=== PATIENT | female | born 1945 | race Caucasian/White ===

== ENCOUNTER 2024-06-24 15:52 | Inpatient (IN) ==
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
--- NOTE | 2024-06-24 16:40 | CT Scan Report ---
CT OF THE HEAD WITHOUT CONTRAST CLINICAL HISTORY: Altered mental status. COMPARISON STUDY: No previous studies for comparison. CT DOSE: 547.75 mGy.cm TECHNIQUE: Helical axial images of the head were obtained without IV contrast. Automated exposure con trol was utilized for the study. A dose lowering technique was utilized adhering to the principles o f ALARA. FINDINGS: No acute intracranial hemorrhage, midline shift or mass effect is present. White matter hyp odensity suggests small vessel disease. The ventricular system is unremarkable. The basal cisterns ar e patent. No extra-axial collections are present. There are no findings to suggest acute dural sinus thrombosis or acute territorial infarct. No significant calvarial abnormalities are present. Visualiz ed portions of the sinuses and mastoid air cells are clear. IMPRESSION: No acute intracranial findings. ACT 112: Negative or not required by law. Electronically signed by: Sebastian Dolan M.D. 06/24/2024 4:39 PM
[2024-06-24 17:07] LABS: Alanine Aminotransferase 4 U/L (7-52); Albumin Globulin Ratio 1.3 (0.9-2); Albumin Level 3.5 gm/dl (3.4-5.0); Alkaline Phosphatase 56 U/L (34-104); Anion Gap 9 (3-11); BUN Creatinine Ratio 31.1 (10-20); Bilirubin,Total 0.3 mg/dl (0.2-1.0); Blood Urea Nitrogen 23 mg/dl (6-23); Calcium 8.9 mg/dl (8.6-10.3); Carbon Dioxide 24 mmol/L (21-32); Chloride 105 mmol/L (98-107); Creatinine Clr Calc Pharmacy 56.4 ml/min; Est GFR (African American) 89.9 ml/min; Est GFR (Non-African American) 77.6 ml/min; Globulin 2.7 gm/dl (2.5-4.0); Glucose 190 mg/dl (70-99(Fasting)); Magnesium 1.6 mg/dl (1.7-2.4); Sodium 138 mmol/L (136-145); Thyroid Stimulating Hormone 3.056 uIu/ml (0.300-4.500); Total Protein 6.2 gm/dl (6.0-8.3); Troponin I High Sensitivity 15.5 pg/ml (0-14)
[2024-06-24 17:08] LABS: Acetaminophen < 3 ug/ml (10-30); Salicylate < 3.0 mg/dl (3.0-30); Valproic Acid 12 mcg/ml (50-100)
--- NOTE | 2024-06-24 17:20 | XRay Report ---
SINGLE VIEW CHEST CLINICAL HISTORY: Change in mental status. FINDINGS: An AP, portable, semierect chest radiograph is obtained. No prior studies are available for comparison at the time of dictation. The examination is degraded by portable technique and apical lo rdotic positioning. The heart is enlarged noting atherosclerotic calcification of the thoracic aorta. The pulmonary vasculature is noncongested. Nonspecific interstitial thickening is likely chronic. Th ere is mild elevation of the right hemidiaphragm. Scarring/atelectasis is noted at the lung bases. No airspace consolidation or large pleural effusion is identified. No pneumothorax is seen. The skeleta l structures are osteopenic. The bony thorax is grossly intact. Arthritic change is seen in the shoul ders and spine. IMPRESSION: Cardiomegaly with no active disease in the chest. ACT 112: Negative or not required by law. Electronically signed by: Velasquez Reis M.D. 06/24/2024 5:17 PM
[2024-06-24 17:39] LABS: Basophils # (auto) 0.01 K/uL (0.00-0.20); Basophils % (auto) 0.2 %; Eosinophils # (auto) 0.04 K/uL (0.00-0.50); Hematocrit (blood only) 36.1 % (37.0-47.0); Hemoglobin 11.8 g/dl (12.0-16.0); Immature Granulocytes # (auto) 0.01 K/uL (0.01-0.20); Immature Granulocytes % (auto) 0.2 %; Lymphocytes # (auto) 1.34 K/uL (1.20-3.40); Lymphocytes % (auto) 31.9 %; Mean Corpuscular Hemoglobin 29.2 pg (25.0-34.0); Mean Corpuscular Hgb Conc 32.7 g/dL (32.0-36.0); Mean Corpuscular Volume 89.4 fL (80.0-100.0); Mean Platelet Volume 10.3 fL (9.4-12.4); Monocytes # (auto) 0.37 K/uL (0.11-0.59); Monocytes % (auto) 8.8 %; Neutrophils # (auto) 2.43 K/uL (1.40-6.50); Neutrophils % (auto) 57.9 %; Platelet Count 167 K/uL (130-400); RDW Coefficient of Variation 13.3 % (11.5-14.5); RDW Standard Deviation 43.5 fL (36.4-46.3); Red Blood Count 4.04 M/uL (4.20-5.40)
[2024-06-24 17:55] LABS: Potassium 3.9 mmol/L (3.5-5.1)
[2024-06-24 18:24] LABS: Appearance Urine Clear (Clear); Bacteria Urine Automated 2+ (None Seen); Bilirubin Urine Negative (Negative); Blood Urine Negative (Negative); Cast Urine Automated 0-2 /lpf (0-2); Color Urine Yellow; Glucose Urine UA Negative (Negative); Ketones Urine Negative (Negative); Leukocyte Esterase Urine 2+ (Negative); Nitrite Urine Negative (Negative); Protein Urine Negative (Negative); RBC Urine Automated 0-2 /hpf (0-2); Urobilinogen Urine Negative (Negative); WBC Urine Automated 21-50 /hpf (0-5); pH Urine 7.5 (4.5-7.5)
[2024-06-24 18:55] LABS: Amphetamines+Metham, Urine Neg (Neg); Barbiturates, Urine Neg (Neg); Benzodiazepine, Urine Neg (Neg); Cocaine, Urine Neg (Neg); Fentanyl, Urine Neg (Neg); MDMA (Ecstacy), Urine Neg (Neg); Marijuana, Urine Neg (Neg); Methadone, Urine Neg (Neg); Opiate, Urine Neg (Neg); Phencyclidine, Urine Neg (Neg)
[2024-06-24] MEDS: cefTRIAXone SODIUM 2,000 MG/50 ML BAG IV STA (19:12)
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
[2024-06-24] MEDS ORDERED: cefTRIAXone SODIUM 350 MG/ML IM IM ONE (19:20)
[2024-06-24] MEDS: CEFDINIR 300 MG CAP PO STA (20:22)
[2024-06-24] MEDS: MAGNESIUM SULFATE / D5W 1 GM/100 ML BAG IV SCH (20:25)
[2024-06-24] MEDS ORDERED: Patient's ALLERGY Info needs ENTERED SCH (20:30)
[2024-06-24] MEDS: LORazepam 2 MG/1 ML VIAL IM STA (20:44)
[2024-06-24] MEDS ORDERED: ONDANSETRON INJ 2 MG/ML 2 ML VIAL IV PRN (22:28)
[2024-06-24] MEDS ORDERED: MELATONIN 3 MG TAB PO PRN (22:28)
[2024-06-25] MEDS: LORazepam 2 MG/1 ML VIAL IM STA (00:52)
[2024-06-25] MEDS: VALPROATE SOD 125 MG in DEXTROSE 5% 50 ML IV SCH (01:06)
[2024-06-25] MEDS: ENOXAPARIN 80 MG/0.8 ML SYR SQ SCH (01:10)
[2024-06-25] MEDS: CHECK CLONIDINE PATCH PLACEMENT SCH (02:23)
--- NOTE | 2024-06-25 02:51 | Billing Data ---
Date of Service June 25, 2024 Coding Level of Care Code 06453 INT INP/OBS CARE
[2024-06-25] MEDS: cefTRIAXone SODIUM 2,000 MG/50 ML BAG IV SCH (08:52)
[2024-06-25 10:21] LABS: Hematocrit (blood only) 35.9 % (37.0-47.0); Hemoglobin 11.7 g/dl (12.0-16.0); Mean Corpuscular Hemoglobin 29.4 pg (25.0-34.0); Mean Corpuscular Hgb Conc 32.6 g/dL (32.0-36.0); Mean Corpuscular Volume 90.2 fL (80.0-100.0); Platelet Count 165 K/uL (130-400); RDW Coefficient of Variation 13.3 % (11.5-14.5); RDW Standard Deviation 44.1 fL (36.4-46.3); Red Blood Count 3.98 M/uL (4.20-5.40); White Blood Count 3.84 K/ul (4.8-10.8)
[2024-06-25 10:35] LABS: Calcium 8.4 mg/dl (8.6-10.3); Creatinine Clr Calc Pharmacy 44.9 ml/min; Est GFR (African American) 68.2 ml/min; Est GFR (Non-African American) 58.9 ml/min; Potassium 4.3 mmol/L (3.5-5.1)
[2024-06-25 10:44] LABS: Partial Thromboplastin Ratio 0.9; Partial Thromboplastin Time 25 Seconds (21-31)
--- NOTE | 2024-06-25 12:08 | Hospitalist Progress Note ---
Date of Service June 25, 2024 Assessment & Plan (1) Acute UTI (urinary tract infection): Plan: Acutely infected appearing UA but does have epithelial cells noted - Urine culture ordered/pending - Started empirically on Ceftriaxone 2g IV daily - Will follow culture data and tailor accordingly (2) Delirium: Plan: Patient with history of schizophrenia and seizures. Depakote level low. Reportedly on aripiprazole IM unclear when last dose was. TSH normal. Ammonia pending. - 1:1 ordered, if needed mitts to avoid removal of medical devices could be ordered - Convert Depakote to IV due to refusal of medications, will change back to oral to start on 06/26 - Psych consulted. Appreciate assistance. - Given IM Ativan in ED to help facilitate appropriate care (3) Hypomagnesemia: Plan: Acute - Received 2g IV Mag sulfate to replace - Repeat level in AM (4) Schizophrenia: Plan: See above (5) COVID-19: Plan: Covid precautions. No respiratory symptoms. No indication for intervention at this time. (6) Elevated troponin: Plan: Elevated at 15.5 on admission. Repeat unchanged at 15.1. No CP. Will monitor on tele. - Suspect myocardial demand ischemia (7) Murmur: Plan: No prior workup available. - ECHO ordered. Can consider cardiology consult if indicated. (8) VTE (venous thromboembolism): Plan: Reportedly with VTE. LLE swollen and tender. On Eliquis outpatient. Refusing PO medications. Transitioned to SQ Lovenox for treatment of VTE. - Will transition back to Eliquis to start 06/25 PM dose and d/c Lovenox Plan Code status: full, did not discuss with surrogate and patient without capacity DVT ppx: Eliquis FENGI: regular, safe tray Dispo: tele unit BP accelerated, add Lisinopril 10mg daily. Follow renal function and BPs readings q shift. Check AM labs. Admission and Anticipated Discharge Date Admission Date: June 24, 2024 Supervising Physician Co-Signing Physician Notes Attending Attestation - Chart reviewed, care plan d/w CLARICE Hodges. I agree w/ the trevizo components of her documentation. Appreciate psych consultation. Treat UTI. COVID precautions. Agree with Rx of HTN. Consider MRI Brain if confusion, etc persists. Miquel Wilhelm MD Ho Souza is a 78 yo F who was admitted yesterday due to increased confusion/AMS with diagnosis of UTI + COVID (asymptomatic). She was originally refusing to take medications and was agitated, pulled out her IV. She has since calmed down and is more cooperative. She remains confused. She endorses some pain in her left leg. No chest pain or dyspnea. No cough. She is afebrile. She now has established IV access. Review of Systems 2 Review of Systems: All systems reviewed and are unremarkable except as noted in HPI and below. Denies fever, chills, fatigue, headache, nasal congestion, sore throat, cough, chest pain, shortness of breath, palpitations, orthopnea, PND, abdominal pain, n/v/d, constipation, dysuria, hematuria, frequency, back pain, joint pain or swelling, easy bruising or bleeding, skin lesions or rashes. Physical Exam 2 Physical Exam: GENERAL: 78 yo Well-developed, well-nourished F. Awake, alert but confused. NAD. LUNGS: Clear to auscultation bilaterally. No W/R/R. CARDIOVASCULAR: Regular rate and rhythm. +murmur ABDOMEN: Soft, non-tender and non-distended. BS normoactive x 4 quad. EXTREMITIES: No edema. +tenderness LLE. Peripheral pulses +2/4. SKIN: Warm, dry, intact. No rashes or lesions. Results & Data Results & Data Vital Signs (Past 12 Hours) Vital Signs Pulse Pulse Resp BP BP Pulse Ox O2 Del Method 06/25/24 08:53 61 18 165/73 H 95 Room Air 06/25/24 05:00 54 L 17 163/62 H 95 Room Air 06/25/24 04:00 54 L 20 130/62 95 Room Air 06/25/24 04:00 53 L 20 130/62 95 Room Air 06/25/24 03:00 54 L 20 143/57 H 94 Room Air 06/25/24 02:00 61 18 139/60 06/25/24 00:00 76 19 194/65 H Laboratory Results 06/25/24 09:57 06/25/24 09:57 PG Care Time/CCT Total # of Minutes Spent Total Time Spent with Patient: Total time spent is greater than 50% in coordination of care (as documented) at patient's floor/unit and/or counseling patient: 35 Coding Level of Care Code 96183 SUB INP/OBS CARE MIN Diagnoses Acute UTI (urinary tract infection) N39.0 Delirium R41.0 Hypomagnesemia E83.42 Schizophrenia F20.9 Schizophrenia type: unspecified COVID-19 U07.1 Elevated troponin R79.89 Murmur R01.1 VTE (venous thromboembolism) I82.90 (4) Schizophrenia Schizophrenia type: unspecified Qualified Code(s): F20.9 - Schizophrenia, unspecified
[2024-06-25] MEDS: lisinopril 10 MG TAB PO SCH (14:04)
[2024-06-25] MEDS: risperiDONE 1 MG TABLET PO SCH (14:37)
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
--- NOTE | 2024-06-25 16:47 | XCELERA ---
[id number]
[2024-06-25] MEDS: DIVALPROEX DELAY RELEASE 250 MG TABEC PO SCH (20:20)
[2024-06-25] MEDS: risperiDONE 2 MG TABLET PO SCH (20:20)
[2024-06-25] MEDS: APIXABAN 5 MG TABLET PO SCH (20:20)
[2024-06-25] MEDS ORDERED: cefTRIAXone SODIUM 2,000 MG/50 ML BAG IV SCH (20:30)
[2024-06-25] MEDS: ACETAMINOPHEN 325 MG TAB PO PRN (22:45)
--- NOTE | 2024-06-25 22:59 | Electrocardiogram Report ---
Test Reason : Blood Pressure : */* mmHG Vent. Rate : 66 BPM Atrial Rate : 66 BPM P-R Int : 194 ms QRS Dur : 144 ms QT Int : 460 ms P-R-T Axes : 60 -57 57 degrees QTcB Int : 482 ms Normal sinus rhythm Right bundle branch block Left anterior fascicular block Bifascicular block Minimal voltage criteria for LVH, may be normal variant ( R in aVL ) Septal infarct , age undetermined Abnormal ECG No previous ECGs available Confirmed by Magdaleno Ribeiro ([id number]) on 06/25/2024 10:59:24 PM Referred By: REFERRED SELF Confirmed By: Magdaleno Ribeiro
[2024-06-26] MEDS: LEVOTHYROXINE SODIUM 112 MCG TABLET PO SCH (08:29)
[2024-06-26] MEDS ORDERED: lisinopril 10 MG TAB PO SCH (09:00)
[2024-06-26] MEDS ORDERED: DIVALPROEX DELAY RELEASE 250 MG TABEC PO SCH (09:00)
[2024-06-26 10:24] LABS: BUN Creatinine Ratio 31.3 (10-20); Calcium 9.1 mg/dl (8.6-10.3); Creatinine Clr Calc Pharmacy 50.3 ml/min; Est GFR (African American) 78.3 ml/min; Est GFR (Non-African American) 67.5 ml/min; Magnesium 1.8 mg/dl (1.7-2.4); Potassium 4.2 mmol/L (3.5-5.1)
--- NOTE | 2024-06-26 11:46 | Hospitalist Progress Note ---
Date of Service June 26, 2024 Assessment & Plan (1) Acute UTI (urinary tract infection): Plan: Acutely infected appearing UA but does have epithelial cells noted - Urine culture with pansensitive E. coli - Started empirically on Ceftriaxone 2g IV daily, d/c as has lost IV access, transition to PO Cefdinir, complete 3 day course for uncomplicated (2) Delirium: Plan: Patient with history of schizophrenia and seizures. Depakote level low. Reportedly on aripiprazole IM unclear when last dose was. TSH normal. Ammonia pending. - 1:1 ordered but has since been discontinued due to remaining calm and cooperative - Converted Depakote to IV due to refusal of medications, but changed back to oral on 06/26 - Psych consulted. Appreciate assistance. - Recommended starting Risperdal 1mg in AM and 2mg qHS - IM Zyprexa 2.5mg BID prn agitation added - Will likely need inpatient geripsych once medical issues resolved (3) Hypomagnesemia: Plan: Acute - Received 2g IV Mag sulfate to replace - repeat level WNL at 1.8 this AM (4) Schizophrenia: Plan: See above (5) COVID-19: Plan: Covid precautions. No respiratory symptoms. No indication for intervention at this time. (6) Essential hypertension: Plan: Uncertain of history, but suspect this is a chronic issue - BP accelerated/uncontrolled - Started Lisinopril 10mg daily 06/25 and still uncontrolled today, increase to 20mg daily and follow Plan Other issues: Elevated troponin - Likely represents myocardial demand - Trended, 15.5 on admission and repeat 15.1 - No further trends needed, no WMA on echo Murmur - No prior workup available. - ECHO ordered and reviewed, preserved ef with moderate noted VTE - Continue Eliquis Code status: full, did not discuss with surrogate and patient without capacity DVT ppx: Heidy CASTELANI: regular, safe tray Dispo: tele unit Admission and Anticipated Discharge Date Admission Date: June 24, 2024 Supervising Physician Co-Signing Physician Notes Attending Attestation - Chart reviewed, care plan d/w CLARICE Hodges. I agree w/ the trevizo components of her documentation. Miquel Teague Libby was seen on daily rounds this morning. She was hospitalized with increased confusion/AMS with diagnosis of UTI + COVID (asymptomatic). She was seen by psych services yesterday and Risperdal was recommended given her longstanding history of schizophrenia and transfer to [facility] mental [facility] once acute medical issues have resolved. She was started on lisinopril yesterday due to uncontrolled HTN and this AM BP 204/64. Her only complaint on rounds was left knee pain. Denies chest pain or dyspnea. Review of Systems 2 Review of Systems: All systems reviewed and are unremarkable except as noted in HPI and below. Denies fever, chills, fatigue, headache, nasal congestion, sore throat, cough, chest pain, shortness of breath, palpitations, orthopnea, PND, abdominal pain, n/v/d, constipation, dysuria, hematuria, frequency, back pain, easy bruising or bleeding, skin lesions or rashes. Physical Exam 2 Physical Exam: GENERAL: 78 yo Well-developed, well-nourished F. Awake, alert but confused. NAD. LUNGS: Clear to auscultation bilaterally. No W/R/R. CARDIOVASCULAR: Regular rate and rhythm. +murmur ABDOMEN: Soft, non-tender and non-distended. BS normoactive x 4 quad. EXTREMITIES: LLE larger than RLE. +tenderness LLE. Peripheral pulses +2/4. SKIN: Warm, dry, intact. No rashes or lesions. Results & Data Results & Data Vital Signs (Past 12 Hours) Vital Signs Temp Pulse Pulse Resp BP Pulse Ox O2 Del Method 06/26/24 09:27 36.4 C L 52 L 18 204/64 H 91 Room Air 06/26/24 08:50 56 L 14 100 Room Air 06/26/24 08:06 42 L 20 153/64 H 98 Room Air 06/26/24 07:08 40 L 06/26/24 06:25 41 L 16 145/60 H 94 Room Air 06/26/24 05:06 48 L 18 138/67 95 Room Air 06/26/24 03:06 46 L 20 180/71 H 100 Room Air 06/26/24 00:15 50 L 19 173/98 H 99 Room Air Laboratory Results 06/25/24 09:57 06/26/24 09:48 PG Care Time/CCT Total # of Minutes Spent Total Time Spent with Patient: Total time spent is greater than 50% in coordination of care (as documented) at patient's floor/unit and/or counseling patient: 36 minutes Coding Level of Care Code 59605 SUB INP/OBS CARE 2/35MIN Diagnoses Acute UTI (urinary tract infection) N39.0 Delirium R41.0 Hypomagnesemia E83.42 Schizophrenia F20.9 Schizophrenia type: unspecified COVID-19 U07.1 Essential hypertension I10 (4) Schizophrenia Schizophrenia type: unspecified Qualified Code(s): F20.9 - Schizophrenia, unspecified
[2024-06-26] MEDS: lisinopril 10 MG TAB PO ONE (13:47)
[2024-06-26] MEDS: CEFDINIR 300 MG CAP PO SCH (13:47)
[2024-06-27] MEDS: hydrALAZINE HCL 20 MG/ML VIAL IV ONE
[2024-06-27 06:51] LABS: Hematocrit (blood only) 37.7 % (37.0-47.0); Hemoglobin 12.9 g/dl (12.0-16.0); Mean Corpuscular Hemoglobin 29.5 pg (25.0-34.0); Mean Corpuscular Hgb Conc 34.2 g/dL (32.0-36.0); Mean Corpuscular Volume 86.1 fL (80.0-100.0); Mean Platelet Volume 10.3 fL (9.4-12.4); Platelet Count 177 K/uL (130-400); RDW Coefficient of Variation 13.3 % (11.5-14.5); RDW Standard Deviation 41.5 fL (36.4-46.3); Red Blood Count 4.38 M/uL (4.20-5.40); White Blood Count 5.42 K/ul (4.8-10.8)
[2024-06-27 07:13] LABS: Creatinine Clr Calc Pharmacy 64.3 ml/min; Est GFR (African American) 89.9 ml/min; Est GFR (Non-African American) 77.6 ml/min
--- NOTE | 2024-06-27 10:31 | Hospitalist Progress Note ---
Date of Service June 27, 2024 Assessment & Plan (1) Acute UTI (urinary tract infection): Plan: Acutely infected appearing UA but does have epithelial cells noted - Urine culture with pansensitive E. coli - Started empirically on Ceftriaxone 2g IV daily, d/c as has lost IV access, transition to PO Cefdinir, complete 5 day course for uncomplicated UTI (2) Delirium: Plan: Patient with history of schizophrenia and seizures. Depakote level low. Reportedly on aripiprazole IM unclear when last dose was. TSH normal. Ammonia pending. - 1:1 ordered but has since been discontinued due to remaining calm and cooperative - Converted Depakote to IV due to refusal of medications, but changed back to oral on 06/26 - Psych consulted. Appreciate assistance. - Recommended starting Risperdal 1mg in AM and 2mg qHS - IM Zyprexa 2.5mg BID prn agitation added - check Depakote level after 4-5 days of PO dosing (ordered for AM 10) - Will likely need inpatient geripsych once medical issues resolved (3) Hypomagnesemia: Plan: Acute - Received 2g IV Mag sulfate to replace - repeat level WNL at 1.8 this AM (4) Schizophrenia: Plan: See above (5) COVID-19: Plan: Covid precautions. No respiratory symptoms. No indication for intervention at this time. (6) Essential hypertension: Plan: Uncertain of history, but suspect this is a chronic issue - BP accelerated/uncontrolled - Started Lisinopril 10mg daily 06/25 and still uncontrolled 06/26, increase to 20mg daily and follow BPs improving but still elevated, defer further titration today Of note, pt does have clonidine patch listed on med list, unclear if she has been using this. No patch found on patient per nursing. However, no other signs of clonidine withdrawal at this time. Will attempt to control BP with other agents Plan Other issues: Elevated troponin - Likely represents myocardial demand - Trended, 15.5 on admission and repeat 15.1 - No further trends needed, no WMA on echo Murmur - No prior workup available. - ECHO:, preserved ef with moderate noted VTE - Continue Eliquis Code status: full, did not discuss with surrogate and patient without capacity DVT ppx: Heidy PARKER: regular, safe tray Dispo: continued inpatient stay, downgrade to medical Admission and Anticipated Discharge Date Admission Date: June 24, 2024 Supervising Physician Co-Signing Physician Notes Attending Attestation - Chart reviewed, care plan d/w CLARICE Warner. I agree w/ the trevizo components of her documentation. Miquel Wilhelm MD Subjective Libby seen sitting up in bed, about to eat breakfast. No family present at bedside. States that she will eat breakfast after she feeds her baby no breahting issues Tele - SR 70-80s Review of Systems Review of Systems: All systems reviewed & are unremarkable except as noted in Subjective Physical Exam Physical Exam: General: NAD, VS as above Resp: normal respiratory effort, lungs clear to auscultation CV: RRR, + murmur, Abd: soft, non tender, no hepatosplenomegaly Extremities: Moves all extremities, no edema Neuro: A&O x1, Results & Data Results & Data Vital Signs (Past 12 Hours) Vital Signs Temp Pulse Pulse Pulse Resp BP Pulse Ox 06/27/24 07:36 64 06/27/24 07:33 97.0 F L 66 16 183/71 H 91 06/27/24 00:42 95 H 144/66 H 06/26/24 23:15 97.3 F L 69 16 191/91 H 95 O2 Del Method 06/27/24 07:36 06/27/24 07:33 Room Air 06/27/24 00:42 06/26/24 23:15 Room Air Laboratory Results CBC and chemistry reviewed PG Care Time/CCT Total # of Minutes Spent Total Time Spent with Patient: Total time spent is greater than 50% in coordination of care (as documented) at patient's floor/unit and/or counseling patient: Coding Level of Care Code 65604 SUB INP/OBS CARE 3/50MIN Diagnoses Acute UTI (urinary tract infection) N39.0 Delirium R41.0 Hypomagnesemia E83.42 Schizophrenia F20.9 Schizophrenia type: unspecified COVID-19 U07.1 Essential hypertension I10 (4) Schizophrenia Schizophrenia type: unspecified Qualified Code(s): F20.9 - Schizophrenia, unspecified
[2024-06-27] MEDS: lisinopril 20 MG TAB PO SCH (11:23)
--- NOTE | 2024-06-28 13:24 | Hospitalist Progress Note ---
Date of Service June 28, 2024 Assessment & Plan (1) Acute UTI (urinary tract infection): Plan: Metabolic encephalopathy in setting of acute UTI - Urine culture with pansensitive E. coli - Continue PO Cefdinir, complete 5 day course for uncomplicated UTI -- last dose 07/01/24 (2) Delirium: Plan: Patient with history of schizophrenia and seizures. Depakote level low. Re portedly on aripiprazole IM unclear when last dose was. TSH normal. Ammonia low at 10.0 - Remaining calm and cooperative so 1:1 observation was discontinued - Continue Depakote - Psych consulted. Appreciate assistance. - Continue Risperdal 1mg in AM and 2mg qHS - IM Zyprexa 2.5mg BID prn agitation added - check Depakote level after 4-5 days of PO dosing (ordered for AM 06/30) - Will likely need inpatient geripsych once medical issues resolved (3) Hypomagnesemia: Plan: Acute - Received 2g IV Mag sulfate to replace, augmented appropriately (4) Schizophrenia: Plan: See above (5) COVID-19: Plan: Covid precautions. No respiratory symptoms. No indication for intervention at this time. (6) Essential hypertension: Plan: Uncertain of history, but suspect this is a chronic issue - BP accelerated/uncontrolled - Started Lisinopril 10mg daily 06/25 and still uncontrolled 06/26, increase to 20mg daily and follow BPs improving, defer further titration and will continue to monitor Of note, pt does have clonidine patch listed on med list, unclear if she has been using this. No patch found on patient per nursing. However, no other signs of clonidine withdrawal at this time. Will attempt to control BP with other agents Plan Other issues: Elevated troponin - Likely represents myocardial demand - Trended, 15.5 on admission and repeat 15.1 - No further trends needed, no WMA on echo Murmur - No prior workup available. - ECHO:, preserved ef with moderate noted VTE - Continue Eliquis Code status: full, did not discuss with surrogate and patient without capacity DVT ppx: Heidy PARKER: regular, safe tray Dispo: continued inpatient stay, downgrade to medical Admission and Anticipated Discharge Date Admission Date: June 24, 2024 Supervising Physician Co-Signing Physician Notes Attending Attestation - Chart reviewed, care plan d/w CLARICE Carpio. I agree w/ the trevizo components of her documentation. Miquel Wilhelm MD Subjective Patient seen and evaluated at bedside while eating lunch. She was her food on her tray and stated that "this food is from a baby." She denies any acute complaints at this time, specifically denying shortness of breath/difficulty breathing or urinary symptoms. She is continuously asking for her baby. Blood pressures have been better controlled today. Physical Exam Physical Exam: General: No acute distress, nondiaphoretic, well-developed, well-nourished. Skin: The skin was without rashes, erythema, edema, or bruising. Cardiac: Regular rate and rhythm. Systolic murmur noted. Pulm: Clear to auscultation bilaterally without wheezes, rales or rhonchi. No respiratory distress. 95% on room air. Abdominal: Soft, nontender, nondistended. Bowel sounds present. Neuro: A&O x1. No focal neurological deficits. Psych: Delusions present (continues to ask for her baby which she believes she just delivered prior to admission), restless, easily distracted, impaired judgment. Wearing 5 patches on left wrist. Results & Data Results & Data Vital Signs (Past 12 Hours) Vital Signs Temp Pulse Pulse Resp BP Pulse Ox O2 Del Method 06/28/24 11:00 Room Air 06/28/24 08:51 98.1 F 76 18 148/54 H 95 Room Air 06/28/24 08:25 97.5 F L 77 18 170/78 H 97 Room Air Laboratory Results Reviewed I's and O's PG Care Time/CCT Total # of Minutes Spent Total Time Spent with Patient: Total time spent is greater than 50% in coordination of care (as documented) at patient's floor/unit and/or counseling patient: Coding Level of Care Code 16435 SUB INP/OBS CARE 2/35MIN Diagnoses Acute UTI (urinary tract infection) N39.0 Delirium R41.0 Hypomagnesemia E83.42 Schizophrenia F20.9 Schizophrenia type: unspecified COVID-19 U07.1 Essential hypertension I10 (4) Schizophrenia Schizophrenia type: unspecified Qualified Code(s): F20.9 - Schizophrenia, unspecified
[2024-06-29 08:37] LABS: BUN Creatinine Ratio 32.2 (10-20); Calcium 9.2 mg/dl (8.6-10.3); Creatinine Clr Calc Pharmacy 53.6 ml/min; Est GFR (Non-African American) 63.8 ml/min; Magnesium 1.8 mg/dl (1.7-2.4); Potassium 4.4 mmol/L (3.5-5.1)
[2024-06-29 08:55] LABS: T4 Free Thyroxine 1.31 ng/dl (0.61-1.60)
--- NOTE | 2024-06-29 08:58 | Hospitalist Progress Note ---
Date of Service June 29, 2024 Assessment & Plan (1) Acute UTI (urinary tract infection): Plan: Metabolic encephalopathy in setting of acute UTI, COVID-19 infection. Depakote level also noted to be low/resumed and repeat level for tomorrow morning 06/[address] UA + on admission with 2+ leuk esterase, 21-50 WBC, 2+ bacteria. Urine cx w/ Ecoli, pansensitive Continue Cefdinir PO - 5 day course planned, EOT 07/01 Depakote level checked and LOW @ 12. 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 Appears was on abilify in the past/monthly injections but difficulty getting psych in the area since the move --> continues on Depakote BID, risperdal 1mg QAM, 2mg HS. -->Zyprexa IM available as needed (HAS NOT NEEDED) IMPROVING -ALERT/ORIENTED to person/place/year, not month. Intermittent delusions w/ baby being delivered. --> did have oldest son in December this year from drugs and ?related. ?depression leading to decreased PO intake and subsequent UTI. Per Baron, has had issues with UTIs int he past but good fluid intake until the past couple of months likely contributing to UTI Also noted to be on Eliquis. Swelling to her LLE suspected DVT but per discussion is NOT ACUTE TREATMENT Was given Lovenox SQ on admission given not taking PO and resumed eliquis as below WILL CHECK VENOUS DOPPLER, if positive will need increased eliquis dosing 10mg BID then decrease back as reporting Libby to be on LIFELONG eliquis per prior provider. ?if developed given not taking her medications at home Also has aortic stenosis, ECHO reporting mild-moderate but decent murmur on exam. Was started on lisinopril for BP control but will check BNP in AM and may be better served with low dose lasix. Will place consults for PT/OT, noting patient w/ bilateral OA of knees at baseline to ensure no needs/additioanl support prior to dc. Psych to follow up eval as becoming clearer from UTI/COVID perspective -- will alert of findings w/ son passing/baby and suspected depression contributing to current picture. Appreciate assistance. ?inpatient geripsych. CM notified to get working on new PCP in the area as well as look into services given poor support at home. Baron reports only knowing number for son/daughter and hospital but granddaughter does work here in the kitchen (2) Delirium: Plan: Patient with history of schizophrenia and seizures. Admitted with recently moving from [place] to [place] for help from family after son passing away earlier this year Suspect combination of NOT TAKING MEDICATIONS in patient w/ schizophrenia and seizures with low depakote level and now with +COVID and UTI Depakote PO BID continued, level LOW and repeat level for AM 10. No evidence for seizure on exam TSH wnl Ammonia NOT elevated Appears on Abilify in the past but difficult getting new provider in the area. Will see if able to assist with such Psych consulted - to see in f/u as above For now, remains on Risperdal 1mg QAM, 2mg HS. IM zyprexa available if needed (has not needed) 1:1 discontinued, remains calm/cooperative Tx UTI as outlined above with Cefdinir Tx COVID supportive care. Is on ROOM AIR, CXR negative for pneumonia (notes cardiomegaly) Incentive spirometry ordered, to be encouraged ?inpatient psych once medical issues resolved vs home w/ support vs SNF/rehab. PT/OT consults placed (3) Hypomagnesemia: Plan: Low at 1.6 on admission, 2gm IV ordered and repeat remaining stable. Monitor (4) Schizophrenia: Plan: See above, mood appears improved/stable (5) COVID-19: Plan: Covid precautions. Denies SOB, on room air No indication for intervention at this time Added incentive spirometry Monitor (6) Essential hypertension: Plan: Chronic BP elevated, ?related to not having her home medications Clonidine patch on med list but not on her, likely out of meds for some time and will avoid resuming (for now) Lisinopril 10mg started 06/25, increased to 20mg and improvement. BP 151/72 and will monitor ?low dose lasix for aortic stenosis but cautious if not having good PO intake (7) VTE (venous thromboembolism): Plan: Reportedly with VTE. LLE swollen and tender. On Eliquis outpatient and was refusing PO medications on admission and placed on Lovenox SQ during that time Eliquis resumed 9/27 PM Venous doppler for LLE ordered to ensure not acute DVT. ?recurred once skipped her Eliquis had not been taking her medications --> If positive given life long blood thinner to be on per , may need to increase to 10mg BID for short term then back to 5mg BID (8) Aortic stenosis: Plan: systolic murmur on exam, no echo in system but per known aortic stenosis in the past ECHO w/ mild- moderate aortic stenosis, EF preserved Trace -1+ LE edema Monitor volume status, will check BNP w/ AM labs (none prior for comparison) Plan Other issues: Elevated troponin suspected 2nd to myocardial demand ischemia from infection. Peaked at 15.1. No CP reported. ECHO without wma noted Code status: full code DVT proph: Eliquis continued 5mg BID (unless doppler positive) Admission and Anticipated Discharge Date Admission Date: June 24, 2024 Supervising Physician Co-Signing Physician Notes The patient was not seen by me. The chart was reviewed. Case discussed with CLARICE Mcmahon. Agree with assessment and plan Subjective Evaluated this afternoon, sitting up in bed finishing her lunch. Denies pain, reports feeling better than yesterday. Reports year 2023, knows in hospital, initially thought the month was May but reassured her just getting into June. Believes she was on a shot once am on the in the office. Also discussed swelling in her legs, on Eliquis for DVT but also possible takes water pills. Psych to follow up eval as becoming clearer from UTI/COVID perspective. Denies SOB/no cough, 97% on RA. Does appear with significant murmur on exam. Call to Baron for update/discussion. He reports patient has been on blood thinners for long time and told she would "be on them the rest of her life". Known tight murmur. Reports she has baseline bone on bone arthritis of her knees. He reports they have/had three children --Pedro, Kassy and Phillip. However, their oldest son earlier this year in December at age 56 from drug problem and he helped when he could but that Baron/Libby moved to [place] for additional help from family and hasn't felt like much support.Reports he is at home and only knows son and daughter number and nothing else. He does report she gets frequent UTIs despite drinking 5-6 glasses of water a day but recently she has had decreased fluid intake. Discussed suspect depression could have/be contributing to decline. Will see what services CM able to offer/assist with and that Psych to eval once clearer. Physical Exam 2 Physical Exam: General: 78 yo female sitting up in bed, just finished lunch, NAD, reporting feeling better than yesterday Psych: alert to person/place, knows in hospital, year 2023. month initially reported as May HEENT: head atraumatic, normocephalic, mm moist/slightly dry, trachea midline Resp: even/unlabored, slightly diminished in the bases w associated crackles but no wheezing, on room air 97% CV: RRR, HARSH systolic murmur best appreciated RUSB, b/l LE edema, 1+ pitting (LLE>RLE edema) GI: +BS, soft, slight distension but nontender : no temple MSK/Neuro: no slurred speech/facial droop, answering questions appropriately, intermitted delusions about baby being delivered for nursing (not reported to myself), anxious at times Results & Data Results & Data Vital Signs (Past 12 Hours) Vital Signs Temp Pulse Resp BP BP Pulse Ox O2 Del Method 06/29/24 07:19 36.2 C L 61 16 182/80 H 97 Room Air 06/28/24 22:23 36.6 C 66 18 179/73 H 94 Room Air Laboratory Results 06/27/24 05:59 06/29/24 08:00 Mag 1.8 B12 663 Free T4 1.31 B1 pending PG Care Time/CCT Total # of Minutes Spent Total Time Spent with Patient: Total time spent is greater than 50% in coordination of care (as documented) at patient's floor/unit and/or counseling patient: Coding Level of Care Code 28087 SUB INP/OBS CARE 3/50MIN Diagnoses Acute UTI (urinary tract infection) N39.0 Delirium R41.0 Hypomagnesemia E83.42 Schizophrenia F20.9 Schizophrenia type: unspecified COVID-19 U07.1 Essential hypertension I10 VTE (venous thromboembolism) I82.90 Aortic stenosis I35.0 (4) Schizophrenia Schizophrenia type: unspecified Qualified Code(s): F20.9 - Schizophrenia, unspecified
[2024-06-29] MEDS: FAMOTIDINE 20MG IV PUSH 20 MG/5 ML SYR IV ONE (17:08)
[2024-06-29] MEDS: OLANZapine 10 MG/2.1 ML SDV IM PRN (17:55)
[2024-06-29] MEDS: THIAMINE HCL 100 MG TAB PO SCH (22:19)
--- NOTE | 2024-06-30 01:37 | Ultrasound Report ---
Exam(s): US VENOUS LEFT LOWER EXTREMITY EXAM: US Duplex Left Lower Extremity Veins CLINICAL HISTORY: Reason for exam: r/o dvt. TECHNIQUE: Real-time duplex ultrasound scan of the left lower extremity veins integrating B-mode two-dimensional vascular structure, Doppler spectral analysis, color flow Doppler imaging and compression. COMPARISON: None. FINDINGS: Reportedly exam is limited due to patient's inability to tolerate required compression behind the knee. Deep veins: Unremarkable. No DVT in the visualized common femoral, femoral, proximal deep femoral or popliteal veins. The veins demonstrate normal color flow, are normally compressible, with normal phasic flow and/or augmentation response. Superficial veins: Unremarkable. No thrombus in the visualized great saphenous vein. Soft tissues: No acute findings. No popliteal cyst. . IMPRESSION: Limited exam. No conclusive evidence of DVT demonstrated in the left lower extremity . Electronically signed by: Angelique Cross MD, COOKIE 06/30/24 01:36 AM
[2024-06-30 07:12] LABS: Albumin Globulin Ratio 1.3 (0.9-2); Albumin Level 3.4 gm/dl (3.4-5.0); BUN Creatinine Ratio 39.6 (10-20); Bilirubin,Total 0.4 mg/dl (0.2-1.0); Calcium 9.1 mg/dl (8.6-10.3); Creatinine Clr Calc Pharmacy 48.6 ml/min; Est GFR (African American) 65.7 ml/min; Est GFR (Non-African American) 56.6 ml/min; Globulin 2.7 gm/dl (2.5-4.0); Magnesium 1.8 mg/dl (1.7-2.4); Potassium 4.5 mmol/L (3.5-5.1); Total Protein 6.1 gm/dl (6.0-8.3)
[2024-06-30 07:19] LABS: Hematocrit (blood only) 37.7 % (37.0-47.0); Hemoglobin 12.8 g/dl (12.0-16.0); Mean Corpuscular Hemoglobin 30.2 pg (25.0-34.0); Mean Corpuscular Volume 88.9 fL (80.0-100.0); Mean Platelet Volume 10.2 fL (9.4-12.4); Platelet Count 166 K/uL (130-400); RDW Coefficient of Variation 13.3 % (11.5-14.5); RDW Standard Deviation 43.6 fL (36.4-46.3); Red Blood Count 4.24 M/uL (4.20-5.40); White Blood Count 4.54 K/ul (4.8-10.8)
[2024-06-30] MEDS: FAMOTIDINE 20 MG TAB PO SCH (07:51)
--- NOTE | 2024-06-30 08:09 | Hospitalist Progress Note ---
Date of Service June 30, 2024 Assessment & Plan (1) Metabolic encephalopathy: Plan: Metabolic encephalopathy in setting of acute UTI, COVID-19 infection, medication noncompliance (depakote level low on admission at 12) UTI UA positive, Urine cx w/ pansensitive ecoli --> Cefdinir PO, EOT 07/01 for 5 day course COVID-19 + testing, isolation precautions maintained. CXR negative on admission and remains on room air 97% without SOB/hypoxia OR COUGH. NO fevers. Asymptomatic from such at this time, supportive care Schizophrenia/Paranoia/Delirium Combination not taking medications compound by no local psych care given recent move and suspect worsened with son passing away earlier this year/worsening depression ( in December this year from drugs/reason for move but haven't gotten a lot of support per Baron) Psych meds * Depakote continued 250mg PO BID - repeat depakote level today NORMAL at 50. 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 No evidence for seizure on exam but not excluded * Risperdal 1mg QAM, 2mg HS with Zyprexa 2.5mg BID prn WAS GIVEN ZYPREXA 2.5mg IM LAST EVENING 06/29 FOR AGITATION/yelling at roommate to shut up/hitting at staff and presently is alert/oriented to person/place/year, not month at times and ongoing delusions about having baby/delivery/ running around on her --> discussed with psychiatry given ongoing paranoia and will DISCONTINUE RISPERIDOL AND WILL PLAN ABILIFY 10mg QAM with 5mg prn agitation/psychosis given prior on Abilify monthly injections Psych to eval/recs appreciated, ?inpatient geripsych [facility] vs rehab vs home with outpatient services if able to arrange/not meeting criteria for inpatient HTN/Aortic stenosis/Hx DVT Uncontrolled BP on admission, suspect from not taking medications. Appears was on clonidine in the patch but no patch in place and did not resume but could consider if needed Was started on lisinopril 10mg, increased to 20mg but given elevated BUN/Cr and dehydration STOPPED FURTHER. IVF ordered for today 500cc NSS given BNP checked w/ her Aortic stenosis and LE edema but was NOT elevated at 27 and did appear dehydrated on exam Amlodipine 5mg started but cautious w/ swelling to legs and may need to consider resumption of clonidine as previously taking Monitor Venous doppler obtained last evening for LLE, NEGATIVE for DVT and can continue current dose amlodipine. Suspect LLE w/ sight from prior DVT. CK NOT elevated PT/OT consulted -- notable, patient w/ b/l OA of knees at baseline and may benefit at least from rehab (if not [facility]). Will check Lyme for completeness (2) Acute UTI (urinary tract infection): Plan: As above, completing course PO abx 07/01 (3) Delirium: Plan: Hx schizophrenia and seizures, worse w/ COVID/UTI as above and recently moved to unfamiliar environment with severe anxiety/paranoia at baseline and not taking medications recently with move/paranoias Depakote level checked, LOW and meds continued prior dosing and repeat level normal and will continue. No reported evidence for seizure prior to admission TSH wnl, ammonia NOT elevated. B12 not deficient ?prior abilify use possible and attempting to arrange outpt w/ [facility] for ongoing injections if not going inpatient at [facility] Risperidal as above, psych consult and olanzapine as needed for agitation with further recs once eval completed Not requiring 1:1 at this time but did get olanzapine overnight. Appears mood stable. did report was on seroquel in the past and could consider for owning but defer to psych given already known psych hx/meds as outlined Supportive care for COVID as above, completing abx for UTI 07/01 (4) Hypomagnesemia: Plan: Low at 1.6 on admission, 2gm IV ordered and repeat remaining stable (5) Schizophrenia: Plan: See above, mood appears improved/stable but did need meds evening 06/29. Psych to eval as above (6) COVID-19: Plan: Covid precautions. Denies SOB, on room air No indication for intervention at this time Added incentive spirometry, pepcid for GI proph w/ improvement in PO intake reported Monitor (7) Essential hypertension: Plan: Chronic -BP elevated, ?related to not having her home medications Clonidine patch on med list but not on her, likely out of meds for some time and will avoid resuming (for now) as above and CT LISINOPRIL given poor PO intake at baseline and risk for HEATHER w/ already presenting w/ UTI Could consider low dose lasix but as above BNP despite on ECHO LOW at 27 and suspect edema dependent and Venous Doppler NEGATIVE but if needing once improvement further in PO could consider low dose lasix but starting amlodipine as above and may be able to consider combination pill Monitor w/ IVF/hydration, further adjustments as needed pending repeat measurements (8) VTE (venous thromboembolism): Plan: Reportedly with VTE. LLE swollen and tender. On Eliquis outpatient and was refusing PO medications on admission and placed on Lovenox SQ during that time Eliquis resumed 06/25 PM Venous doppler for LLE ordered to ensure not acute DVT --> NEGATIVE. ?swollen from prior DVT/venous insufficiency. Remains on eliquis 5mg BID. CK wnl Does have OA both knees, will check Lyme for completeness, however reports her knees feel better today. Will monitor (9) Aortic stenosis: Plan: systolic murmur on exam, no echo in system but per known murmur in the past ECHO w/ mild- moderate aortic stenosis, EF preserved (sounds worse than that on exam). Does have some LE edema as above, venous doppler neg for acute DVT and checked BNP to eval given no prior for comparison and despite having aortic stenosis is NOT elevated at 27 and did order 500cc NSS for hydration and dc lisinopril as above Weight in system last checked yesterday at 73.7kg but was bedscale and day prior at 77kg and was also bedscale and admission weight 68kg and doubt any accurate. Preference for standing scale weight as able to obtain Added I&Os/monitor volume status Plan Other issues: Elevated troponin suspected 2nd to myocardial demand ischemia from infection. Peaked at 15.1. No CP reported. ECHO without wma noted Code status: full code DVT proph: Eliquis continued 5mg BID PT/OT consulted, CM to follow Updated Baron via phone 06/29 and will attempt to update daily as able Psych to eval today vs tomorrow hopefully. ?inpatient psych vs outpatient pending social situation/if agreeable to rehab/placement if not meeting criteria for inpatient Admission and Anticipated Discharge Date Admission Date: June 24, 2024 Supervising Physician Co-Signing Physician Notes The patient was not seen by me. The chart was reviewed. Case discussed with CLARICE Mcmahon. Agree with assessment and plan Subjective Evaluated this morning, sitting up in the chair. Did get zyprexa overnight for agitation/telling room mate to shut up from coughing/reported hit attempts at nursing. Remaining calm this morning. Denies issues with breathing/cough/shortness of breath. Discussed antibiotics for urine to be done tomorrow and will see about discharge plans. Discussed spoke with Baron and he is missing her and hoping she is doing well - she reports she "is done with him" and that he ran around on him with daughter? prior did report patient thinks hurting her with her leg/knee arthritis. Inquired if legs hurting her today and she reports they feel much better. Does have trace-1+ bilateral edema (slightly worse on the left than the right). Venous doppler negative yesterday, remains on eliquis. 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 No pleuritic pain, 97% on RA. Discussed will see about psych eval for assistance and arranging outpatient treatment for ongoing injections as prior getting. Questions/concerns addressed at this time. Physical Exam 2 Physical Exam: General: 78 yo female sitting up in bed, just finished lunch, NAD, rubbing lotion on her hands HEENT: head atraumatic, normocephalic, mm moist/slightly dry, trachea midline Resp: even/unlabored, slightly diminished in the bases w associated crackles but no wheezing, on room air 97% CV: RRR, HARSH systolic murmur best appreciated RUSB, b/l LE edema, 1+ pitting (LLE>RLE edema) GI: +BS, soft, slight distension but nontender : no temple MSK/Neuro: no slurred speech/facial droop, answering questions appropriately, intermitted delusions about having a baby/ running around on her Psych: alert to person/place, knows in hospital, year 2023. month initially reported as May but does have ongoing delusions/paranoia about family/things happening at times Results & Data Results & Data Vital Signs (Past 12 Hours) Vital Signs Temp Pulse Resp BP BP Pulse Ox O2 Del Method 06/30/24 07:28 36.7 C 77 16 172/80 H 97 Room Air 06/29/24 23:56 36.4 C L 69 18 156/76 H 96 Room Air Laboratory Results 06/30/24 06:23 06/30/24 06:23 Mag 1.8 BNP 27 Diagnostic Findings Venous Doppler Study 06/29/24 15:29 Exam(s): US VENOUS LEFT LOWER EXTREMITY EXAM: US Duplex Left Lower Extremity Veins CLINICAL HISTORY: Reason for exam: r/o dvt. TECHNIQUE: Real-time duplex ultrasound scan of the left lower extremity veins integrating B-mode two-dimensional vascular structure, Doppler spectral analysis, color flow Doppler imaging and compression. COMPARISON: None. FINDINGS: Reportedly exam is limited due to patient's inability to tolerate required compression behind the knee. Deep veins: Unremarkable. No DVT in the visualized common femoral, femoral, proximal deep femoral or popliteal veins. The veins demonstrate normal color flow, are normally compressible, with normal phasic flow and/or augmentation response. Superficial veins: Unremarkable. No thrombus in the visualized great saphenous vein. Soft tissues: No acute findings. No popliteal cyst. . IMPRESSION: Limited exam. No conclusive evidence of DVT demonstrated in the left lower extremity . Electronically signed by: Angelique Cross MD, COOKIE 06/30/24 01:36 AM PG Care Time/CCT Total # of Minutes Spent Total Time Spent with Patient: Total time spent is greater than 50% in coordination of care (as documented) at patient's floor/unit and/or counseling patient: Coding Level of Care Code 73163 SUB INP/OBS CARE 3/50MIN Diagnoses Metabolic encephalopathy G93.41 Acute UTI (urinary tract infection) N39.0 Delirium R41.0 Hypomagnesemia E83.42 Schizophrenia F20.9 Schizophrenia type: unspecified COVID-19 U07.1 Essential hypertension I10 VTE (venous thromboembolism) I82.90 Aortic stenosis I35.0 (5) Schizophrenia Schizophrenia type: unspecified Qualified Code(s): F20.9 - Schizophrenia, unspecified
[2024-06-30] MEDS ORDERED: INFLUENZA VACC TS2024-25(65y+)/PF (IIV3) 0.5mL Syr IM ONE (09:52)
[2024-06-30] MEDS: amLODIPine BESYLATE 5 MG TAB PO SCH (09:55)
[2024-06-30] MEDS: MAGNESIUM SULFATE / D5W 1 GM/100 ML BAG IV ONE (09:55)
[2024-06-30] MEDS: SODIUM CHLORIDE 0.9% 500 ML IV SCH (09:55)
[2024-06-30 16:32] LABS: Lyme Screen Rflx Confirmation Positive (Negative)
[2024-06-30 17:06] LABS: Lyme Ab IgG 2nd Tier Confirm Positive (Negative); Lyme Ab IgM 2nd Tier Confirm Positive (Negative)
[2024-06-30] MEDS: cefTRIAXone SODIUM 2,000 MG/50 ML BAG IV SCH (17:23)
[2024-07-01 06:10] LABS: Basophils # (auto) 0.02 K/uL (0.00-0.20); Basophils % (auto) 0.4 %; Eosinophils # (auto) 0.11 K/uL (0.00-0.50); Eosinophils % (auto) 2.2 %; Hematocrit (blood only) 36.5 % (37.0-47.0); Hemoglobin 12.1 g/dl (12.0-16.0); Immature Granulocytes # (auto) 0.01 K/uL (0.01-0.20); Immature Granulocytes % (auto) 0.2 %; Lymphocytes # (auto) 1.82 K/uL (1.20-3.40); Lymphocytes % (auto) 36.3 %; Mean Corpuscular Hemoglobin 29.4 pg (25.0-34.0); Mean Corpuscular Hgb Conc 33.2 g/dL (32.0-36.0); Mean Corpuscular Volume 88.6 fL (80.0-100.0); Mean Platelet Volume 10.5 fL (9.4-12.4); Monocytes # (auto) 0.48 K/uL (0.11-0.59); Monocytes % (auto) 9.6 %; Neutrophils # (auto) 2.58 K/uL (1.40-6.50); Neutrophils % (auto) 51.3 %; Platelet Count 163 K/uL (130-400); RDW Coefficient of Variation 13.2 % (11.5-14.5); RDW Standard Deviation 43.3 fL (36.4-46.3); Red Blood Count 4.12 M/uL (4.20-5.40); White Blood Count 5.02 K/ul (4.8-10.8)
[2024-07-01 06:26] LABS: BUN Creatinine Ratio 36.6 (10-20); Creatinine Clr Calc Pharmacy 46.1 ml/min; Magnesium 1.9 mg/dl (1.7-2.4); Potassium 4.4 mmol/L (3.5-5.1)
--- NOTE | 2024-07-01 07:50 | Hospitalist Progress Note ---
Date of Service July 01, 2024 Assessment & Plan (1) Metabolic encephalopathy: Plan: Metabolic encephalopathy in setting of acute UTI, COVID-19 infection, medication noncompliance (depakote level low on admission at 12) UTI UA positive, Urine cx w/ pansensitive ecoli --> Cefdinir PO, EOT 07/01 for 5 day course COVID-19 + testing, isolation precautions maintained. CXR negative on admission and remains on room air 97% without SOB/hypoxia OR COUGH. NO fevers. Asymptomatic from such at this time, supportive care ?Lyme Disease - obtained with knee pain, slight rash (no bullseye), was on CTX on admission/cefdnir for UTI and was found outside [facility] [place] from move and checked LYME testing - LYME screen POSITIVE, both IgG and IgM positive - Switched back Cefdinir to Ceftriaxone and will continue for now but plan for extended course Doxy at discharge given not appeared treated in the past. Should be covered for UTI after today's dose - Xray LEFT knee obtained given swelling/possible effusion, EFFUSION noted but no fracture. Will consult orthopedics to see about aspiration/sending for analysis? Schizophrenia/Paranoia/Delirium Combination not taking medications compound by no local psych care given recent move and suspect worsened with son passing away earlier this year/worsening depression ( in December this year from drugs/reason for move but haven't gotten a lot of support per Baron) Depakote continued 250mg PO BID - repeat depakote NORMAL at 50. WAS GIVEN ZYPREXA 2.5mg IM EVENING 10 FOR AGITATION/yelling at roommate to shut up/hitting at staff and presently is alert/oriented to person/place/year, not month at times and ongoing delusions about having baby/delivery/ running around on her --> discussed with psychiatry given ongoing paranoia and will DISCONTINUE RISPERDAL (was getting 1mg QAM, 2mg HS) AND WILL PLAN ABILIFY 10mg QAM with 5mg prn agitation/psychosis Psych consulted, contacting outpatient prior provider for more info from # from Continue Abilify 10mg QAM, did NOT need any prn overnight HTN/Aortic stenosis/Hx DVT Uncontrolled BP on admission, suspect from not taking medications. Appears was on clonidine in the patch but no patch in place and did not resume but could consider if needed Was started on lisinopril 10mg, increased to 20mg but given elevated BUN/Cr and dehydration STOPPED FURTHER and given 500cc NSS for dehydration. BNP NOT elevated at 27 with her aortic stenosis Amlodipine started, swelling not significantly worse but BP stable 156/73 and will monitor Venous doppler obtained last evening for LLE, NEGATIVE for DVT and can continue current dose amlodipine. Suspect LLE w/ sight from prior DVT?, ?related to knee arthritis CK NOT elevated. Going to check Lyme given chronic knee pain/joint discomfort -- POSITIVE as above and tx as outlined and consult for orthopedics PT/OT consults placed and recs for rehab (2) Acute UTI (urinary tract infection): Plan: As above, completing course PO abx 07/01 but continues on CTX given + lyme testing as above (3) Delirium: Plan: Hx schizophrenia and seizures, worse w/ COVID/UTI as above and recently moved to unfamiliar environment with severe anxiety/paranoia at baseline and not taking medications recently with move/paranoias Depakote level checked, LOW and meds continued prior dosing and repeat level normal and will continue. No reported evidence for seizure prior to admission TSH wnl Ammonia NOT elevated B12 not deficient Risperidol discontinued as above and switched to Abilify. Ongoing paranoia/delusions about stealing her babies but not needing any further prn dosing Not requiring 1:1 at this time Frequent orientation, maintain sleep/wake schedules Appreciate psych assistance (4) Hypomagnesemia: Plan: Low at 1.6 on admission, 2gm IV ordered and repeat remaining stable 1.9 (5) Schizophrenia: Plan: See above, mood appears improved/stable but did need meds evening 06/29 and switched back to abilify PO as above and psych consulted (6) COVID-19: Plan: Covid precautions. Denies SOB/CP Remains on room air Continue GI proph, incentive spirometry, supportive care 97% on RA (7) Essential hypertension: Plan: As above, STOPPED lisinopril as added and started amlodipine with improvement in BP and renal function and will continue Prior use clonidine could be considered if needed if having significant edema from amlodipine (8) VTE (venous thromboembolism): Plan: Reportedly with VTE. LLE swollen and tender. On Eliquis outpatient and was refusing PO medications on admission and placed on Lovenox SQ during that time and eliquis resumed 06/25 PM and continues on such Doppler obtained, NEGATIVE as above. ?swollen from prior DVT site/venous insufficiency?. CK wnl LYME positive as above, ortho consulted. Continue CTX IV and planning for Doxy at dc (9) Aortic stenosis: Plan: systolic murmur on exam, no echo in system but per known murmur in the past ECHO w/ mild- moderate aortic stenosis, EF preserved (sounds worse than that on exam). Does have some LE edema as above, venous doppler neg for acute DVT. Weight 77--> 73.6kg in system, monitor weights/output and volume status but did NOT appear volume overloaded and BNP only 27 with mild-mod and given 500cc NSS for dehydration prior (10) Lyme disease: Plan: + testing, obtained given knee pain/swelling/confusion and move to [place] with worsening mental status Tx as outlined above Plan Other issues: Elevated troponin suspected 2nd to myocardial demand ischemia from infection. Peaked at 15.1. No CP reported. ECHO without wma noted Code status: full code DVT proph: Eliquis continued 5mg BID PT/OT consulted and recommendations for REHAB. CM to follow as prior conversation with wanting to bring home but not having enough support and will required ongoing conversations given Libby did not want to see him today/yesterday and may not be reasonable at this time and may require placement/ongoing rehab prior to returning home Baron updated 06/29, will attempt to call this afternoon Admission and Anticipated Discharge Date Admission Date: June 24, 2024 Supervising Physician Co-Signing Physician Notes The patient was not seen by me. The chart was reviewed. Case discussed with CLARICE Mcmahon. Agree with assessment and plan Subjective Evaluated this morning, nursing got up out of bed, max assist x 2. Patient does report feeling weak and wanting to get stronger. Reports females in room earlier telling her she doesn't have children and trying to steal her children. Discussed resuming abilify in oral as prior injection and working on getting outpatient follow up. Legs crampy/sore, also has some wrist discomfort. Will check xray of left knee, but does have little bit of residual rash to leg and discussed any ?tick bites recently. She denies tick bites but reports "snake bite". Discussed continuing IV Ceftriaxone for now as doesn't appear ever treated for this. Good appetite reported, would like some lasagna or bananas. Frequently reminiscent of her time in [place] and wanting to go back/beautiful country. PT/OT saw yesterday, recs for acute rehab. Will need to call with update later this afternoon. Physical Exam 2 Physical Exam: General: 78 yo female sitting up in bed, tired and reports got up with female nursing trying to steal her babies this morning HEENT: head atraumatic, normocephalic, mm moist/slightly dry, trachea midline Resp: even/unlabored, slightly diminished in the bases w associated crackles but no wheezing, on room air 97% CV: RRR, HARSH systolic murmur best appreciated RUSB, b/l LE edema, 1+ pitting (LLE>RLE edema), faint exanthem/rash (not itchy) to left leg GI: +BS, soft, nontender : no temple MSK/Neuro: no slurred speech/facial droop, answering questions appropriately, intermitted delusions about having a baby/ running around on her, nursing stealing babies this morning b/l knee OA, slight effusion on the left Psych: alert to person/place, knows in hospital, year 2023. month initially reported as , fatigued but calm/cooperative Results & Data Results & Data Vital Signs (Past 12 Hours) Vital Signs Temp Pulse Resp BP BP Pulse Ox O2 Del Method 07/01/24 07:16 36.5 C 69 16 156/73 H 97 Room Air 06/30/24 23:28 Room Air 06/30/24 20:34 36.8 C 68 18 152/73 H 96 Room Air 06/30/24 19:56 36.2 C L 77 17 132/64 97 Room Air Laboratory Results 07/01/24 05:20 07/01/24 05:20 Lyme disease screen POSITIVE IgG POSITIVE IgM POSITIVE Mag 1.9 Diagnostic Findings Knee X-Ray 07/01/24 10:39 XR knee LT 3V HISTORY: 78 years-old Female left knee pain/swelling, eval effusion acute left knee pain COMPARISON: None TECHNIQUE: 3 views of the left knee FINDINGS: Arterial calcifications. 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 No acute fracture, dislocation or osseous erosion. Small to moderate joint effusion with circumferential soft tissue swelling. IMPRESSION: Joint effusion without acute osseous abnormality. ACT 112: Negative or not required by law. The above report was generated using voice recognition software. It may contain grammatical, syntax or spelling errors. Electronically signed by: Leon Coates M.D. 07/01/2024 11:34 AM PG Care Time/CCT Total # of Minutes Spent Total Time Spent with Patient: Total time spent is greater than 50% in coordination of care (as documented) at patient's floor/unit and/or counseling patient: Coding Level of Care Code 92071 SUB INP/OBS CARE 3/50MIN Diagnoses Metabolic encephalopathy G93.41 Acute UTI (urinary tract infection) N39.0 Delirium R41.0 Hypomagnesemia E83.42 Schizophrenia F20.9 Schizophrenia type: unspecified COVID-19 U07.1 Essential hypertension I10 VTE (venous thromboembolism) I82.90 Aortic stenosis I35.0 Lyme disease A69.20 (5) Schizophrenia Schizophrenia type: unspecified Qualified Code(s): F20.9 - Schizophrenia, unspecified
[2024-07-01] MEDS: ARIPiprazole 10 MG TAB PO SCH (07:58)
[2024-07-01] MEDS: ADVANCED PROBIOTIC 625 MG CAPSULE PO SCH (07:58)
--- NOTE | 2024-07-01 11:35 | XRay Report ---
XR knee LT 3V HISTORY: 78 years-old Female left knee pain/swelling, eval effusion acute left knee pain COMPARISON: None TECHNIQUE: 3 views of the left knee FINDINGS: Arterial calcifications. Severe medial with moderate lateral and patellofemoral compartment osteoarth ritis. No acute fracture, dislocation or osseous erosion. Small to moderate joint effusion with circu mferential soft tissue swelling. IMPRESSION: Joint effusion without acute osseous abnormality. ACT 112: Negative or not required by law. The above report was generated using voice recognition software. It may contain grammatical, syntax o r spelling errors. Electronically signed by: Leon Coates M.D. 07/01/2024 11:34 AM
--- NOTE | 2024-07-01 14:04 | Orthopedic Consultation ---
Date of Service July 01, 2024 Assessment & Plan (1) Polyarthralgia: Patient complaining of multiple joint pain including lumbar spine, left hip, and left knee. Joint pain most likely sequelae from lymes and covid. Do not recommend aspiration of the left knee due to minimal effusion. Recommend ice and NSAIDS for pain control. Continue treatment for lymes on inpatient and outpatient setting. Dr. Stack took hx and exam of patient at bedside. Plan was discussed with the patient. History of Present Illness Reason for Consultation: . Requesting Physician: . Attending Physician: Mulugeta Rowe MD Patient is a 78 y/o female placed inpatient at [facility] for multiple medical problems. Orthopedics was consulted for left knee pain and swelling. Patient is positive to covid and lymes dz. She is currently on antibiotics for UTI. Patient is complaining of left knee pain. Also pain in her left hip and low back. Patient is not a good historian. Allergies Allergy/AdvReac Type Severity Reaction Status Date / Time No Known Allergies Allergy Verified 06/24/24 23:29 Home Medications Medication Instructions Recorded Confirmed Type apixaban 5 mg tablet (Eliquis) 5 mg PO BID 06/24/24 06/24/24 History aripiprazole lauroxil 662 mg/2.4 mg IM DIRECTED 06/24/24 History mL suspension, ext.rel. IM syringe ([place]) clonidine 0.1 mg/24 hr weekly transdermal CQWK 06/24/24 History transdermal patch divalproex 250 mg tablet,delayed 250 mg PO BID 06/24/24 06/24/24 History release (Depakote) ferrous sulfate 325 mg (65 mg 325 mg PO DAILY 06/24/24 06/24/24 History iron) tablet (Iron (ferrous sulfate)) levothyroxine 112 mcg tablet 112 mcg PO DAILY 06/24/24 06/24/24 History Past Med/Surg History Problem List (Updated 07/01/24 @ 14:02 by Carlos Mederos PA-C) Polyarthralgia Lyme disease Metabolic encephalopathy Aortic stenosis Essential hypertension Hypomagnesemia VTE (venous thromboembolism) Murmur Elevated troponin COVID-19 (Acute) Acute UTI (urinary tract infection) (Acute) Delirium (Acute) Schizophrenia (Acute) Social History Smoking Status: Unknown if ever smoked Hx Alcohol Use: No Hx Substance Use: No Preferred Language: Maori Communication Ability: Effective Current Living Situation: Spouse and Family Feels Safe at Home: No Assistive Devices: Cane, Walker and Wheelchair Review of Systems All systems reviewed & are unremarkable except as noted in HPI & below. Physical Exam Patient is resting comfortably in bed. Medial and lateral joint lines of left knee tender to palpation. Minimal effusion to the knee. No erythema of joint. Minimal pain with flex/ex. Ligaments stable and intact. Results & Data Results & Data Laboratory Results . Diagnostic Findings . PG Care Time/CCT Total # of Minutes Spent Total Time Spent with Patient: Total time spent is greater than 50% in coordination of care (as documented) at patient's floor/unit and/or counseling patient: Coding Level of Care Code 75980 IN/OBS CONSULT LVL 3,45M Diagnoses Polyarthralgia M25.50
[2024-07-02 06:29] LABS: Hematocrit (blood only) 39.2 % (37.0-47.0); Hemoglobin 12.9 g/dl (12.0-16.0); Mean Corpuscular Hemoglobin 29.6 pg (25.0-34.0); Mean Corpuscular Hgb Conc 32.9 g/dL (32.0-36.0); Mean Corpuscular Volume 89.9 fL (80.0-100.0); Mean Platelet Volume 10.2 fL (9.4-12.4); Platelet Count 151 K/uL (130-400); RDW Coefficient of Variation 13.2 % (11.5-14.5); RDW Standard Deviation 43.8 fL (36.4-46.3); Red Blood Count 4.36 M/uL (4.20-5.40)
[2024-07-02 06:48] LABS: BUN Creatinine Ratio 38.5 (10-20); Creatinine Clr Calc Pharmacy 48.5 ml/min; Potassium 4.5 mmol/L (3.5-5.1)
--- NOTE | 2024-07-02 08:05 | Hospitalist Progress Note ---
Date of Service July 02, 2024 Assessment & Plan (1) Metabolic encephalopathy: Plan: Metabolic encephalopathy in setting of acute UTI, COVID-19 infection, medication noncompliance (depakote level low on admission at 12), AND POSSIBLE LYME UTI UA positive, Urine cx w/ pansensitive ecoli. Completed course with Ceftriaxone/Cefdnir 07/01 but continues on Ceftriaxone for +Lyme as below COVID-19 + testing, isolation precautions maintained. CXR negative on admission and remains on room air 97% without SOB/hypoxia OR COUGH. NO fevers. Asymptomatic from such at this time, supportive care Lyme Disease Testing obtained with knee pain, slight rash (no bullseye) and move from [place]/wandering outside. Also w/ leukopenia on labs and was on CTX on admission but switched to cefdnir for UTI Lyme POSITIVE IgM AND IgG, never tx for in the past Switched BACK to CEFTRIAXONE IV (day 6 of antibiotics but day 2 of restart Ceftriaxone) and will plan for extended course ?if needing to continue IV as no focal deficits but unclear how long going on for with multiple joint complaints and will continue CTX for now but will plan for extended course 28 days total minus IV w/ Doxy BID given improvement on exam today Xray with effusion, orthopedics consulted and recs against aspiration and continue tx for Lyme/ice/elevation Schizophrenia/Paranoia/Delirium Combination not taking medications compound by no local psych care given recent move and suspect worsened with son passing away earlier this year/worsening depression ( in December this year from drugs/reason for move but haven't gotten a lot of support per Baron) Depakote continued 250mg PO BID - repeat depakote NORMAL at 50 and continue BID s/p Zyprexa 2.5mg IM 06/29 Switched risperdal to ABILIFY 10mg QAM, 5mg prn agitation/psychosis per discussion w/ psych given ongoing delusions and prior use. NO PRN dosing required and remaining calm/cooperative, ongoing delusions at times about baby Working on getting outpt f/u , [facility] darshan speaking with outpt provider she had in [place] HTN/Aortic stenosis Uncontrolled BP on admission, suspect from not taking medications. Clonidine outpt, not resumed given concerns for rebound/reflex and initially placed on lisinopril but given significant aortic stenosis and normal EF 55-60% and worsening renal function with UTI STOPPED lisinopril Started amlodipine 5mg daily and appears BP MUCH improved 147/81 and edema NOT worse since abx w/ CTX and will continue Hx DVT Venous doppler obtained for LLE, NEGATIVE for DVT and can continue current dose ELIQUIS ?if swelling from prior site of DVT or if swelling from the knee/leg more from +Lyme as above. CK checked and NOT elevated and continues on eliquis BID PT/OT consults placed and recs for rehab and patient agreeable and CM working on referrals. (2) Acute UTI (urinary tract infection): Plan: Completed course abx as above (3) Delirium: Plan: Hx schizophrenia and seizures worse w/ COVID/UTI as above and recently moved to unfamiliar environment with severe anxiety/paranoia at baseline and not taking medications recently with move/paranoias Depakote level checked, LOW and meds continued prior dosing and repeat level normal and will continue. No reported evidence for seizure prior to admission TSH, Ammonia, B12 acceptable Risperdal--> Abilify as above per psych Frequent orientation, remains AOX3, delusions as above and appreciate psych assistance. Suspect will take bit for full effect of Abilify to work. BHU continues to follow (4) Hypomagnesemia: Plan: Replacement ordered and remaining stable on repeat testing (5) Schizophrenia: Plan: See above, mood appears improved/stable but did need IM Zyprexa PM 06/29 SWITCHED Risperdal-->Abilify as above. Psych working on helping arrange local outpatient follow up. ?[place] (6) COVID-19: Plan: Covid precautions. Asymptomatic from such and continue supportive care, GI proph, incentive spirometry. Remains on RA 98% (7) Essential hypertension: Plan: STOPPED lisinopril (new med) as above. Prior was on clonidine Started amlodipine with good results and will continue (8) VTE (venous thromboembolism): Plan: Reportedly with VTE. LLE swollen and tender. On Eliquis outpatient and was refusing PO medications on admission and placed on Lovenox SQ during that time and eliquis resumed 06/25 PM and continues on such Doppler obtained, NEGATIVE as above. ?swollen from prior DVT site/venous insufficiency?. CK wnl LYME positive as above, ortho consulted. Continue CTX IV and planning for Doxy at dc extended course given never tx in the past (9) Aortic stenosis: Plan: systolic murmur on exam, no echo in system but per known murmur in the past ECHO w/ mild- moderate aortic stenosis, EF preserved (sounds worse than that on exam). Does have some LE edema as above, venous doppler neg for acute DVT. Weight 77--> 73.6kg in system, monitor weights/output and volume status but did NOT appear volume overloaded and BNP only 27 with mild-mod and given 500cc NSS for dehydration prior (10) Lyme disease: Plan: + testing, obtained given knee pain/swelling/confusion and move to [place] with worsening mental status Tx as outlined above Plan Other issues: Elevated troponin suspected 2nd to myocardial demand ischemia from infection. Peaked at 15.1. No CP reported. ECHO without wma noted Code status: full code DVT proph: Eliquis continued 5mg BID PT/OT consulted and recommendations for REHAB. Patient agreeable Baron updated 06/29, Libby does not want me to call him today Admission and Anticipated Discharge Date Admission Date: June 24, 2024 Supervising Physician Co-Signing Physician Notes the patient was not seen by me. Chart reviewed. Case discussed with CLARICE Mcmahon. Agree with assessment and plan. Subjective Evaluated after lunch, sitting up in bed. Appears to be doing well, got washed up today. Reports improvement in joint pain. Knows in hospital, year 2023, month June, some delusions with nursing for baby but no reports for me during encounter. Discussed update for , she would not like me to call, discussed will hold off per her wishes for today. Discussed rehab per therapy recommendations to help get her stronger and asked if she would be willing to go to inpatient rehab for at least short term to get stronger and she is agreeable at ths time. Continues on abilify and working to get outpatient follow up locally. No CP/SOB reported, good appetite. Questions/concerns addressed at this time. Physical Exam 2 Physical Exam: General: 78 yo female sitting up in bed, looks better today, washed up/NAD, reports good appetite, Alert, oriented to person/place/year/month, cooperative with exam still some hallucinations/delusions with baby in room for nursing HEENT: head atraumatic, normocephalic, mm slightly dry but improved, trachea midline Resp: even/unlabored, slightly diminished in the base, no wheezing/tachypnea or cough, on room air CV: RRR, LOUD systolic murmur best appreciated RUSB, b/l LE edema IMPROVED (LLE>RLE edema baseline), faint exanthem/rash (not itchy) improved to left leg GI: +BS, soft, nontender : no temple MSK/Neuro: no slurred speech/facial droop, answering questions appropriately, intermitted delusions about having a baby/ running around on her, nursing stealing babies this morning b/l knee OA, slight effusion on the left -- imporved discomfort Psych: alert to person/place, knows in hospital, year 2023. Results & Data Results & Data Vital Signs (Past 12 Hours) Vital Signs Temp Pulse Resp BP Pulse Ox O2 Del Method 07/02/24 07:12 36.6 C 78 16 158/76 H 95 Room Air 07/01/24 21:30 Room Air 07/01/24 21:29 36.7 C 81 18 146/75 H 95 Room Air Laboratory Results 07/02/24 06:12 07/02/24 06:12 Lyme IgM, IgG POSITIVE PG Care Time/CCT Total # of Minutes Spent Total Time Spent with Patient: Total time spent is greater than 50% in coordination of care (as documented) at patient's floor/unit and/or counseling patient: Coding Level of Care Code 42433 SUB INP/OBS CARE 3/50MIN Diagnoses Metabolic encephalopathy G93.41 Acute UTI (urinary tract infection) N39.0 Delirium R41.0 Hypomagnesemia E83.42 Schizophrenia F20.9 Schizophrenia type: unspecified COVID-19 U07.1 Essential hypertension I10 VTE (venous thromboembolism) I82.90 Aortic stenosis I35.0 Lyme disease A69.20 (5) Schizophrenia Schizophrenia type: unspecified Qualified Code(s): F20.9 - Schizophrenia, unspecified
[2024-07-02] MEDS: POLYETHYLENE (MIRALAX) 17 GM PACK PO PRN (16:22)
[2024-07-03 06:25] LABS: Hematocrit (blood only) 40.5 % (37.0-47.0); Hemoglobin 13.3 g/dl (12.0-16.0); Mean Corpuscular Hemoglobin 29.6 pg (25.0-34.0); Mean Corpuscular Hgb Conc 32.8 g/dL (32.0-36.0); Mean Platelet Volume 10.5 fL (9.4-12.4); Platelet Count 154 K/uL (130-400); RDW Coefficient of Variation 13.1 % (11.5-14.5); RDW Standard Deviation 43.5 fL (36.4-46.3); White Blood Count 4.99 K/ul (4.8-10.8)
[2024-07-03 06:39] LABS: Creatinine Clr Calc Pharmacy 50.6 ml/min
--- NOTE | 2024-07-03 07:56 | Hospitalist Progress Note ---
Date of Service July 03, 2024 Assessment & Plan (1) Metabolic encephalopathy: Plan: Metabolic encephalopathy in setting of acute UTI, COVID-19 infection, medication noncompliance (depakote level low on admission at 12), AND POSSIBLE LYME UTI -Urine cx w/ pansensitive ecoli, completed course with Ceftriaxone/Cefdnir 07/01. COVID-19 - + testing, isolation precautions maintained. CXR negative on admission and remains on room air 96% without SOB/hypoxia OR COUGH. NO fevers. Asymptomatic from such at this time, supportive care CAN DC ISOLATION PRECAUTIONS 07/04 per infection control Lyme Disease Testing obtained with knee pain, slight rash to left leg (no bullseye) and move from [place]/wandering outside with AMS and leukopenia on labs Lyme IgM and IgG positive, denies prior tx for such. Was given Ceftriaxone initially on admission but de-escalated to cefdinir for UTI above however given such placed back on Ceftriaxone IV and will continue daily. ?if long standing needing IV CTX course vs could just switch to Doxy PO BID for total 28 days minus IV (is on day 4 of Ceftriaxone) Did get xray LEFT knee, report w/ effusion. Ortho consulted for ?aspiration and recs against such/tx of lyme and continue pain control/ice/elevation Schizophrenia/Paranoia/Delirium Combination not taking medications compound by no local psych care given recent move and suspect worsened with son passing away earlier this year/worsening depression ( in December this year from drugs/reason for move but haven't gotten a lot of support per Baron). Suspect some delusions from Libby with regards to baby related to her son passing away earlier this year/worsening depression since that time as son was the primary one to help them and lack of support since passing. Depakote level LOW but hadn't been taking. Continued 250mg PO BID and repeat Depakote level now NORMAL at 50 and continues on present dose PRN Zyprexa 2.5mg IM on 06/29, switched from Risperdal to ABILIFY 10mg QAM 07/01 as getting once monthly injections in [place] with stable sx reported previously Continues Abilify 10mg daily, 5mg prn for agitation/psychosis and HAS NOT NEEDED ANY PRN. Has delusions but no more agitation/aggressiveness with staff and continues to monitor. Psych on consult/BHU liaison following while inpatient. Hopefully formal eval now that able to dc isolation precautions in AM HTN/Aortic stenosis Uncontrolled BP on admission, suspect from not taking medications. Clonidine outpt, not resumed given concerns for rebound/reflex and initially placed on lisinopril but given significant aortic stenosis and normal EF 55-60% and worsening renal function with UTI STOPPED lisinopril Started amlodipine 5mg daily and appears BP MUCH improved however does have some increased leg edema today and will need to monitor/possible adjustment Hx DVT Venous doppler obtained for LLE --> NEGATIVE for DVT ?related to +lyme testing, Ceftriaxone as above. CK not elevated Remains on eliquis 5mg BID PT/OT consults placed and recs for rehab and patient agreeable and CM working on referrals. (2) Acute UTI (urinary tract infection): Plan: Completed course abx as above but continues CTX for Lyme testing (3) Delirium: Plan: As above, Appears STABLE with alert/oriented to person/place/time but ongoing delusions and Abilify started 07/01 Depakote level now wnl. TSH wnl. Ammonia NOT elevated. B12 not deficient Frequent orientation, remains AOX3, delusions as above and appreciate psych assistance. Suspect will take bit for full effect of Abilify to work. BHU following (4) Hypomagnesemia: Plan: Replacement ordered and remaining stable on repeat testing (5) Schizophrenia: Plan: See above, mood appears improved/stable but did need IM Zyprexa PM 06/29 SWITCHED Risperdal-->Abilify as above. Psych working on helping arrange local outpatient follow up ?[place] ?if able to formal eval tomorrow vs Friday as able to dc isolation precautions (6) COVID-19: Plan: Covid precautions for now, able to dc / per infection control given asymptomatic from such/no hypoxia/cough/sputum production and remaining on room air (7) Essential hypertension: Plan: STOPPED lisinopril (new med) as above and review was on clonidine prior but started low dose amlodipine and will monitor (8) VTE (venous thromboembolism): Plan: Reportedly with VTE. LLE swollen and tender. On Eliquis outpatient and was refusing PO medications on admission and placed on Lovenox SQ during that time and eliquis resumed 06/25 PM and continues on such Doppler obtained, NEGATIVE as above. ?swollen from prior DVT site/venous insufficiency?. CK wnl LYME positive as above, ortho consulted. Continue CTX IV and planning for Doxy at dc extended course given never tx in the past (9) Aortic stenosis: Plan: sysolic murmur on exam, no echo in system but per known murmur in the past ECHO w/ mild- moderate aortic stenosis, EF preserved (sounds worse than that on exam). Does have some LE edema as above, venous doppler neg for acute DVT. Weight 77--> 73.6kg in system, monitor weights/output and volume status but did NOT appear volume overloaded and BNP only 27 with mild-mod and given 500cc NSS for dehydration prior but does have some increased edema today 07/03 but could be from start of amlodipine for bP control and will need to monitor (10) Lyme disease: Plan: + testing, obtained given knee pain/swelling/confusion and move to [place] with worsening mental status Tx as outlined above but can check treponemal reflex w/ am labs to ensure not having false positive given echo w/ aortic insufficiency for completeness (?reports "ran around on her" but ?accurate) Will continue Ceftriaxone IV for now, consider continued course w/ such vs switching to Doxy and plan to complete total 28day course Plan Other issues: Elevated troponin suspected 2nd to myocardial demand ischemia from infection. Peaked at 15.1. No CP reported. ECHO without wma noted Code status: full code DVT proph: Eliquis continued 5mg BID PT/OT consulted and recommendations for REHAB. Patient agreeable Baron updated 06/29, Libby does not want me to call him 07/02-07/03 and is paranoid about him/running around on her. Admission and Anticipated Discharge Date Admission Date: June 24, 2024 Supervising Physician Co-Signing Physician Notes The patient was not seen by me. The chart was reviewed. Case discussed with CLARICE Mcmahon. Agree with assessment and plan Subjective Patient evaluated this morning, cooperative for nursing and took pills without issues. Reports knee pain improving, will continue current abx. Moving bowels, no abdominal pain. Reports no shortness of breath/cough/sputum production or chest pain. Does have some LE edema but appears stable, on amlodipine and will need to monitor given BP improved. She does have some hallucinations about child at times and moving her furniture out of her house as she goes to rehab. Discussed CM to be around but placement not until Friday at the earliest if bed available. Will see about discontinuing airborne precautions given no fever/need for tylenol or symptoms from her COVID infection at this time. Questions/concerns addressed. Physical Exam 2 Physical Exam: General: 78 yo female sitting up in bed, looks better today, washed up/NAD, reports good appetite, wanting to ensure able to pack her things at home when discharged Alert, oriented to person/place/year/month, cooperative with exam still some hallucinations/delusions with baby in room for nursing but not mentioned to me (however talking about belonging at home/people stealing things) HEENT: head atraumatic, normocephalic, mm improved, trachea midine Resp: even/unlabored, slightly diminished in the base, no wheezing/tachypnea or cough, on room air 96% CV: RRR, LOUD systolic murmur best appreciated RUSB, 1+ bl edema, LLE>RLE, slight effusion on the left stable. decreased discomfort on exam, ROM intake. faint rash improving to L leg GI: +BS, soft, nontender : no temple MSK/Neuro: no slurred speech/facial droop, answering questions appropriately, intermitted delusions about having a baby/ running around on her, nursing stealing babies this morning b/l knee OA, slight effusion on the left -- improved discomfort Psych: alert to person/place, knows in hospital, year 2023, delusions at time but cooperative/pleasant during encounter Results & Data Results & Data Vital Signs (Past 12 Hours) Vital Signs Temp Pulse Resp BP Pulse Ox O2 Del Method 07/03/24 07:03 36.4 C L 58 L 16 176/72 H 96 Room Air 07/02/24 20:17 36.7 C 77 16 139/70 98 Room Air Laboratory Results 07/03/24 06:07 07/03/24 06:07 PG Care Time/CCT Total # of Minutes Spent Total Time Spent with Patient: Total time spent is greater than 50% in coordination of care (as documented) at patient's floor/unit and/or counseling patient: Coding Level of Care Code 47712 SUB INP/OBS CARE 3/50MIN Diagnoses Metabolic encephalopathy G93.41 Acute UTI (urinary tract infection) N39.0 Delirium R41.0 Hypomagnesemia E83.42 Schizophrenia F20.9 Schizophrenia type: unspecified COVID-19 U07.1 Essential hypertension I10 VTE (venous thromboembolism) I82.90 Aortic stenosis I35.0 Lyme disease A69.20 (5) Schizophrenia Schizophrenia type: unspecified Qualified Code(s): F20.9 - Schizophrenia, unspecified
[2024-07-04 06:34] LABS: BUN Creatinine Ratio 44.8 (10-20); Calcium 8.9 mg/dl (8.6-10.3); Creatinine Clr Calc Pharmacy 54.1 ml/min; Potassium 4.3 mmol/L (3.5-5.1)
--- NOTE | 2024-07-04 08:05 | Hospitalist Progress Note ---
Date of Service July 04, 2024 Assessment & Plan (1) Metabolic encephalopathy: Plan: Metabolic encephalopathy in setting of acute UTI, COVID-19 infection, medication noncompliance (depakote level low on admission at 12), AND POSSIBLE LYME UTI -Urine cx w/ pansensitive ecoli, completed course with Ceftriaxone/Cefdnir 07/01. COVID-19 + testing, isolation precautions maintained. CXR negative on admission and remains on room air 96% without SOB/hypoxia OR COUGH. NO fevers. Asymptomatic from such at this time, supportive care. Isolation precautions DISCONTINUED 07/04 per discussion with infection control. Moving room for better view/window Lyme Disease Testing obtained with knee pain, slight rash to left leg (no bullseye) and move from [place]/wandering outside with AMS and leukopenia on labs Did get xray LEFT knee, report w/ effusion. Ortho consulted for ?aspiration and recs against such/tx of lyme and continue pain control/ice/elevation Lyme IgM and IgG positive, denies prior tx for such and does report being bite by something Ceftriaxone resumed 2gm IV daily (day 5 of treatment) and resolution in rash/WBC normalized and consider completing course w/ IV therapy vs extended course Doxy PO x 28 days Schizophrenia/Paranoia/Delirium Combination not taking medications compound by no local psych care given recent move and suspect worsened with son passing away earlier this year/worsening depression ( in December this year from drugs/reason for move but haven't gotten a lot of support per Baron). Suspect some delusions from Libby with regards to baby related to her son passing away earlier this year/worsening depression since that time as son was the primary one to help them and lack of support since passing. Depakote level LOW but hadn't been taking. Continued 250mg PO BID and repeat Depakote level now NORMAL at 50 and continues on present dose PRN Zyprexa 2.5mg IM on 06/29, switched from Risperdal to ABILIFY 10mg QAM 07/01 as getting once monthly injections in OR with stable sx reported previously Continues Abilify 10mg daily, 5mg prn for agitation/psychosis and HAS NOT NEEDED ANY PRN. Has delusions but no more agitation/aggressiveness with staff and appearing improved daily. Psych on consult/notified of dc precautions and can re-eval to see if any changes but otherwise will continue 10mg PO Abilify daily and arrange for outpatient follow up at discharge, ?[place] HTN/Aortic stenosis Uncontrolled BP on admission, suspect from not taking medications. Clonidine outpt, not resumed given concerns for rebound/reflex and initially placed on lisinopril but given significant aortic stenosis and normal EF 55-60% and worsening renal function with UTI STOPPED lisinopril Started amlodipine 5mg daily and appears BP MUCH improved however does have some increased leg edema and decreased to 2.5mg daily. BP 150/75 and will monitor for prn lasix if needed but remains 97% on RA Hx DVT Venous doppler obtained for LLE --> NEGATIVE for DVT. CK not elevated ?related to +lyme testing, Ceftriaxone as above and improvement in pain and continued as above. Remains on Eliquis BID and per to be on lifelong PT/OT consults placed and recs for rehab and patient agreeable and CM working on referrals, hopefully improvement in ability for placement now off isolation precautions --> moving to room 320 for better window. Mood appears stable. Alert/oriented to person/knows in hospital, month June. Initially got year wrong but when asked 2023 reporting that's what she meant. Suspect some delirium in hospital but remains doing quite well and hopefully with discontinue isolation precautions/new room will have continued improvement. Psych notified for eval now off precautions given switch to Abilify and appreciate recs/assistance but otherwise will continue 10mg daily and arranging outpatient f/u psychiatry for injections hopefully as was getting in OR (2) Acute UTI (urinary tract infection): Plan: Completed course abx as above but continues CTX for Lyme testing as above (3) Delirium: Plan: As above, appears STABLE with alert/oriented to person/place/time but ongoing delusions and Abilify started 07/01 Depakote level now wnl. TSH wnl. Ammonia NOT elevated. B12 not deficient Suspect will take bit for full effect of Abilify to work but does appear improving .[facility] following/notified Frequent orientation, remains AOX3, delusions as above and appreciate psych assistance. (4) Hypomagnesemia: Plan: Replacement ordered and remaining stable on repeat testing (5) Schizophrenia: Plan: See above, mood appears improved/stable but did need IM Zyprexa PM 06/29 . Risperdal-->Abilify as above and continuing 10mg PO daily. Additional 5mg prn available, but NOT NEEDING AT ALL AND REMAINING CALM/COOPERATIVE. Ongoing delusions at time but may take some time. Further adj outpatient or by psych during eval as notified of dc isolation precautions. Psych to work on arranging/finalizing outpt f/u at discharge, ?through [place] (6) COVID-19: Plan: Covid precautions for now, able to dc 07/04 per infection control given asymptomatic from such/no hypoxia/cough/sputum production and remaining on room air 97% (7) Essential hypertension: Plan: STOPPED lisinopril (new med) as above and review was on clonidine prior but started low dose amlodipine 5mg daily but decreased to 2.5mg daily and BP 150/75 and will monitor Consider clonidine vs low dose lasix if needed for volume management but does not appear volume overloaded at present time (8) VTE (venous thromboembolism): Plan: Reportedly with VTE. LLE swollen and tender. On Eliquis outpatient and was refusing PO medications on admission and placed on Lovenox SQ during that time and eliquis resumed 06/25 PM and continues on such Doppler obtained, NEGATIVE as above. ?swollen from prior DVT site/venous insufficiency?. CK wnl LYME positive as above, ortho consulted. Continue CTX IV and planning to continue such vs convert to extended course Doxy x 28 days total (9) Aortic stenosis: Plan: systolic murmur on exam, no echo in system [employer] ECHO obtained --> mild- moderate aortic stenosis, EF preserved (sounded worse than that on exam last week). Does have some LE edema as above, venous doppler neg for acute DVT., recent start for amlodipine could be contributing and was decreased as above however BNP NOT elevated following NSS 500cc at 27 and do not suspect overloaded at this time/weights down in system to 73.6kg from 77kg prior and will monitor volume status prn lasix if needed (10) Lyme disease: Plan: + testing, obtained given knee pain/swelling/confusion and move to [place] with worsening mental status Tx as outlined above but can check treponemal reflex w/ am labs (pending) to ensure not having false positive given echo w/ aortic insufficiency for completeness (?reports "ran around on her" but ?accurate) Continues Ceftriaxone IV, complete with such vs Doxy PO as outlined x 28d Plan Other issues: Elevated troponin suspected 2nd to myocardial demand ischemia from infection. Peaked at 15.1. No CP reported. ECHO without wma noted. Code status: full code DVT proph: Eliquis continued 5mg BID Dispo: continued inpatient stay, continues CTX IV, isolation precautions discontinued and PT/OT recommend REHAB. Patient agreeable and that was plan however per CM note appears [facility] not able to take as unable to get auth [place] and likely not able to admit to SNF either for this reason and hopeful she could return home. I did speak with Baron on 06/29 however Libby asked not to call him/paranoid about him running around on her and did ask Psych for re-eval to see if any meet for inpatient stay vs will need to touch base with CM again on Friday for dispo planning if Libby remaining paranoid about may not be best to return home at this time however again difficulty with [facility] insurance at this time til the end of the month. Admission and Anticipated Discharge Date Admission Date: June 24, 2024 Supervising Physician Co-Signing Physician Notes The patient was not seen by me. The chart was reviewed. Case discussed with CLARICE Mcmahon. Agree with assessment and plan Subjective Evaluated this afternoon, got washed up with nursing officer this morning. Cooperative and pleasant at this time/no agitation/aggressiveness. Remains on Abilify. 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 Will continue IV Ceftriaxone for now. DC'ing isolation precautions today, moving to new room with a view to work on day/night schedule. When asked where she is, she knows in facility but not sure the name (not from around here), but turned around her drink cup and pointed to the [facility] logo. She reported year as 2003 but when asked 2023 she reports "that's what I meant". Does report month as June. Continues to be agreeable to rehab, doesn't want call to as "can't go home with him right now" and when asked due to strength she reports liking "the other gentleman. Questions/concerns addressed at this time. 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 GI:+BS, soft/NT ; no temple, purewick canister on wall emptied by nursing with yellow urine MSK/Neuro: no slurred speech/facial droop, answering questions appropriately, intermitted delusions about having a baby at times for staff but remains cooperative/no agitation, smiling today Results & Data Results & Data Vital Signs (Past 12 Hours) Vital Signs Temp Pulse Resp BP Pulse Ox O2 Del Method 07/04/24 07:54 36.4 C L 70 18 150/75 H 97 Room Air 07/03/24 20:30 Room Air Laboratory Results 07/03/24 06:07 07/04/24 05:49 Treponema pallidum Ab pending PG Care Time/CCT Total # of Minutes Spent Total Time Spent with Patient: Total time spent is greater than 50% in coordination of care (as documented) at patient's floor/unit and/or counseling patient: Coding Level of Care Code 72997 SUB INP/OBS CARE 3/50MIN Diagnoses Metabolic encephalopathy G93.41 Acute UTI (urinary tract infection) N39.0 Delirium R41.0 Hypomagnesemia E83.42 Schizophrenia F20.9 Schizophrenia type: unspecified COVID-19 U07.1 Essential hypertension I10 VTE (venous thromboembolism) I82.90 Aortic stenosis I35.0 Lyme disease A69.20 (5) Schizophrenia Schizophrenia type: unspecified Qualified Code(s): F20.9 - Schizophrenia, unspecified
[2024-07-04] MEDS: amLODIPine BESYLATE 5 MG TAB PO SCH (08:16)
--- NOTE | 2024-07-05 08:21 | Hospitalist Progress Note ---
Date of Service July 05, 2024 Assessment & Plan (1) Metabolic encephalopathy: (2) Acute UTI (urinary tract infection): (3) Delirium: (4) Hypomagnesemia: (5) Schizophrenia: (6) COVID-19: (7) Essential hypertension: (8) VTE (venous thromboembolism): (9) Aortic stenosis: (10) Lyme disease: Plan Metabolic encephalopathy in setting of acute UTI, COVID-19 infection, medication noncompliance (Depakote level low on admission at 12), AND POSSIBLE/SUSPECTED LYME disease UTI -Urine cx w/ pansensitive ecoli, completed course with Ceftriaxone/Cefdnir 07/01. COVID-19 + testing, isolation precautions maintained. CXR negative on admission and remains on room air 100% without SOB/hypoxia OR COUGH. NO fevers. Asymptomatic from such at this time, supportive care. Isolation precautions DISCONTINUED 07/04 per discussion with infection control. Moved to room 322 w/ window and MUCH improved mood since/remaining stable Lyme Disease Obtained due to report of knee pain, AMS, Leukopenia on labs and moved from [place] to [place] and found wandering outside for possible contributing factor Lyme IgM and IgG positive Ceftriaxone 2gm IV daily (day 7) and can convert to Doxy in AM, would plan to complete 28 day course. Alternatively could consider extended course of IV therapy but no signs meningitis at present time but has had multiple joint complaints including back discomfort which have been improving Ortho prior consulted given xray w/ effusion for ?aspiration but recs for continue tx lyme/pain control/ice/elevation Schizophrenia/Paranoia/Delirium Combination not taking medications compound by no local psych care given recent move and suspect worsened with son passing away earlier this year/worsening depression ( in December this year from drugs/reason for move but haven't gotten a lot of support per Baron). Suspect some delusions from Libby with regards to baby related to her son passing away earlier this year/worsening depression since that time as son was the primary one to help them and lack of support since passing. B12/TSH/ammonia without significant abn. Tx UTI above Depakote LOW, continued 250 PO BID and repeat level NORMAL, likely from not taking. No evidence for seizure Risperdal--> Abilify 10mg daily, additional prn available but HAS NOT NEEDED. Some delusions related to child suspected from son passing , but also is suspicious for her Baron/running around on him and not sure if able to dc to home with additional support at this time to prevent issues as she did NOT want me to call him and remains AOx3 Notified psych isolation precautions discontinued for repeat eval if any need for inpatient treatment vs arrange outpt f/u [facility] at dc? HTN/Aortic stenosis Uncontrolled BP on admission, lack of meds w/ move to [place]. Clonidine patch in the past. ECHO w/ mild-moderate but normal EF 55-60% Prior lisinopril started/increased but worsening renal function/UTI and was stopped and started amlodipine 5mg daily but some LE edema and decreased to 2.5mg daily with BP 168/73 Small dose lasix 20mg PO x 1 to help with swelling given good PO intake/does NOT appear dehydrated and will monitor Hx DVT Venous doppler obtained for LLE --> NEGATIVE for DVT. CK not elevated ?swelling/pain related to +lyme testing, Ceftriaxone as above and improvement in pain and continued as above. Lasix 20mg PO x 1 for swelling and can dc amlodipine if ongoing issues with such Remains on Eliquis BID and per to be on lifelong Other issues: Elevated troponin suspected 2nd to myocardial demand ischemia from infection. Peaked at 15.1. No CP reported. ECHO without wma noted. Hypomagnesemia: resolved, stable on repeat Code status: full code DVT proph: Eliquis continued 5mg BID Dispo: PT/OT rec for rehab, patient agreeable and was planning such however review CM notes w/ issues with insurance and did message to see if rehab is an option given Libby's reported issues with if not agreeable to dc home with outpatient psych arrangements in place. Do suspect benefit from rehab for strength/conditioning from COVID/UTI/Lyme disease on admission but may have issues as not able to obtain insurance auth with insurance from another state and CM to look into this/reach back out with additional information as able. Libby did NOT want me to call today and given remains alert/oriented albiet with some delusions will respect wishes at this time. Psych notified and hopefully able to re-eval, ?inpatient if needed given concerns vs outpat f/u w/ somewhere like [facility] Admission and Anticipated Discharge Date Admission Date: June 24, 2024 Subjective Eval this afternoon, following lunch. Looks well, good appetite. 100% on RA, no CP/SOB, does have some leg cramping/swelling, going to attempt small dose of lasix to see if helps. Remains alert/oriented, 2023, june, in hospital (points to cup for name) and thankful for room change/windows. Reports good sleep. Intermittent hallucinations/delusions with child out the window reported, suspect related to son. Psych notified isolation precatuions discontinued for eval. Libby again endorses not wanting me to call as doesn't think he can take care of her presently and wanting rehab at this time, also concerns for him "running around on her". Remains calm/cooperative. Questions/concerns addressed at this time. CM notified of concerns for placement with her insurance to see if any alternative options as suspect issues for Libby if attempt to dc w/ Baron at this time given her paranoia regarding him. 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 , ?slightly worse edema today GI:+BS, soft/NT ; no temple, purewick canister on wall emptied by nursing with yellow urine MSK/Neuro: no slurred speech/facial droop, answering questions appropriately, intermitted delusions about having a baby at times for staff but remains cooperative/no agitation, smiling today Results & Data Results & Data Vital Signs (Past 12 Hours) Vital Signs Temp Pulse Resp BP Pulse Ox O2 Del Method 07/05/24 07:41 Room Air 07/05/24 07:40 36.3 C L 63 18 168/73 H 100 Room Air Laboratory Results 07/03/24 06:07 07/04/24 05:49 PG Care Time/CCT Total # of Minutes Spent Total Time Spent with Patient: Total time spent is greater than 50% in coordination of care (as documented) at patient's floor/unit and/or counseling patient: Coding Level of Care Code 72556 SUB INP/OBS CARE 3/50MIN Diagnoses Metabolic encephalopathy G93.41 Acute UTI (urinary tract infection) N39.0 Delirium R41.0 Hypomagnesemia E83.42 Schizophrenia F20.9 Schizophrenia type: unspecified COVID-19 U07.1 Essential hypertension I10 VTE (venous thromboembolism) I82.90 Aortic stenosis I35.0 Lyme disease A69.20 (5) Schizophrenia Schizophrenia type: unspecified Qualified Code(s): F20.9 - Schizophrenia, unspecified
[2024-07-05] MEDS: FUROSEMIDE 20 MG TAB PO ONE (13:50)
--- NOTE | 2024-07-05 21:45 | Psychiatric Progress Note ---
Date of Service July 05, 2024 Impression / Recommendations Impression 78 y/o female h/o schizophrenia presents with AMS and acute psychosis in the context of UTI, VTE, covid+, and medication non-adherence. Psychiatry consulted for evaluation and recommendations. H/o schizophrenia from teens. Recently moved and has been month+ since she got her monthly long acting antipsychotic Invega sustenna. Was previously delirious and also in active psychotic episode with persecutory delusions, possible AVH, however delirium has improved and psychosis seems more stable to some degree. Has history of mood episodes requiring Depakote, which has since been resumed and titrated to a therapeutic level. 06/30/24 Depakote level 50 06/24/24 QTc 481 (1) Schizophrenia: (2) Delirium: (3) Acute UTI (urinary tract infection): (4) VTE (venous thromboembolism): (5) COVID-19: Plan Continue medication: Risperidone 1mg PO QAM (can give now) with Olanzapine 5mg IM backup Risperidone 2mg PO QHS with Olanzapine 10mg IM backup Olanzapine 2.5mg BID PRN PO/IM for agitation Continue Depakote (therapeutic trough level between 50-100 for mood disorder, steady state after 4-5 days of oral dosing) Avoid IM benzodiazepine with IM olanzapine. Would repeat EKG tomorrow as last EKG 06/24 with slight QTc prolongation. Patient cooperative, but remains paranoid about her primary supports - can likely transfer to [facility] when medically cleared & cleared by PT to self ambulate. If requires SNF/regular PT/etc would not be accepted at [facility] however as poses a safety risk then. Overall, I spent a total of 25 minutes with this case, including review of chart, direct evaluation of the patient, ordering medication, coordination with psychiatric liaison, risk assessment, and documentation. Inventory Assets Strengths: Has family supports Needs: Supports for managing insurance transfer to [place], likely would benefit from CM supports Risk Factors Assessment FH of suicide unknown Male: No : Yes Do You Have Access To A Gun?: No Health Problems: Yes Mental Health Diagnoses: Yes Substance Use Disorders: No Previous Attempt: No Previous Psychiatric Hospitalization: Yes Hopelessness: No Protective Factors Assessment : Yes Responsible for Young Children: No Employed: No Stable Relationships: Yes Supportive Family: Yes Good Rapport with Provider: No Absence of Any Risk Factors Above: No Interval History Identifying Information 78 y/o female h/o schizophrenia who initially presented with AMS and acute psychosis in the context of UTI, VTE, covid+, and medication non-adherence. Psychiatry consulted for evaluation and recommendations. Chief Complaint "I'm doing good". Subjective Subjective Patient was seen & assessed and interval progress reviewed with psychiatric liaison and notes were reviewed. Patient is laying comfortable in bed - calm and cooperative throughout interview. Is grossly oriented to time and person, oriented to state but has difficulty with city/building names. Denies overt AVH, not observed to be internally preoccupied or responding to internal stimuli. Is notably paranoid however - will not allow staff to talk to because "he broke my legs! he did this to me, he's a bastard!". Later says that all of her kids "beat the sh*t [id number] me all the time, they're all bastards!". Also says she is leaving here and going back to [facility] to live with her mom - so although oriented to year, it does appear that her concept of time is disjointed. During interview the patient received a call on her room phone - the other person could be heard apologizing and saying they dialed the wrong number, however the patient said that it was "the enemy" calling. Despite paranoia however she has been cooperative with staff for the most part and when son has visited she has been observed to have positive interactions with him. Has not been acutely agitated, is awaiting placement which is currently delayed due to insurance issues as patient now lives in [place] but Medicare is from [place]. Physical Exam Mental Examination Appearance: Disheveled Eye Contact: Maintains Eye Contact Motor Behavior: Unremarkable Speech: Slurred Mood: Calm and Happy Affect: Congruent Thought Process: Disorganized Thought Content: Tangential (persecutory delusions) Hallucinations: Visual Insight: Poor Judgement: Poor Psychiatric Orientation: alert, oriented to person (not oriented to time though knows year, only oriented to state), cooperative and + guarded Apperance: + disheveled and appeared stated age Eye Contact: + fair eye contact Motor Behavior: no abnormal motor movements (though exam limited as pt laying in bed) Speech: normal rate/rhythm/volume of speech (dysarthric) Affect: + blunted affect (suspicious) Mood: + dysphoric mood Thought Process: + looseness of associations and + concrete thought process Thought Content: + paranoid Suicidal Thoughts: denies suicidal thoughts, denies suicidal plan and denies suicidal intent Homicidal Thoughts: denies homicidal thoughts, denies homicidal plan and denies homicidal intent Hallucinations: no auditory hallucinations and no visual hallucinations Cognition: recent memory grossly intact; + remote memory not intact Estimated Intelligence: average estimated intelligence Insight: + poor insight Judgment: + poor judgement Vital Signs (Past 24 Hours) Last Vital Signs Temp 36.7 C 07/05/24 20:00 Pulse 63 07/05/24 20:00 Resp 16 07/05/24 20:00 BP 133/69 07/05/24 20:00 Pulse Ox 97 07/05/24 20:00 O2 Del Method Room Air 07/05/24 20:00 A physical exam was performed/reviewed on the floors by Dr. Romero for the purposes of medical clearance. I accept that physical as correct and adequate for the purposes of the inpatient physical exam. Results & Data ([facility]) Laboratory Results Laboratory Results - last 24 hr 07/04/24 05:49 Treponema pallidum Ab Negative Current Inpatient Medications Current Inpatient Medications: Current Inpatient Medications Acetaminophen (Acetaminophen 325 Mg Tab) 650 mg PO Q4H PRN PRN Reason: pain/fever Stop: 07/24/24 22:27 Last Admin: 07/01/24 10:55 Dose: 650 mg Amlodipine Besylate (Amlodipine Besylate 5 Mg Tab) 2.5 mg PO QAM [facility] Stop: 08/03/24 08:59 Last Admin: 07/05/24 08:55 Dose: 2.5 mg Apixaban (Apixaban 5 Mg Tablet) 5 mg PO BID [facility] Stop: 07/25/24 20:59 Last Admin: 07/05/24 08:55 Dose: 5 mg Aripiprazole (Aripiprazole 10 Mg Tab) 10 mg PO QAM [facility] Stop: 07/31/24 08:59 Last Admin: 07/05/24 08:56 Dose: 10 mg Aripiprazole (Aripiprazole 5 Mg Tab) 5 mg PO DAILY PRN PRN Reason: agitation/psychosis Stop: 07/30/24 13:43 Divalproex Sodium (Divalproex Delay Release 250 Mg Tabec) 250 mg PO BID [facility] Stop: 07/25/24 20:59 Last Admin: 07/05/24 08:57 Dose: 250 mg Famotidine (Famotidine 20 Mg Tab) 20 mg PO QAM [facility] Stop: 07/30/24 08:59 Last Admin: 07/05/24 08:55 Dose: 20 mg Ceftriaxone Sodium (Rocephin) 2,000 mg in 50 mls @ 100 mls/hr IV Q24H JULIANE Stop: 07/10/24 16:59 Last Infusion: 07/05/24 17:14 Dose: Infused Lactobacillus Acidophilus (Advanced Probiotic 625 Mg Capsule) 1,250 mg PO DAILY JULIANE Stop: 07/31/24 08:59 Last Admin: 07/05/24 08:57 Dose: 1,250 mg Levothyroxine Sodium (Levothyroxine Sodium 112 Mcg Tablet) 112 mcg PO DAILYBB [facility] Stop: 07/26/24 06:29 Last Admin: 07/05/24 05:28 Dose: 112 mcg Melatonin (Melatonin 3 Mg Tab) 3 mg PO HS PRN PRN Reason: Insomnia Stop: 07/24/24 22:27 Ondansetron HCl (Ondansetron Inj 2 Mg/Ml 2 Ml Vial) 4 mg IV Q6H PRN PRN Reason: Nausea Stop: 07/24/24 22:27 Polyethylene Glycol (Polyethylene (Miralax) 17 Gm Pack) 17 gm PO DAILY PRN PRN Reason: Constipation Stop: 07/24/24 22:27 Last Admin: 07/02/24 16:22 Dose: 17 gm Thiamine HCl (Thiamine Hcl 100 Mg Tab) 200 mg PO BID [facility] Stop: 07/29/24 20:59 Last Admin: 07/05/24 08:56 Dose: 200 mg (1) Schizophrenia Schizophrenia type: unspecified Qualified Code(s): F20.9 - Schizophrenia, unspecified
[2024-07-06] MEDS: ARIPiprazole 5 MG TAB PO PRN (02:22)
[2024-07-06 06:25] LABS: Hematocrit (blood only) 34.6 % (37.0-47.0); Hemoglobin 11.8 g/dl (12.0-16.0); Mean Corpuscular Hemoglobin 29.6 pg (25.0-34.0); Mean Corpuscular Hgb Conc 34.1 g/dL (32.0-36.0); Mean Corpuscular Volume 86.9 fL (80.0-100.0); Mean Platelet Volume 10.8 fL (9.4-12.4); Platelet Count 165 K/uL (130-400); RDW Coefficient of Variation 12.9 % (11.5-14.5); RDW Standard Deviation 41.2 fL (36.4-46.3); Red Blood Count 3.98 M/uL (4.20-5.40); White Blood Count 5.24 K/ul (4.8-10.8)
[2024-07-06 06:38] LABS: BUN Creatinine Ratio 38.8 (10-20); Calcium 8.7 mg/dl (8.6-10.3); Creatinine Clr Calc Pharmacy 48.5 ml/min; Magnesium 1.7 mg/dl (1.7-2.4)
[2024-07-06] MEDS: DOXYCYCLINE HYCLATE 100 MG CAP PO SCH (09:46)
--- NOTE | 2024-07-06 17:37 | Hospitalist Progress Note ---
Date of Service July 06, 2024 Assessment & Plan (1) Metabolic encephalopathy: (2) Acute UTI (urinary tract infection): (3) Delirium: (4) Hypomagnesemia: (5) Schizophrenia: (6) COVID-19: (7) Essential hypertension: (8) VTE (venous thromboembolism): (9) Aortic stenosis: (10) Lyme disease: Plan Metabolic encephalopathy in setting of acute UTI, COVID-19 infection, medication noncompliance (Depakote level low on admission at 12), AND POSSIBLE/SUSPECTED LYME disease UTI -Urine cx w/ pansensitive ecoli, completed course with Ceftriaxone/Cefdnir 07/01. COVID-19 + testing, isolation precautions maintained. CXR negative on admission and remains on room air 100% without SOB/hypoxia OR COUGH. NO fevers. Asymptomatic from such at this time, supportive care. Isolation precautions DISCONTINUED 07/04 per discussion with infection control. Moved to room 322 w/ window and MUCH improved mood since/remaining stable Lyme Disease - Obtained due to report of knee pain, AMS, Leukopenia on labs and moved from [place] to [place] and found wandering outside for possible contributing factor - Lyme IgM and IgG positive - Was already treated with Ceftriaxone x 7 days, converted to doxycycline BID on 07/06 - complete total course of 28 days of antibiotics > no signs meningitis at present time but has had multiple joint complaints including back discomfort which have been improving - Ortho prior consulted given xray w/ effusion for ?aspiration but recs for continue tx lyme/pain control/ice/elevation Schizophrenia/Paranoia/Delirium - Combination not taking medications, compounded by no local psych care given recent move and suspect worsened with son passing away earlier this year/worsening depression ( in December this year from drugs/reason for move but haven't gotten a lot of support per Baron). Suspect some delusions from Libby with regards to baby related to her son passing away earlier this year/worsening depression since that time as son was the primary one to help them and lack of support since passing. - B12/TSH/ammonia without significant abn. Tx UTI above - Depakote LOW, continued 250 PO BID and repeat level NORMAL, likely from not taking. No evidence for seizure - Risperdal discontinued --> Started/continue Abilify 10mg daily, additional prn available but HAS NOT NEEDED. > Some delusions related to child suspected from son passing , but also is suspicious for her Baron "running around on her" and not sure if able to dc to home with additional support at this time to prevent issues as she did NOT want me to call him and remains AOx3 - Notified psych isolation precautions discontinued for repeat eval if any need for inpatient treatment vs arrange outpt f/u [facility] at dc? HTN/Aortic stenosis - Uncontrolled BP on admission, lack of meds w/ move to [place]. Clonidine patch in the past. ECHO w/ mild-moderate but normal EF 55-60% - Prior lisinopril started/increased but worsening renal function/UTI and was stopped - Started/continue amlodipine 2.5 mg daily > Did try 5 mg, but had to reduce given LE edema Hx DVT - Venous doppler obtained for LLE --> NEGATIVE for DVT. CK not elevated ?swelling/pain related to +lyme testing, Ceftriaxone as above and improvement in pain and continued as above. Lasix 20mg PO x 1 for swelling and can dc amlodipine if ongoing issues with such - Remains on Eliquis BID and per to be on lifelong Other issues: Elevated troponin suspected 2nd to myocardial demand ischemia from infection. Peaked at 15.1. No CP reported. ECHO without wma noted. Hypomagnesemia: resolved, stable on repeat Code status: full code DVT proph: Eliquis continued 5mg BID Dispo: PT/OT rec for rehab, patient agreeable and was planning such however review CM notes w/ issues with insurance and did message to see if rehab is an option given Libby's reported issues with if not agreeable to dc home with outpatient psych arrangements in place. Do suspect benefit from rehab for strength/conditioning from COVID/UTI/Lyme disease on admission but may have issues as not able to obtain insurance auth with insurance from another state and CM to look into this/reach back out with additional information as able. Libby did NOT want me to call today and given remains alert/oriented albiet with some delusions will respect wishes at this time. Psych notified and hopefully able to re-eval, ?inpatient if needed given concerns vs outpat f/u w/ somewhere like [facility] Admission and Anticipated Discharge Date Admission Date: June 24, 2024 Subjective Patient seen and evaluated at bedside. She reports that she slept well last night and has a good appetite today. She remains alert/oriented to person, year, and knew she was in the hospital but not the town. Per RN, she remains calm and cooperative with staff. Asked patient if she would like me to call her with daily update, to which she declined. No additional complaints or concerns at this time. Updated by RN in evening that patient consented to her being updated via phone call now. Called Baron, , this evening with daily update. Physical Exam Physical Exam: General: No acute distress, nondiaphoretic, well-developed, well-nourished. Skin: The skin was without rashes, erythema, edema, or bruising. Cardiac: Regular rate and rhythm. Systolic murmur noted. Pulm: Clear to auscultation bilaterally without wheezes, rales or rhonchi. No respiratory distress. 97% on room air. Abdominal: Soft, nontender, nondistended. Bowel sounds present. Neuro: A&O x3 (person, year, place - knew hospital, but not town; not event). No focal neurological deficits. Psych: Calm, flat affect. Wearing 3 watches on left wrist. Results & Data Results & Data Vital Signs (Past 12 Hours) Vital Signs Temp Pulse Resp BP BP Pulse Ox O2 Del Method 07/06/24 16:04 98.6 F 61 16 146/62 H 97 Room Air 07/06/24 08:06 97.9 F 70 16 152/70 H 97 Room Air Laboratory Results Reviewed CBC Reviewed BMP PG Care Time/CCT Total # of Minutes Spent Total Time Spent with Patient: Total time spent is greater than 50% in coordination of care (as documented) at patient's floor/unit and/or counseling patient: Coding Level of Care Code 64317 SUB INP/OBS CARE 2/35MIN Diagnoses Metabolic encephalopathy G93.41 Acute UTI (urinary tract infection) N39.0 Delirium R41.0 Hypomagnesemia E83.42 Schizophrenia F20.9 Schizophrenia type: unspecified COVID-19 U07.1 Essential hypertension I10 VTE (venous thromboembolism) I82.90 Aortic stenosis I35.0 Lyme disease A69.20 (5) Schizophrenia Schizophrenia type: unspecified Qualified Code(s): F20.9 - Schizophrenia, unspecified
--- NOTE | 2024-07-07 09:11 | Hospitalist Progress Note ---
Date of Service July 07, 2024 Assessment & Plan (1) Metabolic encephalopathy: Plan: Metabolic encephalopathy in setting of acute UTI, COVID-19 infection, medication noncompliance (Depakote level low on admission at 12), AND POSSIBLE/SUSPECTED LYME disease Schizophrenia/Paranoia/Delirium - Combination not taking medications, compounded by no local psych care given recent move and suspect worsened with son passing away earlier this year/worsening depression ( in December this year from drugs/reason for move but haven't gotten a lot of support per Baron). Suspect some delusions from Libby with regards to baby related to her son passing away earlier this year/worsening depression since that time as son was the primary one to help them and lack of support since passing. - B12/TSH/ammonia without significant abn. Tx UTI above - Depakote LOW, continued 250 PO BID and repeat level NORMAL, likely from not taking. No evidence for seizure - Risperdal discontinued --> Started/continue Abilify 10mg daily, additional prn available but HAS NOT NEEDED. > Some delusions related to child suspected from son passing, but also is suspicious for her Baron "running around on her" and not sure if able to dc to home with additional support at this time to prevent issues. (2) Essential hypertension: Plan: HTN/Aortic stenosis - Uncontrolled BP on admission, lack of meds w/ move to [place]. Clonidine patch in the past. ECHO w/ mild-moderate but normal EF 55-60% - Lisinopril was discontinued due to worsening renal function/UTI - Started/continue amlodipine 2.5 mg daily > Did try 5 mg, but had to reduce given LE edema - Echo revealed EF 55-60%, no regional wall abnormalities (3) Lyme disease: Plan: Lyme Disease - Obtained due to report of knee pain, AMS, Leukopenia on labs and moved from [place] to [place] and found wandering outside for possible contributing factor - Lyme IgM and IgG positive - Was already treated with Ceftriaxone x 7 days, converted to doxycycline BID on 07/06 - complete total course of 28 days of antibiotics > no signs meningitis at present time but has had multiple joint complaints including back discomfort which have been improving - Left knee x-ray revealed joint effusion - Ortho consulted for possible aspiration, but recommends continue treatment lyme/pain control/ice/elevation (4) COVID-19: Plan: COVID-19 - Positive Covid testing 06/24, CXR negative, afebrile, no hypoxia. Supportive care provided. - Isolation precautions DISCONTINUED 07/04 per discussion with infection control. Moved to room with large window and MUCH improved mood since/remaining stable (5) Acute UTI (urinary tract infection): Plan: UTI -Urine cx w/ pansensitive ecoli, completed course with Ceftriaxone/Cefdnir 07/01 (6) VTE (venous thromboembolism): Plan: Hx DVT - Venous doppler obtained for LLE --> NEGATIVE for DVT. CK not elevated > Possibly swelling/pain related to +lyme testing, treatment as above and improvement in pain > Lasix 20mg PO x 1 for swelling and can dc amlodipine if ongoing issues with such - Remains on Eliquis BID and per to be on lifelong Plan Patient did not allow me to call her 07/08 Updated via phone call 07/07 Other issues: Elevated troponin suspected 2nd to myocardial demand ischemia from infection. Peaked at 15.1. No CP reported. ECHO without wma noted. Hypomagnesemia: resolved, stable on repeat Code status: full code DVT proph: Eliquis continued 5mg BID Dispo: PT/OT rec for rehab, patient agreeable and was planning such however review CM notes w/ issues with insurance and did message to see if rehab is an option given Libby's reported issues with if not agreeable to dc home with outpatient psych arrangements in place. Do suspect benefit from rehab for strength/conditioning from COVID/UTI/Lyme disease on admission but may have issues as not able to obtain insurance auth with insurance from another state and CM to look into this/reach back out with additional information as able. Libby did NOT want me to call today and given remains alert/oriented albiet with some delusions will respect wishes at this time. Psych notified and hopefully able to re-eval, ?inpatient if needed given concerns vs outpat f/u w/ somewhere like [place] [facility] Admission and Anticipated Discharge Date Admission Date: June 24, 2024 Subjective Patient seen and evaluated in bedside chair shortly after finishing her lunch. She reports that she is feeling well, slept ok last night, is moving her bowels/urinating without issue, and has a good appetite. RN reports that she has been calm and cooperative today, and worked with therapy earlier this morning. Patient asked when she can be discharged, I did explain that we are still waiting on placement but there are some difficulties with her insurance. I asked patient if I could call her with daily update to which she responded "no he owes me money." No additional complaints or concerns at this time. Physical Exam Physical Exam: General: No acute distress, nondiaphoretic, well-developed, well-nourished. Skin: The skin was without rashes, erythema, edema, or bruising. Cardiac: Regular rate and rhythm. Systolic murmur noted. Pulm: Clear to auscultation bilaterally without wheezes, rales or rhonchi. No respiratory distress. 100% on room air. Abdominal: Soft, nontender, nondistended. Bowel sounds present. Neuro: A&O x3 (person, year, place - knew hospital, but not town; not event). No focal neurological deficits. Psych: Calm, flat affect. Wearing multiple watches on both wrists. Results & Data Results & Data Vital Signs (Past 12 Hours) Vital Signs Temp Pulse Resp BP BP Pulse Ox O2 Del Method 07/07/24 07:37 98.2 F 61 18 156/65 H 95 Room Air 07/06/24 22:20 99.1 F 71 14 132/67 95 Room Air 07/06/24 21:45 Room Air PG Care Time/CCT Total # of Minutes Spent Total Time Spent with Patient: Total time spent is greater than 50% in coordination of care (as documented) at patient's floor/unit and/or counseling patient: Coding Level of Care Code 50828 SUB INP/OBS CARE 2/35MIN Diagnoses Metabolic encephalopathy G93.41 Essential hypertension I10 Lyme disease A69.20 COVID-19 U07.1 Acute UTI (urinary tract infection) N39.0 VTE (venous thromboembolism) I82.90
--- NOTE | 2024-07-08 17:32 | Hospitalist Progress Note ---
Date of Service July 08, 2024 Assessment & Plan (1) Metabolic encephalopathy: Plan: Metabolic encephalopathy in setting of acute UTI, COVID-19 infection, medication noncompliance (Depakote level low on admission at 12), AND POSSIBLE/SUSPECTED LYME disease Schizophrenia/Paranoia/Delirium - Combination not taking medications, compounded by no local psych care given recent move and suspect worsened with son passing away earlier this year/worsening depression ( in December this year from drugs/reason for move but haven't gotten a lot of support per Baron). Suspect some delusions from Libby with regards to baby related to her son passing away earlier this year/worsening depression since that time as son was the primary one to help them and lack of support since passing. - B12/TSH/ammonia without significant abn. Tx UTI above - Depakote LOW, continued 250 PO BID and repeat level NORMAL, likely from not taking. No evidence for seizure - Risperdal discontinued --> Started/continue Abilify 10mg daily, additional prn available but HAS NOT NEEDED. > Some delusions related to child suspected from son passing, but also is suspicious for her Baron "running around on her" and not sure if able to dc to home with additional support at this time to prevent issues. (2) Essential hypertension: Plan: HTN/Aortic stenosis - Uncontrolled BP on admission, lack of meds w/ move to [place]. Clonidine patch in the past. ECHO w/ mild-moderate but normal EF 55-60% - Lisinopril was discontinued due to worsening renal function/UTI - Started/continue amlodipine 2.5 mg daily > Did try 5 mg, but had to reduce given LE edema - Echo revealed EF 55-60%, no regional wall abnormalities (3) Lyme disease: Plan: Lyme Disease - Obtained due to report of knee pain, AMS, Leukopenia on labs and moved from [place] to [place] and found wandering outside for possible contributing factor - Lyme IgM and IgG positive - Was already treated with Ceftriaxone x 7 days, converted to doxycycline BID on 07/06 - complete total course of 28 days of antibiotics > no signs meningitis at present time but has had multiple joint complaints including back discomfort which have been improving - Left knee x-ray revealed joint effusion - Ortho consulted for possible aspiration, but recommends continue treatment lyme/pain control/ice/elevation (4) COVID-19: Plan: COVID-19 - Positive Covid testing 06/24, CXR negative, afebrile, no hypoxia. Supportive care provided. - Isolation precautions DISCONTINUED 07/04 per discussion with infection control. Moved to room with large window and MUCH improved mood since/remaining stable (5) Acute UTI (urinary tract infection): Plan: UTI -Urine cx w/ pansensitive ecoli, completed course with Ceftriaxone/Cefdnir 07/01 (6) VTE (venous thromboembolism): Plan: Hx DVT - Venous doppler obtained for LLE --> NEGATIVE for DVT. CK not elevated > Possibly swelling/pain related to +lyme testing, treatment as above and improvement in pain > Lasix 20mg PO x 1 for swelling and can dc amlodipine if ongoing issues with such - Remains on Eliquis BID and per to be on lifelong Plan Patient did not allow me to call her 07/07, 07/08 Updated via phone call 07/06 Other issues: Elevated troponin suspected 2nd to myocardial demand ischemia from infection. Peaked at 15.1. No CP reported. ECHO without wma noted. Hypomagnesemia: resolved, stable on repeat Code status: full code DVT proph: Eliquis continued 5mg BID Dispo: PT/OT rec for rehab, patient agreeable and was planning such however review CM notes w/ issues with insurance and did message to see if rehab is an option given Libby's reported issues with if not agreeable to dc home with outpatient psych arrangements in place. Do suspect benefit from rehab for strength/conditioning from COVID/UTI/Lyme disease on admission but may have issues as not able to obtain insurance auth with insurance from another state and CM to look into this/reach back out with additional information as able. Libby did NOT want me to call today and given remains alert/oriented a lbiet with some delusions will respect wishes at this time. Psych notified and hopefully able to re-eval, ?inpatient if needed given concerns vs outpat f/u w/ somewhere like [place] Admission and Anticipated Discharge Date Admission Date: June 24, 2024 Subjective Patient seen and evaluated at bedside. She reports that she is "tired of being here" but otherwise offers no acute complaints. She reports a good appetite, slept well, and no difficulties with urination or bowel movements. She does continue to have hallucinations. She would not allow me to call her with daily update today. She is alert and oriented x 3, not to situation. No additional concerns at this time. Physical Exam Physical Exam: General: No acute distress, nondiaphoretic, well-developed, well-nourished. Skin: The skin was without rashes, erythema, edema, or bruising. Cardiac: Regular rate and rhythm. Systolic murmur noted. Pulm: Clear to auscultation bilaterally without wheezes, rales or rhonchi. No respiratory distress. 100% on room air. Abdominal: Soft, nontender, nondistended. Bowel sounds present. Neuro: A&O x3 (person, place, time; not situation). No focal neurological deficits. Psych: Calm, flat affect. Wearing multiple watches on both wrists. Results & Data Results & Data Vital Signs (Past 12 Hours) Vital Signs Temp Pulse Resp BP BP Pulse Ox O2 Del Method 07/08/24 14:00 97.7 F 63 18 148/75 H 96 Room Air 07/08/24 09:45 Room Air 07/08/24 07:30 97.9 F 63 18 155/55 H 100 Room Air PG Care Time/CCT Total # of Minutes Spent Total Time Spent with Patient: Total time spent is greater than 50% in coordination of care (as documented) at patient's floor/unit and/or counseling patient: Coding Level of Care Code 78703 SUB INP/OBS CARE 2/35MIN Diagnoses Metabolic encephalopathy G93.41 Essential hypertension I10 Lyme disease A69.20 COVID-19 U07.1 Acute UTI (urinary tract infection) N39.0 VTE (venous thromboembolism) I82.90
[2024-07-09 07:25] LABS: Hematocrit (blood only) 35.5 % (37.0-47.0); Hemoglobin 11.9 g/dl (12.0-16.0); Mean Corpuscular Hemoglobin 29.2 pg (25.0-34.0); Mean Corpuscular Hgb Conc 33.5 g/dL (32.0-36.0); Mean Platelet Volume 10.9 fL (9.4-12.4); Platelet Count 171 K/uL (130-400); RDW Coefficient of Variation 12.7 % (11.5-14.5); RDW Standard Deviation 40.7 fL (36.4-46.3); Red Blood Count 4.08 M/uL (4.20-5.40); White Blood Count 5.44 K/ul (4.8-10.8)
[2024-07-09 07:34] LABS: Creatinine Clr Calc Pharmacy 53.2 ml/min
[2024-07-09] MEDS: INFLUENZA VACC TS2024-25(65y+)/PF (IIV3) 0.5mL Syr IM ONE (13:14)
[2024-07-09] MEDS: PNEUMOCOCCAL VACCINE (PCV20) 20-VAL CONJ-DIP CRM/PF 0.5 ML SYR IM ONE (13:15)
--- NOTE | 2024-07-09 17:45 | Hospitalist Progress Note ---
Date of Service July 09, 2024 Assessment & Plan (1) Metabolic encephalopathy: Plan: Metabolic encephalopathy in setting of acute UTI, COVID-19 infection, medication noncompliance (Depakote level low on admission at 12), AND POSSIBLE/SUSPECTED LYME disease Schizophrenia/Paranoia/Delirium - Combination not taking medications, compounded by no local psych care given recent move and suspect worsened with son passing away earlier this year/worsening depression ( in December this year from drugs/reason for move but haven't gotten a lot of support per Baron). Suspect some delusions from Libby with regards to baby related to her son passing away earlier this year/worsening depression since that time as son was the primary one to help them and lack of support since passing. - B12/TSH/ammonia without significant abn. Tx UTI above - Depakote LOW, continued 250 PO BID and repeat level NORMAL, likely from not taking. No evidence for seizure - Risperdal discontinued --> Started/continue Abilify 10mg daily, additional prn available but HAS NOT NEEDED. > Some delusions related to child suspected from son passing, but also is suspicious for her Baron "running around on her" and not sure if able to dc to home with additional support at this time to prevent issues. (2) Essential hypertension: Plan: HTN/Aortic stenosis - Uncontrolled BP on admission, lack of meds w/ move to [place]. Clonidine patch in the past. ECHO w/ mild-moderate but normal EF 55-60% - Lisinopril was discontinued due to worsening renal function/UTI - Started/continue amlodipine 2.5 mg daily > Did try 5 mg, but had to reduce given LE edema - Echo revealed EF 55-60%, no regional wall abnormalities (3) Lyme disease: Plan: Lyme Disease - Obtained due to report of knee pain, AMS, Leukopenia on labs and moved from [place] to [place] and found wandering outside for possible contributing factor - Lyme IgM and IgG positive - Was already treated with Ceftriaxone x 7 days, converted to doxycycline BID on 07/06 - complete total course of 28 days of antibiotics > no signs meningitis at present time but has had multiple joint complaints including back discomfort which have been improving - Left knee x-ray revealed joint effusion - Ortho consulted for possible aspiration, but recommends continue treatment lyme/pain control/ice/elevation (4) COVID-19: Plan: COVID-19 - Positive Covid testing 06/24, CXR negative, afebrile, no hypoxia. Supportive care provided. - Isolation precautions DISCONTINUED 07/04 per discussion with infection control. Moved to room with large window and MUCH improved mood since/remaining stable (5) Acute UTI (urinary tract infection): Plan: UTI -Urine cx w/ pansensitive ecoli, completed course with Ceftriaxone/Cefdnir 07/01 (6) VTE (venous thromboembolism): Plan: Hx DVT - Venous doppler obtained for LLE --> NEGATIVE for DVT. CK not elevated > Possibly swelling/pain related to +lyme testing, treatment as above and improvement in pain > Lasix 20mg PO x 1 for swelling and can dc amlodipine if ongoing issues with such - Remains on Eliquis BID and per to be on lifelong Plan Patient did not allow me to call her 07/09, 07/08, or 07/07 Updated via phone call 07/06 Other issues: Elevated troponin suspected 2nd to myocardial demand ischemia from infection. Peaked at 15.1. No CP reported. ECHO without wma noted. Hypomagnesemia: resolved, stable on repeat Code status: full code DVT proph: Eliquis continued 5mg BID Dispo: PT/OT rec for rehab, patient agreeable and was planning such however review CM notes w/ issues with insurance and did message to see if rehab is an option given Libby's reported issues with if not agreeable to dc home with outpatient psych arrangements in place. Do suspect benefit from rehab for strength/conditioning from COVID/UTI/Lyme disease on admission but may have issues as not able to obtain insurance auth with insurance from another state and CM to look into this/reach back out with additional information as able. Libby did NOT want me to call today and given remains alert/oriented albiet with some delusions will respect wishes at this time. Psych notified and hopefully able to re-eval, ?inpatient if needed given concerns vs outpat f/u w/ somewhere like [place] Admission and Anticipated Discharge Date Admission Date: June 24, 2024 Subjective Patient seen and evaluated at bedside. She reports that she is feeling well today. She appears less anxious/paranoid today during our discussion. Denies any acute complaints at this time. I asked if I could call her today with a daily update, which she declined. Physical Exam Physical Exam: General: No acute distress, nondiaphoretic, well-developed, well-nourished. Skin: The skin was without rashes, erythema, edema, or bruising. Cardiac: Regular rate and rhythm. Systolic murmur noted. Pulm: Clear to auscultation bilaterally without wheezes, rales or rhonchi. No respiratory distress. 96% on room air. Abdominal: Soft, nontender, nondistended. Bowel sounds present. Neuro: A&O x3 (person, place, time; not situation). No focal neurological deficits. Psych: Calm, flat affect. Wearing multiple watches on both wrists. Results & Data Results & Data Vital Signs (Past 12 Hours) Vital Signs Temp Pulse Resp BP Pulse Ox O2 Del Method 07/09/24 15:52 98.2 F 65 17 125/70 96 Room Air 07/09/24 07:32 99.5 F 60 17 164/73 H 96 Room Air Laboratory Results Reviewed CBC Reviewed creatinine/GFR PG Care Time/CCT Total # of Minutes Spent Total Time Spent with Patient: Total time spent is greater than 50% in coordination of care (as documented) at patient's floor/unit and/or counseling patient: Coding Level of Care Code 91699 SUB INP/OBS CARE 2/35MIN Diagnoses Metabolic encephalopathy G93.41 Essential hypertension I10 Lyme disease A69.20 COVID-19 U07.1 Acute UTI (urinary tract infection) N39.0 VTE (venous thromboembolism) I82.90
--- NOTE | 2024-07-10 13:18 | Hospitalist Progress Note ---
Date of Service July 10, 2024 Assessment & Plan (1) Metabolic encephalopathy: Plan: Metabolic encephalopathy in setting of acute UTI, COVID-19 infection, medication noncompliance (Depakote level low on admission at 12), AND POSSIBLE/SUSPECTED LYME disease Schizophrenia/Paranoia/Delirium - Combination not taking medications, compounded by no local psych care given recent move and suspect worsened with son passing away earlier this year/worsening depression ( in December this year from drugs/reason for move but haven't gotten a lot of support per Baron). Suspect some delusions from Libby with regards to baby related to her son passing away earlier this year/worsening depression since that time as son was the primary one to help them and lack of support since passing. - B12/TSH/ammonia without significant abn. Tx UTI above - Depakote LOW, continued 250 PO BID and repeat level NORMAL, likely from not taking. No evidence for seizure - Risperdal discontinued --> Started/continue Abilify 10mg daily, additional prn available but HAS NOT NEEDED. > Some delusions related to child suspected from son passing, but also is suspicious for her Baron "running around on her" and not sure if able to dc to home with additional support at this time to prevent issues. (2) Essential hypertension: Plan: HTN/Aortic stenosis - Uncontrolled BP on admission, lack of meds w/ move to [place]. Clonidine patch in the past. ECHO w/ mild-moderate but normal EF 55-60% - Lisinopril was discontinued due to worsening renal function/UTI - Started/continue amlodipine 2.5 mg daily > Did try 5 mg, but had to reduce given LE edema - Echo revealed EF 55-60%, no regional wall abnormalities (3) Lyme disease: Plan: Lyme Disease - Obtained due to report of knee pain, AMS, Leukopenia on labs and moved from [place] to [place] and found wandering outside for possible contributing factor - Lyme IgM and IgG positive - Was already treated with Ceftriaxone x 7 days, converted to doxycycline BID on 07/06 - complete total course of 28 days of antibiotics > no signs meningitis at present time but has had multiple joint complaints including back discomfort which have been improving - Left knee x-ray revealed joint effusion - Ortho consulted for possible aspiration, but recommends continue treatment lyme/pain control/ice/elevation (4) COVID-19: Plan: COVID-19 - Positive Covid testing 06/24, CXR negative, afebrile, no hypoxia. Supportive care provided. - Isolation precautions DISCONTINUED 07/04 per discussion with infection control. Moved to room with large window and MUCH improved mood since/remaining stable (5) Acute UTI (urinary tract infection): Plan: UTI -Urine cx w/ pansensitive ecoli, completed course with Ceftriaxone/Cefdnir 07/01 (6) VTE (venous thromboembolism): Plan: Hx DVT - Venous doppler obtained for LLE --> NEGATIVE for DVT. CK not elevated > Possibly swelling/pain related to +lyme testing, treatment as above and improvement in pain > Lasix 20mg PO x 1 for swelling and can dc amlodipine if ongoing issues with such - Remains on Eliquis BID and per to be on lifelong Plan Patient did not allow me to call her 07/10, 07/09, 07/08, or 07/07 Updated via phone call 07/06 Other issues: Elevated troponin suspected 2nd to myocardial demand ischemia from infection. Peaked at 15.1. No CP reported. ECHO without wma noted. Hypomagnesemia: resolved, stable on repeat Code status: full code DVT proph: Eliquis continued 5mg BID Dispo: PT/OT rec for rehab, patient agreeable and was planning such however review CM notes w/ issues with insurance and did message to see if rehab is an option given Libby's reported issues with if not agreeable to dc home with outpatient psych arrangements in place. Do suspect benefit from rehab for strength/conditioning from COVID/UTI/Lyme disease on admission but may have issues as not able to obtain insurance auth with insurance from another state and CM to look into this/reach back out with additional information as able. Libby did NOT want me to call today and given remains alert/oriented albiet with some delusions will respect wishes at this time. Psych notified and hopefully able to re-eval, ?inpatient if needed given concerns vs outpat f/u w/ somewhere like [place] Admission and Anticipated Discharge Date Admission Date: June 24, 2024 Subjective Patient seen and evaluated at bedside eating lunch. She reports that she is disappointed that the lunch is not very good today, but she did eat all of it except for some of the diced carrots. No hallucinations noted during my visit. She is alert and oriented x 4, and did not give me permission to update her via phone call today. No additional complaints or concerns at this ti me. Physical Exam Physical Exam: General: No acute distress, nondiaphoretic, well-developed, well-nourished. Skin: The skin was without rashes, erythema, edema, or bruising. Cardiac: Regular rate and rhythm. Systolic murmur noted. Pulm: Clear to auscultation bilaterally without wheezes, rales or rhonchi. No respiratory distress. 96% on room air. Abdominal: Soft, nontender, nondistended. Bowel sounds present. Neuro: A&O x4 (person, place, time, situation). No focal neurological deficits. Psych: Calm, flat affect. Wearing multiple watches on both wrists. Results & Data Results & Data Vital Signs (Past 12 Hours) Vital Signs Temp Pulse Resp BP BP Pulse Ox O2 Del Method 07/10/24 11:54 72 14 138/72 96 Room Air 07/10/24 07:38 98.8 F 76 14 162/75 H 98 Room Air PG Care Time/CCT Total # of Minutes Spent Total Time Spent with Patient: Total time spent is greater than 50% in coordination of care (as documented) at patient's floor/unit and/or counseling patient: Coding Level of Care Code 19609 SUB INP/OBS CARE 10/23MIN Diagnoses Metabolic encephalopathy G93.41 Essential hypertension I10 Lyme disease A69.20 COVID-19 U07.1 Acute UTI (urinary tract infection) N39.0 VTE (venous thromboembolism) I82.90
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
--- NOTE | 2024-07-11 10:41 | Hospitalist Progress Note ---
Date of Service July 11, 2024 Assessment & Plan (1) Metabolic encephalopathy: Plan: Metabolic encephalopathy in setting of acute UTI, COVID-19 infection, medication noncompliance (Depakote level low on admission at 12), and Lyme disease Schizophrenia/Paranoia/Delirium - Combination not taking medications, compounded by no local psych care given recent move and suspect worsened with son passing away earlier this year/worsening depression ( in December this year from drugs/reason for move but haven't gotten a lot of support per Baron). Suspect some delusions from Libby with regards to baby related to her son passing away earlier this year/worsening depression since that time as son was the primary one to help them and lack of support since passing. - B12/TSH/ammonia without significant abn. Tx UTI above - Depakote LOW, continued 250 PO BID and repeat level NORMAL, likely from not taking. No evidence for seizure - Risperdal discontinued --> Started/continue Abilify 10mg daily, additional prn available but HAS NOT NEEDED. > Some delusions related to child suspected from son passing, but also is suspicious for her Baron "running around on her" and not sure if able to dc to home with additional support at this time to prevent issues. (2) Essential hypertension: Plan: HTN/Aortic stenosis - Uncontrolled BP on admission, lack of meds w/ move to [place]. Clonidine patch in the past. ECHO w/ mild-moderate but normal EF 55-60% - Lisinopril was discontinued due to worsening renal function/UTI - Started/continue amlodipine 2.5 mg daily > Did try 5 mg, but had to reduce given LE edema - Echo revealed EF 55-60%, no regional wall abnormalities (3) Lyme disease: Plan: Lyme Disease - Obtained due to report of knee pain, AMS, Leukopenia on labs and moved from [place] and found wandering outside for possible contributing factor - Lyme IgM and IgG positive - Was already treated with Ceftriaxone x 7 days, converted to doxycycline BID on 07/06 - complete total course of 28 days of antibiotics > no signs meningitis at present time but has had multiple joint complaints including back discomfort which have been improving - Left knee x-ray revealed joint effusion - Ortho consulted for possible aspiration, but recommends continue treatment lyme/pain control/ice/elevation (4) COVID-19: Plan: COVID-19 - Positive Covid testing 06/24, CXR negative, afebrile, no hypoxia. Supportive care provided. - Isolation precautions DISCONTINUED 07/04 per discussion with infection control. Moved to room with large window and MUCH improved mood since/remaining stable (5) VTE (venous thromboembolism): Plan: Hx DVT - Venous doppler obtained for LLE --> NEGATIVE for DVT. CK not elevated > Possibly swelling/pain related to +lyme testing, treatment as above and improvement in pain > Lasix 20mg PO x 1 for swelling and can dc amlodipine if ongoing issues with such - Remains on Eliquis BID and per to be on lifelong Plan Patient did not allow me to call her 07/11, 07/10, 07/09, 07/08, or 07/07 Updated via phone call 07/06 Other issues: - Elevated troponin suspected 2nd to myocardial demand ischemia from infection. Peaked at 15.1. No CP reported. ECHO without wma noted. - Hypomagnesemia: resolved, stable on repeat - UTI: Urine cx w/ pansensitive ecoli, completed course with Ceftriaxone/Cefdnir 07/01 Code status: full code DVT proph: Eliquis continued 5mg BID Dispo: PT/OT rec for rehab, patient agreeable and was planning such however review CM notes w/ issues with insurance and did message to see if rehab is an option given Libby's reported issues with if not agreeable to dc home with outpatient psych arrangements in place. Do suspect benefit from rehab for strength/conditioning from COVID/UTI/Lyme disease on admission but may have issues as not able to obtain insurance auth with insurance from another state and CM to look into this/reach back out with additional information as able. Libby did NOT want me to call today and given remains alert/oriented albiet with some delusions will respect wishes at this time. Psych notified and hopefully able to re-eval, ?inpatient if needed given concerns vs outpat f/u w/ somewhere like [place] Admission and Anticipated Discharge Date Admission Date: June 24, 2024 Supervising Physician Co-Signing Physician Notes chart reviewed and case d/w S Gross PAC. agree w above. form signed outlining diagnoses for case management/placement purposes Subjective Patient seen and evaluated at bedside. She was resting comfortably in bed watching TV. Reports she had a good breakfast and slept well overnight. No hallucinations noted during my visit. She is alert and oriented x (not time), and did not give me permission to update her via phone call today. No additional complaints or concerns at this time. Physical Exam Physical Exam: General: No acute distress, nondiaphoretic, well-developed, well-nourished. Skin: The skin was without rashes, erythema, edema, or bruising. Cardiac: Regular rate and rhythm. Systolic murmur noted. Pulm: Clear to auscultation bilaterally without wheezes, rales or rhonchi. No respiratory distress. 96% on room air. Abdominal: Soft, nontender, nondistended. Bowel sounds present. Neuro: A&O x3 (person, place, situation; not time). No focal neurological deficits. Psych: Calm, flat affect. Wearing multiple watches on both wrists. Results & Data Results & Data Vital Signs (Past 12 Hours) Vital Signs Temp Pulse Resp BP Pulse Ox O2 Del Method 07/11/24 07:19 97.5 F L 61 16 138/68 96 Room Air PG Care Time/CCT Total # of Minutes Spent Total Time Spent with Patient: Total time spent is greater than 50% in coordination of care (as documented) at patient's floor/unit and/or counseling patient: Coding Level of Care Code 22676 SUB INP/OBS CARE 10/23MIN Diagnoses Metabolic encephalopathy G93.41 Essential hypertension I10 Lyme disease A69.20 COVID-19 U07.1 VTE (venous thromboembolism) I82.90
[2024-07-12 06:47] LABS: Hematocrit (blood only) 35.4 % (37.0-47.0); Hemoglobin 11.6 g/dl (12.0-16.0); Mean Corpuscular Hemoglobin 29.1 pg (25.0-34.0); Mean Corpuscular Hgb Conc 32.8 g/dL (32.0-36.0); Mean Corpuscular Volume 88.7 fL (80.0-100.0); Mean Platelet Volume 10.7 fL (9.4-12.4); Platelet Count 123 K/uL (130-400); RDW Standard Deviation 42.5 fL (36.4-46.3); Red Blood Count 3.99 M/uL (4.20-5.40); White Blood Count 6.41 K/ul (4.8-10.8)
[2024-07-12 07:07] LABS: Creatinine Clr Calc Pharmacy 62.2 ml/min
[2024-07-12 07:26] VITALS: RESP 16
--- NOTE | 2024-07-12 11:49 | Hospitalist Progress Note ---
Date of Service July 12, 2024 Assessment & Plan (1) Metabolic encephalopathy: Plan: Metabolic encephalopathy in setting of acute UTI, COVID-19 infection, medication noncompliance (Depakote level low on admission at 12), and Lyme disease Schizophrenia/Paranoia/Delirium - Combination not taking medications, compounded by no local psych care given recent move and suspect worsened with son passing away earlier this year/worsening depression ( in December this year from drugs/reason for move but haven't gotten a lot of support per Baron). Suspect some delusions from Libby with regards to baby related to her son passing away earlier this year/worsening depression since that time as son was the primary one to help them and lack of support since passing. - B12/TSH/ammonia without significant abn. Tx UTI above - Depakote LOW, continued 250 PO BID and repeat level NORMAL, likely from not taking. No evidence for seizure - Risperdal discontinued --> Started/continue Abilify 10mg daily, additional prn available but HAS NOT NEEDED. > Some delusions related to child suspected from son passing, but also is suspicious for her Baron "running around on her" and not sure if able to dc to home with additional support at this time to prevent issues. > Hallucinations have decreased in frequency (2) Essential hypertension: Plan: HTN/Aortic stenosis - Uncontrolled BP on admission, lack of meds w/ move to [place]. Clonidine patch in the past. ECHO w/ mild-moderate but normal EF 55-60% - Lisinopril was discontinued due to worsening renal function/UTI - Started/continue amlodipine 2.5 mg daily > Did try 5 mg, but had to reduce given LE edema - Echo revealed EF 55-60%, no regional wall abnormalities (3) Lyme disease: Plan: Lyme Disease - Obtained due to report of knee pain, AMS, Leukopenia on labs and moved from [place] to [place] and found wandering outside for possible contributing factor - Lyme IgM and IgG positive - Was already treated with Ceftriaxone x 7 days, converted to doxycycline BID on 07/06 - complete total course of 28 days of antibiotics > no signs meningitis at present time but has had multiple joint complaints including back discomfort which have been improving - Left knee x-ray revealed joint effusion - Ortho consulted for possible aspiration, but recommends continue treatment lyme/pain control/ice/elevation (4) COVID-19: Plan: COVID-19 - Positive Covid testing 06/24, CXR negative, afebrile, no hypoxia. Supportive care provided. - Isolation precautions DISCONTINUED 07/04 per discussion with infection control. Moved to room with large window and MUCH improved mood since/remaining stable (5) VTE (venous thromboembolism): Plan: Hx DVT - Venous doppler obtained for LLE --> NEGATIVE for DVT. CK not elevated > Possibly swelling/pain related to +lyme testing, treatment as above and im provement in pain > Lasix 20mg PO x 1 for swelling and can dc amlodipine if ongoing issues with such - Remains on Eliquis BID and per to be on lifelong Plan Patient did not allow me to call her 07/12, 07/11, 07/10, 07/09, 07/08, or 07/07 Updated via phone call 07/06 Other issues: - Elevated troponin suspected 2nd to myocardial demand ischemia from infection. Peaked at 15.1. No CP reported. ECHO without wma noted. - Hypomagnesemia: resolved, stable on repeat - UTI: Urine cx w/ pansensitive ecoli, completed course with Ceftriaxone/Cefdnir 07/01 Code status: full code DVT proph: Eliquis continued 5mg BID Dispo: PT/OT rec for rehab, patient agreeable and was planning such however review CM notes w/ issues with insurance and did message to see if rehab is an option given Libby's reported issues with if not agreeable to dc home with outpatient psych arrangements in place. Do suspect benefit from rehab for strength/conditioning from COVID/UTI/Lyme disease on admission but may have issues as not able to obtain insurance auth with insurance from another state and CM to look into this/reach back out with additional information as able. Libby did NOT want me to call today and given remains alert/oriented albiet with some delusions will respect wishes at this time. Psych notified and hopefully able to re-eval, ?inpatient if needed given concerns vs outpat f/u w/ somewhere like [place] Admission and Anticipated Discharge Date Admission Date: June 24, 2024 Supervising Physician Co-Signing Physician Notes Attending Attestation - Chart reviewed, care plan d/w CLARICE Carpio. I agree w/ the trevizo components of her documentation with the following addition - * new thrombocytopenia Recent TSH and B12 levels wnl. Check a folate level to be complete. Recheck CBC w/ diff in am. Low platelets due to tick-borne disease? other etiology? Miquel Wilhelm MD Subjective Patient seen and evaluated at bedside. She is tearful during our conversation today, saying that "people are making fun" of her and that her is "stepping out" on her. Emotional support provided. She did not give me permission to call her today. She did not have any hallucinations during my visit. She continues to have a good appetite and sleeps well overnight. Continue inpatient stay while awaiting rehab placement. No additional complaints or concerns at this time. Physical Exam Physical Exam: General: No acute distress, nondiaphoretic, well-developed, well-nourished. More tearful/emotional today. Skin: The skin was without rashes, erythema, edema, or bruising. Cardiac: Regular rate and rhythm. Systolic murmur noted. Pulm: Clear to auscultation bilaterally without wheezes, rales or rhonchi. No respiratory distress. 95% on room air. Abdominal: Soft, nontender, nondistended. Bowel sounds present. Neuro: A&O x4. No focal neurological deficits. Psych: Calm, flat affect. Wearing multiple watches on both wrists. Results & Data Results & Data Vital Signs (Past 12 Hours) Vital Signs Temp Pulse Resp BP Pulse Ox O2 Del Method 07/12/24 07:26 97.7 F 65 16 160/70 H 95 Room Air Laboratory Results Reviewed CBC Reviewed creatinine/GFR PG Care Time/CCT Total # of Minutes Spent Total Time Spent with Patient: Total time spent is greater than 50% in coordination of care (as documented) at patient's floor/unit and/or counseling patient: Coding Level of Care Code 12712 SUB INP/OBS CARE 2/35MIN Diagnoses Metabolic encephalopathy G93.41 Essential hypertension I10 Lyme disease A69.20 COVID-19 U07.1 VTE (venous thromboembolism) I82.90
[2024-07-13 06:23] LABS: Basophils # (auto) 0.02 K/uL (0.00-0.20); Basophils % (auto) 0.3 %; Eosinophils # (auto) 0.17 K/uL (0.00-0.50); Eosinophils % (auto) 2.3 %; Hematocrit (blood only) 33.4 % (37.0-47.0); Immature Granulocytes # (auto) 0.03 K/uL (0.01-0.20); Immature Granulocytes % (auto) 0.4 %; Lymphocytes # (auto) 1.79 K/uL (1.20-3.40); Lymphocytes % (auto) 23.9 %; Mean Corpuscular Hemoglobin 29.1 pg (25.0-34.0); Mean Corpuscular Hgb Conc 32.9 g/dL (32.0-36.0); Mean Corpuscular Volume 88.4 fL (80.0-100.0); Mean Platelet Volume 10.7 fL (9.4-12.4); Monocytes # (auto) 0.52 K/uL (0.11-0.59); Monocytes % (auto) 6.9 %; Neutrophils # (auto) 4.96 K/uL (1.40-6.50); Neutrophils % (auto) 66.2 %; Platelet Count 112 K/uL (130-400); RDW Coefficient of Variation 13.1 % (11.5-14.5); RDW Standard Deviation 42.2 fL (36.4-46.3); Red Blood Count 3.78 M/uL (4.20-5.40); White Blood Count 7.49 K/ul (4.8-10.8)
--- NOTE | 2024-07-13 12:14 | Hospitalist Progress Note ---
<Statement entered by Kristina Sanderson MD - 07/13/24 17:33> I have reviewed vital signs, chart notes, labs and imaging. I have also discussed the management of the patient with the DENNIS and I agree with the exam findings documented in the history and physical examination and the documented assessment and plan unless otherwise stated below. Today's labs notable for moderate thrombocytopenia with platelet count of 112, it was normal previously. This could be related to doxycycline or valproic acid which appear she was not taking at home and was recently restarted this admission. Plan to continue monitoring CBC every 3 days however if thrombocytopenia worsening will need to hold medications. she is on apixaban and not on a heparinoid. her leukopenia related to Lyme has resolved. Date of Service July 13, 2024 Assessment & Plan (1) Metabolic encephalopathy: Plan: Metabolic encephalopathy in setting of acute UTI, COVID-19 infection, medication noncompliance (Depakote level low on admission at 12), and Lyme disease Schizophrenia/Paranoia/Delirium - Combination not taking medications, compounded by no local psych care given recent move and suspect worsened with son passing away earlier this year/worsening depression ( in December this year from drugs/reason for move but haven't gotten a lot of support per Baron). Suspect some delusions from Lib[place] with regards to baby related to her son passing away earlier this year/worsening depression since that time as son was the primary one to help them and lack of support since passing. - B12/TSH/ammonia without significant abn. Tx UTI above - Depakote LOW, continued 250 PO BID and repeat level NORMAL, likely from not taking. No evidence for seizure - Risperdal discontinued --> Started/continue Abilify 10mg daily, additional prn available but HAS NOT NEEDED. > Some delusions related to child suspected from son passing, but also is suspicious for her Baron "running around on her" and not sure if able to dc to home with additional support at this time to prevent issues. > Hallucinations have decreased in frequency (2) Essential hypertension: Plan: HTN/Aortic stenosis - Uncontrolled BP on admission, lack of meds w/ move to [place]. Clonidine patch in the past. ECHO w/ mild-moderate but normal EF 55-60% - Lisinopril was discontinued due to worsening renal function/UTI - Started/continue amlodipine 2.5 mg daily > Did try 5 mg, but had to reduce given LE edema - Echo revealed EF 55-60%, no regional wall abnormalities (3) Lyme disease: Plan: Lyme Disease - Obtained due to report of knee pain, AMS, Leukopenia on labs and moved from [place] to [place] and found wandering outside for possible contributing factor - Lyme IgM and IgG positive - Was already treated with Ceftriaxone x 7 days, converted to doxycycline BID on 07/06 - complete total course of 28 days of antibiotics > no signs meningitis at present time but has had multiple joint complaints including back discomfort which have been improving - Left knee x-ray revealed joint effusion - Ortho consulted for possible aspiration, but recommends continue treatment lyme/pain control/ice/elevation (4) COVID-19: Plan: COVID-19 - Positive Covid testing 06/24, CXR negative, afebrile, no hypoxia. Supportive care provided. - Isolation precautions DISCONTINUED 07/04 per discussion with infection control. Moved to room with large window and MUCH improved mood since/remaining stable (5) VTE (venous thromboembolism): Plan: Hx DVT - Venous doppler obtained for LLE --> NEGATIVE for DVT. CK not elevated > Possibly swelling/pain related to +lyme testing, treatment as above and improvement in pain > Lasix 20mg PO x 1 for swelling and can dc amlodipine if ongoing issues with such - Remains on Eliquis BID and per to be on lifelong Plan Discussed discharge planning with case management Patient did not allow me to call her 07/13, 07/12, 07/11, 07/10, 07/09, 07/08, or 07/07 Updated via phone call 07/06 Other issues: - Elevated troponin suspected 2nd to myocardial demand ischemia from infection. Peaked at 15.1. No CP reported. ECHO without wma noted. - Hypomagnesemia: resolved, stable on repeat - UTI: Urine cx w/ pansensitive ecoli, completed course with Ceftriaxone/Cefdnir 07/01 Code status: full code DVT proph: Eliquis continued 5mg BID Dispo: PT/OT rec for rehab, patient agreeable. Issues with insurance approval as patient just moved to [place] from [place]. CM following. Admission and Anticipated Discharge Date Admission Date: June 24, 2024 Subjective Patient seen and evaluated bedside. She reports that she is tired today. She is not emotional today, like she was yesterday during my visit. She did not give me permission to call her today. No additional complaints or concerns at this time. Physical Exam Physical Exam: General: No acute distress, nondiaphoretic, well-developed, well-nourished. Skin: The skin was without rashes, erythema, edema, or bruising. Cardiac: Regular rate and rhythm. Systolic murmur noted. Pulm: Clear to auscultation bilaterally without wheezes, rales or rhonchi. No respiratory distress. 97% on room air. Abdominal: Soft, nontender, nondistended. Bowel sounds present. Neuro: A&O x4. No focal neurological deficits. Psych: Calm, flat affect. Wearing multiple watches on both wrists. Results & Data Results & Data Vital Signs (Past 12 Hours) Vital Signs Temp Pulse Resp BP Pulse Ox O2 Del Method 07/13/24 07:34 97.5 F L 55 L 16 151/64 H 97 Room Air Laboratory Results Reviewed CBC PG Care Time/CCT Total # of Minutes Spent Total Time Spent with Patient: Total time spent is greater than 50% in coordination of care (as documented) at patient's floor/unit and/or counseling patient: Coding Level of Care Code 01174 SUB INP/OBS CARE 2/35MIN Diagnoses Metabolic encephalopathy G93.41 Essential hypertension I10 Lyme disease A69.20 COVID-19 U07.1 VTE (venous thromboembolism) I82.90
[2024-07-14 07:15] VITALS: BP 160/68; PULSE 58; TEMP 97.7; O2SAT 98
--- NOTE | 2024-07-14 12:15 | Discharge Summary ---
Discharge Summary Date of Service July 14, 2024 Principal Dx & Hospital Course #1 = Principal Diagnosis (1) Metabolic encephalopathy: Metabolic encephalopathy in setting of acute UTI, COVID-19 infection, medication noncompliance (Depakote level low on admission at 12), and Lyme disease Schizophrenia/Paranoia/Delirium - Combination not taking medications, compounded by no local psych care given recent move and suspect worsened with son passing away earlier this year/worsening depression ( in December this year from drugs/reason for move but haven't gotten a lot of support per Baron). Suspect some delusions from [place] with regards to baby related to her son passing away earlier this year/worsening depression since that time as son was the primary one to help them and lack of support since passing. - B12/TSH/ammonia without significant abn. Completed abx for UTI. - Depakote LOW, continued 250 PO BID and repeat level NORMAL, likely from not taking. No evidence for seizure - Risperdal discontinued --> Started/continue Abilify 10mg daily - delusion and hallucinations improved (2) Essential hypertension: HTN/Aortic stenosis - Uncontrolled BP on admission, lack of meds w/ move to [place]. Clonidine patch in the past (not restarted). ECHO w/ mild-moderate but normal EF 55-60% - Lisinopril was discontinued due to worsening renal function/UTI - Started/continue amlodipine 2.5 mg daily - Echo revealed EF 55-60%, no regional wall abnormalities (3) Lyme disease: Lyme Disease - Obtained due to report of knee pain, AMS, Leukopenia on labs and moved from [place] to [place] and found wandering outside for possible contributing factor - Lyme IgM and IgG positive - Was already treated with Ceftriaxone x 7 days, converted to doxycycline BID on 07/06 - complete total course of 28 days of antibiotics - Left knee x-ray revealed joint effusion - Ortho consulted for possible aspiration, but recommends continue treatment lyme/pain control/ice/elevation ? contributing to thrombocytopenia (4) COVID-19: COVID-19 - Positive Covid testing 06/24, CXR negative, afebrile, no hypoxia. Supportive care provided. - Isolation precautions DISCONTINUED 07/04 per discussion with infection control. (5) VTE (venous thromboembolism): Hx DVT - Venous doppler obtained for LLE --> NEGATIVE for DVT. CK not elevated - Remains on Eliquis BID and per to be on lifelong Plan Other issues: - Elevated troponin suspected 2nd to myocardial demand ischemia from infection. Peaked at 15.1. No CP reported. ECHO without wma noted. - Hypomagnesemia: resolved, stable on repeat - UTI: Urine cx w/ pansensitive ecoli, completed course with Ceftriaxone/Cefdnir 07/01 Dispo: discharge to [facility] rehab today Patient did not allow to call her 07/13, 07/12, 07/11, 07/10, 07/09, 07/08, or 07/07 Updated via phone call 07/06 Notes For Next Care Provider recheck CBC in 1-2 days Medication Changes From Visit lisinopril stopped abilify added amlodopine added doxycyline x 6 more days risperdal stopped clonidine patch stopped Admission HPI Per Admitting Provider 78 y/o with a PMHx of seizures and schizophrenia brought in by family for confusion. Patient adamant she just delivered a baby. Unable to obtain much pertinent history from patient. Denies any CP, SOB, abdominal pain, urinary frequency, or nausea. Does report left leg/calf pain. Per report from ED physician who did speak to family - patient has a DVT that is currently being treated with Eliquis. Unable to connect with family as they appear to have left the hospital. Discharge Exam General: NAD, VS as above, sitting up in the chair to eat lunch, pleasant Resp: normal respiratory effort, CV: RRR, well perfused Abd: soft, non tender, no hepatosplenomegaly Extremities: Moves all extremities, Neuro: A&O x1, Discharge Plan Discharge Items Patient Disposition: Transfer Care Home Fac Reason For Visit: CONFUSION Discharge Diagnosis: AMS - resolved thrombocyptoenia Activity: Resume your previous activity Non-emergency contact: Primary Care Provider Call non-emergency contact if: you have any medication questions and your symptoms worsen Follow-up/Referrals: PCP,NO [Primary Care Provider] - Diet: Regular Addtl Attending Provider Instructions: Ms. Abraham, You were hospitalized after worsening depression/confusion/paranoia. Thankfully this has improved during your hospital stay with medication changes. You were started on new blood pressure medication. You are being treated for lyme disease. You will be discharged to [facility] for rehab. [facility]: - thrombocytopenia (112) on labs 07/13 - ? doxycycline or valproic acid as cause. Recheck in 2 days and if still low consider holding - suspect cause of delusion was grief/depression from son passing in December and not taking her medications with her recent move Pending Studies at Discharge: No Stand-Alone Forms: My [facility] Skilled Items Patient informed of condition?: Yes DNR: No Discharge Level of Care: Acute rehab Communicable Disease: No Discharge Prognosis: Stable Lines: None Urinary Catheter: No Medications and DC Order Prescriptions: New doxycycline hyclate 100 mg Capsule 100 mg PO BID 6 Days Qty: 12 0RF amlodipine [Norvasc] 5 mg Tablet 2.5 mg PO QAM 30 Days Qty: 15 0RF famotidine 20 mg Tablet 20 mg PO QAM 30 Days Qty: 30 0RF aripiprazole [Abilify] 10 mg Tablet 10 mg PO QAM 30 Days Qty: 30 0RF Continued ferrous sulfate [Iron (ferrous sulfate)] 325 mg (65 mg iron) Tablet 325 mg PO DAILY divalproex [Depakote] 250 mg Tablet,Delayed Release (Dr/Ec) 250 mg PO BID levothyroxine 112 mcg Tablet 112 mcg PO DAILY Eliquis 5 mg Tablet 5 mg PO BID Held Aristada 662 mg/2.4 mL Suspension,Extended Rel Syring IM DIRECTED Hold Instructions: Resume on 08/04/24. discuss with PCP - unsure when her dose was Rx Instructions: Monthly Discontinued clonidine 0.1 mg/24 hr Patch Weekly transdermal CQWK Discharge Orders: Discharge Order (Routine); Ordered 07/14/24 Ordered By: Tereza Warner Admission Data Admit Date/Time: 06/24/24 19:59 Attending Provider: Kristina Sanderson Admit Provider: Sudha Hodges Primary Care Provider: PCP,NO Other Providers: Angelito Bradshaw; Sara Palacios; Arden Schulte; Celestino Bowser Jr; Lola Mcmanus; Joceline Eduardo; Clarence Tolentino; Carlos Stack; [facility] Hospital Stay Data Consultations 06/24/24 19:10 ED Decision to Admit Stat 06/24/24 22:28 Consult Psychiatry Routine 07/01/24 13:03 Consult Orthopedic Surgery Routine Diagnostic Imagining Performed Head CT 06/24/24 16:08 CT OF THE HEAD WITHOUT CONTRAST CLINICAL HISTORY: Altered mental status. COMPARISON STUDY: No previous studies for comparison. CT DOSE: 547.75 mGy.cm TECHNIQUE: Helical axial images of the head were obtained without IV contrast. Automated exposure control was utilized for the study. A dose lowering technique was utilized adhering to the principles of ALARA. FINDINGS: No acute intracranial hemorrhage, midline shift or mass effect is present. White matter hypodensity suggests small vessel disease. The ventricular system is unremarkable. The basal cisterns are patent. No extra-axial collections are present. There are no findings to suggest acute dural sinus thr ombosis or acute territorial infarct. No significant calvarial abnormalities are present. Visualized portions of the sinuses and mastoid air cells are clear. IMPRESSION: No acute intracranial findings. ACT 112: Negative or not required by law. Electronically signed by: Sebastian Dolan M.D. 06/24/2024 4:39 PM Chest X-Ray 06/24/24 16:09 SINGLE VIEW CHEST CLINICAL HISTORY: Change in mental status. FINDINGS: An AP, portable, semierect chest radiograph is obtained. No prior studies are available for comparison at the time of dictation. The examination is degraded by portable technique and apical lordotic positioning. The heart is enlarged noting atherosclerotic calcification of the thoracic aorta. The pulmonary vasculature is noncongested. Nonspecific interstitial thickening is likely chronic. There is mild elevation of the right hemidiaphragm. Scarring/atelectasis is noted at the lung bases. No airspace consolidation or large pleural effusion is identified. No pneumothorax is seen. The skeletal structures are osteopenic. The bony thorax is grossly intact. Arthritic change is seen in the shoulders and spine. IMPRESSION: Cardiomegaly with no active disease in the chest. ACT 112: Negative or not required by law. Electronically signed by: Velasquez Reis M.D. 06/24/2024 5:17 PM Venous Doppler Study 06/29/24 15:29 Exam(s): US VENOUS LEFT LOWER EXTREMITY EXAM: US Duplex Left Lower Extremity Veins CLINICAL HISTORY: Reason for exam: r/o dvt. TECHNIQUE: Real-time duplex ultrasound scan of the left lower extremity veins integrating B-mode two-dimensional vascular structure, Doppler spectral analysis, color flow Doppler imaging and compression. COMPARISON: None. FINDINGS: Reportedly exam is limited due to patient's inability to tolerate required compression behind the knee. Deep veins: Unremarkable. No DVT in the visualized common femoral, femoral, proximal deep femoral or popliteal veins. The veins demonstrate normal color flow, are normally compressible, with normal phasic flow and/or augmentation response. Superficial veins: Unremarkable. No thrombus in the visualized great saphenous vein. Soft tissues: No acute findings. No popliteal cyst. . IMPRESSION: Limited exam. No conclusive evidence of DVT demonstrated in the left lower extremity . Electronically signed by: Angelique Cross MD, DABR 06/30/24 01:36 AM Knee X-Ray 07/01/24 10:39 XR knee LT 3V HISTORY: 78 years-old Female left knee pain/swelling, eval effusion acute left knee pain COMPARISON: None TECHNIQUE: 3 views of the left knee FINDINGS: Arterial calcifications. 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 No acute fracture, dislocation or osseous erosion. Small to moderate joint effusion with circumferential soft tissue swelling. IMPRESSION: Joint effusion without acute osseous abnormality. ACT 112: Negative or not required by law. The above report was generated using voice recognition software. It may contain grammatical, syntax or spelling errors. Electronically signed by: Leon Coates M.D. 07/01/2024 11:34 AM Pending Results Patient Have Any Pending Studies at Discharge: No Discharge Instructions Given to Patient (Per Discharging Provider) Ms. Abraham, Dwight were hospitalized after worsening depression/confusion/paranoia. Thankfully this has improved during your hospital stay with medication changes. You were started on new blood pressure medication. You are being treated for lyme disease. You will be discharged to [facility] for rehab. [facility]: - thrombocytopenia (112) on labs 07/13 - ? doxycycline or valproic acid as cause. Recheck in 2 days and if still low consider holding - suspect cause of delusion was grief/depression from son passing in December and not taking her medications with her recent move Total Time Total Time Spent Total Time Spent (In Minutes): Time spent day of discharge 32 minutes including direct patient care, medication reconciliation, documentation, review of labs and images, and coordination of care. Coding Level of Care Code 06065 INP/OBS DISCH >30 MIN Diagnoses Metabolic encephalopathy G93.41 Essential hypertension I10 Lyme disease A69.20 COVID-19 U07.1 VTE (venous thromboembolism) I82.90
== END 2024-07-14 14:07 | DRG 689 ==
LOC: ED 15:52 → EDINP 19:59 → SUATTDRO 19:59 → 2N 06-26 08:50 → 3E 06-30 20:31

== ENCOUNTER 2024-10-19 14:54 | Inpatient (IN) ==
--- NOTE | 2024-10-19 15:33 | Emergency Department Note ---
Impression & Plan UTI (urinary tract infection), Weakness, AMS (altered mental status) ED Provider Note NAME: MOLLY DE LA CRUZ AGE: 78 SEX: F : 1945 ARRIVES VIA: Ambulance INFORMANT: Patient ED PROVIDER(S): Dwayne Boyd DO CHIEF COMPLAINT: Weakness HPI: Patient is a 78-year-old female with a past medical history of bipolar disorder per report who presents to the ER for weakness. Per EMS report to nursing staff patient has been unable to walk for the past 2 weeks as she feels super weak. She admits to dysuria, urgency, and frequency which has been present for the past several days initially she notes and then believes that has been more like 2 months. She denies any headache or change in vision. No chest pain or shortness of breath. No belly pain. No nausea, vomiting, or diarrhea. No dysuria, urgency, or frequency. Discussed with her who lives with her and he notes that she has been confused weak and complaining of urinary symptoms for the past week. ADDITIONAL HISTORY OBTAINED: Per HPI Chronic Medical/Social Conditions Affecting Care: Per HPI PAST MEDICAL HISTORY:See Below PAST SURGICAL HISTORY:See Below FAMILY HISTORY:See Below SOCIAL HISTORY:See Below HOME MEDICATIONS:See Below ALLERGIES:See Below VITALS:See Below PHYSICAL EXAMINATION: GENERAL: Sitting up in bed, alert, well appearing, well nourished, no distress, non-toxic EYE EXAM: normal conjunctiva. OROPHARYNX: no exudate, no erythema, lips, buccal mucosa, and tongue normal and mucous membranes are moist NECK: supple, no nuchal rigidity, no adenopathy, non-tender LUNGS: Clear to auscultation. Normal chest wall mechanics HEART: no murmurs, S1 normal and S2 normal ABDOMEN: abdomen soft, non-tender, normo-active bowel sounds, no masses, no rebound or guarding. BACK: Back is symmetrical on inspection and there is no deformity, no midline tenderness, no CVA tenderness. SKIN: no rashes and no bruising UPPER EXTREMITIES: upper extremities are grossly normal. LOWER EXTREMITIES: No pitting edema. NEURO EXAM: Oriented to person, place and year, cranial nerves II-XII grossly intact, normal speech, no gross weakness of arms, no gross weakness of legs. MEDICAL DECISION MAKING: Patient is a 78-year-old female who presents to the ER for the above-stated complaint. IV was established and blood work was obtained. Labs show no significant leukocytosis or anemia. BMP along LFTs bilirubin and lipase is unremarkable. Troponin was negative. UA with leuks whites and 2 bacteria. Patient was given IV Rocephin. Discussed with notes that she has been confused and weaker than usual and consequently case was discussed with the hospitalist for further evaluation management treatment. Patient was given IV fluids and IV Rocephin while here in the ER. Consults/Care Managements Discussions: Per MDM Triage Nursing notes reviewed. Limited review of prior medical records performed Vital Signs: reviewed and remarkable for HTN Differential diagnosis: Infection, dehydration, metabolic abnormality, hypo/hyperglycemia, electrolyte disturbance, anemia, hypoxia, cardiac sources, intracerebral event, toxicologic, neurologic, as well as other pathologies. ER treatment provided: See below Diagnostics interpreted by me include EKG and cardiac monitoring as listed below: -Cardiac Monitoring: An order was placed for continuous cardiac monitoring. The monitor shows a rate of 70 with sinus rhythm. -ECG: none -Laboratory studies:Interpreted by me as stated above in MDM and shown below. Imaging studies: Xrays: As interpreted by me: Portable AP upright 1 view of the chest shows no focal infiltrate CTs show: CT head was negative Procedures: None Critical Care: None Past Med/Surg History Problem List (Updated 10/19/24 @ 21:48 by Dwayne Boyd DO) AMS (altered mental status) (Acute) HTN (hypertension), benign Hypothyroid Weakness (Acute) UTI (urinary tract infection) (Acute) Medical History (Updated 10/19/24 @ 21:48 by Dwayne Boyd DO) Lyme disease Aortic stenosis Essential hypertension VTE (venous thromboembolism) COVID-19 Delirium Schizophrenia Social History Smoking Status: Never smoker Hx Alcohol Use: No Hx Substance Use: No Preferred Language: Syriac Communication Ability: Effective Visual Impairment: No Limitations Current Living Situation: Spouse and Family Feels Safe at Home: No Assistive Devices: Cane, Walker and Wheelchair Allergies Allergies Allergy/AdvReac Type Severity Reaction Status Date / Time No Known Allergies Allergy Verified 06/24/24 23:29 Home Meds Home Medications Medication Instructions Recorded Confirmed apixaban 5 mg tablet (Eliquis) 5 mg PO BID 06/24/24 06/24/24 aripiprazole lauroxil 662 mg/2.4 mg IM DIRECTED 06/24/24 mL suspension, ext.rel. IM syringe (Aristada) divalproex 250 mg tablet,delayed 250 mg PO BID 06/24/24 06/24/24 release (Depakote) ferrous sulfate 325 mg (65 mg 325 mg PO DAILY 06/24/24 06/24/24 iron) tablet (Iron (ferrous sulfate)) levothyroxine 112 mcg tablet 112 mcg PO DAILY 06/24/24 06/24/24 Results & Data (ED) Vital Signs Vital Signs - 24 hr 10/19/24 15:16 10/19/24 15:16 10/19/24 15:35 Temperature 37.2 C Temperature Source Oral Pulse Rate 63 93 H Pulse Rate [Apical] 60 Respiratory Rate 13 17 17 Respiratory Effort / Characteristics Non-Labored Spontaneous Non-Labored Spontaneous Respiratory Depth Normal Normal Respiratory Pattern Regular Regular Blood Pressure 173/68 H Blood Pressure [Right Arm] 147/75 H Blood Pressure Mean 103 Blood Pressure Mean [Right Arm] 99 Blood Pressure Position [Right Arm] Pulse Oximetry 97 97 97 Oxygen Delivery Method Room Air Room Air Room Air Sepsis Recent Fever Within 48 Hours No Sepsis New/Unexplained Change in Mental Status No Sepsis Action Taken by Nursing No Action Required 10/19/24 16:00 10/19/24 16:09 10/19/24 18:00 Temperature Temperature Source Pulse Rate 56 L Pulse Rate [Apical] 57 L 61 Respiratory Rate 23 16 Respiratory Effort / Characteristics Non-Labored Spontaneous Respiratory Depth Normal Respiratory Pattern Regular Blood Pressure Blood Pressure [Right Arm] 159/87 H 176/82 H Blood Pressure Mean Blood Pressure Mean [Right Arm] 111 113 Blood Pressure Position [Right Arm] Semi-fowlers Pulse Oximetry 97 Oxygen Delivery Method Room Air Sepsis Recent Fever Within 48 Hours Sepsis New/Unexplained Change in Mental Status Sepsis Action Taken by Nursing Laboratory Data 10/19/24 15:36 10/19/24 15:36 Lab Results 10/19/24 10/19/24 Range/Units 15:36 16:15 WBC 5.19 (4.8-10.8) K/ul RBC 4.67 (4.20-5.40) M/uL Hgb 13.7 (12.0-16.0) g/dl Hct 39.8 (37.0-47.0) % MCV 85.2 (80.0-100.0) fL MCH 29.3 (25.0-34.0) pg MCHC 34.4 (32.0-36.0) g/dL RDW Std Deviation 40.4 (36.4-46.3) fL RDW Coeff of Yohannes 13.2 (11.5-14.5) % Plt Count 168 (130-400) K/uL MPV 9.9 (9.4-12.4) fL Immature Gran % (Auto) 0.4 % Neut % (Auto) 54.9 % Lymph % (Auto) 36.4 % Hendricks % (Auto) 6.2 % Eos % (Auto) 1.7 % Baso % (Auto) 0.4 % Neut # (Auto) 2.85 (1.40-6.50) K/uL Lymph # (Auto) 1.89 (1.20-3.40) K/uL Hendricks # (Auto) 0.32 (0.11-0.59) K/uL Eos # (Auto) 0.09 (0.00-0.50) K/uL Baso # (Auto) 0.02 (0.00-0.20) K/uL Immature Gran # (Auto) 0.02 (0.01-0.20) K/uL Sodium 142 (136-145) mmol/L Potassium 3.7 (3.5-5.1) mmol/L Chloride 106 (98-107) mmol/L Carbon Dioxide 31 (21-32) mmol/L Anion Gap 5 (3-11) BUN 18 (6-23) mg/dl Creatinine 0.92 (0.6-1.2) mg/dl Est Cr Clr Drug Dosing 42.9 ml/min eGFR 63.73 BUN/Creatinine Ratio 19.6 (10-20) Glucose 162 H (70-99(Fasting)) mg/dl Calcium 9.2 (8.6-10.3) mg/dl Total Bilirubin 0.5 (0.2-1.0) mg/dl AST 10 L (13-39) U/L ALT 7 (7-52) U/L Alkaline Phosphatase 68 (34-104) U/L Troponin I High Sens 7.1 (0-14) pg/ml Total Protein 6.0 (6.0-8.3) gm/dl Albumin 3.6 (3.4-5.0) gm/dl Globulin 2.4 L (2.5-4.0) gm/dl Albumin/Globulin Ratio 1.5 (0.9-2) Lipase 31 (11-82) U/L Urine Color Yellow Urine Appearance Cloudy A (Clear) Urine pH 7.0 (4.5-7.5) Ur Specific [place] 1.019 (1.000-1.030) Urine Protein 2+ H (Negative) Urine Glucose (UA) Negative (Negative) Urine Ketones Negative (Negative) Urine Blood 2+ H (Negative) Urine Nitrite Negative (Negative) Urine Bilirubin Negative (Negative) Urine Urobilinogen Negative (Negative) Ur Leukocyte Esterase 3+ H (Negative) Urine WBC (Auto) >50 H (0-5) /hpf Urine RBC (Auto) >20 H (0-2) /hpf U Hyaline Cast (Auto) 6-10 H (0-2) /lpf U Epithel Cells (Auto) 0-2 (0-2) /hpf Urine Bacteria (Auto) 2+ H (None Seen) Administered Medications Discontinued Medications Sodium Chloride (Nss) 500 mls @ 999 mls/hr IV .Q31M ONE Stop: 10/19/24 16:00 Last Infusion: 10/19/24 16:21 Dose: Infused Documented By: Admin: 10/19/24 15:38 Dose: 999 mls/hr Documented By: AKIRA Ceftriaxone Sodium (Rocephin) 2,000 mg in 50 mls @ 100 mls/hr IV NOW STA Stop: 10/19/24 18:08 Last Infusion: 10/19/24 19:16 Dose: Infused Documented By: Admin: 10/19/24 17:52 Dose: 100 mls/hr Documented By: [facility] [place] Imaging Data Radiologist's Impression: Chest X-Ray 10/19/24 15:30 XR chest 1V portable CLINICAL HISTORY: weak COMPARISON STUDY: Chest radiograph June 24, 2024. FINDINGS: Lung volumes are normal. Lungs are clear. There is no pneumothorax or pleural effusion. Cardiac size is stable. Mediastinal contours are normal. There is no evidence for pulmonary edema. IMPRESSION: No acute cardiopulmonary findings. ACT 112: Negative or not required by law. Electronically signed by: Sebastian Dolan M.D. 10/19/2024 4:[address] 10/19/24 15:30 CT head without contrast History: Schizophrenia. Subjective fevers. Comparison: 06/24/2024 Technique: Using multidetector thin collimation helical acquisition technique, axial, coronal and sagittal CT images from the skull base to the vertex were obtained without intravenous contrast. Dose reduction techniques were achieved by using automatic exposure control and/or adjustment of mA and/or kV according to patient size and/or use of iterative reconstruction technique. Findings: No intracranial hemorrhage, mass-effect, or midline shift. The ventricles are proportionate to the cerebral sulci. The theodore to white matter differentiation of the cerebral hemispheres is preserved. The basal cisterns are patent. There is moderate cerebral atrophy. Moderate cerebral vascular calcifications. The visualized paranasal sinuses are clear. Mastoid air cells are clear. Impression: No acute intracranial pathology. Electronically signed by Sage Davis 10-19-2024 4:44 PM Discharge Plan Visit Data Chief Complaint: Urinary Symptoms Stated Complaint: UTI ED Provider: Dwayne Boyd Discharge Problem: UTI (urinary tract infection), Weakness, AMS (altered mental status) Patient Disposition: Admitted As Inpatient Discharge Instructions Interventions: ED Discharge Assessment Last Done: 10/19/24 20:56 Discharge Problem: UTI (urinary tract infection) Qualifiers: Urinary tract infection type: acute cystitis Hematuria presence: with hematuria Qualified Code(s): N30.01 - Acute cystitis with hematuria AMS (altered mental status) Qualifiers: Altered mental status type: unspecified Qualified Code(s): R41.82 - Altered mental status, unspecified
[2024-10-19] MEDS: SODIUM CHLORIDE 0.9% 500 ML IV ONE (15:38)
[2024-10-19 15:53] LABS: Basophils # (auto) 0.02 K/uL (0.00-0.20); Basophils % (auto) 0.4 %; Eosinophils # (auto) 0.09 K/uL (0.00-0.50); Eosinophils % (auto) 1.7 %; Hematocrit (blood only) 39.8 % (37.0-47.0); Hemoglobin 13.7 g/dl (12.0-16.0); Immature Granulocytes # (auto) 0.02 K/uL (0.01-0.20); Immature Granulocytes % (auto) 0.4 %; Lymphocytes # (auto) 1.89 K/uL (1.20-3.40); Lymphocytes % (auto) 36.4 %; Mean Corpuscular Hemoglobin 29.3 pg (25.0-34.0); Mean Corpuscular Hgb Conc 34.4 g/dL (32.0-36.0); Mean Corpuscular Volume 85.2 fL (80.0-100.0); Mean Platelet Volume 9.9 fL (9.4-12.4); Monocytes # (auto) 0.32 K/uL (0.11-0.59); Monocytes % (auto) 6.2 %; Neutrophils # (auto) 2.85 K/uL (1.40-6.50); Neutrophils % (auto) 54.9 %; Platelet Count 168 K/uL (130-400); RDW Coefficient of Variation 13.2 % (11.5-14.5); RDW Standard Deviation 40.4 fL (36.4-46.3); Red Blood Count 4.67 M/uL (4.20-5.40); White Blood Count 5.19 K/ul (4.8-10.8)
--- NOTE | 2024-10-19 16:03 | XRay Report ---
XR chest 1V portable CLINICAL HISTORY: weak COMPARISON STUDY: Chest radiograph June 24, 2024. FINDINGS: Lung volumes are normal. Lungs are clear. There is no pneumothorax or pleural effusion. Car diac size is stable. Mediastinal contours are normal. There is no evidence for pulmonary edema. IMPRESSION: No acute cardiopulmonary findings. ACT 112: Negative or not required by law. Electronically signed by: Sebastian Dolan M.D. 10/19/2024 4:02 PM
[2024-10-19 16:11] LABS: Albumin Globulin Ratio 1.5 (0.9-2); Albumin Level 3.6 gm/dl (3.4-5.0); BUN Creatinine Ratio 19.6 (10-20); Bilirubin,Total 0.5 mg/dl (0.2-1.0); Calcium 9.2 mg/dl (8.6-10.3); Creatinine Clr Calc Pharmacy 42.9 ml/min; Globulin 2.4 gm/dl (2.5-4.0); Potassium 3.7 mmol/L (3.5-5.1)
[2024-10-19 16:16] LABS: Troponin I High Sensitivity 7.1 pg/ml (0-14)
--- NOTE | 2024-10-19 16:44 | CT Scan Report ---
CT head without contrast History: Schizophrenia. Subjective fevers. Comparison: 06/24/2024 Technique: Using multidetector thin collimation helical acquisition technique, axial, coronal and sagittal CT images from the skull base to the vertex were obtained without intravenous contrast. Dose reduction techniques were achieved by using automatic exposure control and/or adjustment of mA and/or kV according to patient size and/or use of iterative reconstruction technique. Findings: No intracranial hemorrhage, mass-effect, or midline shift. The ventricles are proportionate to the cerebral sulci. The theodore to white matter differentiation of the cerebral hemispheres is preserved. The basal cisterns are patent. There is moderate cerebral atrophy. Moderate cerebral vascular calcifications. The visualized paranasal sinuses are clear. Mastoid air cells are clear. Impression: No acute intracranial pathology. Electronically signed by Sage Davis 10-19-2024 4:44 PM
[2024-10-19 16:49] LABS: Appearance Urine Cloudy (Clear); Bacteria Urine Automated 2+ (None Seen); Bilirubin Urine Negative (Negative); Blood Urine 2+ (Negative); Color Urine Yellow; Epithelial Cell Urine Auto 0-2 /hpf (0-2); Glucose Urine UA Negative (Negative); Ketones Urine Negative (Negative); Leukocyte Esterase Urine 3+ (Negative); Nitrite Urine Negative (Negative); Protein Urine 2+ (Negative); RBC Urine Automated >20 /hpf (0-2); Specific Gravity Urine 1.019 (1.000-1.030); Urobilinogen Urine Negative (Negative); WBC Urine Automated >50 /hpf (0-5)
[2024-10-19] MEDS: cefTRIAXone SODIUM 2,000 MG/50 ML BAG IV STA (17:52)
--- NOTE | 2024-10-19 18:46 | History & Physical Report ---
Date of Service October 19, 2024 Assessment & Plan (1) UTI (urinary tract infection): (2) Schizophrenia: (3) Weakness: (4) Hypothyroid: (5) HTN (hypertension), benign: Plan Libby is a 78F with a PMHx of schizophrenia, HTN, aortic stenosis, hx of DVT (on Eliquis) who presents with weakness Barriers to Care - pt has been refusing all of her medications for the last month. Is not established with a PCP, was supposed to have an appointment with [facility] on 10/13 but no showed as reports she would not go. Meds ordered based on D/c summary from 06/2024. #UTI Continue ceftriaxone Urine Culture pending AM CBC and BMP #Weakness Likely secondary to UTI and possibly being off meds. CXR without acute findings. Head CT no acute findings. PT/OT #Schizophrenia Restarted Abilify 10mg PO and Depakote 250mg BID Seroquel 25mg PO PRN HS ( reports prior dosing ?300mg) #Hypothryroid Restart Synthroid Check TSH #HTN Restarted low dose amlodipine - titrate as needed #Hx of DVT Restarted Eliquis - no calf tenderness to indicate acute DVT ? diabetes/ HLD - reports she is supposed to be taking cholestrol medicine and diabetes medication, unsure of dose or name AM A1c and fasting lipids Dispo: admit to med tele DVT proh: Eliquis CODE STATUS: Full per discussion with History of Present Illness Chief Complaint: Weakness Primary Care Provider: [facility] Libby is a 78F with a PMHx of schizophrenia, HTN, aortic stenosis, hx of DVT (on Eliquis) who presents with weakness. Pt with baseline confusion, knows she is in the hospital but thinks she is here to get her blood pressure checked. Denies urinary symptoms. called for collateral information - reports poor PO intake. Libby reported urinary symptoms 10/09, started on cranberry pills. Reports she has not taking her regular medicine for over a month. Uses a walker at home. ED Course 500 cc NSS 2g ceftriaxone IV x 1 Allergies Allergy/AdvReac Type Severity Reaction Status Date / Time No Known Allergies Allergy Verified 06/24/24 23:29 Home Medications Medication Instructions Recorded Confirmed Type apixaban 5 mg tablet (Eliquis) 5 mg PO BID 06/24/24 06/24/24 History aripiprazole lauroxil 662 mg/2.4 mg IM DIRECTED 06/24/24 History mL suspension, ext.rel. IM syringe ([place]ada) divalproex 250 mg tablet,delayed 250 mg PO BID 06/24/24 06/24/24 History release (Depakote) ferrous sulfate 325 mg (65 mg 325 mg PO DAILY 06/24/24 06/24/24 History iron) tablet (Iron (ferrous sulfate)) levothyroxine 112 mcg tablet 112 mcg PO DAILY 06/24/24 06/24/24 History Past Med/Surg History Problem List (Updated 10/22/24 @ 07:49 by Cosme Zendejas MD) Schizophrenia AMS (altered mental status) (Acute) HTN (hypertension), benign Hypothyroid Weakness (Acute) UTI (urinary tract infection) (Acute) Medical History (Updated 10/22/24 @ 07:49 by Cosme Zendejas MD) Lyme disease Aortic stenosis Essential hypertension VTE (venous thromboembolism) COVID-19 Delirium Social History Smoking Status: Never smoker Second Hand Exposure: No; Do You Dip or Chew Tobacco: No; Tobacco Cessation Education Requested by Patient: No Hx Alcohol Use: No Hx Substance Use: No Preferred Language: Korean Communication Ability: Impaired Visual Impairment: No Limitations Retort Furnace Operator Required: No Beliefs That Will Affect Care: None Current Living Situation: Spouse Feels Safe at Home: Yes Safety Concerns: Feels Safe At This Time Assistive Devices: Walker and Wheelchair Review of Systems Review of Systems: All systems reviewed & are unremarkable except as noted in Subjective Physical Exam Physical Exam: General: NAD, VS as above Resp: normal respiratory effort, lungs clear to auscultation CV: RRR, no murmur, Abd: normal bowel sounds, non tender,mild suprapubic tenderness Back: no CVA tenderness Extremities: Moves all extremities, no edema Neuro: A&O x2, Results & Data Results & Data Vital Signs (Past 12 Hours) Vital Signs Temp Pulse Pulse Resp BP BP Pulse Ox 10/19/24 16:09 56 L 10/19/24 16:00 57 L 23 159/87 H 97 10/19/24 15:35 93 H 17 97 10/19/24 15:16 60 17 147/75 H 97 10/19/24 15:16 98.9 F 63 13 173/68 H 97 O2 Del Method 10/19/24 16:09 10/19/24 16:00 Room Air 10/19/24 15:35 Room Air 10/19/24 15:16 Room Air 10/19/24 15:16 Room Air Laboratory Results CBC, chemistry and UA reviewed Diagnostic Findings head CT reviewed Supervising Physician Co-Signing Physician Notes Attending Attestation & Admit Note: Pt seen/examined, chart reviewed, care plan d/w CLARICE Warner. I agree with the trevizo components of her admission documentation. 78yo female with schizophrenia, HTN, aortic stenosis, hx of LLE DVT (on Eliquis), hypothyroidism. Presents with weakness and baseline confusion. During my assessment she was telling me that her is "not who he is saying he is." She could not offer any meaningful history or ROS. She denied any pain in any location. PMH/PSH/allergies/meds/sochx - reviewed VSS, afebrile gen - lying comfortably in bed; confused, paranoid mouth - MM slightly dry neck - no JVD heart - RRR, s1 s2, 2/6 holosystolic murmur RUSB lungs - CTA b/l abd - soft NT ND BS+ ext - left leg and calf are larger than right leg and calf; trace edema b/l; pulses 2+ b/l feet psych - oriented to self only labs reviewed CT head - no acute findings CXR - negative A/P: 1. probable UTI - cont rocephin, await culture 2. weakness - likely 2nd to #1 3. schizophrenia - there is considerable discrepancy with what her reports she is taking and what she was d/c on earlier in 06/[address]. [address] back on abilify + depakote; use seroquel prn 4. hypothyroidism - TSH wnl; cont synthroid as is 5. - no decompensated CHF 6. h/o LLE DVT - cont Eliquis 5mg BID will need PT/OT angela Wilhelm MD PG Care Time/CCT Total # of Minutes Spent Total Time Spent with Patient: Total time spent is greater than 50% in coordination of care (as documented) at patient's floor/unit and/or counseling patient: Coding Level of Care Code 79161 INT INP/OBS CARE MIN Diagnoses UTI (urinary tract infection) N39.0 Schizophrenia F20.9 Schizophrenia type: unspecified Weakness R53.1 Hypothyroid E03.9 HTN (hypertension), benign I10 (2) Schizophrenia Schizophrenia type: unspecified Qualified Code(s): F20.9 - Schizophrenia, unspecified
[2024-10-19] MEDS ORDERED: ACETAMINOPHEN 325 MG TAB PO PRN (21:19)
[2024-10-19] MEDS ORDERED: QUEtiapine FUMARATE 25 MG TABLET PO PRN (21:19)
[2024-10-19] MEDS ORDERED: MELATONIN 3 MG TAB PO PRN (21:19)
[2024-10-19] MEDS: APIXABAN 5 MG TABLET PO SCH (22:10)
[2024-10-19] MEDS: DIVALPROEX DELAY RELEASE 250 MG TABEC PO SCH (22:10)
[2024-10-20] MEDS: LEVOTHYROXINE SODIUM 112 MCG TABLET PO SCH (05:57)
--- NOTE | 2024-10-20 07:41 | Hospitalist Progress Note ---
Date of Service October 20, 2024 Assessment & Plan (1) UTI (urinary tract infection): (2) Weakness: (3) Hypothyroid: (4) HTN (hypertension), benign: Plan Libby is a 78F with a PMHx of schizophrenia, HTN, aortic stenosis, hx of DVT (on Eliquis) who presents with weakness. Son recently ; she & moved here from [place]. expresses concern to caring for her at home. She has not been taking her medications consistently for about 1 month, unsure which or how often she has taken; orders placed based on D/c summary from 06/2024. #UTI UA w 3+ leuk, 2+ prot, blood, and bact, many WBC, RBC Urine Culture grew Proteus Continue ceftriaxone AM CBC and BMP #Weakness Labs and imaging unrevealing of any acute cause Restart appropriate home meds, monitor improvement PT/OT #SCZ Continue Abilify 10mg PO and Depakote 250mg BID Seroquel 25mg PO HS available PRN #Hypothryroidism TSH level 2.457 today Continue home Synthroid #HTN On amlodipine 2.5mg qAM - titrate as needed #H/o DVT Doppler US negative, no calf tenderness to indicate acute DVT Continue Eliquis Need collateral info on when/how many DVT to determine end date #T2DM A1c today 6.4% unsure exactly which meds/how much she takes #HLD Lipid profile today wnl except chol at 203 (so chol/HDL ratio high at 5.6) unsure exactly which meds/how much she takes Dispo: med tele DVT proh: Eliquis CODE STATUS: Full Admission and Anticipated Discharge Date Admission Date: October 19, 2024 Supervising Physician Co-Signing Physician Notes Attending attestation Pt seen and examined in concert with Dr. Zendejas. In agreement with the documented findings as noted in the resident documentation with any exceptions or additions as noted here. Oriented only to self at time of examination without significant acute complaint on presentation. VS as noted. On examination, S1/S2 nl RRR 3/6 ALONDRA. CTAB. Abd NT/ND BS+ve UTI - UCx pending. Continue ceftriaxone and trend Cr, WBC daily. Hypothyroidism - restart levothyroxine, monitor TSH in 6-8 wks Schizophrenia - previously well controlled on home medications, restart regimen. Consider psychiatric consultation with adverse effect/intolerance Else see resident documentation as noted. Subjective Reports feeling well today. Denies having any issues lately, e.g. weakness or fatigue, except rhinorrhea. Slept well, did well with breakfast, has no complaints or questions this morning Review of Systems 2 Review of Systems: As per HPI. Physical Exam 2 Physical Exam: Gen: alert, fairly responsive, NAD HEENT: NCAT, MMM, rhinorrhea seen CV: +systolic murmur, S1/S2 present Resp: Symmetrical chest rise, breathing non-labored Abd: Soft, nondistended, some suprapubic tenderness, +BS Skin: Warm, dry, thin, no rashes or lesions Neuro: Alert, oriented only to person, does not follow commands consistently for full neuro exam Psych: Mood-affect congruent. Speech pace normal, circumstantial thinking Results & Data Results & Data Vital Signs (Past 12 Hours) Vital Signs Temp Pulse Pulse Resp BP BP Pulse Ox 10/19/24 22:15 151/71 H 10/19/24 21:15 36.8 C 78 18 177/67 H 98 10/19/24 20:56 36.8 C 74 20 164/51 H 95 10/19/24 20:07 66 O2 Del Method 10/19/24 22:15 10/19/24 21:15 Room Air 10/19/24 20:56 Room Air 10/19/24 20:07 Laboratory Results 10/20/24 07:14 10/20/24 07:14 Resident Activity Tracking Resident Involvement: Resident Care Provided Care Provided: Adult Hospital Medicine (1) UTI (urinary tract infection) Hematuria presence: with hematuria Urinary tract infection type: acute cystitis Qualified Code(s): N30.01 - Acute cystitis with hematuria
[2024-10-20] MEDS: amLODIPine BESYLATE 5 MG TAB PO SCH (08:12)
[2024-10-20] MEDS: ARIPiprazole 10 MG TAB PO SCH (08:13)
[2024-10-20 09:19] LABS: BUN Creatinine Ratio 24.7 (10-20); Calcium 8.8 mg/dl (8.6-10.3); Chol HDL Ratio 5.6 (0-5); Creatinine Clr Calc Pharmacy 56.6 ml/min; Potassium 3.7 mmol/L (3.5-5.1)
[2024-10-20 09:20] LABS: Basophils # (auto) 0.03 K/uL (0.00-0.20); Basophils % (auto) 0.5 %; Eosinophils % (auto) 1.7 %; Hematocrit (blood only) 36.9 % (37.0-47.0); Hemoglobin 12.4 g/dl (12.0-16.0); Immature Granulocytes # (auto) 0.02 K/uL (0.01-0.20); Immature Granulocytes % (auto) 0.3 %; Lymphocytes # (auto) 1.54 K/uL (1.20-3.40); Lymphocytes % (auto) 26.3 %; Mean Corpuscular Hemoglobin 28.5 pg (25.0-34.0); Mean Corpuscular Hgb Conc 33.6 g/dL (32.0-36.0); Mean Corpuscular Volume 84.8 fL (80.0-100.0); Mean Platelet Volume 10.1 fL (9.4-12.4); Monocytes # (auto) 0.37 K/uL (0.11-0.59); Monocytes % (auto) 6.3 %; Neutrophils % (auto) 64.9 %; Platelet Count 153 K/uL (130-400); RDW Coefficient of Variation 13.2 % (11.5-14.5); RDW Standard Deviation 40.9 fL (36.4-46.3); Red Blood Count 4.35 M/uL (4.20-5.40); White Blood Count 5.86 K/ul (4.8-10.8)
[2024-10-20 09:33] LABS: Thyroid Stimulating Hormone 2.457 uIu/ml (0.300-4.500)
[2024-10-20 10:17] LABS: Estimated Average Glucose 137 mg/dl; Hemoglobin A1C 6.4 % (4.5-5.6)
[2024-10-20] MEDS: cefTRIAXone SODIUM 2,000 MG/50 ML BAG IV SCH (17:56)
[2024-10-21 09:26] LABS: Hematocrit (blood only) 38.6 % (37.0-47.0); Hemoglobin 12.8 g/dl (12.0-16.0); Mean Corpuscular Hemoglobin 28.6 pg (25.0-34.0); Mean Corpuscular Hgb Conc 33.2 g/dL (32.0-36.0); Mean Corpuscular Volume 86.2 fL (80.0-100.0); Mean Platelet Volume 10.1 fL (9.4-12.4); Platelet Count 153 K/uL (130-400); RDW Coefficient of Variation 13.2 % (11.5-14.5); RDW Standard Deviation 40.9 fL (36.4-46.3); Red Blood Count 4.48 M/uL (4.20-5.40); White Blood Count 5.15 K/ul (4.8-10.8)
[2024-10-21 09:33] LABS: Calcium 8.7 mg/dl (8.6-10.3); Creatinine Clr Calc Pharmacy 51.9 ml/min; Potassium 3.8 mmol/L (3.5-5.1)
--- NOTE | 2024-10-21 10:26 | Hospitalist Progress Note ---
Date of Service October 21, 2024 Assessment & Plan (1) Schizophrenia: (2) UTI (urinary tract infection): (3) Weakness: (4) Hypothyroid: (5) HTN (hypertension), benign: Plan Libby is a 78F with a PMHx of schizophrenia, HTN, aortic stenosis, hx of DVT (on Eliquis) who presents with weakness. Son recently ; she & moved here from [place]. expresses concern to caring for her at home. She has not been taking her medications consistently for about 1 month, unsure which or how often she has taken; orders placed based on D/c summary from 06/2024. #SCZ - Continue Abilify 10mg PO and Depakote 250mg BID - Seroquel 25mg PO HS available PRN - Negative sx exacerbated today, pt noncompliant w po meds even in hospital - Consult psych #UTI - UA w 3+ leuk, 2+ prot, blood, and bact, many WBC, RBC. Urine Culture grew polysensitive Proteus - Will still continue IV ceftriaxone due to patient's noncompliance with po meds - AM CBC and BMP today wnl, discontinue daily monitoring #Weakness - Labs and imaging unrevealing of any acute cause - Monitor improvement after home meds restarted - Seen by PT/OT, will follow during hospitalization #Hypothryroidism - TSH level 2.457 - Continue home Synthroid #HTN - Amlodipine 2.5mg qAM #H/o DVT Doppler US negative, no calf tenderness to indicate acute DVT Continue Eliquis Need collateral info on when/how many DVT to determine end date #T2DM - A1c 6.4% - unsure exactly which meds/how much she takes #HLD - Lipid profile wnl except chol at 203 - unsure exactly which meds/how much she takes Dispo: ?home with 21/04 care DVT proh: Eliquis CODE STATUS: Full Admission and Anticipated Discharge Date Admission Date: October 19, 2024 Supervising Physician Co-Signing Physician Notes Attending attestation Pt seen and examined in concert with Dr. Zendejas. In agreement with the documented findings as noted in the resident documentation with any exceptions or additions as noted here. Oriented only to self at time of examination, now with less response/more negative sx, though still interactive and vocal. Still not routinely taking PO medications. VS as noted. On examination, S1/S2 nl RRR 3/6 ALONDRA. CTAB. Abd NT/ND BS+ve Schizophrenia - psych consultation - concerning for flattened affect and nonadherence to treatment resulting in admission. Continue home regimen, consultation for further support. UTI - UCx pending. Continue ceftriaxone and trend Cr, WBC daily. Hypothyroidism - restart levothyroxine, monitor TSH in 6-8 wks Else see resident documentation as noted. Subjective Patient interviewed at bedside, not very responsive. Does say she slept well, ate some breakfast, feels scared about getting out of bed. No particular complaints or questions this morning. Review of Systems 2 Review of Systems: As per HPI. Physical Exam 2 Physical Exam: Gen: Slow speech, one-word answers, NAD HEENT: NCAT, MMM CV: +systolic murmur, S1/S2 present Resp: Symmetrical chest rise, breathing non-labored Abd: Soft, nondistended, +suprapubic tenderness Skin: Warm, dry, thin, no rashes or lesions Neuro: Disoriented, unable to follow commands, does localize/respond to touch, PERRL Psych: Flat affect. Speech pace slowed. No observable AVH or delusions Results & Data Results & Data Vital Signs (Past 12 Hours) Vital Signs Temp Pulse Resp BP Pulse Ox O2 Del Method 10/21/24 07:41 36.7 C 57 L 16 153/75 H 97 Room Air Laboratory Results 10/21/24 08:41 10/21/24 08:41 Resident Activity Tracking Resident Involvement: Resident Care Provided Care Provided: Adult Hospital Medicine (1) Schizophrenia Schizophrenia type: unspecified Qualified Code(s): F20.9 - Schizophrenia, unspecified (2) UTI (urinary tract infection) Hematuria presence: with hematuria Urinary tract infection type: acute cystitis Qualified Code(s): N30.01 - Acute cystitis with hematuria
--- NOTE | 2024-10-22 07:46 | Hospitalist Progress Note ---
Date of Service October 22, 2024 Assessment & Plan (1) Schizophrenia: (2) UTI (urinary tract infection): (3) Weakness: (4) Hypothyroid: (5) HTN (hypertension), benign: Plan Libby is a 78F with a PMHx of schizophrenia, HTN, aortic stenosis, hx of DVT (on Eliquis) who presents with weakness. Son recently ; she & moved here from [place]. expresses concern to caring for her at home. She has not been taking her medications consistently for about 1 month, unsure which or how often she has taken; orders placed based on D/c summary from 06/2024. #SCZ - Continue Abilify 10mg PO and Depakote 250mg BID - Seroquel 25mg PO HS available PRN - Negative sx exacerbated today, pt noncompliant w po meds even in hospital - Psych consulted, appreciate input: - High suspicion for hypoactive delirium due to UTI vs cognitive decline - Continue Depakote & Abilify - Obtain ammonia & valproate levels - Maintain delirium prevention measures & avoid deleriogenic meds #UTI - UA w 3+ leuk, 2+ prot, blood, and bact, many WBC, RBC. Urine Culture grew polysensitive Proteus - Will still continue IV ceftriaxone due to patient's noncompliance with po meds #Weakness - Labs and imaging unrevealing of any acute cause - Monitor improvement after home meds restarted - Seen by PT/OT, will follow during hospitalization #Hypothryroidism - TSH level 2.457 - Continue home Synthroid #HTN - Amlodipine 2.5mg qAM #H/o DVT Doppler US negative, no calf tenderness to indicate acute DVT Continue Eliquis Need collateral info on when/how many DVT to determine end date #T2DM - A1c 6.4% - unsure exactly which meds/how much she takes #HLD - Lipid profile wnl except chol at 203 - unsure exactly which meds/how much she takes Dispo: ?home with 21/04 care DVT proh: Eliquis CODE STATUS: Full Admission and Anticipated Discharge Date Admission Date: October 19, 2024 Supervising Physician Co-Signing Physician Notes Attending Physician Supervision Note: I independently interviewed and examined the patient and verified the trevizo history and physical, reviewed labs and image studies and agree with findings and care plan noted above. Comfortable in Bed. Answers with one word with mostly No. Aware she is at hospital. Has been refusing PO meds. Didn't each much of her breakfast. VS as noted. On examination, RRR . CTAB. Encephalopathy-Delirium/Worsening dementia - ammonia level normal. Possibly due to UTI. Delirium preventive measures. UTI - UCx proteus. Continue ceftriaxone Schizophrenia - psych consultation - continue home meds - matt varma (on IM dose as outpatient). Prn olanzapine for agitation per psych. Discharge planning in progress Consider reviewing goals of care with . Else see resident documentation as noted. Subjective Patient still minimally responsive; today, blank stare more prominent, not even answering yes/no questions except to indicate that she's feeling no pain and th at no other doctors have seen her. Began eating breakfast but required assistance of HOSPITAL ADMITTING CLERK Review of Systems Review of Systems: As per HPI. Physical Exam Physical Exam: Gen: nonverbal, minimally responsive, appears comfortable/NAD HEENT: NCAT, MMM CV: +systolic murmur, S1/S2 present Resp: Symmetrical chest rise, breathing non-labored Abd: Soft, nondistended, +BS Skin: Warm, dry, thin, no rashes or lesions Neuropsych: Does not speak; only answers 2 questions, by gesture. Not following commands. Does localize/respond to touch, PERRL, No catalepsy or rigidity Results & Data Results & Data Vital Signs (Past 12 Hours) Vital Signs Temp Pulse Resp BP Pulse Ox O2 Del Method 10/22/24 07:42 36.3 C L 67 16 132/63 97 Room Air Resident Activity Tracking Resident Involvement: Resident Care Provided Care Provided: Adult Hospital Medicine (1) Schizophrenia Schizophrenia type: unspecified Qualified Code(s): F20.9 - Schizophrenia, unspecified (2) UTI (urinary tract infection) Hematuria presence: with hematuria Urinary tract infection type: acute cystitis Qualified Code(s): N30.01 - Acute cystitis with hematuria
--- NOTE | 2024-10-22 12:01 | Psychiatric Consultation ---
Date of Consultation October 22, 2024 Impression / Recommendations Impression Diagnostically high suspicion for hypoactive delirium due to UTI vs cognitive decline given significant lack of orientation and lack of memory about short term and long-term events (i.e. doesn't remember that she lives with her , thinks she lives alone, can't recall ever living in [place] even though recently relocated after living there previously). No evidence for catatonia on exam. Compared to her presentation in June 2024 she is now very confused compared to previously having more active psychosis and delusions. Typically, even with worsening of schizophrenia would not expect lack of memory and lack of orientation to this degree. Unfortunately there are no known medications to cure or shorten the duration of delirium; rather antipsychotics are used at times to help with sleep/appetite/psychomotor agitation and hallucinations if these symptoms are causing significant distress and/or interfering with acute safety. Duration of delirium varies broadly with persistent delirium (defined as lasting for weeks or months) occurring frequently with [id number] of patients exhibiting some symptoms of delirium at 6 months after symptom onset, see:Brianna Ward., Ami Lr., Leo Ac.et al.Delirium.Kimberly Rev Dis Primers6, 90 (2020). [email or web address]://doi.[email or web address]/10.1038/[email or web address]. Agree with continuing to use abilify as this has been helpful in the past for psychosis and may offer some benefits for behavioral disturbance with delirium. Ongoing efforts to encourage adherence by nursing. Overall, I spent a total of 45 minutes with this case including review of chart records, review of labwork, direct evaluation of the patient at bedside, counseling the patient, discussion of the patient with the Nurse and with the hospitalist provider, discussion with the psychiatric liason during clinical rounds, and documentation in the electronic health record. (1) Schizophrenia: Schizophrenia type: unspecified Qualified Code(s): F20.9 - Schizophrenia, unspecified (2) Delirium: (3) UTI (urinary tract infection): Hematuria presence: with hematuria Urinary tract infection type: acute cystitis Qualified Code(s): N30.01 - Acute cystitis with hematuria (4) Weakness: Plan -Continue abilify 10mg daily -Continue Depakote 250mg BID -Consider checking ammonia level given Depakote use (though LFTs stable) and valproic acid level (should be 12 hours after last dose and before next dose) -Continue medical workup to rule out and treat any underlying causes contributing to potential delirium, avoid or limit use of deliriogenic medications (benzodiazepines, opioids, anticholinergics) -Continue with delirium prevention measures: raising blinds during the day, closing at night, frequent re-orientation, contact with family/friends, explaining procedures/nursing care measures prior to physical contact, correct any hearing and visual impairments -For behavioral emergency: olanzapine 2.5 mg IM x 1 (DO NOT exceed 10mg per 24 hours, check EKG if IM dose required, NEVER co-administer with IM or IV benzodiazepines). Psych History Identifying Data 78 yo woman with a history of schizophrenia, HTN, aortic stenosis, hx of DVT (on Eliquis) who presents with weakness and recent psychiatric medication non- adherence found to have UTI. Psychiatry consulted for concern for negative symptoms, non-adherence with psychiatric medications. Chief Complaint "I don't remember". History of Present Illness Libby was admitted for weakness. Per H&P admission collateral from [facility] for patient refusing her psychiatric medications over the last month and refused to see new PCP. Found to have UTI on admission. Today oriented only to self. Can't remember where we are or why she is here. Doesn't remember she lived in [place], can state 'I live in [place]". Doesn't think she is stating "I don't have a ". Has been intermittently refusing care. Did take po medications this morning. Allergies Allergy/AdvReac Type Severity Reaction Status Date / Time No Known Allergies Allergy Verified 06/24/24 23:29 Home Medications Medication Instructions Recorded Confirmed Type apixaban 5 mg tablet (Eliquis) 5 mg PO BID 06/24/24 06/24/24 History aripiprazole lauroxil 662 mg/2.4 mg IM DIRECTED 06/24/24 History mL suspension, ext.rel. IM syringe ([place]) divalproex 250 mg tablet,delayed 250 mg PO BID 06/24/24 06/24/24 History release (Depakote) ferrous sulfate 325 mg (65 mg 325 mg PO DAILY 06/24/24 06/24/24 History iron) tablet (Iron (ferrous sulfate)) levothyroxine 112 mcg tablet 112 mcg PO DAILY 09/26/24 09/26/24 History Patient History Medical History (Updated 10/22/24 @ 12:00 by Sara Palacios MD) Lyme disease Aortic stenosis Essential hypertension VTE (venous thromboembolism) COVID-19 Social History Smoking Status: Never smoker Second Hand Exposure: No; Do You Dip or Chew Tobacco: No; Tobacco Cessation Education Requested by Patient: No Hx Alcohol Use: No Hx Substance Use: No Preferred Language: Maltese Communication Ability: Impaired Visual Impairment: No Limitations Meter Repair Shop Supervisor Required: No Beliefs That Will Affect Care: None Current Living Situation: Spouse Feels Safe at Home: Yes Safety Concerns: Feels Safe At This Time Assistive Devices: Walker and Wheelchair Physical Exam Vital Signs (Past 24 Hours): Last Vital Signs Temp 36.3 C L 10/22/24 07:42 Pulse 67 10/22/24 07:42 Resp 16 10/22/24 07:42 BP 132/63 10/22/24 07:42 Pulse Ox 97 10/22/24 07:42 O2 Del Method Room Air 10/22/24 07:42 Results & Data (PSY) Medications Administered Amlodipine Besylate (Amlodipine Besylate 5 Mg Tab) 2.5 mg PO QAM JULIANE Stop: 11/19/24 08:59 Last Admin: 10/22/24 08:18 Dose: 2.5 mg Documented By: Admin: 10/21/24 09:07 Dose: 2.5 mg Documented By: Admin: 10/20/24 08:12 Dose: 2.5 mg Documented By: KRYSTINA Apixaban (Apixaban 5 Mg Tablet) 5 mg PO BID JULIANE Stop: 11/18/24 21:29 Last Admin: 10/22/24 08:18 Dose: 5 mg Documented By: Admin: 10/21/24 20:24 Dose: 5 mg Documented By: Admin: 10/21/24 09:07 Dose: 5 mg Documented By: Admin: 10/20/24 20:44 Dose: Not Given Documented By: Admin: 10/20/24 08:12 Dose: 5 mg Documented By: Admin: 10/19/24 22:10 Dose: Not Given Documented By: LONNIE Aripiprazole (Aripiprazole 10 Mg Tab) 10 mg PO QAM JULIANE Stop: 11/19/24 08:59 Last Admin: 10/22/24 08:18 Dose: 10 mg Documented By: Admin: 10/21/24 09:07 Dose: 10 mg Documented By: Admin: 10/20/24 08:13 Dose: 10 mg Documented By: KRYSTINA Divalproex Sodium (Divalproex Delay Release 250 Mg Tabec) 250 mg PO BID JULIANE Stop: 11/18/24 21:29 Last Admin: 10/22/24 08:18 Dose: 250 mg Documented By: Admin: 10/21/24 20:24 Dose: 250 mg Documented By: Admin: 10/21/24 09:07 Dose: 250 mg Documented By: Admin: 10/20/24 20:44 Dose: Not Given Documented By: Admin: 10/20/24 08:13 Dose: 250 mg Documented By: Admin: 10/19/24 22:10 Dose: Not Given Documented By: LONNIE Ceftriaxone Sodium (Rocephin) 2,000 mg in 50 mls @ 100 mls/hr IV Q24H JULIANE Stop: 10/25/24 16:59 Last Infusion: 10/21/24 18:03 Dose: Infused Documented By: Admin: 10/21/24 17:04 Dose: 100 mls/hr Documented By: Infusion: 10/20/24 18:41 Dose: Infused Documented By: Infusion: 10/20/24 18:17 Dose: 100 mls/hr Documented By: Infusion: 10/20/24 18:05 Dose: 0 mls/hr Documented By: Admin: 10/20/24 17:56 Dose: 100 mls/hr Documented By: KRYSTINA Levothyroxine Sodium (Levothyroxine Sodium 112 Mcg Tablet) 112 mcg PO DAILYBB JULIANE Stop: 11/19/24 06:29 Last Admin: 10/22/24 05:34 Dose: 112 mcg Documented By: Admin: 10/21/24 06:23 Dose: 112 mcg Documented By: Admin: 10/20/24 05:57 Dose: 112 mcg Documented By: LONNIE Coding Level of Care Code 94057 IN/OBS CONSULT LVL 3,45M Diagnoses Schizophrenia F20.9 Schizophrenia type: unspecified Delirium R41.0 UTI (urinary tract infection) N30.01 Hematuria presence: with hematuria Urinary tract infection type: acute cystitis Weakness R53.1
--- NOTE | 2024-10-23 10:55 | Hospitalist Progress Note ---
Date of Service October 23, 2024 Assessment & Plan (1) Schizophrenia: (2) UTI (urinary tract infection): (3) Weakness: (4) Hypothyroid: (5) HTN (hypertension), benign: Plan Libby is a 78F with a PMHx of schizophrenia, HTN, aortic stenosis, hx of DVT (on Eliquis) who presents with weakness. Son recently ; she & moved here from [place]. expresses concern to caring for her at home. She has not been taking her medications consistently for about 1 month, unsure which or how often she has taken; orders placed based on D/c summary from 06/2024. #SCZ - Continue Abilify 10mg PO and Depakote 250mg BID - Seroquel 25mg PO HS available PRN - Negative sx exacerbated today, pt noncompliant w po meds even in hospital - Psych consulted, appreciate input: - High suspicion for hypoactive delirium due to UTI vs cognitive decline - Continue Depakote & Abilify - Ammonia level wnl, valproate levels pending - Maintain delirium prevention measures, avoid deleriogenic meds, continue treating presumed underlying cause #UTI - UA w 3+ leuk, 2+ prot, blood, and bact, many WBC, RBC. Urine Culture grew polysensitive Proteus - Will still continue IV ceftriaxone due to patient's noncompliance with po meds #Weakness - Poor baseline strength & mobility (per PT eval 06/30/24 and this admission), worsened by recent UTI and medication nonadherence. Labs and imaging unrevealing of any acute cause - Restarted home meds; monitor for improvement. Continue treating UTI. Pt uncooperative w PT/OT; they will continue to follow during hospitalization #Hypothryroidism - TSH level 2.457 - Continue home Synthroid #HTN - Amlodipine 2.5mg qAM #H/o DVT - Doppler US negative, no calf tenderness to indicate acute DVT - Continue Eliquis #T2DM - A1c 6.4% - unsure exactly which meds/how much she takes #HLD - Lipid profile wnl except chol at 203 - unsure exactly which meds/how much she takes Dispo: ?home with / care DVT proh: Eliquis CODE STATUS: Full Admission and Anticipated Discharge Date Admission Date: October 19, 2024 Supervising Physician Co-Signing Physician Notes Attending Physician Supervision Note: I independently interviewed and examined the patient and verified the trevizo history and physical, reviewed labs and image studies and agree with findings and care plan noted above. Sitting in chair. Alert. . Aware she is at hospital but unsure which one. Thinks she had breakfast from [employer]. Per discussion with - for days before admission - was only eating a teaspoon worth of meal. Nursing reported bloody urine. VS as noted. On examination, RRR . CTAB. Weakness/FTT - likely multifactorial. Extended delirium/ overall worsening baseline function due to delirum and schizophrenia/Less likely UTI since worsening over a period of month/Underlying worsening dementia. -Refusal to eat off and on - consult auto body repair teacher and follow PO intake. Record PO intake Extended Delirium - Hasn't been at her baseline cognitive function since before last admission in Jun. Progressive worsening over a period of month. -UTI Possibly contributing as well. -Delirium preventive measures. UTI - UCx proteus. Continue ceftriaxone Schizophrenia - psych consultation - No concern of catatonia. -continue home meds - depakote, abilify (on IM dose as outpatient) - abilify has been helpful for psychosis -Prn olanzapine for agitation per psych. Reported Hx of stroke - suspected underlying vascular dementia - gather collateral information on baseline function. Bloody urine- No clots. Treating UTI. follow. Discharge planning in progress Else see resident documentation as noted. Subjective Patient feeling better today. Verbalizes her answers. Reports lower abd pain persist but denies any other pain, SOB, n/v. Review of Systems Review of Systems: As per HPI. Physical Exam Physical Exam: Gen: Awake, responsive HEENT: NCAT, MMM CV: +systolic murmur, S1/S2 present Resp: Symmetrical chest rise, breathing non-labored Abd: Soft, nondistended, +BS Skin: Warm, dry, thin, no rashes or lesions Neuro: Alert, Not following commands, Moves all extremities spontaneously Psych: Mood "okay." Affect restricted. Speech pace slowed. Answers questions appropriately Results & Data Results & Data Vital Signs (Past 12 Hours) Vital Signs Temp Pulse Resp BP Pulse Ox O2 Del Method 10/23/24 07:25 36.9 C 69 16 154/67 H 96 Room Air Resident Activity Tracking Resident Involvement: Resident Care Provided Care Provided: Adult Hospital Medicine (1) Schizophrenia Schizophrenia type: unspecified Qualified Code(s): F20.9 - Schizophrenia, unspecified (2) UTI (urinary tract infection) Hematuria presence: with hematuria Urinary tract infection type: acute cystitis Qualified Code(s): N30.01 - Acute cystitis with hematuria
[2024-10-24 07:07] LABS: Valproic Acid, Free 6.5 mg/L (4.8-17.3); Valproic Acid, Total 61.6 mg/L (50.0-100.0)
--- NOTE | 2024-10-24 07:28 | Hospitalist Progress Note ---
Date of Service October 24, 2024 Assessment & Plan (1) Schizophrenia: (2) UTI (urinary tract infection): (3) Weakness: (4) Hypothyroid: (5) HTN (hypertension), benign: Plan Libby is a 78F with a PMHx of schizophrenia, HTN, aortic stenosis, hx of DVT (on Eliquis) who presents with weakness. Son recently ; she & moved here from [place]. expresses concern to caring for her at home. She has not been taking her medications consistently for about 1 month, unsure which or how often she has taken; orders placed based on D/c summary from 06/2024. #FTT, cognitive decline - (Baron Licona) reports patient's baseline cognition is much improved from current status; is aware of/understands her circumstances (time, day, location, the identity of everyone she interacts with, her daily tasks). The last time he can remember for sure patient was at cognitive baseline is around the time they moved here from [place] (~May 2024). He describes her apparent PTSD that gets triggered by wartime films he watches. He says she is "stubborn" so often refuses her medications, saying they aren't working for her, which worsened in the last ~30 days and included her refusal to go see a doctor. She had also been eating much less, a few spoonfuls per meal for about 1 week before admission. - Son (Baron Dickey) corroborates description that patient is currently exhibiting significant/acute cognitive decline, and he says she has poor baseline strength & mobility (also noted in PT evals 06/30/24 and this admission). He says she "hasn't been the same" since his brother - her eldest son - . This son lives ~1 mile from his parents, and his son lives right next door to them, and they both visit daily to help with chores, paperwork, etc. - Restarted home meds. Plan to monitor for improvement on proper tx, continue treating UTI, PT/OT will continue to follow #SCZ - Continue Abilify 10mg PO and Depakote 250mg BID - Seroquel 25mg PO HS available PRN - Negative sx exacerbated today, pt noncompliant w po meds even in hospital - Psych consulted, appreciate input: - High suspicion for hypoactive delirium due to UTI vs cognitive decline - Continue Depakote & Abilify - Ammonia level & valproate levels wnl - Maintain delirium prevention measures, avoid deleriogenic meds, continue treating presumed underlying cause #UTI - UA w 3+ leuk, 2+ prot, blood, and bact, many WBC, RBC. Urine Culture grew polysensitive Proteus - Will still continue IV ceftriaxone due to patient's noncompliance with po meds #Hypothyroidism - TSH level 2.457 - Continue home Synthroid #HTN - Amlodipine 2.5mg qAM #H/o DVT - Doppler US negative, no calf tenderness to indicate acute DVT - Continue Eliquis until medical records confirm date(s) of DVT Chronic, stable conditions: T2DM - A1c 6.4% on 10/20 HLD - Lipid profile (10/20) wnl except chol at 203 Dispo: ?home with 21/04 care DVT ppx: Eliquis CODE STATUS: Full Admission and Anticipated Discharge Date Admission Date: October 19, 2024 Supervising Physician Co-Signing Physician Notes Attending Physician Supervision Note: I independently interviewed and examined the patient and verified the trevizo history and physical, reviewed labs and image studies and agree with findings and care plan noted above. Limited conversation this am. Awake later in the day. Hasn't urinated today. Limited fluid intake vitals noted nad heent nc at mmm breathing unlabored no accessory muscles good effort skin no rashes no pallor or icterus neuro no focal deficits. Flat affect. Weakness/FTT - likely multifactorial. Per report - for days before admission - was only eating a teaspoon worth of meal. Extended delirium/ overall worsening baseline function due to delirium and schizophrenia/Less likely UTI since worsening over a period of month/Underlying worsening dementia. -Refusal to eat off and on - consulted cellular biologist and follow PO intake. Record PO intake Extended Delirium - Hasn't been at her baseline cognitive function since before last admission in Jun. Progressive worsening over a period of month. -UTI Possibly contributing as well. -Delirium preventive measures. UTI - UCx proteus. Continue ceftriaxone to finish course 10/25. Schizophrenia - psych consultation - No concern of catatonia. -continue home meds - depakote, abilify (on IM dose as outpatient) - abilify has been helpful for psychosis -Prn olanzapine for agitation per psych. Reported Hx of stroke - suspected underlying vascular dementia -To gather collateral information on baseline function. Decreased UO 10/24 and Bloody urine 10/23 - Renal fx on labs normal. -encourage PO intake. and bladder scan. Discharge planning in progress Else see resident documentation as noted. Subjective Patient more altered again. Pretended to be asleep when I entered room. When I began my exam, she woke up to push me away, saying "You're not a doctor!" I stated that I was her doctor, and she easily accepted that. When told we would keep her family updated, she went on about how her and son pretend to care about her but are actually threatening her. She explicitly denied feeling any pain but would not answer any other questions. Review of Systems Review of Systems: As per HPI. Physical Exam Physical Exam: Gen: Awake, responsive, NAD HEENT: NCAT, MMM CV: +systolic murmur, S1/S2 present Resp: CTAB, symmetrical chest rise, breathing non-labored Abd: Soft, nondistended, +BS Skin: Warm, dry, thin, no rashes or lesions Neuro: Alert, Not following commands, Moves all extremities spontaneously Psych: Affect restricted. Speech pace slowed. Though process tangential. Some persecutory delusions, no observable AVH. Results & Data Results & Data Vital Signs (Past 12 Hours) Vital Signs Temp Pulse Resp BP Pulse Ox O2 Del Method 10/23/24 19:35 36.8 C 68 16 139/76 99 Room Air Resident Activity Tracking Resident Involvement: Resident Care Provided Care Provided: Adult Hospital Medicine (1) Schizophrenia Schizophrenia type: unspecified Qualified Code(s): F20.9 - Schizophrenia, unspecified (2) UTI (urinary tract infection) Hematuria presence: with hematuria Urinary tract infection type: acute cystitis Qualified Code(s): N30.01 - Acute cystitis with hematuria
[2024-10-24 19:24] LABS: BUN Creatinine Ratio 17.3 (10-20); Calcium 8.1 mg/dl (8.6-10.3); Creatinine Clr Calc Pharmacy 53.8 ml/min; Potassium 4.2 mmol/L (3.5-5.1)
--- NOTE | 2024-10-25 07:32 | Hospitalist Progress Note ---
Date of Service October 25, 2024 Assessment & Plan (1) Schizophrenia: (2) UTI (urinary tract infection): (3) Weakness: (4) Hypothyroid: (5) HTN (hypertension), benign: Plan Libby is a 78F with a PMHx of schizophrenia, HTN, aortic stenosis, hx of DVT (on Eliquis) who presents with weakness. Son recently ; she & moved here from [place]. expresses concern to caring for her at home. She has not been taking her medications consistently for about 1 month, unsure which or how often she has taken; orders placed based on D/c summary from 06/2024. #FTT, cognitive decline - (Baron Licona) reports patient's baseline cognition is much improved from current status; is aware of/understands her circumstances (time, day, location, the identity of everyone she interacts with, her daily tasks). The last time he can remember for sure patient was at cognitive baseline is around the time they moved here from [place] (~May 2024). He describes her apparent PTSD that gets triggered by wartime films he watches. He says she is "stubborn" so often refuses her medications, saying they aren't working for her, which worsened in the last ~30 days and included her refusal to go see a doctor. She had also been eating much less, a few spoonfuls per meal for about 1 week before admission. - Son (Baron Dickey) corroborates description that patient is currently exhibiting significant/acute cognitive decline, and he says she has poor baseline strength & mobility (also noted in PT evals 06/30/24 and this admission). He says she "hasn't been the same" since his brother - her eldest son - . This son lives ~1 mile from his parents, and his son lives right next door to them, and they both visit daily to help with chores, paperwork, etc. - Restarted home meds. Plan to monitor for improvement on proper tx, continue treating UTI, PT/OT will continue to follow #SCZ - Continue Abilify 10mg PO and Depakote 250mg BID - Seroquel 25mg PO HS available PRN - Negative sx exacerbated today, pt noncompliant w po meds even in hospital - Psych consulted, appreciate input: - High suspicion for hypoactive delirium due to UTI vs cognitive decline - Continue Depakote & Abilify - Ammonia level & valproate levels wnl - Maintain delirium prevention measures, avoid deleriogenic meds, continue treating presumed underlying cause #UTI - UA w 3+ leuk, 2+ prot, blood, and bact, many WBC, RBC. Urine Culture grew polysensitive Proteus - On 10/24 PM, nursing reported low UO (likely 2/2 to v low po intake) w ~200ml residual. This morning, nursing reported hematuria. Medrano placed. BMP still wnl. Pt resistant to IVF. Abx changed to IV cefepime in light of UTI sx escalation several days into treatment. #Hypothyroidism - TSH level 2.457 - Continue home Synthroid #HTN - Amlodipine 2.5mg qAM #H/o DVT - Doppler US negative, no calf tenderness to indicate acute DVT - Continue Eliquis until medical records confirm date(s) of DVT Chronic, stable conditions: T2DM - A1c 6.4% on 10/20 HLD - Lipid profile (10/20) wnl except chol at 203 Dispo: ?home with 21/04 care DVT ppx: Eliquis CODE STATUS: Full Admission and Anticipated Discharge Date Admission Date: October 19, 2024 Supervising Physician Co-Signing Physician Notes I personally examined the patient and verified all trevizo points of history and exam, discussed case, and agree with decision making with Dr Zendejas No significant complaints, although does complain of lower back or pelvic pain that she relates to having delivered a baby about 2 years ago. Obviously unfortunately HPI and review of systems quite unreliable. Vitals noted, in general she is awake and alert fatigued seems to be disoriented pleasant no distress. HEENT normocephalic atraumatic mucous membranes moist. Breathing unlabored no accessory muscle use good effort. Skin without rashes pallor or icterus. Neuro without focal deficits. Weakness/FTT - likely multifactorial. Per report - for days before admission - was only eating a teaspoon worth of meal. Extended delirium/ overall worsening baseline function due to delirium and schizophrenia/Less likely UTI since worsening over a period of month/Underlying worsening dementia. -Refusal to eat off and on - consulted warble saw operator and follow PO intake. Record PO intake Extended Delirium - Hasn't been at her baseline cognitive function since before last admission in Jun. Progressive worsening over a period of month. -UTI Possibly contributing as well. -Delirium preventive measures. UTI - UCx proteus. Continue ceftriaxone to finish course 10/25 (Today). Schizophrenia - psych consultation - No concern of catatonia. -continue home meds - depakote, abilify (on IM dose as outpatient) - abilify has been helpful for psychosis -Prn olanzapine for agitation per psych. Reported Hx of stroke - suspected underlying vascular dementia -To gather collateral information on baseline function. Decreased UO 10/24 and Bloody urine 10/23 - Renal fx on labs normal. -encourage PO intake. and bladder scan. Discharge planning in progress, concerned about her ability to be independent with her husbandwill need to discuss discharge planning with him. anticoagulated Subjective Libby is having memory and behavior issues this morning. Refused labs, refused meds, cursed at nursing/phlebotomy staff. On interview, she only talked about giving (currently or recently) to snakes (may refer to the Medrano placed a bit earlier). Shook her head "no" when asked if she hurt anywhere or needed anything. Review of Systems 2 Review of Systems: As per HPI. Physical Exam 2 Physical Exam: Gen: Awake, NAD HEENT: NCAT, MMM CV: +systolic murmur, S1/S2 present, nl cap refill Resp: CTAB, symmetrical chest rise, breathing non-labored Abd: Soft, nondistended Skin: Warm, dry, thin, no rashes or lesions Neuro: Alert, Not following commands, Moves all extremities spontaneously Psych: Oriented to person. Perseverated on idea she is (currently?) giving (to snakes?). Still some persecutory delusions vs family. No PMA/PMR. Long- and short-term memory deficits. Results & Data Results & Data Vital Signs (Past 12 Hours) Vital Signs Temp Pulse Resp BP BP Pulse Ox O2 Del Method 10/25/24 07:06 36.8 C 64 16 155/75 H 94 Room Air 10/25/24 02:35 36.7 C 67 18 147/72 H 95 Room Air Laboratory Results 10/25/24 11:46 10/25/24 11:46 Resident Activity Tracking Resident Involvement: Resident Care Provided Care Provided: Adult Hospital Medicine (1) Schizophrenia Schizophrenia type: unspecified Qualified Code(s): F20.9 - Schizophrenia, unspecified (2) UTI (urinary tract infection) Hematuria presence: with hematuria Urinary tract infection type: acute cystitis Qualified Code(s): N30.01 - Acute cystitis with hematuria
[2024-10-25] MEDS: PLASMA-LYTE A 1,000 ML IV SCH (10:11)
[2024-10-25 10:37] LABS: Appearance Urine Cloudy (Clear)
[2024-10-25 10:39] LABS: Specific Gravity Urine 1.017 (1.000-1.030)
[2024-10-25 10:51] LABS: RBC Urine >20 /hpf (0-2)
[2024-10-25 10:55] LABS: Epithelial Cell Urine >20 /hpf (0-2)
[2024-10-25 10:56] LABS: Bacteria Urine 2+ (None Seen); WBC Urine >50 /hpf (0-5)
[2024-10-25 12:06] LABS: Hematocrit (blood only) 34.8 % (37.0-47.0); Hemoglobin 11.6 g/dl (12.0-16.0); Mean Corpuscular Hemoglobin 28.9 pg (25.0-34.0); Mean Corpuscular Hgb Conc 33.3 g/dL (32.0-36.0); Mean Corpuscular Volume 86.8 fL (80.0-100.0); Platelet Count 159 K/uL (130-400); RDW Coefficient of Variation 13.2 % (11.5-14.5); RDW Standard Deviation 41.1 fL (36.4-46.3); Red Blood Count 4.01 M/uL (4.20-5.40); White Blood Count 4.03 K/ul (4.8-10.8)
[2024-10-25 12:22] LABS: BUN Creatinine Ratio 13.6 (10-20); Calcium 7.9 mg/dl (8.6-10.3); Creatinine Clr Calc Pharmacy 53.8 ml/min; Potassium 4.2 mmol/L (3.5-5.1)
[2024-10-25] MEDS: CEFEPIME 2000MG 2,000 MG/20 ML SYR IV SCH (14:01)
--- NOTE | 2024-10-25 18:28 | Billing Data ---
Date of Service October 25, 2024 Coding Level of Care Code 24341 SUB INP/OBS CARE
[2024-10-26 13:36] LABS: Hematocrit (blood only) 35.5 % (37.0-47.0); Hemoglobin 12.2 g/dl (12.0-16.0); Mean Corpuscular Hgb Conc 34.4 g/dL (32.0-36.0); Mean Corpuscular Volume 84.5 fL (80.0-100.0); Platelet Count 160 K/uL (130-400); RDW Coefficient of Variation 13.2 % (11.5-14.5); RDW Standard Deviation 40.4 fL (36.4-46.3); White Blood Count 4.22 K/ul (4.8-10.8)
[2024-10-26 13:48] LABS: Calcium 8.9 mg/dl (8.6-10.3); Creatinine Clr Calc Pharmacy 58.1 ml/min; Potassium 4.3 mmol/L (3.5-5.1)
--- NOTE | 2024-10-26 15:08 | Hospitalist Progress Note ---
Date of Service October 26, 2024 Assessment & Plan (1) Schizophrenia: (2) UTI (urinary tract infection): (3) Weakness: (4) Hypothyroid: (5) HTN (hypertension), benign: Plan Libby is a 78F with a PMHx of schizophrenia, HTN, aortic stenosis, hx of DVT (on Eliquis) who presents with weakness. Son recently ; she & moved here from [place]. expresses concern to caring for her at home. She has not been taking her medications consistently for about 1 month, unsure which or how often she has taken; orders placed based on D/c summary from 06/2024. #FTT, cognitive decline - (Baron Licona) reports patient's baseline cognition is much improved from current status; is aware of/understands her circumstances (time, day, location, the identity of everyone she interacts with, her daily tasks). The last time he can remember for sure patient was at cognitive baseline is around the time they moved here from [place] (~May 2024). He describes her apparent PTSD that gets triggered by wartime films he watches. He says she is "stubborn" so often refuses her medications, saying they aren't working for her, which worsened in the last ~30 days and included her refusal to go see a doctor. She had also been eating much less, a few spoonfuls per meal for about 1 week before admission. - Son (Baron Dickey) corroborates description that patient is currently exhibiting significant/acute cognitive decline, and he says she has poor baseline strength & mobility (also noted in PT evals 06/30/24 and this admission). He says she "hasn't been the same" since his brother - her eldest son - . This son lives ~1 mile from his parents, and his son lives right next door to them, and they both visit daily to help with chores, paperwork, etc. - Restarted home meds. Plan to monitor for improvement on proper tx, continue treating UTI, PT/OT will continue to follow. Will coordinate w CM & family to determine best dispo for pt and how to afford it #SCZ - Continue Abilify 10mg PO and Depakote 250mg BID - Seroquel 25mg PO HS available PRN - Negative sx exacerbated today, pt noncompliant w po meds even in hospital - Psych consulted, appreciate input: - High suspicion for hypoactive delirium due to UTI vs cognitive decline - Continue Depakote & Abilify - Ammonia level & valproate levels wnl - Maintain delirium prevention measures, avoid deleriogenic meds, continue treating presumed underlying cause #UTI - UA w 3+ leuk, 2+ prot, blood, and bact, many WBC, RBC. Urine Culture grew polysensitive Proteus - On 10/24 PM, nursing reported low UO (likely 2/2 to v low po intake) w ~200ml residual. On 10/25 AM, nursing reported hematuria. Medrano placed. BMP still wnl. Pt resistant to IVF. Continue IV cefepime #Hypothyroidism - TSH level 2.457 - Continue home Synthroid #HTN - Amlodipine 2.5mg qAM #H/o DVT - Doppler US negative, no calf tenderness to indicate acute DVT - Continue Eliquis until medical records confirm date(s) of DVT Chronic, stable conditions: T2DM - A1c 6.4% on 10/20 HLD - Lipid profile (10/20) wnl except chol at 203 Dispo: ? DVT ppx: Eliquis CODE STATUS: Full Admission and Anticipated Discharge Date Admission Date: October 19, 2024 Supervising Physician Co-Signing Physician Notes I personally examined the patient and verified all trevizo points of history and exam, discussed case, and agree with decision making with Dr Zendejas no spontaneous complaints. When asking if she has any pain, she loosely endorses some pain in her bottom, but notes that it is tolerable. HPI/review of systems very difficult to discern. Vitals noted, in general she is awake and alert fatigued seems to be disoriented pleasant no distress. HEENT normocephalic atraumatic mucous membranes moist. Breathing unlabored no accessory muscle use good effort. Skin without rashes pallor or icterus. Neuro without focal deficits. Weakness/FTT - likely multifactorial. Per report - for days before admission - was only eating a teaspoon worth of meal. Extended delirium/ overall worsening baseline function due to delirium and schizophrenia/Less likely UTI since worsening over a period of month/Underlying worsening dementia. -Refusal to eat off and on - consulted historic preservationist and follow PO intake. Extended Delirium - Hasn't been at her baseline cognitive function since before last admission in Jun. Progressive worsening over a period of month. -UTI Possibly contributing as well. this has been treated -Delirium preventive measures. UTI - UCx proteus. Continue ceftriaxone to finished course 10/25 Schizophrenia - psych consultation - No concern of catatonia. -continue home meds - depakote, abilify (on IM dose as outpatient) - abilify has been helpful for psychosis -Prn olanzapine for agitation per psych. Reported Hx of stroke - suspected underlying vascular dementia -To gather collateral information on baseline function. Decreased UO 10/24 and Bloody urine 10/23 - Renal fx on labs normal. -encourage PO intake. and bladder scan. Discharge planning in progress, concerned about her ability to be independent with her it is not clear if the patient's truly feels like he can take care of her at home or if he is concerned about financial considerations going to a facility. In her current state, obviously want to be careful to set up safe disposition. anticoagulated Subjective Still having memory and behavior issues, but improved this morning from yesterday. Was cooperative with exam and answered questions, saying she felt a little dizzy but not unwell and no pain. Refused to get out of bed or work w PT and refused labs. Review of Systems 2 Review of Systems: As per HPI. Physical Exam 2 Physical Exam: Gen: Awake, NAD, Oriented to person. HEENT: NCAT, MMM CV: +systolic murmur, S1/S2 present, nl cap refill Resp: CTAB, symmetrical chest rise, breathing non-labored Abd: Soft, nondistended Skin: Warm, dry, thin, no rashes or lesions Neuro: Alert, Not following commands, Moves all extremities Psych: Flat affect, poverty of speech, apparent memory deficits Results & Data Results & Data Vital Signs (Past 12 Hours) Vital Signs Temp Pulse Resp BP Pulse Ox O2 Del Method 10/26/24 14:22 36.9 C 58 L 16 108/65 96 Room Air 10/26/24 07:05 36.8 C 54 L 16 164/69 H 95 Room Air Laboratory Results 10/26/24 13:06 10/26/24 13:06 Resident Activity Tracking Resident Involvement: Resident Care Provided Care Provided: Adult Hospital Medicine (1) Schizophrenia Schizophrenia type: unspecified Qualified Code(s): F20.9 - Schizophrenia, unspecified (2) UTI (urinary tract infection) Hematuria presence: with hematuria Urinary tract infection type: acute cystitis Qualified Code(s): N30.01 - Acute cystitis with hematuria
--- NOTE | 2024-10-26 18:42 | Billing Data ---
Date of Service October 26, 2024 Coding Level of Care Code 07120 SUB INP/OBS CARE
--- NOTE | 2024-10-27 07:07 | Hospitalist Progress Note ---
Date of Service October 27, 2024 Assessment & Plan (1) Schizophrenia: (2) UTI (urinary tract infection): (3) Weakness: (4) Hypothyroid: (5) HTN (hypertension), benign: Plan Libby is a 78F with a PMHx of schizophrenia, HTN, aortic stenosis, hx of DVT (on Eliquis) who presents with weakness. Son recently ; she & moved here from [place]. expresses concern to caring for her at home. She has not been taking her medications consistently for about 1 month, unsure which or how often she has taken; orders placed based on D/c summary from 06/2024. #FTT, cognitive decline - (Baron Licona) reports patient's baseline cognition is much improved from current status; is aware of/understands her circumstances (time, day, location, the identity of everyone she interacts with, her daily tasks). The last time he can remember for sure patient was at cognitive baseline is around the time they moved here from [place] (~May 2024). He describes her apparent PTSD that gets triggered by wartime films he watches. He says she is "stubborn" so often refuses her medications, saying they aren't working for her, which worsened in the last ~30 days and included her refusal to go see a doctor. She had also been eating much less, a few spoonfuls per meal for about 1 week before admission. - Son (Baron Dickey) corroborates description that patient is currently exhibiting significant/acute cognitive decline, and he says she has poor baseline strength & mobility (also noted in PT evals 06/30/24 and this admission). He says she "hasn't been the same" since his brother - her eldest son - . This son lives ~1 mile from his parents, and his son lives right next door to them, and they both visit daily to help with chores, paperwork, etc. - Restarted home meds. Plan to monitor for improvement on proper tx, continue treating UTI, PT/OT will continue to follow. Plan to work with CM and pt family to coordinate best dispo/rehab placement. is amenable to rehab if affordable #SCZ - Continue Abilify 10mg PO and Depakote 250mg BID - Seroquel 25mg PO HS available PRN - Negative sx exacerbated today, pt noncompliant w po meds even in hospital - Psych consulted, appreciate input: - High suspicion for hypoactive delirium due to UTI vs cognitive decline - Continue Depakote & Abilify - Ammonia level & valproate levels wnl - Maintain delirium prevention measures, avoid deleriogenic meds, continue treating presumed underlying cause #UTI - UA w 3+ leuk, 2+ prot, blood, and bact, many WBC, RBC. Urine Culture grew polysensitive Proteus - On 10/24 PM, nursing reported low UO (likely 2/2 to v low po intake) w ~200ml residual. On 10/25 AM, nursing reported hematuria. Medrano placed. BMP still wnl. Pt resistant to IVF. Cefepime stopped 10/27 #Hypothyroidism - TSH level 2.457 - Continue home Synthroid #HTN - Amlodipine 2.5mg qAM #H/o DVT - Doppler US negative, no calf tenderness to indicate acute DVT - Continue Eliquis until medical records confirm date(s) of DVT Chronic, stable conditions: T2DM - A1c 6.4% on 10/20 HLD - Lipid profile (10/20) wnl except chol at 203 Dispo: ? DVT ppx: Eliquis CODE STATUS: Full Admission and Anticipated Discharge Date Admission Date: October 19, 2024 Supervising Physician Co-Signing Physician Notes I personally examined the patient and verified all trevizo points of history and exam, discussed case, and agree with decision making with Dr Aashish izquierdo real HPI or ROS today. Vitals noted, resting comfortably no distress. HEENT normocephalic atraumatic mucous membranes moist. Breathing unlabored no accessory muscle use good effort at rest. Skin without rashes pallor or icterus. Weakness/FTT - likely multifactorial. Per report - for days before admission - was only eating a teaspoon worth of meal. Extended delirium/ overall worsening baseline function due to delirium and schizophrenia/Less likely UTI since worsening over a period of month/Underlying worsening dementia. -Refusal to eat off and on - consulted oral surgery technician and follow PO intake. Extended Delirium - Hasn't been at her baseline cognitive function since before last admission in Jun. Progressive worsening over a period of month. -UTI Possibly contributing as well. this has been treated -Delirium preventive measures as best as possible. UTI - UCx proteus. completed course of abx. Schizophrenia - psych consultation - No concern of catatonia. -continue home meds - depakote, abilify (on IM dose as outpatient) - abilify has been helpful for psychosis -Prn olanzapine for agitation per psych. Reported Hx of stroke - suspected underlying vascular dementia -To gather collateral information on baseline function. Decreased UO 10/24 and Bloody urine 10/23 - Renal fx on labs normal. -encourage PO intake. and bladder scan. Discharge planning in progress, concerned about her ability to be independent with her and after further d/w dr dhillon it sounds like he harbors concerns too but was worried about financial considerations. continue to work with case management for placement, otherwise as above anticoagulated Subjective Doing a little better today. Did answer questions appropriately. Denied any pain or discomfort. Asked for bed and pillows to be adjusted. Refused to get out of bed, but did allows labs and meds today Review of Systems 2 Review of Systems: As per HPI. Physical Exam 2 Physical Exam: Gen: Awake, NAD, Oriented to person. HEENT: NCAT, MMM CV: +systolic murmur, S1/S2 present, nl cap refill Resp: CTAB, symmetrical chest rise, breathing non-labored Abd: Soft, nondistended Skin: Warm, dry, thin, no rashes or lesions Neuro: Alert, Not following commands, Moves all extremities Psych: Flat affect, slowed speech, apparent memory deficits Results & Data Results & Data Vital Signs (Past 12 Hours) Vital Signs Temp Pulse Resp BP Pulse Ox O2 Del Method 10/26/24 19:10 36.7 C 53 L 15 159/70 H 96 Room Air Laboratory Results 10/27/24 06:20 10/27/24 06:20 Resident Activity Tracking Resident Involvement: Resident Care Provided Care Provided: Adult Hospital Medicine (1) Schizophrenia Schizophrenia type: unspecified Qualified Code(s): F20.9 - Schizophrenia, unspecified (2) UTI (urinary tract infection) Hematuria presence: with hematuria Urinary tract infection type: acute cystitis Qualified Code(s): N30.01 - Acute cystitis with hematuria
[2024-10-27 07:09] LABS: Hematocrit (blood only) 36.3 % (37.0-47.0); Hemoglobin 12.3 g/dl (12.0-16.0); Mean Corpuscular Hemoglobin 29.5 pg (25.0-34.0); Mean Corpuscular Hgb Conc 33.9 g/dL (32.0-36.0); Mean Corpuscular Volume 87.1 fL (80.0-100.0); Mean Platelet Volume 10.2 fL (9.4-12.4); Platelet Count 151 K/uL (130-400); RDW Coefficient of Variation 13.2 % (11.5-14.5); RDW Standard Deviation 41.8 fL (36.4-46.3); Red Blood Count 4.17 M/uL (4.20-5.40); White Blood Count 4.43 K/ul (4.8-10.8)
[2024-10-27 07:37] LABS: Calcium 8.8 mg/dl (8.6-10.3); Potassium 4.1 mmol/L (3.5-5.1)
[2024-10-27 07:43] LABS: BUN Creatinine Ratio 19.7 (10-20); Creatinine Clr Calc Pharmacy 61.4 ml/min
--- NOTE | 2024-10-27 16:42 | Billing Data ---
Date of Service October 27, 2024 Coding Level of Care Code 27248 SUB INP/OBS CARE
[2024-10-28 09:26] LABS: Hematocrit (blood only) 37.6 % (37.0-47.0); Hemoglobin 12.9 g/dl (12.0-16.0); Mean Corpuscular Hemoglobin 29.4 pg (25.0-34.0); Mean Corpuscular Hgb Conc 34.3 g/dL (32.0-36.0); Mean Corpuscular Volume 85.6 fL (80.0-100.0); Mean Platelet Volume 10.1 fL (9.4-12.4); Platelet Count 154 K/uL (130-400); RDW Standard Deviation 40.5 fL (36.4-46.3); Red Blood Count 4.39 M/uL (4.20-5.40); White Blood Count 4.54 K/ul (4.8-10.8)
[2024-10-28 09:47] LABS: BUN Creatinine Ratio 25.4 (10-20); Calcium 9.2 mg/dl (8.6-10.3); Creatinine Clr Calc Pharmacy 69.2 ml/min
--- NOTE | 2024-10-28 10:25 | Hospitalist Progress Note ---
Date of Service October 28, 2024 Assessment & Plan (1) Schizophrenia: (2) UTI (urinary tract infection): (3) Weakness: (4) Hypothyroid: (5) HTN (hypertension), benign: Plan Libby is a 78F with a PMHx of schizophrenia, HTN, aortic stenosis, hx of DVT (on Eliquis) who presents with weakness. Son recently ; she & moved here from [place]. expresses concern to caring for her at home. She has not been taking her medications consistently for about 1 month, unsure which or how often she has taken; orders placed based on D/c summary from 06/2024. #FTT, cognitive decline - (Baron Licona) reports patient's baseline cognition is much improved from current status; is aware of/understands her circumstances (time, day, location, the identity of everyone she interacts with, her daily tasks). The last time he can remember for sure patient was at cognitive baseline is around the time they moved here from [place] (~May 2024). He describes her apparent PTSD that gets triggered by wartime films he watches. He says she is "stubborn" so often refuses her medications, saying they aren't working for her, which worsened in the last ~30 days and included her refusal to go see a doctor. She had also been eating much less, a few spoonfuls per meal for about 1 week before admission. - Son (Baron Dickey) corroborates description that patient is currently exhibiting significant/acute cognitive decline, and he says she has poor baseline strength & mobility (also noted in PT evals 06/30/24 and this admission). He says she "hasn't been the same" since his brother - her eldest son - . This son lives ~1 mile from his parents, and his son lives right next door to them, and they both visit daily to help with chores, paperwork, etc. - Watch for improvement on proper med regimen, PT/OT will continue to follow. Plan to work with CM and pt family to coordinate best dispo. is amenable to rehab if affordable #SCZ - Continue Abilify 10mg PO and Depakote 250mg BID - Seroquel 25mg PO HS available PRN - Negative sx exacerbated today, pt noncompliant w po meds even in hospital - Psych consulted, appreciate input: - High suspicion for hypoactive delirium due to UTI vs cognitive decline - Continue Depakote & Abilify - Ammonia level & valproate levels wnl - Maintain delirium prevention measures, avoid deleriogenic meds, continue treating presumed underlying cause #UTI - UA w 3+ leuk, 2+ prot, blood, and bact, many WBC, RBC. Urine Culture grew polysensitive Proteus - On 10/24 PM, nursing reported low UO (likely 2/2 to v low po intake) w ~200ml residual. On 10/25 AM, nursing reported hematuria. Medrano placed. BMP still wnl. Pt resistant to IVF. Cefepime stopped 10/27 #Hypothyroidism - TSH level 2.457 - Continue home Synthroid #HTN - Amlodipine 2.5mg qAM #H/o DVT - Doppler US negative, no calf tenderness to indicate acute DVT - Continue Eliquis until medical records confirm date(s) of DVT Chronic, stable conditions: T2DM - A1c 6.4% on 10/20 HLD - Lipid profile (10/20) wnl except chol at 203 Dispo: ? DVT ppx: Eliquis CODE STATUS: Full Admission and Anticipated Discharge Date Admission Date: October 19, 2024 Supervising Physician Co-Signing Physician Notes I personally examined the patient and verified all trevizo points of history and exam, discussed case, and agree with decision making with Dr Zendejas no real HPI or ROS today. Vaguely voices not feeling well. Vitals noted, resting comfortably no distress. HEENT normocephalic atraumatic mucous membranes moist. Breathing unlabored no accessory muscle use good effort at rest. Skin without rashes pallor or icterus. Weakness/FTT - likely multifactorial. Per report - for days before admission - was only eating a teaspoon worth of meal. Extended delirium/ overall worsening baseline function due to delirium and schizophrenia/Less likely UTI since worsening over a period of month/Underlying worsening dementia. -Refusal to eat off and on - consulted trim installer and follow PO intake. Extended Delirium - Hasn't been at her baseline cognitive function since before last admission in Jun. Progressive worsening over a period of month. -UTI Possibly contributing as well. this has been treated -Delirium preventive measures as best as possible. UTI - UCx proteus. completed course of abx. Schizophrenia - psych consultation - No concern of catatonia. -continue home meds - depakote, abilify (on IM dose as outpatient) - abilify has been helpful for psychosis -Prn olanzapine for agitation per psych. Reported Hx of stroke - suspected underlying vascular dementia -To gather collateral information on baseline function. Decreased UO 10/24 and Bloody urine 10/23 - Renal fx on labs normal. -encourage PO intake. and bladder scan. Discharge planning in progress, Would benefit from SNF/rehab emphasis. Case management/ working on this. encouraged her participation with PT anticoagulated Subjective Doing okay today. Did answer questions appropriately, denied any pain or discomfort, stated breakfast was fine; then tried to cut off her IV access using the butter knife. Still refused to get out of bed, but did allow labs and meds today. Review of Systems 2 Review of Systems: As per HPI. Physical Exam 2 Physical Exam: Gen: Awake, NAD, Oriented to person. HEENT: NCAT, MMM CV: +systolic murmur, S1/S2 present, nl cap refill Resp: CTAB, symmetrical chest rise, breathing non-labored Abd: Soft, nondistended Skin: Warm, dry, thin, no rashes or lesions Neuro: Alert, Not following commands, Moves all extremities Psych: Flat affect, slowed speech, apparent memory deficits Results & Data Results & Data Vital Signs (Past 12 Hours) Vital Signs Temp Pulse Resp BP Pulse Ox O2 Del Method 10/28/24 07:02 36.4 C L 60 17 154/71 H 95 Room Air Laboratory Results 10/28/24 09:01 10/28/24 09:01 Resident Activity Tracking Resident Involvement: Resident Care Provided Care Provided: Adult Hospital Medicine (1) Schizophrenia Schizophrenia type: unspecified Qualified Code(s): F20.9 - Schizophrenia, unspecified (2) UTI (urinary tract infection) Hematuria presence: with hematuria Urinary tract infection type: acute cystitis Qualified Code(s): N30.01 - Acute cystitis with hematuria
--- NOTE | 2024-10-28 13:13 | Billing Data ---
Date of Service October 28, 2024 Coding Level of Care Code 20352 SUB INP/OBS CARE
[2024-10-29 06:41] LABS: Hematocrit (blood only) 35.5 % (37.0-47.0); Mean Corpuscular Hemoglobin 29.1 pg (25.0-34.0); Mean Corpuscular Hgb Conc 33.8 g/dL (32.0-36.0); Mean Platelet Volume 10.6 fL (9.4-12.4); Platelet Count 142 K/uL (130-400); RDW Coefficient of Variation 13.1 % (11.5-14.5); RDW Standard Deviation 40.6 fL (36.4-46.3); Red Blood Count 4.13 M/uL (4.20-5.40); White Blood Count 5.18 K/ul (4.8-10.8)
[2024-10-29 07:01] LABS: BUN Creatinine Ratio 27.3 (10-20); Calcium 8.8 mg/dl (8.6-10.3); Creatinine Clr Calc Pharmacy 66.1 ml/min; Potassium 3.8 mmol/L (3.5-5.1)
--- NOTE | 2024-10-29 07:27 | Hospitalist Progress Note ---
Date of Service October 29, 2024 Assessment & Plan (1) Schizophrenia: (2) UTI (urinary tract infection): (3) Weakness: (4) Hypothyroid: (5) HTN (hypertension), benign: Plan Libby is a 78F with a PMHx of schizophrenia, HTN, aortic stenosis, hx of DVT (on Eliquis) who presents with weakness. Son recently ; she & moved here from [place]. expresses concern to caring for her at home. She has not been taking her medications consistently for about 1 month, unsure which or how often she has taken; orders placed based on D/c summary from 06/2024. #FTT, cognitive decline - (Baron Licona) reports patient's baseline cognition is much improved from current status; is aware of/understands her circumstances (time, day, location, the identity of everyone she interacts with, her daily tasks). The last time he can remember for sure patient was at cognitive baseline is around the time they moved here from [place] (~May 2024). He describes her apparent PTSD that gets triggered by wartime films he watches. He says she is "stubborn" so often refuses her medications, saying they aren't working for her, which worsened in the last ~30 days and included her refusal to go see a doctor. She had also been eating much less, a few spoonfuls per meal for about 1 week before admission. - Son (Baron Dickey) corroborates description that patient is currently exhibiting significant/acute cognitive decline, and he says she has poor baseline strength & mobility (also noted in PT evals 06/30/24 and this admission). He says she "hasn't been the same" since his brother - her eldest son - . This son lives ~1 mile from his parents, and his son lives right next door to them, and they both visit daily to help with chores, paperwork, etc. - Watch for improvement on proper med regimen, PT/OT will continue to follow. Plan to work with CM and pt family to coordinate best dispo. is amenable to rehab if affordable #SCZ - Continue Abilify 10mg PO and Depakote 250mg BID - Seroquel 25mg PO HS available PRN - Negative sx exacerbated today, pt noncompliant w po meds even in hospital - Psych consulted, appreciate input: - High suspicion for hypoactive delirium due to UTI vs cognitive decline - Continue Depakote & Abilify - Ammonia level & valproate levels wnl - Maintain delirium prevention measures, avoid deleriogenic meds, continue treating presumed underlying cause #UTI - UA w 3+ leuk, 2+ prot, blood, and bact, many WBC, RBC. Urine Culture grew polysensitive Proteus - On 10/24 PM, nursing reported low UO (likely 2/2 to v low po intake) w ~200ml residual. On 10/25 AM, nursing reported hematuria. Temple removed on 10/29. BMP still wnl. Pt resistant to IVF. Cefepime stopped 10/27 #Hypothyroidism - TSH level 2.457 - Continue home Synthroid #HTN - Amlodipine 2.5mg qAM #H/o DVT - Doppler US negative, no calf tenderness to indicate acute DVT - Continue Eliquis until medical records confirm date(s) of DVT Chronic, stable conditions: T2DM - A1c 6.4% on 10/20 HLD - Lipid profile (10/20) wnl except chol at 203 Dispo: ? DVT ppx: Eliquis CODE STATUS: Full Admission and Anticipated Discharge Date Admission Date: October 19, 2024 Supervising Physician Co-Signing Physician Notes I personally examined the patient and verified all trevizo points of history and exam, discussed case, and agree with decision making with Dr Aashish izquierdo real HPI or ROS today. mostly nods a little with questioning. Vitals noted, resting comfortably no distress. HEENT normocephalic atraumatic mucous membranes moist. Breathing unlabored no accessory muscle use good effort at rest. Skin without rashes pallor or icterus. Weakness/FTT - likely multifactorial. Per report - for days before admission - was only eating a teaspoon worth of meal. Extended delirium/ overall worsening baseline function due to delirium and schizophrenia/Less likely UTI since worsening over a period of month/Underlying worsening dementia. -Refusal to eat off and on - consulted general practice and follow PO intake. Extended Delirium - Hasn't been at her baseline cognitive function since before last admission in Jun. Progressive worsening over a period of month. -UTI Possibly contributing as well. this has been treated -Delirium preventive measures as best as possible. UTI - UCx proteus. completed course of abx. dc etmple Schizophrenia - psych consultation - No concern of catatonia. -continue home meds - depakote, abilify (on IM dose as outpatient) - abilify has been helpful for psychosis -Prn olanzapine for agitation per psych. Reported Hx of stroke - suspected underlying vascular dementia -To gather collateral information on baseline function. Decreased UO 10/24 and Bloody urine 10/23 - Renal fx on labs normal. -encourage PO intake. and bladder scan. Discharge planning in progress, Would benefit from SNF/rehab emphasis. Case management/ working on this. awaiting bed anticoagulated Subjective Doing okay this morning. Answered questions, had breakfast by herself, denied any pain, discomfort, or other complaints. Review of Systems 2 Review of Systems: As per HPI. Physical Exam 2 Physical Exam: Gen: Awake, NAD, Oriented to person. HEENT: NCAT, MMM CV: +systolic murmur, S1/S2 present, nl cap refill Resp: CTAB, symmetrical chest rise, breathing non-labored Abd: Soft, nondistended Skin: Warm, dry, thin, no rashes or lesions Neuro: Alert, Not following commands, Moves all extremities Psych: Flat affect, slowed speech, apparent memory deficits Results & Data Results & Data Vital Signs (Past 12 Hours) Vital Signs Temp Pulse Resp BP Pulse Ox O2 Del Method 10/29/24 07:09 36.5 C 58 L 16 129/67 97 Room Air 10/28/24 19:42 36.7 C 62 18 121/64 96 Room Air 10/28/24 19:30 Room Air Laboratory Results 10/29/24 05:31 10/29/24 05:31 Resident Activity Tracking Resident Involvement: Resident Care Provided Care Provided: Adult Hospital Medicine (1) Schizophrenia Schizophrenia type: unspecified Qualified Code(s): F20.9 - Schizophrenia, unspecified (2) UTI (urinary tract infection) Hematuria presence: with hematuria Urinary tract infection type: acute cystitis Qualified Code(s): N30.01 - Acute cystitis with hematuria
--- NOTE | 2024-10-29 14:24 | Billing Data ---
Date of Service October 29, 2024 Coding Level of Care Code 58095 SUB INP/OBS CARE
--- NOTE | 2024-10-30 07:32 | Hospitalist Progress Note ---
Date of Service October 30, 2024 Assessment & Plan (1) Schizophrenia: (2) UTI (urinary tract infection): (3) Weakness: (4) Hypothyroid: (5) HTN (hypertension), benign: Plan Libby is a 78F with a PMHx of schizophrenia, HTN, aortic stenosis, hx of DVT (on Eliquis) who presents with weakness. Son recently ; she & moved here from [place]. expresses concern to caring for her at home. She has not been taking her medications consistently for about 1 month, unsure which or how often she has taken; orders placed based on D/c summary from 06/2024. #FTT, cognitive decline -No new change; worsened cognition from baseline. As per previous note #SCZ - Continue Abilify 10mg PO and Depakote 250mg BID - Seroquel 25mg PO HS available PRN - Negative sx exacerbated today, pt noncompliant w po meds even in hospital - Psych consulted, appreciate input: - High suspicion for hypoactive delirium due to UTI vs cognitive decline - Continue Depakote & Abilify - Ammonia level & valproate levels wnl - Maintain delirium prevention measures, avoid deleriogenic meds, continue treating presumed underlying cause #UTI - Urine Culture : Poly sensitive Proteus - Completed cefepime, - On and off hematuria when on temple;s, removed yesterday - No new issues. #HTN - Amlodipine 2.5mg qAM BP: 158/61 today. #H/o DVT - Doppler US negative, no calf tenderness to indicate acute DVT - Continue Eliquis until medical records confirm date(s) of DVT Chronic, stable conditions: T2DM - A1c 6.4% on 10/20 HLD - Lipid profile (10/20) wnl except chol at 203 #Hypothyroidism: TSH level 2.457 / Continue home Synthroid Dispo: Would benefit Rehab, CM working on this. DVT ppx: Eliquis CODE STATUS: Full Admission and Anticipated Discharge Date Admission Date: October 19, 2024 Supervising Physician Co-Signing Physician Notes I personally examined the patient and verified all trevizo points of history and exam, discussed case, and agree with decision making with Dr Susan leos. chart reviewed. temple out. no new issues/allowed pt to rest. Vitals noted, resting comfortably no distress. HEENT normocephalic atraumatic mucous membranes moist. Breathing unlabored no accessory muscle use good effort at rest. Skin without rashes pallor or icterus. Weakness/FTT - likely multifactorial. Per report - for days before admission - was only eating a teaspoon worth of meal. Extended delirium/ overall worsening baseline function due to delirium and schizophrenia/Less likely UTI since worsening over a period of month/Underlying worsening dementia. -Refusal to eat off and on - follow Extended Delirium - Hasn't been at her baseline cognitive function since before last admission in Jun. Progressive worsening over a period of month. -UTI Possibly contributing as well. this has been treated -Delirium preventive measures as best as possible. UTI - UCx proteus. completed course of abx. temple out since 10/29 Schizophrenia - psych consultation - No concern of catatonia. -continue home meds - depakote, abilify (on IM dose as outpatient) - abilify has been helpful for psychosis -Prn olanzapine for agitation per psych. Reported Hx of stroke - suspected underlying vascular dementia -To gather collateral information on baseline function. Decreased UO 10/24 and Bloody urine 10/23 - Renal fx on labs normal. -encourage PO intake. and bladder scan. Discharge planning in progress, Would benefit from SNF/rehab emphasis. Case management/ working on this. awaiting bed - hopefully next week anticoagulated Subjective Lying in bed comfortably on propped up position, with brkfast on table. No new question to me. overall seems tired and frustrated, tried my best to calm her down. She could not answer when I asked her name, Day of week and about . Seems pretty bad cognition. Review of Systems Review of Systems: As per HPI. Physical Exam 2 Physical Exam: Gen: Awake, Looks tired but able to eat and drink. HEENT: NCAT, MMM CV: Looks well perfused Resp:Breathing non-labored Abd: Nondistended Neuro: Alert but Not following commands, Moves all extremities Psych: Flat affect, slowed speech, apparent memory deficits Results & Data Results & Data Vital Signs (Past 12 Hours) Vital Signs O2 Del Method 10/29/24 19:55 Room Air Resident Activity Tracking Resident Involvement: Resident Care Provided Care Provided: Adult Hospital Medicine (1) Schizophrenia Schizophrenia type: unspecified Qualified Code(s): F20.9 - Schizophrenia, unspecified (2) UTI (urinary tract infection) Hematuria presence: with hematuria Urinary tract infection type: acute cystitis Qualified Code(s): N30.01 - Acute cystitis with hematuria
[2024-10-30 10:19] LABS: Hematocrit (blood only) 36.3 % (37.0-47.0); Hemoglobin 12.4 g/dl (12.0-16.0); Mean Corpuscular Hemoglobin 29.3 pg (25.0-34.0); Mean Corpuscular Hgb Conc 34.2 g/dL (32.0-36.0); Mean Corpuscular Volume 85.8 fL (80.0-100.0); Mean Platelet Volume 10.1 fL (9.4-12.4); Platelet Count 115 K/uL (130-400); RDW Coefficient of Variation 13.1 % (11.5-14.5); RDW Standard Deviation 40.5 fL (36.4-46.3); Red Blood Count 4.23 M/uL (4.20-5.40); White Blood Count 4.66 K/ul (4.8-10.8)
[2024-10-30 10:29] LABS: BUN Creatinine Ratio 26.2 (10-20); Calcium 8.8 mg/dl (8.6-10.3); Creatinine Clr Calc Pharmacy 67.1 ml/min; Potassium 4.1 mmol/L (3.5-5.1)
--- NOTE | 2024-10-30 10:53 | Billing Data ---
Date of Service October 30, 2024 Coding Level of Care Code 33686 SUB INP/OBS CARE
[2024-10-30] MEDS: POLYETHYLENE (MIRALAX) 17 GM PACK PO PRN (16:22)
--- NOTE | 2024-10-31 07:31 | Hospitalist Progress Note ---
Date of Service October 31, 2024 Assessment & Plan (1) Schizophrenia: (2) UTI (urinary tract infection): (3) Weakness: (4) Hypothyroid: (5) HTN (hypertension), benign: Plan Libby is a 78F with a PMHx of schizophrenia, HTN, aortic stenosis, hx of DVT (on Eliquis) who presents with weakness. Son recently ; she & moved here from [place]. expresses concern to caring for her at home. She has not been taking her medications consistently for about 1 month, unsure which or how often she has taken; orders placed based on D/c summary from 06/2024. #FTT, cognitive decline -No new change; worsened cognition from baseline. As per previous note #SCZ - Continue Abilify 10mg PO and Depakote 250mg BID - Seroquel 25mg PO HS available PRN - Negative sx exacerbated today, pt noncompliant w po meds even in hospital - Psych consulted, appreciate input: - High suspicion for hypoactive delirium due to UTI vs cognitive decline - Continue Depakote & Abilify - Ammonia level & valproate levels wnl - Maintain delirium prevention measures, avoid deleriogenic meds, continue treating presumed underlying cause #UTI - Urine Culture : Poly sensitive Proteus - Completed Abx. - No new issues after temple;s, DCed( 10/29) #HTN - Amlodipine 2.5mg qAM BP: 147/66 today. #Bradycardia: HR: 51-65 on admission EKG: Bifascicular block Echo: Preserved EF. No significant findings. No new s/s Encourage ambulation. #H/o DVT - Doppler US negative, no calf tenderness to indicate acute DVT - Continue Eliquis until medical records confirm date(s) of DVT Chronic, stable conditions: T2DM - A1c 6.4% on 10/20 HLD - Lipid profile (10/20) wnl except chol at 203 #Hypothyroidism: TSH level 2.457 / Continue home Synthroid Dispo: Would benefit Rehab, CM working on this. DVT ppx: Eliquis CODE STATUS: Full Admission and Anticipated Discharge Date Admission Date: October 19, 2024 Supervising Physician Co-Signing Physician Notes I personally examined the patient and verified all trevizo points of history and exam, discussed case, and agree with decision making with Dr Davis no complaints extremely reserved hx today but awake and will answer. does not offer spontaneous complaints. ate fairly well. Vitals noted, resting comfortably no distress. HEENT normocephalic atraumatic mucous membranes moist. Breathing unlabored no accessory muscle use good effort at rest. Skin without rashes pallor or icterus. Weakness/FTT - likely multifactorial. Per report - for days before admission - was only eating a teaspoon worth of meal. Extended delirium/ overall worsening baseline function due to delirium and schizophrenia/Less likely UTI since worsening over a period of month/Underlying worsening dementia. -Refusal to eat off and on - follow - did well this AM Extended Delirium - Hasn't been at her baseline cognitive function since before last admission in Jun. Progressive worsening over a period of month. -UTI Possibly contributing as well. this has been treated -Delirium preventive measures as best as possible. UTI - UCx proteus. completed course of abx. temple out since 10/29 Schizophrenia - psych consultation - No concern of catatonia. -continue home meds - depakote, abilify (on IM dose as outpatient) - abilify has been helpful for psychosis -Prn olanzapine for agitation per psych. Reported Hx of stroke - suspected underlying vascular dementia -To gather collateral information on baseline function. Decreased UO 10/24 and Bloody urine 10/23 - Renal fx on labs normal. -encourage PO intake. and bladder scan. Discharge planning in progress. Would benefit from SNF/rehab emphasis. Case management/ working on this. awaiting bed - hopefully next week anticoagulated Subjective Lying in bed comfortably on propped up position, with brkfast on table. No new change from yesterday. Overall vitals stable. No new issues. Review of Systems Review of Systems: As per HPI. Physical Exam Physical Exam: Gen: Awake, Eating breakfast, holding cup steady. HEENT: NCAT, MMM CV: Looks well perfused Resp:Breathing non-labored Abd: Nondistended Neuro: Moving all extremities Psych: Flat affect, slowed speech, apparent memory deficits Results & Data Results & Data Vital Signs (Past 12 Hours) Vital Signs Temp Pulse Resp BP Pulse Ox O2 Del Method 10/31/24 07:15 36.7 C 51 L 16 147/66 H 97 Room Air Resident Activity Tracking Resident Involvement: Resident Care Provided Care Provided: Adult Hospital Medicine (1) Schizophrenia Schizophrenia type: unspecified Qualified Code(s): F20.9 - Schizophrenia, unspecified (2) UTI (urinary tract infection) Hematuria presence: with hematuria Urinary tract infection type: acute cystitis Qualified Code(s): N30.01 - Acute cystitis with hematuria
--- NOTE | 2024-10-31 10:53 | Billing Data ---
Date of Service October 31, 2024 Coding Level of Care Code 91422 SUB INP/OBS CARE
[2024-11-01 10:30] LABS: Basophils # (auto) 0.02 K/uL (0.00-0.20); Basophils % (auto) 0.5 %; Eosinophils # (auto) 0.08 K/uL (0.00-0.50); Hematocrit (blood only) 35.4 % (37.0-47.0); Immature Granulocytes # (auto) 0.04 K/uL (0.01-0.20); Lymphocytes # (auto) 1.36 K/uL (1.20-3.40); Lymphocytes % (auto) 34.3 %; Mean Corpuscular Hemoglobin 29.3 pg (25.0-34.0); Mean Corpuscular Hgb Conc 33.9 g/dL (32.0-36.0); Mean Corpuscular Volume 86.3 fL (80.0-100.0); Mean Platelet Volume 11.1 fL (9.4-12.4); Monocytes # (auto) 0.25 K/uL (0.11-0.59); Monocytes % (auto) 6.3 %; Neutrophils # (auto) 2.22 K/uL (1.40-6.50); Neutrophils % (auto) 55.9 %; Platelet Count 117 K/uL (130-400); RDW Coefficient of Variation 13.1 % (11.5-14.5); White Blood Count 3.97 K/ul (4.8-10.8)
[2024-11-01 10:49] LABS: BUN Creatinine Ratio 22.5 (10-20); Calcium 8.4 mg/dl (8.6-10.3); Creatinine Clr Calc Pharmacy 61.4 ml/min; Potassium 4.1 mmol/L (3.5-5.1)
[2024-11-01] MEDS ORDERED: GLUCOSE 40% GEL 15 GM TUBE PO PRN (11:09)
[2024-11-01] MEDS ORDERED: GLUCAGON FOR INJ 1 MG VIAL SQ PRN (11:09)
[2024-11-01] MEDS ORDERED: CARBOHYDRATES FOR HYPOGLYCEMIA PO PRN (11:09)
[2024-11-01] MEDS ORDERED: DEXTROSE 50% 50 ML SYRINGE IV PRN (11:09)
[2024-11-01] MEDS ORDERED: GLUCOSE 10 TAB/TUBE PO PRN (11:09)
--- NOTE | 2024-11-01 11:16 | Hospitalist Progress Note ---
Date of Service November 01, 2024 Assessment & Plan (1) Failure to thrive in adult: Plan: Ms. Abraham is a 78 y/o with a PMHx of schizophrenia, HTN, , prior DVT on Eliquis who presented with weakness and change in mental status. Found to have a UTI and admitted for management and placement. Patient now stable and awaiting placement. #Failure to Thrive #Difficulty with ADLs Patient with difficulty with ADLs and adhering to medication regimen. Patient awaiting placement at a facility. Would recommend pill packs or administration by someone other than the patient. Also recommend minimizing polypharmacy to help with compliance. (2) Schizophrenia: Plan: #Hypoactive Delirium #Schizophrenia Continue Abilify 10mg PO and Depakote 250mg BID. Has Seroquel 25mg PO HS available PRN. Negative symptoms dominant. Psych consult during admission. Likely hypoactive delirium in the setting of UTI and prolonged hospital stay. Delirium precautions Continue home meds PRN seroquel as needed (3) Bradycardia: Plan: #Bradycardia Patient bradycardic down to the 40s. No recent EKG. EKG from 05/2024 reveals bifascicular block. ECHO 05/2024 with preserved EF and mild to moderate . EKG ordered. If EKG with new changes would need moved to a telemetry unit. Repeat EKG Add Mag level to AM labs (4) UTI (urinary tract infection): Plan: UCx - poly sensitive Proteus. Adequately treated. Passed voiding trial. (5) HTN (hypertension), benign: Plan: Amlodipine 2.5mg QAM. Has been intermittently elevated during hospital stay. Continue to monitor. (6) VTE (venous thromboembolism): Plan: Patient with DVT over the summer. Doppler US negative during admission in June 2024. No calf tenderness at present to indicate acute DVT. Would consider discontinuation, but continue for now. (7) Impaired fasting glucose: Plan: Patient not on medication at home. Unclear if she carries a diagnosis of DM as HbA1c 6.4%. Blood sugar has been elevated during hospital stay into the 200s. Did add some SSI coverage, but patient refusing BSG checks and insulin so will discontinue. Plan Chronic: HLD - lipids appropriate, no changes Hypothyroidism - TSH appropriate, continue medications Code status: full DVT ppx: Heidy PARKER: regular, encourage PO Dispo: MedSurg Admission and Anticipated Discharge Date Admission Date: October 19, 2024 Supervising Physician Co-Signing Physician Notes I saw the patient different trevizo portions of the clinical history and physical examination. I agree with the impression and plan as noted in the resident documentation above. Upon our late morning exam, the patient without complaints. Very limited one- word answers to my questions. No distress appreciated. She denies pain. EXAM 123/67, 51, 18, 36.7, 95% room air Awake. No distress appreciated. Heart rate slightly bradycardic, but regular Respirations nonlabored DATA Labs hemoglobin 12 Chemistries within normal limits Glucose 218 Calcium 8.4 IMPRESSION & PLAN Weakness/FTT - likely multifactorial. Per report - for days before admission - was only eating a teaspoon worth of meal. Extended delirium/ overall worsening baseline function due to delirium and schizophrenia/Less likely UTI since worsening over a period of month/Underlying worsening dementia. -Refusal to eat off and on - follow - did well this afternoon Extended Delirium - Hasn't been at her baseline cognitive function since before last admission in Jun. Progressive worsening over a period of month. -UTI Possibly contributing as well. this has been treated -Delirium preventive measures as best as possible. UTI - Proteus. completed course of abx. temple out since 10/29 Schizophrenia - psych consultation - No concern of catatonia. -continue home meds - depakote, abilify (on IM dose as outpatient) - Abilify has been helpful for psychosis -Prn olanzapine for agitation per psych. Discharge planning in progress. anticoagulated for history of DVT Subjective Patient seen at bedside. Denies any pain with the exception of her butt from the bed. Eating and drinking okay. Minimal information obtained from interview. Review of Systems 2 Review of Systems: As per HPI. Physical Exam 2 Physical Exam: Gen: chronically ill appearing patient in NAD HEENT: AT NC MMM Resp: CTAB no wheezing no increased work of breathing CV: loud holosystolic murmur, regular rate, clinically well perfused Abd: non-distended MSK: no obvious deformities Skin: no rashes or bruising Neuro: alert and oriented Psych: appropriate mood and affect Results & Data Results & Data Vital Signs (Past 12 Hours) Vital Signs Temp Pulse Resp BP Pulse Ox O2 Del Method 11/01/24 08:00 Room Air 11/01/24 07:31 36.6 C 43 L 18 154/69 H 98 Room Air Laboratory Results 11/01/24 10:02 11/01/24 10:02 Resident Activity Tracking Resident Involvement: Resident Care Provided Care Provided: Adult Hospital Medicine (2) Schizophrenia Schizophrenia type: unspecified Qualified Code(s): F20.9 - Schizophrenia, unspecified (4) UTI (urinary tract infection) Hematuria presence: with hematuria Urinary tract infection type: acute cystitis Qualified Code(s): N30.01 - Acute cystitis with hematuria
[2024-11-01] MEDS: INSULIN ASPART PER UNIT CHARGE SC SCH (12:07)
--- NOTE | 2024-11-02 08:01 | Hospitalist Progress Note ---
Date of Service November 02, 2024 Assessment & Plan (1) Failure to thrive in adult: Plan: Ms. Abraham is a 78 y/o with a PMHx of schizophrenia, HTN, , prior DVT on Eliquis who presented with weakness and change in mental status. Found to have a UTI and admitted for management and placement. - referral made to [facility], plan for discharge tomorrow 11/03/24 around 1pm as she has a PCP appointment scheduled for 2pm #Failure to Thrive #Difficulty with ADLs Patient with difficulty with ADLs and adhering to medication regimen. [facility], plan as above - plan for PCP to stabilize on DUMAS such as Aristada 662mg (prior rx) or Abilify Maintena to improve antipsychotic effect without concern about daily compliance (2) Schizophrenia: Plan: #Hypoactive Delirium #Schizophrenia Continue Abilify 10mg PO and Depakote 250mg BID. Has Seroquel 25mg PO HS available PRN. Negative symptoms dominant. Psych consult during admission. Likely hypoactive delirium in the setting of UTI and prolonged hospital stay. Delirium precautions Continue home meds PRN seroquel as needed Plan to stabilize on DUMAS such as home Aristada 662mg or Abilify Maintena as noted above, will ensure PCP is aware of our recommendations. (3) Bradycardia: Plan: #Bradycardia Patient at times bradycardic down to the 40s, currently 60. EKG from 05/2024 reveals bifascicular block. ECHO 05/2024 with preserved EF and mild to moderate . Repeat EKG 11/01/24: Right bundle branch block, Left anterior fascicular block, Left ventricular hypertrophy with QRS widening - no significant change compared with May 2024 EKG Add Mag level to AM labs (4) UTI (urinary tract infection): Plan: UCx - poly sensitive Proteus. Adequately treated. Passed voiding trial. (5) HTN (hypertension), benign: Plan: Amlodipine 2.5mg QAM. Has been intermittently elevated during hospital stay. Continue to monitor. (6) VTE (venous thromboembolism): Plan: Patient with DVT over the summer. Doppler US negative during admission in June 2024. No calf tenderness at present to indicate acute DVT. Would consider discontinuation, but continue for now. (7) Impaired fasting glucose: Plan: Patient not on medication at home. Unclear if she carries a diagnosis of DM as HbA1c 6.4%. Blood sugar has been elevated during hospital stay into the 200s. Did add some SSI coverage, but patient refusing BSG checks and insulin so they have been discontinued. Plan Chronic: HLD - lipids appropriate, no changes Hypothyroidism - TSH appropriate, continue medications Code status: full DVT ppx: Heidy CASTELANIona: regular, encourage PO Dispo: MedSurg Admission and Anticipated Discharge Date Admission Date: October 19, 2024 Supervising Physician Co-Signing Physician Notes Attending attestation Pt seen and examined in concert with Dr. Buckley. In agreement with the documented findings as noted in the resident documentation with any exceptions or additions as noted here. Ongoing negative symptoms with quiet, brief responses without acute complaint at time of evaluation. On examination, S1/S2 nl RRR no MCG. CTAB. Abd NT/ND BS+ve. VS as noted. Hgb 12.2; Cr 0.63; Plt 116 Failure to thrive with multifactorial etiology - still with depressed mood/affect and not effusive re: ability for adherence Delirium int he setting of schizophrenia - depakote, abilify, PRN olanzapine - would strongly consider depot therapy at discharge to improve adherence. UTI treated with some improvement. Else see resident documentation as noted. Ho Souza was seen and evaluated at bedside this AM. Appeared to be sleeping with breakfast in front of her, but opened her eyes upon being addressed. Denies any pain or discomfort at time of encounter. States she had some oatmeal and drank some milk this morning. Notes she doesn't get up to use the bathroom, but usually wears a diaper although not wearing one at time of encounter. Knows to press the "call nurse" button if she needs help. Review of Systems Review of Systems: no fever, body aches, chills, headache, SOB, chest pain, abdominal pain. Physical Exam Physical Exam: Gen: Alert, with flat affect, not appearing in acute distress HEENT: NC/AT, moist mucus membranes Resp: clear to auscultation b/l, no wheeze/rales/rhonchi heard CV: loud holosystolic murmur, bradycardic regular rhythm, clinically well perfused GI/Abd: +BS, abdomen soft, non-distended, nontedner to palpation MSK: no obvious deformities Skin: no rashes or bruising Neuro: no facial droop, no focal deficits, good eye contact, wiggles fingers and toes on command Psych: flat affect, slow and minimal speech Results & Data Results & Data Vital Signs (Past 12 Hours) Vital Signs Temp Pulse Resp BP Pulse Ox O2 Del Method 11/02/24 07:20 36.4 C L 47 L 18 147/72 H 96 Room Air 11/01/24 21:20 Room Air Resident Activity Tracking Resident Involvement: Resident Care Provided Care Provided: Adult Hospital Medicine (2) Schizophrenia Schizophrenia type: unspecified Qualified Code(s): F20.9 - Schizophrenia, unspecified (4) UTI (urinary tract infection) Hematuria presence: with hematuria Urinary tract infection type: acute cystitis Qualified Code(s): N30.01 - Acute cystitis with hematuria
[2024-11-02 08:39] LABS: Hematocrit (blood only) 36.8 % (37.0-47.0); Hemoglobin 12.2 g/dl (12.0-16.0); Mean Corpuscular Hemoglobin 28.8 pg (25.0-34.0); Mean Corpuscular Hgb Conc 33.2 g/dL (32.0-36.0); Mean Platelet Volume 10.8 fL (9.4-12.4); Platelet Count 116 K/uL (130-400); RDW Coefficient of Variation 13.3 % (11.5-14.5); RDW Standard Deviation 42.3 fL (36.4-46.3); Red Blood Count 4.23 M/uL (4.20-5.40); White Blood Count 4.59 K/ul (4.8-10.8)
[2024-11-02 08:40] LABS: Basophils # (auto) 0.03 K/uL (0.00-0.20); Basophils % (auto) 0.7 %; Eosinophils # (auto) 0.07 K/uL (0.00-0.50); Eosinophils % (auto) 1.5 %; Immature Granulocytes # (auto) 0.05 K/uL (0.01-0.20); Immature Granulocytes % (auto) 1.1 %; Lymphocytes # (auto) 1.87 K/uL (1.20-3.40); Lymphocytes % (auto) 40.7 %; Monocytes # (auto) 0.32 K/uL (0.11-0.59); Neutrophils # (auto) 2.25 K/uL (1.40-6.50)
[2024-11-02 08:51] LABS: BUN Creatinine Ratio 33.3 (10-20); Creatinine Clr Calc Pharmacy 69.2 ml/min; Magnesium 1.6 mg/dl (1.7-2.4); Potassium 4.1 mmol/L (3.5-5.1)
--- NOTE | 2024-11-02 09:02 | Electrocardiogram Report ---
Test Reason : Blood Pressure : */* mmHG Vent. 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
[2024-11-02] MEDS: MAGNESIUM SULFATE / D5W 1 GM/100 ML BAG IV SCH (14:10)
--- NOTE | 2024-11-03 06:51 | Discharge Summary ---
Date of Service November 03, 2024 Admission HPI Per Admitting Provider Libby is a 78F with a PMHx of schizophrenia, HTN, aortic stenosis, hx of DVT (on Eliquis) who presents with weakness. Pt with baseline confusion, knows she is in the hospital but thinks she is here to get her blood pressure checked. Denies urinary symptoms. called for collateral information - reports poor PO intake. Libby reported urinary symptoms 10/09, started on cranberry pills. Reports she has not taking her regular medicine for over a month. Uses a walker at home. ED Course 500 cc NSS 2g ceftriaxone IV x 1 Admission Exam Per Admitting Provider From H&P note: General: NAD, VS as above Resp: normal respiratory effort, lungs clear to auscultation CV: RRR, no murmur, Abd: normal bowel sounds, non tender,mild suprapubic tenderness Back: no CVA tenderness Extremities: Moves all extremities, no edema Neuro: A&O x2, Principal Diagnosis UTI (resolved), schizophrenia Discharge Exam Gen: A&Ox3, flat affect, not appearing in acute distress HEENT: NC/AT, moist mucus membranes Resp: clear to auscultation b/l, no wheeze/rales/rhonchi heard CV: loud holosystolic murmur, bradycardic regular rhythm, clinically well perfused GI/Abd: +BS, abdomen soft, non-distended, nontedner to palpation MSK: no obvious deformities Skin: no rashes or bruising Neuro: no facial droop, no focal deficits, good eye contact, wiggles fingers and toes on command Psych: flat affect, slow and minimal speech Discharge Data Allergies Allergy/AdvReac Type Severity Reaction Status Date / Time No Known Allergies Allergy Verified 11/03/24 14:14 Consultations 10/19/24 17:39 ED Decision to Admit Stat 10/21/24 17:42 Consult Psychiatry Routine Ordered Studies 10/19/24 15:30 CT head/brain wo con Stat Hospital Course (1) Failure to thrive in adult: Ms. Abraham is a 78 y/o with a PMHx of schizophrenia, HTN, , prior DVT on Eliquis who presented with weakness and change in mental status. Found to have a UTI and admitted for management and placement. - referral made to [facility], plan for discharge tomorrow 11/03/24 around 1pm as she has a PCP appointment scheduled for 2pm #Failure to Thrive #Difficulty with ADLs Patient with difficulty with ADLs and adhering to medication regimen. [facility], plan as above - plan for PCP to stabilize on DUMAS such as Aristada 662mg (prior rx) or Abilify Maintena to improve antipsychotic effect without concern about daily compliance (2) Schizophrenia: #Hypoactive Delirium #Schizophrenia Continue Abilify 10mg PO and Depakote 250mg BID. Has Seroquel 25mg PO HS available PRN. Negative symptoms dominant. Psych consult during admission. Likely hypoactive delirium in the setting of UTI and prolonged hospital stay. Delirium precautions Continue home meds PRN seroquel as needed Plan to stabilize on DUMAS such as home Aristada 662mg or Abilify Maintena as noted above, will ensure PCP is aware of our recommendations. (3) Bradycardia: #Bradycardia Patient at times bradycardic down to the 40s, currently 60. EKG from 05/2024 reveals bifascicular block. ECHO 05/2024 with preserved EF and mild to moderate . Repeat EKG 11/01/24: Right bundle branch block, Left anterior fascicular block, Left ventricular hypertrophy with QRS widening - no significant change compared with May 2024 EKG Add Mag level to AM labs (4) UTI (urinary tract infection): UCx - poly sensitive Proteus. Adequately treated. Passed voiding trial. (5) HTN (hypertension), benign: Amlodipine 2.5mg QAM. Has been intermittently elevated during hospital stay. Continue to monitor. (6) VTE (venous thromboembolism): Patient with DVT over the summer. Doppler US negative during admission in 2023. No calf tenderness at present to indicate acute DVT. Would consider discontinuation, but continue for now. (7) Impaired fasting glucose: Patient not on medication at home. Unclear if she carries a diagnosis of DM as HbA1c 6.4%. Blood sugar has been elevated during hospital stay into the 200s. Did add some SSI coverage, but patient refusing BSG checks and insulin so they have been discontinued. Plan Chronic: HLD - lipids appropriate, no changes Hypothyroidism - TSH appropriate, continue medications Code status: full DVT ppx: Heidy PARKER: regular, encourage PO Dispo: MedSurg Total Time Total Time Spent Total Time Spent (In Minutes): 30 Discharge Plan Discharge Items Patient Disposition: Home - Home Health Services Reason For Visit: UTI, WEAKNESS Discharge Diagnosis: failure to thrive as an adult; schizophrenia Activity: Per Instructions section Non-emergency contact: Primary Care Provider and Psychiatrist Call non-emergency contact if: your symptoms worsen and your pain is not controlled Follow-up/Referrals: Heaven Oneill CRNP [Nurse Practitioner] - 11/03/24 2:00 pm Diet: Carb Consistent or DM2 Addtl Attending Provider Instructions: You were initially treated at [facility] for a UTI with accompanying altered mental status. Your UTI has since resolved with course of antibiotics and we have been continuing to treat your schizophrenia with your home medication regimen with slight alterations. Effective blood levels of your medications were likely low as a result of inconsistent compliance at home and/or early wearing off of the monthly injectable Aristada. Recommendations from our consulting psychiatrist include Abilify 10mg each morning in lieu of Aristada (Aripiprazole lauroxil long-acting injection), depakote 250mg BID, and seroquel 25mg nightly as needed. Plan is to discharge today 11/03/24 around 1pm as you have an appointment with your PCP at 2pm, arrival time 1:45pm - hopefully you can be prescribed another DUMAS, such as your previous Aristada 662mg every 6 weeks, perhaps at a higher dosage such as 882mg q6wks or 1064mg q2mos, for better control of psychotic symptoms and better baseline functioning. We will try to get you into psychiatry as soon as possible. Home Health to start Friday11/06/24. Please continue taking the Abilify 10mg each morning until you are on a long- acting injectable again - please stop taking Abilify 10mg once you have received your DUMAS. Please bring this d/c order to your PCP appointment. Pending Studies at Discharge: No Stand-Alone Forms: My [facility] [employer], Smoking Cessation Medications and DC Order Prescriptions: New aripiprazole [Abilify] 10 mg Tablet 10 mg PO QAM 30 Days Qty: 30 0RF Continued Aristada 662 mg/2.4 mL Suspension,Extended Rel Syring IM DIRECTED Hold Instructions: Resume on 08/04/24. discuss with PCP - unsure when her dose was Rx Instructions: Monthly No Action Eliquis 5 mg tablet 5 mg PO BID Qty: 180 3RF divalproex [Depakote] 250 mg tablet,delayed release (DR/EC) 250 mg PO BID Qty: 180 3RF ferrous sulfate [Iron (ferrous sulfate)] 325 mg (65 mg iron) tablet 325 mg PO DAILY Qty: 90 3RF levothyroxine 112 mcg tablet 112 mcg PO DAILY Qty: 90 3RF Discharge Orders: Discharge Order (Routine); Ordered 11/03/24 Ordered By: Baron Mejia/Other Patient Handouts: A1C, UTIs, Treating Schizophrenia, ED Schizophrenia, General Admission Data Admit Date/Time: 10/19/24 19:08 Attending Provider: Sage Sherman Admit Provider: Miquel Wilhelm Primary Care Provider: Onel Cantu Other Providers: Miquel Wilhelm; Sara Palacios; Sage Sherman; [place]; [facility]; [facility]; [facility]; [facility] Other Interventions: Discharge Summary Assessment (RN) Last Done: 11/03/24 12:54 Supervising Physician Co-Signing Physician Notes Attending attestation Pt seen and examined in concert with Dr. Buckley. In agreement with the documented findings as noted in the resident documentation with any exceptions or additions as noted here. No acute complaints at time of examination. Patient declines examination today. VS as noted. Failure to thrive with multifactorial etiology - depressed mood/affect and not effusive re: ability for adherence Delirium in the setting of schizophrenia - depakote, abilify, PRN olanzapine - would strongly consider depot therapy at discharge to improve adherence. UTI treated with some improvement. Else see resident documentation as noted. Total attending physician time spent with this patient's care on the day of discharge: 35 minutes. Resident Activity Tracking Resident Involvement: Resident Care Provided Care Provided: Adult Hospital Medicine
[2024-11-03 07:35] VITALS: RESP 16; TEMP 98.1; O2SAT 97
[2024-11-03 08:34] VITALS: BP 157/63; PULSE 58
== END 2024-11-03 13:46 | disposition home health service (06) | DRG 690 ==
LOC: ED 14:54 → SUATTDRO 19:08 → 3N 19:08
DX: E03.9 Hypothyroidism, unspecified; R00.1 Bradycardia, unspecified; F31.9 Bipolar disorder, unspecified; B96.4 Proteus (mirabilis) (morganii) as the cause of diseases classified elsewhere; Z86.718 Personal history of other venous thrombosis and embolism; F03.90 Unspecified dementia, unspecified severity, without behavioral disturbance, psychotic disturbance, mood disturbance, and anxiety; Z79.01 Long term (current) use of anticoagulants; I35.0 Nonrheumatic aortic (valve) stenosis; I10 Essential (primary) hypertension; E11.9 Type 2 diabetes mellitus without complications; N39.0 Urinary tract infection, site not specified; F20.9 Schizophrenia, unspecified; R62.7 Adult failure to thrive

== ENCOUNTER 2025-03-29 13:07 | Inpatient (IN) ==
--- NOTE | 2025-03-29 14:12 | CT Scan Report ---
CT head/brain wo con CLINICAL HISTORY: AMS. TECHNIQUE: Multiple axial CT images of the head were obtained without contrast. A dose lowering tech nique was utilized adhering to the principles of ALARA. CT DOSE: 547.75 mGy.cm COMPARISON: 03/02/2025 FINDINGS: No intracranial hemorrhage seen. No mass effect, midline shift, or hydrocephalus. Stable mi ld chronic small vessel ischemic changes. No skull fracture seen. Visualized paranasal sinuses are cl ear. Stable opacified right mastoid air cells. IMPRESSION: No acute findings. ACT 112: Negative or not required by law. The above report was generated using voice recognition software. It may contain grammatical, syntax o r spelling errors. Electronically signed by: Arden Adams M.D. 03/29/2025 2:10 PM
[2025-03-29 14:18] LABS: Hematocrit (blood only) 37.8 % (37.0-47.0); Hemoglobin 12.8 g/dl (12.0-16.0); Immature Granulocytes # (auto) 0.01 K/uL (0.01-0.20); Immature Granulocytes % (auto) 0.2 %; Mean Corpuscular Hemoglobin 28.8 pg (25.0-34.0); Mean Corpuscular Volume 84.9 fL (80.0-100.0); Platelet Count 180 K/uL (130-400); RDW Standard Deviation 44.1 fL (36.4-46.3); Red Blood Count 4.45 M/uL (4.20-5.40); White Blood Count 5.87 K/ul (4.8-10.8)
[2025-03-29 14:29] LABS: Alanine Aminotransferase 5.0 U/L (7-52); Albumin Globulin Ratio 1.2 (0.9-2); Alkaline Phosphatase 70.0 U/L (34-104); Anion Gap 7.0 (3-11); Bilirubin,Total 0.6 mg/dl (0.2-1.0); Blood Urea Nitrogen 20.0 mg/dl (6-23); Calcium 9.2 mg/dl (8.6-10.3); Carbon Dioxide 30.0 mmol/L (21-32); Chloride 102.0 mmol/L (98-107); Creatinine Clr Calc Pharmacy 61.9 ml/min; Globulin 3.0 gm/dl (2.5-4.0); Glucose 116.0 mg/dl (70-99(Fasting)); Potassium 3.7 mmol/L (3.5-5.1); Sodium 139.0 mmol/L (136-145); Total Protein 6.7 gm/dl (6.0-8.3)
[2025-03-29] MEDS: SODIUM CHLORIDE 0.9% 500 ML IV SCH (14:37)
--- NOTE | 2025-03-29 14:37 | XRay Report ---
XR chest 1V portable CLINICAL HISTORY: weakness COMPARISON STUDY: 03/02/2025 FINDINGS: Heart size and pulmonary vasculature are normal. No consolidation or pleural effusion. No p neumothorax. IMPRESSION: No acute findings. ACT 112: Negative or not required by law. Electronically signed by: Arden Adams M.D. 03/29/2025 2:36 PM
[2025-03-29 14:42] LABS: Thyroid Stimulating Hormone 5.199 uIu/ml (0.300-4.500)
[2025-03-29 15:04] LABS: Appearance Urine Clear (Clear); Bacteria Urine Automated 4+ (None Seen); Cast Urine Automated 0-2 /lpf (0-2); Epithelial Cell Urine Auto 0-2 /hpf (0-2); Glucose Urine UA Negative (Negative); RBC Urine Automated 0-2 /hpf (0-2); WBC Urine Automated 21-50 /hpf (0-5)
--- NOTE | 2025-03-29 15:51 | Electrocardiogram Report ---
Test Reason : Blood Pressure : */* mmHG Vent. Rate : 72 BPM Atrial Rate : 72 BPM P-R Int : 166 ms QRS Dur : 136 ms QT Int : 416 ms P-R-T Axes : 27 -54 21 degrees QTcB Int : 455 ms Normal sinus rhythm Right bundle branch block Left anterior fascicular block Bifascicular block Minimal voltage criteria for LVH, may be normal variant ( R in aVL ) Septal infarct , age undetermined Abnormal ECG When compared with ECG of 02-Mar-2025 09:10, Sinus rhythm has replaced Wide QRS rhythm Confirmed by Calvin Gentlie ([id number]) on 03/29/2025 3:51:22 PM Referred By: REFERRED SELF Confirmed By: Calvin Gentile
[2025-03-29] MEDS: cefTRIAXone SODIUM 2,000 MG/50 ML BAG IV STA (16:04)
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
[2025-03-29 17:02] LABS: INR 0.9 (0.9-1.1); Prothrombin Time 10.3 Seconds (9.0-12.0)
--- NOTE | 2025-03-29 17:45 | Emergency Department Note ---
Impression & Plan Acute UTI, AMS (altered mental status) ED Provider Note Diagnosis:UTI, AMS Disposition: Admit CHIEF COMPLAINT: AMS HPI: Patient is a 79-year-old female presenting with complaint of altered mental status. Patient per EMS was found on the couch at home covered in urine. Patient on my exam has no focal deficits. Patient reportedly has a history of mental health issues as well as dementia. Patient denies any current complaints on initial presentation. PAST MEDICAL HISTORY: See Below PAST SURGICAL HISTORY: See Below SOCIAL HISTORY: See Below HOME MEDICATIONS: See Below ALLERGIES: See Below VITALS: See Below PHYSICAL EXAMINATION: GENERAL: NAD, non-toxic. EYE EXAM: Normal conjunctiva. OROPHARYNX: Moist mucus membranes. Grossly normal dentition. NECK: Supple, LUNGS: Clear to auscultation. Normal chest wall mechanics. HEART: NSR ABDOMEN: Abdomen soft, non-tender, normo-active bowel sounds, no masses, no rebound or guarding BACK: No CVA TTP. SKIN: No rashes and no bruising. UPPER EXTREMITIES: Upper extremities are grossly normal LOWER EXTREMITIES: Grossly normal, no edema. NEURO EXAM: ,, normal speech, moves all 4 extremities 5 out of 5 muscle strength upper and lower extremities bilaterally, Intact sensation upper and lower extremities bilaterally PSYCH: Cooperative MEDICAL DECISION MAKING: History obtained from: Patient, ER Course: Patient is a 79-year-old female presenting with complaint of altered mental status. Patient lives alone at home reportedly. Patient found to be covered in urine. Patient hemodynamically stable. Patient has no focal neurologic deficits. Patient CT scan of the head negative for intracranial hemorrhage. Patient found to have a urinary tract infection and started on Rocephin. Patient admitted to hospital service for further treatment and evaluation Labs (independently interpreted) are significant for: No leukocytosis Imaging results (independently interpreted): Chest x-ray clear EKG interpretation (independently interpreted): Normal sinus rhythm no ST segment elevation or depression Medications given: Rocephin Consultants: Hospitalist Triage Nursing notes reviewed and agree them. Vital Signs: reviewed and remarkable for: no significant abnormalities Past Med/Surg History Problem List (Updated 03/29/25 @ 17:52 by Kemar Mahan DO) AMS (altered mental status) (Acute) Acute UTI (Acute) Acute metabolic encephalopathy Closed coccygeal fracture (Acute) Head injury (Acute) Acute alteration in mental status (Acute) Failure to thrive in adult Schizophrenia AMS (altered mental status) (Acute) HTN (hypertension), benign Hypothyroid Weakness (Acute) Medical History Impaired fasting glucose Bradycardia UTI (urinary tract infection) Delirium Lyme disease Aortic stenosis Essential hypertension VTE (venous thromboembolism) COVID-19 Surgical History History of hysterectomy Family History Father Stroke Denies family history of Ovarian cancer Prostate cancer Myocardial infarction Breast cancer Colorectal cancer Social History Smoking Status: Never smoker Second Hand Exposure: No; Do You Dip or Chew Tobacco: No; Hx Alcohol Use: No Hx Substance Use: No Preferred Language: Divehi Communication Ability: Unable Visual Impairment: No Limitations Tax Advisor Required: No Beliefs That Will Affect Care: None Current Living Situation: Spouse Feels Safe at Home: Yes Assistive Devices: Cane, Walker and Wheelchair Allergies Allergies Allergy/AdvReac Type Severity Reaction Status Date / Time No Known Allergies Allergy Verified 01/27/25 12:52 Home Meds Home Medications Medication Instructions Recorded Confirmed aripiprazole lauroxil 662 mg/2.4 662 mg IM UD 06/24/24 03/29/25 mL suspension, ext.rel. IM syringe (Aristada) apixaban 5 mg tablet (Eliquis) 5 mg PO BID 03/02/25 03/29/25 Previous Rx's Medication Instructions Recorded divalproex 250 mg tablet,delayed 250 mg PO BID #180 tabs 11/03/24 release (Depakote) ferrous sulfate 325 mg (65 mg 325 mg PO DAILY #90 tabs 11/03/24 iron) tablet (Iron (ferrous sulfate)) amlodipine 5 mg tablet 5 mg PO DAILY #30 tabs 01/27/25 levothyroxine 100 mcg tablet 100 mcg PO DAILY #60 tabs 01/27/25 aripiprazole 10 mg tablet (Abilify) 10 mg PO DAILY #30 tabs 03/08/25 Results & Data (ED) Vital Signs Vital Signs - 24 hr 03/29/25 12:56 03/29/25 13:18 03/29/25 13:18 Temperature 36.6 C Temperature Source Temporal Artery Scan Pulse Rate 78 76 Pulse Rate [Apical] Pulse Rate from SpO2 Sensor Respiratory Rate 18 Blood Pressure 190/101 H Blood Pressure [Left Arm] Blood Pressure Mean 130 Blood Pressure Mean [Left Arm] Pulse Oximetry 100 Oxygen Delivery Method Room Air Sepsis Recent Fever Within 48 Hours No Sepsis New/Unexplained Change in Mental Status N/A Sepsis Action Taken by Nursing No Action Required 03/29/25 13:18 03/29/25 13:27 03/29/25 13:30 Temperature Temperature Source Pulse Rate 70 77 Pulse Rate [Apical] Pulse Rate from SpO2 Sensor 69 79 Respiratory Rate 18 21 17 Blood Pressure Blood Pressure [Left Arm] Blood Pressure Mean Blood Pressure Mean [Left Arm] Pulse Oximetry 97 100 Oxygen Delivery Method Sepsis Recent Fever Within 48 Hours Sepsis New/Unexplained Change in Mental Status Sepsis Action Taken by Nursing 03/29/25 13:31 03/29/25 13:31 03/29/25 13:31 Temperature Temperature Source Pulse Rate Pulse Rate [Apical] Pulse Rate from SpO2 Sensor Respiratory Rate Blood Pressure 189/85 H 189/85 H 189/85 H Blood Pressure [Left Arm] Blood Pressure Mean 105 105 105 Blood Pressure Mean [Left Arm] Pulse Oximetry Oxygen Delivery Method Sepsis Recent Fever Within 48 Hours Sepsis New/Unexplained Change in Mental Status Sepsis Action Taken by Nursing 03/29/25 13:42 03/29/25 13:49 03/29/25 14:06 Temperature Temperature Source Pulse Rate 74 76 Pulse Rate [Apical] Pulse Rate from SpO2 Sensor 75 Respiratory Rate 17 21 Blood Pressure Blood Pressure [Left Arm] Blood Pressure Mean Blood Pressure Mean [Left Arm] Pulse Oximetry 93 95 Oxygen Delivery Method Room Air Sepsis Recent Fever Within 48 Hours Sepsis New/Unexplained Change in Mental Status Sepsis Action Taken by Nursing 03/29/25 14:17 03/29/25 14:17 03/29/25 14:18 Temperature Temperature Source Pulse Rate 67 Pulse Rate [Apical] Pulse Rate from SpO2 Sensor 65 Respiratory Rate 19 Blood Pressure 157/81 H 157/81 H Blood Pressure [Left Arm] Blood Pressure Mean 120 120 Blood Pressure Mean [Left Arm] Pulse Oximetry 96 Oxygen Delivery Method Sepsis Recent Fever Within 48 Hours Sepsis New/Unexplained Change in Mental Status Sepsis Action Taken by Nursing 03/29/25 14:30 03/29/25 14:33 03/29/25 14:48 Temperature Temperature Source Pulse Rate 55 L 56 L Pulse Rate [Apical] Pulse Rate from SpO2 Sensor 56 L 57 L Respiratory Rate 19 12 Blood Pressure 145/64 H Blood Pressure [Left Arm] Blood Pressure Mean 124 Blood Pressure Mean [Left Arm] Pulse Oximetry 98 100 Oxygen Delivery Method Sepsis Recent Fever Within 48 Hours Sepsis New/Unexplained Change in Mental Status Sepsis Action Taken by Nursing 03/29/25 14:51 03/29/25 15:00 03/29/25 15:00 Temperature Temperature Source Pulse Rate 60 74 Pulse Rate [Apical] 71 Pulse Rate from SpO2 Sensor 63 Respiratory Rate 22 18 20 Blood Pressure 186/83 H Blood Pressure [Left Arm] 186/83 H Blood Pressure Mean 117 Blood Pressure Mean [Left Arm] 117 Pulse Oximetry 98 89 L Oxygen Delivery Method Sepsis Recent Fever Within 48 Hours Sepsis New/Unexplained Change in Mental Status Sepsis Action Taken by Nursing 03/29/25 15:18 03/29/25 15:27 03/29/25 15:30 Temperature Temperature Source Pulse Rate 63 74 Pulse Rate [Apical] Pulse Rate from SpO2 Sensor 63 Respiratory Rate 17 15 Blood Pressure 178/84 H Blood Pressure [Left Arm] Blood Pressure Mean 120 Blood Pressure Mean [Left Arm] Pulse Oximetry 95 77 L Oxygen Delivery Method Sepsis Recent Fever Within 48 Hours Sepsis New/Unexplained Change in Mental Status Sepsis Action Taken by Nursing 03/29/25 15:30 03/29/25 15:33 03/29/25 15:42 Temperature Temperature Source Pulse Rate 70 66 Pulse Rate [Apical] Pulse Rate from SpO2 Sensor 67 64 Respiratory Rate 20 17 Blood Pressure 178/84 H Blood Pressure [Left Arm] Blood Pressure Mean 120 Blood Pressure Mean [Left Arm] Pulse Oximetry 99 98 Oxygen Delivery Method Sepsis Recent Fever Within 48 Hours Sepsis New/Unexplained Change in Mental Status Sepsis Action Taken by Nursing 03/29/25 16:09 03/29/25 16:30 03/29/25 16:30 Temperature Temperature Source Pulse Rate 74 71 Pulse Rate [Apical] Pulse Rate from SpO2 Sensor 73 Respiratory Rate 12 18 Blood Pressure 190/135 H Blood Pressure [Left Arm] Blood Pressure Mean 172 Blood Pressure Mean [Left Arm] Pulse Oximetry 81 L 99 Oxygen Delivery Method Sepsis Recent Fever Within 48 Hours Sepsis New/Unexplained Change in Mental Status Sepsis Action Taken by Nursing 03/29/25 16:30 03/29/25 16:30 03/29/25 16:54 Temperature Temperature Source Pulse Rate Pulse Rate [Apical] 65 Pulse Rate from SpO2 Sensor Respiratory Rate 16 Blood Pressure 190/135 H 190/135 H Blood Pressure [Left Arm] 190/135 H Blood Pressure Mean 172 172 Blood Pressure Mean [Left Arm] 153 Pulse Oximetry 99 Oxygen Delivery Method Sepsis Recent Fever Within 48 Hours Sepsis New/Unexplained Change in Mental Status Sepsis Action Taken by Nursing 03/29/25 17:15 03/29/25 17:40 Temperature Temperature Source Pulse Rate 74 Pulse Rate [Apical] Pulse Rate from SpO2 Sensor Respiratory Rate Blood Pressure Blood Pressure [Left Arm] Blood Pressure Mean Blood Pressure Mean [Left Arm] Pulse Oximetry Oxygen Delivery Method Room Air Sepsis Recent Fever Within 48 Hours Sepsis New/Unexplained Change in Mental Status Sepsis Action Taken by Nursing Laboratory Data 03/29/25 13:01 03/29/25 13:01 Lab Results 03/29/25 03/29/25 03/29/25 Range/Units 13:01 14:38 15:15 WBC 5.87 (4.8-10.8) K/ul RBC 4.45 (4.20-5.40) M/uL Hgb 12.8 (12.0-16.0) g/dl Hct 37.8 (37.0-47.0) % MCV 84.9 (80.0-100.0) fL MCH 28.8 (25.0-34.0) pg MCHC 33.9 (32.0-36.0) g/dL RDW Std Deviation 44.1 (36.4-46.3) fL RDW Coeff of Yohannes 14.4 (11.5-14.5) % Plt Count 180 (130-400) K/uL MPV 10.0 (9.4-12.4) fL Immature Gran % (Auto) 0.2 % Neut % (Auto) 62.0 % Lymph % (Auto) 30.0 % [place] % (Auto) 6.5 % Eos % (Auto) 1.0 % Baso % (Auto) 0.3 % Neut # (Auto) 3.64 (1.40-6.50) K/uL Lymph # (Auto) 1.76 (1.20-3.40) K/uL [place] # (Auto) 0.38 (0.11-0.59) K/uL Eos # (Auto) 0.06 (0.00-0.50) K/uL Baso # (Auto) 0.02 (0.00-0.20) K/uL Immature Gran # (Auto) 0.01 (0.01-0.20) K/uL PT 10.3 (9.0-12.0) Seconds INR 0.9 (0.9-1.1) Sodium 139 (136-145) mmol/L Potassium 3.7 (3.5-5.1) mmol/L Chloride 102 (98-107) mmol/L Carbon Dioxide 30 (21-32) mmol/L Anion Gap 7 (3-11) BUN 20 (6-23) mg/dl Creatinine 0.71 (0.6-1.2) mg/dl Est Cr Clr Drug Dosing 61.9 ml/min eGFR 86.44 BUN/Creatinine Ratio 28.2 H (10-20) Glucose 116 H (70-99(Fasting)) mg/dl Lactate 0.9 (0.4-2.0) mmol/L Calcium 9.2 (8.6-10.3) mg/dl Total Bilirubin 0.6 (0.2-1.0) mg/dl AST 10 L (13-39) U/L ALT 5 L (7-52) U/L Alkaline Phosphatase 70 (34-104) U/L Ammonia (18-72) umol/L Troponin I High Sens 10.6 (0-14) pg/ml Total Protein 6.7 (6.0-8.3) gm/dl Albumin 3.7 (3.4-5.0) gm/dl Globulin 3.0 (2.5-4.0) gm/dl Albumin/Globulin Ratio 1.2 (0.9-2) TSH 5.199 H (0.300-4.500) uIu/ml Free T4 1.20 (0.61-1.60) ng/dl Urine Color Yellow Urine Appearance Clear (Clear) Urine pH 8.0 H (4.5-7.5) Ur Specific Rush 1.008 (1.000-1.030) Urine Protein Negative (Negative) Urine Glucose (UA) Negative (Negative) Urine Ketones Negative (Negative) Urine Blood Negative (Negative) Urine Nitrite Negative (Negative) Urine Bilirubin Negative (Negative) Urine Urobilinogen Negative (Negative) Ur Leukocyte Esterase 3+ H (Negative) Urine WBC (Auto) 21-50 H (0-5) /hpf Urine RBC (Auto) 0-2 (0-2) /hpf U Hyaline Cast (Auto) 0-2 (0-2) /lpf U Epithel Cells (Auto) 0-2 (0-2) /hpf Urine Bacteria (Auto) 4+ H (None Seen) Urine Comment Valproic Acid (50-100) mcg/ml 03/29/25 Range/Units 16:53 WBC (4.8-10.8) K/ul RBC (4.20-5.40) M/uL Hgb (12.0-16.0) g/dl Hct (37.0-47.0) % MCV (80.0-100.0) fL MCH (25.0-34.0) pg MCHC (32.0-36.0) g/dL RDW Std Deviation (36.4-46.3) fL RDW Coeff of Yohannes (11.5-14.5) % Plt Count (130-400) K/uL MPV (9.4-12.4) fL Immature Gran % (Auto) % Neut % (Auto) % Lymph % (Auto) % [place] % (Auto) % Eos % (Auto) % Baso % (Auto) % Neut # (Auto) (1.40-6.50) K/uL Lymph # (Auto) (1.20-3.40) K/uL [place] # (Auto) (0.11-0.59) K/uL Eos # (Auto) (0.00-0.50) K/uL Baso # (Auto) (0.00-0.20) K/uL Immature Gran # (Auto) (0.01-0.20) K/uL PT (9.0-12.0) Seconds INR (0.9-1.1) Sodium (136-145) mmol/L Potassium (3.5-5.1) mmol/L Chloride (98-107) mmol/L Carbon Dioxide (21-32) mmol/L Anion Gap (3-11) BUN (6-23) mg/dl Creatinine (0.6-1.2) mg/dl Est Cr Clr Drug Dosing ml/min eGFR BUN/Creatinine Ratio (10-20) Glucose (70-99(Fasting)) mg/dl Lactate (0.4-2.0) mmol/L Calcium (8.6-10.3) mg/dl Total Bilirubin (0.2-1.0) mg/dl AST (13-39) U/L ALT (7-52) U/L Alkaline Phosphatase (34-104) U/L Ammonia 17.0 L (18-72) umol/L Troponin I High Sens (0-14) pg/ml Total Protein (6.0-8.3) gm/dl Albumin (3.4-5.0) gm/dl Globulin (2.5-4.0) gm/dl Albumin/Globulin Ratio (0.9-2) TSH (0.300-4.500) uIu/ml Free T4 (0.61-1.60) ng/dl Urine Color Urine Appearance (Clear) Urine pH (4.5-7.5) Ur Specific Rush (1.000-1.030) Urine Protein (Negative) Urine Glucose (UA) (Negative) Urine Ketones (Negative) Urine Blood (Negative) Urine Nitrite (Negative) Urine Bilirubin (Negative) Urine Urobilinogen (Negative) Ur Leukocyte Esterase (Negative) Urine WBC (Auto) (0-5) /hpf Urine RBC (Auto) (0-2) /hpf U Hyaline Cast (Auto) (0-2) /lpf U Epithel Cells (Auto) (0-2) /hpf Urine Bacteria (Auto) (None Seen) Urine Comment Valproic Acid 34 L (50-100) mcg/ml Administered Medications Discontinued Medications Sodium Chloride (Nss) 500 mls @ 999 mls/hr IV .Q31M JULIANE Stop: 03/29/25 14:30 Last Infusion: 03/29/25 15:10 Dose: Infused Documented By: Admin: 03/29/25 14:37 Dose: 999 mls/hr Documented By: LISSETT Ceftriaxone Sodium (Rocephin) 2,000 mg in 50 mls @ 100 mls/hr IV NOW STA Stop: 03/29/25 16:26 Last Infusion: 03/29/25 16:29 Dose: Infused Documented By: Admin: 03/29/25 16:04 Dose: 100 mls/hr Documented By: LISSETT Imaging Data Radiologist's Impression: Chest X-Ray 03/29/25 13:49 XR chest 1V portable CLINICAL HISTORY: weakness COMPARISON STUDY: 03/02/2025 FINDINGS: Heart size and pulmonary vasculature are normal. No consolidation or pleural effusion. No pneumothorax. IMPRESSION: No acute findings. ACT 112: Negative or not required by law. Electronically signed by: Arden Adams M.D. 03/29/2025 2:[address] 03/29/25 13:49 CT head/brain wo con CLINICAL HISTORY: AMS. TECHNIQUE: Multiple axial CT images of the head were obtained without contrast. A dose lowering technique was utilized adhering to the principles of ALARA. CT DOSE: 547.75 mGy.cm COMPARISON: 03/02/2025 FINDINGS: No intracranial hemorrhage seen. No mass effect, midline shift, or hydrocephalus. Stable mild chronic small vessel ischemic changes. No skull fracture seen. Visualized paranasal sinuses are clear. Stable opacified right mastoid air cells. IMPRESSION: No acute findings. ACT 112: Negative or not required by law. The above report was generated using voice recognition software. It may contain grammatical, syntax or spelling errors. Electronically signed by: Arden Adams M.D. 03/29/2025 2:10 PM Discharge Plan Visit Data Chief Complaint: Confusion Stated Complaint: AMS ED Provider: Kemar Mahan Discharge Problem: Acute UTI, AMS (altered mental status) Patient Disposition: Admitted As Inpatient Condition: Fair Discharge Instructions Interventions: ED Discharge Assessment Last Done: 03/29/25 17:40 Forms Stand Alone Forms: [facility] [place] [employer] Prescriptions Prescriptions: No Action levothyroxine 100 mcg tablet 100 mcg PO DAILY Qty: 60 2RF Rx Instructions: FILLED 01/25/25 FOR 90 DAYS amlodipine 5 mg tablet 5 mg PO DAILY Qty: 30 2RF Rx Instructions: FILLED 03/02/25 FOR 30 DAYS divalproex [Depakote] 250 mg tablet,delayed release (DR/EC) 250 mg PO BID Qty: 180 3RF Rx Instructions: FILLED 01/25/25 FOR 90 DAYS ferrous sulfate [Iron (ferrous sulfate)] 325 mg (65 mg iron) tablet 325 mg PO DAILY Qty: 90 3RF Rx Instructions: 325mg po daiy. 03/02/25-OTC/last filled --28 day supply. Aristada 662 mg/2.4 mL Suspension,Extended Rel Syring 662 mg IM UD Hold Instructions: Resume on 08/04/24. discuss with PCP - unsure when her dose was Rx Instructions: original directions: Monthly 03/02/25- last filled 07/01/24--28 day supply Eliquis 5 mg tablet 5 mg PO BID Rx Instructions: FILLED 11/03/24 FOR 90 DAYS aripiprazole [Abilify] 10 mg tablet 10 mg PO DAILY Qty: 30 0RF Rx Instructions: FILLED 03/02/25 FOR 30 DAYS Referrals Referrals: Heaven Oneill CRNP [Primary Care Provider] -
[2025-03-29] MEDS ORDERED: MAGNESIUM HYDROXIDE SUSP 30 ML UDC PO PRN (18:10)
[2025-03-29] MEDS ORDERED: POLYETHYLENE (MIRALAX) 17 GM PACK PO PRN (18:10)
[2025-03-29] MEDS ORDERED: ALUMINUM/MAGNESIUM SUSP 30 ML UDC PO PRN (18:10)
[2025-03-29] MEDS ORDERED: ONDANSETRON INJ 2 MG/ML 2 ML VIAL IV PRN (18:10)
[2025-03-29] MEDS: SODIUM CHLORIDE 0.9% 1,000 ML IV SCH (18:34)
[2025-03-29] MEDS: APIXABAN 5 MG TABLET PO SCH (19:10)
[2025-03-29] MEDS: DIVALPROEX DELAY RELEASE 250 MG TABEC PO SCH (19:10)
[2025-03-29] MEDS: ACETAMINOPHEN 325 MG TAB PO PRN (19:21)
[2025-03-29] MEDS: MELATONIN 3 MG TAB PO PRN (19:22)
--- NOTE | 2025-03-29 19:22 | Communication Note ---
Date of Service: March 29, 2025 Spoke with her Baron Last day she stopped taking her meds. Has been refusing meds and wouldn't let Baron change her diaper/clothes. Today was on couch confused and soaked in urine. EMS called He says she was born in [facility] rasied by grandparents and taken to [place]. Had ECT as teenager and subsequently on thorazine. Went off meds to have three children. "Got sick" in . He's been told she has schizophrenia and Alzheimer's disease. He used to have a good psychiatrist for her and now he doesn't have one and is worried about cost issues. He noticed her L leg more swollen than normal -would be helpful to have ST cognitive eval re: dementia when she's more stable -LE richa ordered - off her apixaban with subtle L>RLE swelling -contact dermatitis from urine - thighs/buttocks
--- NOTE | 2025-03-29 22:53 | Ultrasound Report ---
Exam(s): US VENOUS BILATERAL LOWER EXTREMITIES EXAM: US Duplex Bilateral Lower Extremities Veins CLINICAL HISTORY: Reason for exam: hx DVT, LLE>RLE swelling. TECHNIQUE: Real-time duplex ultrasound scan of the bilateral lower extremity veins integrating B-mode two-dimensional vascular structure, Doppler spectral analysis, color flow Doppler imaging and compression. COMPARISON: No relevant prior studies available. FINDINGS: Right deep veins: No DVT in the right common femoral, femoral, proximal deep femoral or popliteal veins. The veins demonstrate normal color flow, are normally compressible, with normal phasic flow and/or augmentation response. Right superficial veins: No thrombus in the visualized right great saphenous vein. Left deep veins: No DVT in the left common femoral, femoral, proximal deep femoral or popliteal veins. The veins demonstrate normal color flow, are normally compressible, with normal phasic flow and/or augmentation response. Left superficial veins: No thrombus in the visualized left great saphenous vein. Soft tissues: No acute findings. No popliteal cyst. IMPRESSION: No ultrasound evidence of deep venous thrombosis in lower extremities.. Electronically signed by: Chester Marshall MD 03/29/25 22:52 PM
[2025-03-30] MEDS: LEVOTHYROXINE SODIUM 100 MCG TABLET PO SCH (06:24)
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
[2025-03-30] MEDS: cefTRIAXone SODIUM 2,000 MG/50 ML BAG IV SCH (17:21)
[2025-03-31 06:01] LABS: Hematocrit (blood only) 33.8 % (37.0-47.0); Hemoglobin 11.0 g/dl (12.0-16.0); Immature Granulocytes # (auto) 0.02 K/uL (0.01-0.20); Immature Granulocytes % (auto) 0.3 %; Mean Corpuscular Hemoglobin 27.9 pg (25.0-34.0); Mean Corpuscular Volume 85.8 fL (80.0-100.0); Platelet Count 175 K/uL (130-400); RDW Standard Deviation 45.4 fL (36.4-46.3); Red Blood Count 3.94 M/uL (4.20-5.40); White Blood Count 6.37 K/ul (4.8-10.8)
[2025-03-31 06:20] LABS: Anion Gap 6.0 (3-11); Blood Urea Nitrogen 21.0 mg/dl (6-23); Calcium 8.4 mg/dl (8.6-10.3); Carbon Dioxide 27.0 mmol/L (21-32); Chloride 108.0 mmol/L (98-107); Creatinine Clr Calc Pharmacy 60.8 ml/min; Glucose 117.0 mg/dl (70-99(Fasting)); Magnesium 1.6 mg/dl (1.7-2.4); Potassium 4.1 mmol/L (3.5-5.1); Sodium 141.0 mmol/L (136-145)
[2025-03-31] MEDS: MAGNESIUM SULFATE / D5W 1 GM/100 ML BAG IV ONE (09:04)
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
[2025-03-31] MEDS: CEFDINIR 300 MG CAP PO SCH (20:03)
[2025-04-01 07:35] LABS: Hematocrit (blood only) 33.9 % (37.0-47.0); Hemoglobin 11.6 g/dl (12.0-16.0); Mean Corpuscular Hemoglobin 29.4 pg (25.0-34.0); Mean Corpuscular Volume 85.8 fL (80.0-100.0); Platelet Count 188 K/uL (130-400); RDW Standard Deviation 45.2 fL (36.4-46.3); Red Blood Count 3.95 M/uL (4.20-5.40); White Blood Count 4.13 K/ul (4.8-10.8)
[2025-04-01 07:54] LABS: Anion Gap 6.0 (3-11); Blood Urea Nitrogen 20.0 mg/dl (6-23); Calcium 8.5 mg/dl (8.6-10.3); Carbon Dioxide 27.0 mmol/L (21-32); Chloride 106.0 mmol/L (98-107); Creatinine Clr Calc Pharmacy 60.8 ml/min; Glucose 125.0 mg/dl (70-99(Fasting)); Magnesium 1.7 mg/dl (1.7-2.4); Potassium 4.0 mmol/L (3.5-5.1); Sodium 139.0 mmol/L (136-145)
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
--- NOTE | 2025-04-01 14:31 | Psychiatric Progress Note ---
Date of Service April 01, 2025 Impression / Recommendations Impression Presentation concerning for delirium vs decompensated psychosis. Chart review shows past hospitalizations in Oct 23 and March 23 with a similar presentation of UTI with increased confusion. A: Patient continues to present limited orientation, attention and concentration deficits, dysarthric speech, recent agitated behaviors and paranoia. Concern for on-going delirium, recovering from UTI. Uncontrolled BP. Would benefit from continued medical stay prior to geriatric psychiatry referral. Overall, I spent a total of 40 minutes with this case including review of chart records, nursing report, review of lab work, direct evaluation of the patient at bedside, counseling the patient, discussion of the patient with the hospitalist provider, discussion with the psychiatric liaison during clinical rounds, and documentation in the electronic health record. (1) Acute alteration in mental status: (2) Acute UTI: (3) Schizophrenia: Plan Continue home depakote dr 250mg BID Continue abilify 10mg daily Consider need for geriatric psychiatry inpatient hospitalization once medically stable No indication for bedside sitter Olanzapine 5mg PO/IM Q8H PRN for agitation Interval History Chief Complaint AMS, psychosis Subjective Subjective On approach patient is seen yelling at the TV as she watches a [place] movie. Recognizes me from my past visit. Refers to the movie and adamantly tells me it is real. Saying I don't believe her. AO to self only. Believes it is "2004 or maybe 2005", "February", "[facility]". Unable to state why she is in the hospital. Dysarthric speech. Denies pain complaints. When asked about she says "what ?". Says people are trying to kill her. Later in the conversation unprompted she says her may come back and get her. Physical Exam Mental Examination Appearance: Disheveled Eye Contact: Maintains Eye Contact Motor Behavior: Unremarkable Speech: Slurred Mood: Euthymic and Calm Affect: Congruent Thought Process: Disoriented, Linear (at times) and Tangential Thought Content: Disoriented and Preoccupation Hallucinations: None Insight: Poor Judgement: Poor (to limited) Vital Signs (Past 24 Hours) Last Vital Signs Temp 36.6 C 04/01/25 07:57 Pulse 65 04/01/25 07:57 Resp 18 04/01/25 07:57 BP 174/78 H 04/01/25 07:57 Pulse Ox 98 07/04/25 07:57 O2 Del Method Room Air 04/01/25 07:57 Results & Data ([facility]) Laboratory Results Laboratory Results - last 24 hr 04/01/25 07:08 WBC 4.13 L RBC 3.95 L Hgb 11.6 L Hct 33.9 L MCV 85.8 MCH 29.4 MCHC 34.2 RDW Std Deviation 45.2 RDW Coeff of Yohannes 14.3 Plt Count 188 MPV 10.1 Sodium 139 Potassium 4.0 Chloride 106 Carbon Dioxide 27 Anion Gap 6 BUN 20 Creatinine 0.73 Est Cr Clr Drug Dosing 60.8 eGFR 83.60 BUN/Creatinine Ratio 27.4 H Glucose 125 H Calcium 8.5 L Magnesium 1.7 Current Inpatient Medications Current Inpatient Medications: Current Inpatient Medications Acetaminophen (Acetaminophen 325 Mg Tab) 650 mg PO Q4H PRN PRN Reason: pain/fever Stop: 04/28/25 18:09 Last Admin: 03/31/25 20:03 Dose: 650 mg Al Hydrox/Mg Hydrox/Simethicone (Aluminum/Magnesium Susp 30 Ml Udc) 30 ml PO Q6H PRN PRN Reason: Dyspepsia Stop: 04/28/25 18:09 Amlodipine Besylate (Amlodipine Besylate 5 Mg Tab) 5 mg PO DAILY [facility] Stop: 04/28/25 18:09 Last Admin: 04/01/25 09:49 Dose: 5 mg Apixaban (Apixaban 5 Mg Tablet) 5 mg PO BID [facility] Stop: 04/28/25 20:59 Last Admin: 04/01/25 09:49 Dose: 5 mg Aripiprazole (Aripiprazole 10 Mg Tab) 10 mg PO DAILY [facility] Stop: 04/28/25 18:09 Last Admin: 04/01/25 09:49 Dose: 10 mg Carvedilol (Carvedilol 3.125 Mg Tab) 3.125 mg PO BIDM [facility] Stop: 04/30/25 16:59 Last Admin: 04/01/25 09:47 Dose: 3.125 mg Cefdinir (Cefdinir 300 Mg Cap) 300 mg PO BID [facility]; Protocol Stop: 04/05/25 20:59 Last Admin: 04/01/25 09:49 Dose: 300 mg Divalproex Sodium (Divalproex Delay Release 250 Mg Tabec) 250 mg PO BID [facility] Stop: 04/28/25 20:59 Last Admin: 04/01/25 09:49 Dose: 250 mg Levothyroxine Sodium (Levothyroxine Sodium 100 Mcg Tablet) 100 mcg PO DAILYBB [facility] Stop: 04/29/25 06:29 Last Admin: 04/01/25 06:23 Dose: 100 mcg Magnesium Hydroxide (Magnesium Hydroxide Susp 30 Ml Udc) 30 ml PO Q6H PRN PRN Reason: Constipation Stop: 04/28/25 18:09 Melatonin (Melatonin 3 Mg Tab) 3 mg PO HS PRN PRN Reason: Insomnia Stop: 04/28/25 18:09 Last Admin: 03/31/25 20:04 Dose: 3 mg Olanzapine (Olanzapine 10 Mg/2.1 Ml Sdv) 5 mg IM ONE PRN PRN Reason: Agitation/Aggression Ondansetron HCl (Ondansetron Inj 2 Mg/Ml 2 Ml Vial) 4 mg IV Q6H PRN PRN Reason: Nausea Stop: 04/28/25 18:09 Polyethylene Glycol (Polyethylene (Miralax) 17 Gm Pack) 17 gm PO DAILY PRN PRN Reason: Constipation Stop: 04/28/25 18:09 (3) Schizophrenia Schizophrenia type: unspecified Qualified Code(s): F20.9 - Schizophrenia, unspecified
[2025-04-02 06:45] LABS: Hematocrit (blood only) 34.9 % (37.0-47.0); Hemoglobin 11.5 g/dl (12.0-16.0); Mean Corpuscular Hemoglobin 28.3 pg (25.0-34.0); Mean Corpuscular Volume 85.7 fL (80.0-100.0); Platelet Count 186 K/uL (130-400); RDW Standard Deviation 44.4 fL (36.4-46.3); Red Blood Count 4.07 M/uL (4.20-5.40); White Blood Count 5.35 K/ul (4.8-10.8)
[2025-04-02 07:02] LABS: Anion Gap 6.0 (3-11); Blood Urea Nitrogen 25.0 mg/dl (6-23); Calcium 8.5 mg/dl (8.6-10.3); Carbon Dioxide 28.0 mmol/L (21-32); Chloride 106.0 mmol/L (98-107); Creatinine Clr Calc Pharmacy 67.2 ml/min; Glucose 123.0 mg/dl (70-99(Fasting)); Potassium 4.0 mmol/L (3.5-5.1); Sodium 140.0 mmol/L (136-145)
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
[2025-04-03] MEDS: SENNA 8.6 MG TAB PO SCH (08:42)
[2025-04-03] MEDS: POLYETHYLENE (MIRALAX) 17 GM PACK PO SCH (08:42)
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
--- NOTE | 2025-04-04 11:30 | Psychiatric Progress Note ---
Date of Service April 04, 2025 Impression / Recommendations Impression Diagnostically consistent with likely exacerbation of her longstanding schizoaffective disorder with possible contribution from prolonged delirium from recent UTI and/or cognitive impairment component. A: She is now considered medically stable but has ongoing mood lability, disorganized thought process, flight of ideas and paranoia. At this time felt to be reasonable to refer for inpatient geriatric psychiatry as unclear to what extent her underlying schizoaffective disorder is contributing to her current presentation, suspect fairly significant contribution. Historically she had been stabilized on Abilify DUMAS and Depakote while living in [place] and has done well on oral Abilify during past hospitalizations. She is not willingness for voluntary inpatient psychiatric treatment, nor oriented enough to fully consent to this, and meets 302 criteria and commitment completed due to psychosis with thought and behavioral disorganization and unable to meet ADLs. Overall, I spent a total of 60 minutes with this case including review of chart records, review of labwork, direct evaluation of the patient at bedside, counseling the patient, discussion of the patient with the Nurse and with the hospitalist provider, discussion with the psychiatric liason during clinical rounds, review of collateral historian information from the family and documentation in the electronic health record and completion of 302 paperwork. The patient remains hospitalized on a completed 302 involuntary commitment, which if not extended, will on 04/09/2025 @ 1316. This patient must remain on safety precautions with a 1-on-1 and is unable to leave the hospital AMA. (1) Schizoaffective disorder: (2) AMS (altered mental status): Plan -Now on 302 commitment, she cannot leave AMA -1-on-1 not indicated as she requires assistance to ambulate and is not deemed a risk to self or others, [address] due to inability to meet self-care needs -Geriatric psychiatry bed search to begin -Continue Depakote DR 250mg BID -Continue abilify 10mg daily -Olanzapine 5mg PO/IM Q8H PRN for agitation Interval History Identifying Information 79 y/o woman with a h/o schizophrenia vs schizoaffective disorder, recurrent UTI, found at home with AMS. Psychiatry consulted for evaluation and recommendations. Chief Complaint "I'm not crazy like you". Subjective Subjective Patient was seen & assessed and interval progress reviewed. Libby is now medically stable per hospitalist team and was evaluated due to ongoing psychiatric symptoms. She continues to be somewhat confused (knows she is in [place] but thinks year is 2004 and that it's March 05 and that we are in a school). Her speech is largely garbled but clearer at times. Observed tearing plastic off a pillowcase. Irritable when asked about willingness for inpatient geriatric psychiatry treatment. Physical Exam Psychiatric Orientation: alert, oriented to person, oriented to place (state, not to hospital) and + guarded; + not oriented to time Apperance: + disheveled; + inappropriately dressed Eye Contact: good eye contact Motor Behavior: no abnormal motor movements Speech: + abnormal rate/rhythm/volume of speech (garbled intermittently) Affect: + labile affect Mood: + irritable mood Thought Process: + flight of ideas and + looseness of associations Thought Content: + paranoid and + delusions Suicidal Thoughts: denies suicidal thoughts Homicidal Thoughts: denies homicidal thoughts Insight: + poor insight Judgment: + limited judgement Vital Signs (Past 24 Hours) Last Vital Signs Temp 36.3 C L 04/04/25 07:10 Pulse 66 04/04/25 07:10 Resp 16 04/04/25 07:10 BP 185/72 H 04/04/25 07:10 Pulse Ox 98 04/04/25 07:10 O2 Del Method Room Air 04/04/25 07:10 Results & Data ([facility]) Current Inpatient Medications Current Inpatient Medications: Current Inpatient Medications Acetaminophen (Acetaminophen 325 Mg Tab) 650 mg PO Q4H PRN PRN Reason: pain/fever Stop: 04/28/25 18:09 Last Admin: 04/03/25 19:19 Dose: 650 mg Al Hydrox/Mg Hydrox/Simethicone (Aluminum/Magnesium Susp 30 Ml Udc) 30 ml PO Q6H PRN PRN Reason: Dyspepsia Stop: 04/28/25 18:09 Amlodipine Besylate (Amlodipine Besylate 5 Mg Tab) 5 mg PO DAILY JULIANE Stop: 04/28/25 18:09 Last Admin: 04/04/25 08:46 Dose: 5 mg Apixaban (Apixaban 5 Mg Tablet) 5 mg PO BID JULIANE Stop: 04/28/25 20:59 Last Admin: 04/04/25 08:46 Dose: 5 mg Aripiprazole (Aripiprazole 10 Mg Tab) 10 mg PO DAILY JULIANE Stop: 04/28/25 18:09 Last Admin: 04/04/25 08:47 Dose: 10 mg Carvedilol (Carvedilol 3.125 Mg Tab) 3.125 mg PO BIDM [facility] Stop: 04/30/25 16:59 Last Admin: 04/04/25 08:46 Dose: 3.125 mg Cefdinir (Cefdinir 300 Mg Cap) 300 mg PO BID [facility]; Protocol Stop: 04/05/25 20:59 Last Admin: 04/04/25 08:47 Dose: 300 mg Divalproex Sodium (Divalproex Delay Release 250 Mg Tabec) 250 mg PO BID [facility] Stop: 04/28/25 20:59 Last Admin: 04/04/25 08:47 Dose: 250 mg Hydralazine HCl (Hydralazine Hcl 20 Mg/Ml Vial) 5 mg IV Q8H PRN PRN Reason: HTN SBP>185 or DBP>95 Stop: 05/01/25 16:17 Levothyroxine Sodium (Levothyroxine Sodium 100 Mcg Tablet) 100 mcg PO DAILYBB [facility] Stop: 04/29/25 06:29 Last Admin: 04/04/25 08:00 Dose: 100 mcg Magnesium Hydroxide (Magnesium Hydroxide Susp 30 Ml Udc) 30 ml PO Q6H PRN PRN Reason: Constipation Stop: 04/28/25 18:09 Melatonin (Melatonin 3 Mg Tab) 3 mg PO HS PRN PRN Reason: Insomnia Stop: 04/28/25 18:09 Last Admin: 04/03/25 21:11 Dose: 3 mg Olanzapine (Olanzapine 10 Mg/2.1 Ml Sdv) 5 mg IM ONE PRN PRN Reason: Agitation/Aggression Ondansetron HCl (Ondansetron Inj 2 Mg/Ml 2 Ml Vial) 4 mg IV Q6H PRN PRN Reason: Nausea Stop: 04/28/25 18:09 Polyethylene Glycol (Polyethylene (Miralax) 17 Gm Pack) 17 gm PO DAILY PRN PRN Reason: Constipation Stop: 04/28/25 18:09 Polyethylene Glycol (Polyethylene (Miralax) 17 Gm Pack) 17 gm PO DAILY [facility] Stop: 05/03/25 08:59 Last Admin: 04/04/25 08:50 Dose: 17 gm Sennosides (Senna 8.6 Mg Tab) 8.6 mg PO QAM [facility] Stop: 05/03/25 08:59 Last Admin: 04/04/25 08:50 Dose: 8.6 mg
[2025-04-04 12:48] LABS: Hematocrit (blood only) 39.8 % (37.0-47.0); Hemoglobin 12.7 g/dl (12.0-16.0); Mean Corpuscular Hemoglobin 28.1 pg (25.0-34.0); Mean Corpuscular Volume 88.1 fL (80.0-100.0); Platelet Count 187 K/uL (130-400); RDW Standard Deviation 46.5 fL (36.4-46.3); Red Blood Count 4.52 M/uL (4.20-5.40); White Blood Count 4.55 K/ul (4.8-10.8)
[2025-04-04 13:10] LABS: Anion Gap 4.0 (3-11); Calcium 8.9 mg/dl (8.6-10.3); Carbon Dioxide 32.0 mmol/L (21-32); Chloride 103.0 mmol/L (98-107); Potassium 4.4 mmol/L (3.5-5.1); Sodium 139.0 mmol/L (136-145)
[2025-04-04 13:16] LABS: Blood Urea Nitrogen 27.0 mg/dl (6-23); Creatinine Clr Calc Pharmacy 58.4 ml/min; Glucose 126.0 mg/dl (70-99(Fasting))
--- NOTE | 2025-04-04 14:03 | Hospitalist Progress Note ---
"Date of Service April 04, 2025 Assessment & Plan (1) Acute metabolic encephalopathy: (2) UTI (urinary tract infection): (3) HTN (hypertension), benign: (4) Schizophrenia: (5) Aortic stenosis: (6) Constipation: Plan 79 y/o with schizophrenia, brought in by medics, was found on her couch soaked in urine and confused. Frequently admitted and often does not take her medications, is on monthly long-acting antipsychotic. Last admission 03/02-03/08 with UTI and decompensation of schizophrenia. VSS stable on arrival, not septic on arrival #Acute metabolic encephalopathy due to urinary tract infection (resolved) | UTI Head CT negative; CXR clear UC: E coli s/p Rocephin 2g IV x 2 --> continue Cefdinir 300mg PO BID through 04/06 to complete course. discussed w/ Psych liaison on 04/04 that she is medically stable for discharge #Hypertension BP remains somewhat elevated Has maintained compliance w/ medications over last 2-3 days. Continue Amlodipine 5 mg daily, Carvedilol 3.125mg BID Hydralazine 5 mg IV q8h PRN for sustained SBP>185 or DBP>95 #Schizophrenia, decompensated Making statements that her hit her with a bat, which is a persistent delusion according to my chart review of previous admissions Agitated & aggressive behavior noted by nursing staff (spitting out medications, throwing tray at nursing staff, etc.) level = 17, normal TSH 5.1; T4 normal B12 663 fall 2023, B1 also normal at 135 Safe tray added Psychiatry consult appreciated - discussed w/ [facility] Liasion on 04/04 --> as of 04/04 patient is under a 302 and not allowed to leave hospital AMA. Inpatient geriatric psych placement pending. 1 on 1 not indicated as she is not deemd risk to self or others - [address] secondary to self care needs. Ammonia Continue VPA BID Continue Abilify Zyprexa 5mg ODT PRN #Constipation Scheduled MiraLAX daily Senna 8.6 mg p.o. daily #Mild to moderate aortic stenosis Noted on most recent echocardiogram on 06/25/2024 #H/o DVT apixaban 5 mg p.o. BID Left lower extremity Doppler on arrival revealed no DVT Disposition: Continued stay on [facility] VTE PPx: Apixaban Admission and Anticipated Discharge Date Admission Date: March 29, 2025 Ho Souza seen and examined this morning. She was calm and cooperative. She had garbled speech. Physical Exam Physical Exam: General: no acute distress; non-toxic appearing; well-nourished; cooperative HEENT: normocephalic, atraumatic; no scleral icterus; PERRLA w/ EOMs intact; vision and hearing grossly intact Neck: trachea midline Skin: warm, dry without signs of tenting; no cyanosis; no rashes, bruising, lesions, or erythema noted Lungs: no acute respiratory distress; symmetrical chest wall expansion MSK: no edema noted in the LEs b/l, nonerythematous Neuro: confused Results & Data Results & Data Vital Signs (Past 12 Hours) Vital Signs Temp Pulse Resp BP Pulse Ox O2 Del Method 04/04/25 07:10 36.3 C L 66 16 185/72 H 98 Room Air PG Care Time/CCT Total # of Minutes Spent Total Time Spent with Patient: Total time spent is greater than 50% in coordination of care (as documented) at patient's floor/unit and/or counseling patient: Coding Level of Care Code 53811 SUB INP/OBS CARE 2/35MIN Diagnoses Acute metabolic encephalopathy G93.41 UTI (urinary tract infection) N39.0 HTN (hypertension), benign I10 Schizophrenia F20.9 Schizophrenia type: unspecified Aortic stenosis I35.0 Constipation K59.00 (4) Schizophrenia Schizophrenia type: unspecified Qualified Code(s): F20.9 - Schizophrenia, unspecified"
--- NOTE | 2025-04-05 11:28 | Psychiatric Progress Note ---
Date of Service April 05, 2025 Impression / Recommendations Impression Diagnostically consistent with likely exacerbation of her longstanding schizoaffective disorder with possible contribution from prolonged delirium from recent UTI and/or cognitive impairment component. A: Ongoing mood lability and delusions and some confusion about where she is. Continue inpatient geriatric psychiatry bed search. Historically she had been stabilized on Abilify DUMAS and Depakote while living in [place] and has done well on oral Abilify during past hospitalizations. She is not willingness for voluntary inpatient psychiatric treatment, nor oriented enough to fully consent to this, and meets 302 criteria and commitment completed due to psychosis with thought and behavioral disorganization and unable to meet ADLs. Overall, I spent a total of 35 minutes with this case including review of chart records, review of labwork, direct evaluation of the patient at bedside, counseling the patient, discussion of the patient with the Nurse and with the hospitalist provider, discussion with the psychiatric liason during clinical rounds, review of collateral historian information from the family and documentation in the electronic health record. The patient remains hospitalized on a completed 302 involuntary commitment, which if not extended, will on 04/09/2025 @ 1316. This patient must remain on safety precautions with a 1-on-1 and is unable to leave the hospital AMA. (1) Schizoaffective disorder: (2) AMS (altered mental status): Plan -Now on 302 commitment, she cannot leave AMA -1-on-1 not indicated as she requires assistance to ambulate and is not deemed a risk to self or others, [address] due to inability to meet self-care needs -Geriatric psychiatry bed search to begin -Continue Depakote DR 250mg BID -Continue abilify 10mg daily -Olanzapine 5mg PO/IM Q8H PRN for agitation Interval History Identifying Information 79 y/o woman with a h/o schizophrenia vs schizoaffective disorder, recurrent UTI, found at home with AMS. Psychiatry consulted for evaluation and recommendations. Chief Complaint "Psych, get out of my house". Subjective Subjective Patient was seen & assessed and interval progress reviewed. Per RN was quite pleasant this morning but got upset about labwork and studies needed for thanh psych referrals. After introducing my role as a psychiatrist she asked me to "get out of my f*cking house". Observed sitting in bed. Physical Exam Vital Signs (Past 24 Hours) Last Vital Signs Temp 36.9 C 04/04/25 19:35 Pulse 54 L 04/05/25 07:14 Resp 16 04/05/25 07:14 BP 150/75 H 04/05/25 07:14 Pulse Ox 100 04/05/25 07:14 O2 Del Method Room Air 04/05/25 07:14 Results & Data ([facility]) Laboratory Results Laboratory Results - last 24 hr 04/04/25 04/05/25 04/05/25 12: 08:53 11:12 WBC 4.55 L RBC 4.52 Hgb 12.7 Hct 39.8 MCV 88.1 MCH 28.1 MCHC 31.9 L RDW Std Deviation 46.5 H RDW Coeff of Yohannes 14.5 Plt Count 187 MPV 9.9 Sodium 139 Potassium 4.4 Chloride 103 Carbon Dioxide 32 Anion Gap 4 BUN 27 H Creatinine 0.76 Est Cr Clr Drug Dosing 58.4 eGFR 79.66 BUN/Creatinine Ratio 35.5 H Glucose 126 H Calcium 8.9 Valproic Acid Pending SARS-CoV-2 (PCR) NEGATIVE Current Inpatient Medications Current Inpatient Medications: Current Inpatient Medications Acetaminophen (Acetaminophen 325 Mg Tab) 650 mg PO Q4H PRN PRN Reason: pain/fever Stop: 04/28/25 18:09 Last Admin: 04/03/25 19:19 Dose: 650 mg Al Hydrox/Mg Hydrox/Simethicone (Aluminum/Magnesium Susp 30 Ml Udc) 30 ml PO Q6H PRN PRN Reason: Dyspepsia Stop: 04/28/25 18:09 Amlodipine Besylate (Amlodipine Besylate 5 Mg Tab) 5 mg PO DAILY JULIANE Stop: 04/28/25 18:09 Last Admin: 04/04/25 08:46 Dose: 5 mg Apixaban (Apixaban 5 Mg Tablet) 5 mg PO BID JULIANE Stop: 04/28/25 20:59 Last Admin: 04/04/25 19:38 Dose: 5 mg Aripiprazole (Aripiprazole 10 Mg Tab) 10 mg PO DAILY JULIANE Stop: 04/28/25 18:09 Last Admin: 04/04/25 08:47 Dose: 10 mg Carvedilol (Carvedilol 3.125 Mg Tab) 3.125 mg PO BIDM [facility] Stop: 04/30/25 16:59 Last Admin: 04/05/25 10:29 Dose: Not Given Cefdinir (Cefdinir 300 Mg Cap) 300 mg PO BID [facility]; Protocol Stop: 04/05/25 20:59 Last Admin: 04/04/25 19:38 Dose: 300 mg Divalproex Sodium (Divalproex Delay Release 250 Mg Tabec) 250 mg PO BID [facility] Stop: 04/28/25 20:59 Last Admin: 04/04/25 19:37 Dose: 250 mg Hydralazine HCl (Hydralazine Hcl 20 Mg/Ml Vial) 5 mg IV Q8H PRN PRN Reason: HTN SBP>185 or DBP>95 Stop: 05/01/25 16:17 Levothyroxine Sodium (Levothyroxine Sodium 100 Mcg Tablet) 100 mcg PO DAILYBB [facility] Stop: 04/29/25 06:29 Last Admin: 04/05/25 06:13 Dose: 100 mcg Magnesium Hydroxide (Magnesium Hydroxide Susp 30 Ml Udc) 30 ml PO Q6H PRN PRN Reason: Constipation Stop: 04/28/25 18:09 Melatonin (Melatonin 3 Mg Tab) 3 mg PO HS PRN PRN Reason: Insomnia Stop: 04/28/25 18:09 Last Admin: 04/04/25 21:41 Dose: 3 mg Olanzapine (Olanzapine 10 Mg/2.1 Ml Sdv) 5 mg IM ONE PRN PRN Reason: Agitation/Aggression Ondansetron HCl (Ondansetron Inj 2 Mg/Ml 2 Ml Vial) 4 mg IV Q6H PRN PRN Reason: Nausea Stop: 04/28/25 18:09 Polyethylene Glycol (Polyethylene (Miralax) 17 Gm Pack) 17 gm PO DAILY PRN PRN Reason: Constipation Stop: 04/28/25 18:09 Polyethylene Glycol (Polyethylene (Miralax) 17 Gm Pack) 17 gm PO DAILY [facility] Stop: 05/03/25 08:59 Last Admin: 04/05/25 10:29 Dose: Not Given Sennosides (Senna 8.6 Mg Tab) 8.6 mg PO QAM [facility] Stop: 05/03/25 08:59 Last Admin: 04/05/25 10:29 Dose: Not Given
[2025-04-05 12:33] LABS: Amphetamines+Metham, Urine Neg (Neg); MDMA (Ecstacy), Urine Neg (Neg); Marijuana, Urine Neg (Neg)
[2025-04-05 12:34] LABS: Appearance Urine Turbid (Clear); Bacteria Urine Automated None Seen (None Seen); Cast Urine Automated 0-2 /lpf (0-2); Epithelial Cell Urine Auto 0-2 /hpf (0-2); Glucose Urine UA Negative (Negative); RBC Urine Automated >20 /hpf (0-2)
--- NOTE | 2025-04-05 13:55 | Hospitalist Progress Note ---
Date of Service April 05, 2025 Assessment & Plan (1) Acute metabolic encephalopathy: (2) UTI (urinary tract infection): (3) HTN (hypertension), benign: (4) Schizophrenia: (5) Aortic stenosis: (6) Constipation: Plan 79 y/o with schizophrenia, brought in by medics, was found on her couch soaked in urine and confused. Frequently admitted and often does not take her medications, is on monthly long-acting antipsychotic. Last admission 03/02-03/08 with UTI and decompensation of schizophrenia. VSS stable on arrival, not septic on arrival #Acute metabolic encephalopathy due to urinary tract infection (resolved) | UTI Head CT negative; CXR clear UC: E coli s/p Rocephin 2g IV x 2 --> continue Cefdinir 300mg PO BID through 04/06 to complete course. discussed w/ Psych liaison on 04/04 that she is medically stable for discharge --> obtained urinalysis, urine tox screen, COVID test, EKG, and Depakote levels 04/05 for facility. #Hypertension BP remains somewhat elevated Has maintained compliance w/ medications over last 2-3 days. Continue Amlodipine 5 mg daily, Carvedilol 3.125mg BID Hydralazine 5 mg IV q8h PRN for sustained SBP>185 or DBP>95 #Schizophrenia, decompensated Making statements that her hit her with a bat, which is a persistent delusion according to my chart review of previous admissions Agitated & aggressive behavior noted by nursing staff (spitting out medications, throwing tray at nursing staff, etc.) TSH 5.1; T4 normal B12 663 fall 2023, B1 normal at 135 Safe tray added Psychiatry consult appreciated - discussed w/ [facility] Liasion on 04/04 --> as of 04/04 patient is under a 302 and not allowed to leave hospital AMA. Inpatient geriatric psych placement pending. 1 on 1 not indicated as she is not deemed risk to self or others - [address] secondary to self care needs. Continue VPA BID Continue Abilify Zyprexa 5mg ODT PRN #Constipation Scheduled MiraLAX daily Senna 8.6 mg p.o. daily #Mild to moderate aortic stenosis Noted on most recent echocardiogram on 06/25/2024 #H/o DVT apixaban 5 mg p.o. BID Left lower extremity Doppler on arrival revealed no DVT Disposition: Continued stay on [facility] VTE PPx: Apixaban Discussed w/ [facility] Liaison 04/05 Admission and Anticipated Discharge Date Admission Date: March 29, 2025 Ho Souza was seen and examined this morning. She denied complaints. Asked me to "get the hell out of her room". Physical Exam Physical Exam: General: no acute distress; non-toxic appearing; well-nourished; uncooperative HEENT: normocephalic, atraumatic; no scleral icterus; PERRLA w/ EOMs intact; vision and hearing grossly intact Neck: trachea midline Skin: warm, dry without signs of tenting; no cyanosis; no rashes, bruising, lesions, or erythema noted Lungs: no acute respiratory distress; symmetrical chest wall expansion Neuro: confused Results & Data Results & Data Vital Signs (Past 12 Hours) Vital Signs Pulse Resp BP Pulse Ox O2 Del Method 04/05/25 07:14 54 L 16 150/75 H 100 Room Air PG Care Time/CCT Total # of Minutes Spent Total Time Spent with Patient: Total time spent is greater than 50% in coordination of care (as documented) at patient's floor/unit and/or counseling patient: Coding Level of Care Code 12183 SUB INP/OBS CARE 2/35MIN Diagnoses Acute metabolic encephalopathy G93.41 UTI (urinary tract infection) N39.0 HTN (hypertension), benign I10 Schizophrenia F20.9 Schizophrenia type: unspecified Aortic stenosis I35.0 Constipation K59.00 (4) Schizophrenia Schizophrenia type: unspecified Qualified Code(s): F20.9 - Schizophrenia, unspecified
--- NOTE | 2025-04-05 18:06 | Electrocardiogram Report ---
Test Reason : Blood Pressure : */* mmHG Vent. Rate : 58 BPM Atrial Rate : 58 BPM P-R Int : 200 ms QRS Dur : 150 ms QT Int : 518 ms P-R-T Axes : 60 -63 39 degrees QTcB Int : 508 ms Sinus bradycardia Right bundle branch block Left anterior fascicular block Bifascicular block Moderate voltage criteria for LVH, may be normal variant Abnormal ECG When compared with ECG of 29-Mar-2025 13:16, T wave inversion no longer evident in Anterior leads QT has lengthened Confirmed by Sage Joshua ([id number] on 04/05/2025 6:05:33 PM Referred By: REFERRED SELF Confirmed By: Sage Joshua
--- NOTE | 2025-04-06 12:59 | Psychiatric Progress Note ---
Date of Service April 06, 2025 Impression / Recommendations Impression Diagnostically consistent with likely exacerbation of her longstanding schizoaffective disorder with possible contribution from prolonged delirium from recent UTI and/or cognitive impairment component. MOCA completed in February 2025 of 01/26, though she did have delirium and psychosis at that time. A: Ongoing delusions, [facility] completed multiple times and unsuccessful due to her insurance being out of network with all facilities who could offer bed availability. Therefore unlikely that inpatient psychiatric treatment will be an option unless her medical insurance changes to be within this state. Remains unable to meet her needs due to confusion and psychosis but no safety concerns for harm to self or others. No abilify DUMAS within the last month, this could be a good option if she cannot be treated at a geriatric inpatient hospital due to insurance. Will increase po abilify given past DUMAS was equivalent to 15mg per day. Can also consider further depakote titration in coming days if thought that esha may be contributing to mumbled speech but no current evidence for significant psychomotor activation. Historically she had been stabilized on Abilify DUMAS and Depakote while living in [place] and has done well on oral Abilify during past hospitalizations. Past Aristada dose of 662mg DUMAS. She is not willingness for voluntary inpatient psychiatric treatment, nor oriented enough to fully consent to this, and meets 302 criteria and commitment completed due to psychosis with thought and behavioral disorganization and unable to meet ADLs. Overall, I spent a total of 50 minutes with this case including review of chart records, review of labwork, direct evaluation of the patient at bedside, counseling the patient, discussion of the patient with the Nurse and with the hospitalist provider, discussion with the psychiatric liason during clinical rounds, review of collateral historian information from the family and documentation in the electronic health record. The patient remains hospitalized on a completed 302 involuntary commitment, which if not extended, will on 04/09/2025 @ 1316. This patient must remain on safety precautions with a 1-on-1 and is unable to leave the hospital AMA. (1) Schizoaffective disorder: (2) AMS (altered mental status): Plan -Now on 302 commitment, she cannot leave AMA -1-on-1 not indicated as she requires assistance to ambulate and is not deemed a risk to self or others, [address] due to inability to meet self-care needs -Geriatric psychiatry bed search completed, no placement options as her insurance is out of network for all facilities -Continue Depakote DR 250mg BID -Increase abilify to 15mg daily -Olanzapine 5mg PO/IM Q8H PRN for agitation Interval History Identifying Information 79 y/o woman with a h/o schizophrenia vs schizoaffective disorder, recurrent UTI, found at home with AMS. Psychiatry consulted for evaluation and recommendations. Chief Complaint "Come here, you're my baby". Subjective Subjective Patient was seen & assessed and interval progress reviewed. Pleasant this morning initially stating her mood is "very good" but then became fixated on RN being her baby and trying to get her to come into the bed with Libby or give her a hug. She was frustrated with redirection. She recalls having Abilify injection in the past and states she would be willing for this. Physical Exam Psychiatric Orientation: alert, oriented to person, oriented to place (partially) and + guarded; + not oriented to time Apperance: + disheveled; + inappropriately dressed Eye Contact: good eye contact Motor Behavior: no abnormal motor movements Speech: + abnormal rate/rhythm/volume of speech (garbled intermittently) Affect: + labile affect Mood: + irritable mood Thought Process: + flight of ideas and + looseness of associations Thought Content: + paranoid and + delusions Suicidal Thoughts: denies suicidal thoughts Homicidal Thoughts: denies homicidal thoughts Insight: + poor insight Judgment: + limited judgement Vital Signs (Past 24 Hours) Last Vital Signs Temp 36.5 C 04/06/25 08:08 Pulse 70 04/05/25 16:53 Resp 18 04/06/25 08:08 BP 163/75 H 04/06/25 08:08 Pulse Ox 99 04/05/25 16:53 O2 Del Method Room Air 04/05/25 16:53 Results & Data (U) Current Inpatient Medications Current Inpatient Medications: Current Inpatient Medications Acetaminophen (Acetaminophen 325 Mg Tab) 650 mg PO Q4H PRN PRN Reason: pain/fever Stop: 04/28/25 18:09 Last Admin: 04/05/25 19:59 Dose: 650 mg Al Hydrox/Mg Hydrox/Simethicone (Aluminum/Magnesium Susp 30 Ml Udc) 30 ml PO Q6H PRN PRN Reason: Dyspepsia Stop: 04/28/25 18:09 Amlodipine Besylate (Amlodipine Besylate 5 Mg Tab) 5 mg PO DAILY [facility] Stop: 04/28/25 18:09 Last Admin: 04/06/25 08:17 Dose: 5 mg Apixaban (Apixaban 5 Mg Tablet) 5 mg PO BID [facility] Stop: 04/28/25 20:59 Last Admin: 04/06/25 08:17 Dose: 5 mg Aripiprazole (Aripiprazole 10 Mg Tab) 10 mg PO DAILY [facility] Stop: 04/28/25 18:09 Last Admin: 04/06/25 08:18 Dose: 10 mg Carvedilol (Carvedilol 3.125 Mg Tab) 3.125 mg PO BIDM [facility] Stop: 04/30/25 16:59 Last Admin: 04/06/25 08:18 Dose: 3.125 mg Divalproex Sodium (Divalproex Delay Release 250 Mg Tabec) 250 mg PO BID [facility] Stop: 04/28/25 20:59 Last Admin: 04/06/25 08:18 Dose: 250 mg Hydralazine HCl (Hydralazine Hcl 20 Mg/Ml Vial) 5 mg IV Q8H PRN PRN Reason: HTN SBP>185 or DBP>95 Stop: 05/01/25 16:17 Levothyroxine Sodium (Levothyroxine Sodium 100 Mcg Tablet) [facility] Stop: 04/29/25 06:29 Last Admin: 04/06/25 08:19 Dose: 100 mcg Magnesium Hydroxide (Magnesium Hydroxide Susp 30 Ml Udc) 30 ml PO Q6H PRN PRN Reason: Constipation Stop: 04/28/25 18:09 Melatonin (Melatonin 3 Mg Tab) 3 mg PO HS PRN PRN Reason: Insomnia Stop: 04/28/25 18:09 Last Admin: 04/05/25 21:09 Dose: 3 mg Olanzapine (Olanzapine 10 Mg/2.1 Ml Sdv) 5 mg IM ONE PRN PRN Reason: Agitation/Aggression Ondansetron HCl (Ondansetron Inj 2 Mg/Ml 2 Ml Vial) 4 mg IV Q6H PRN PRN Reason: Nausea Stop: 04/28/25 18:09 Polyethylene Glycol (Polyethylene (Miralax) 17 Gm Pack) 17 gm PO DAILY PRN PRN Reason: Constipation Stop: 04/28/25 18:09 Polyethylene Glycol (Polyethylene (Miralax) 17 Gm Pack) 17 gm PO DAILY [facility] Stop: 05/03/25 08:59 Last Admin: 04/06/25 08:18 Dose: 17 gm Sennosides (Senna 8.6 Mg Tab) 8.6 mg PO QAM [facility] Stop: 05/03/25 08:59 Last Admin: 04/06/25 08:17 Dose: 8.6 mg
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
[2025-04-07] MEDS: ARIPiprazole 15 MG TAB PO SCH (08:55)
[2025-04-07 08:58] LABS: Cholesterol 208.0 mg/dl (0-200); HDL Cholesterol 44.0 mg/dl; Triglycerides 101.0 mg/dl (0-150)
[2025-04-07 10:02] LABS: Hemoglobin A1C 6.1 % (4.5-5.6)
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
--- NOTE | 2025-04-08 17:06 | Psychiatric Progress Note ---
Date of Service April 08, 2025 Impression / Recommendations Impression Diagnostically consistent with likely exacerbation of her longstanding schizoaffective disorder with possible contribution from prolonged delirium from recent UTI and/or cognitive impairment component. MOCA completed in February 2025 of 01/26, though she did have delirium and psychosis at that time. A: Ongoing disorganization. Geriatric inpatient psychiatry bed search has again been unsuccessful so will allow 302 to . Will continue to monitor symptoms and if psychosis persists could consider option for new inpatient thanh bed search vs options for increased home based care with additional outpatient psychiatric services. Will consider Abilify DUMAS as one option to increase medication adherence. Historically she had been stabilized on Abilify DUMAS and Depakote while living in [place] and has done well on oral Abilify during past hospitalizations. Past Aristada dose of 662mg DUMAS. Also did well for some time on Depakote and Seroquel 300mg HS. Overall, I spent a total of 50 minutes with this case including review of chart records, review of labwork, direct evaluation of the patient at bedside, counseling the patient, discussion of the patient with the Nurse and with the hospitalist provider, discussion with the psychiatric liason during clinical rounds, and documentation in the electronic health record. The patient remains hospitalized on a completed 302 involuntary commitment, which if not extended, will on 04/09/2025 @ 1316. This patient must remain on safety precautions with a 1-on-1 and is unable to leave the hospital AMA. (1) Schizoaffective disorder: (2) AMS (altered mental status): Plan -Now on 302 commitment but this expires tomorrow -1-on-1 not indicated as she requires assistance to ambulate and is not deemed a risk to self or others, [address] due to inability to meet self-care needs -Geriatric psychiatry bed search unsuccessful so far -Continue Depakote DR 250mg BID -Increase to abilify 20mg daily, consider option for Abilify DUMAS in coming days -Olanzapine 5mg PO/IM Q8H PRN for agitation Interval History Identifying Information 79 y/o woman with a h/o schizophrenia vs schizoaffective disorder, recurrent UTI, found at home with AMS. Psychiatry consulted for evaluation and recommendations. Chief Complaint "Up late too". Subjective Subjective Patient was seen & assessed and interval progress reviewed. She required IM olanzapine at ~4:30am due to agitation. However, today has been more pleasant per RN. She has a baby doll and has been caring the baby and this seems to be helping her mood and behaviors. Today when seen she is speaking a mix of [place] and other languages (she speaks 5 other languages) and she declined when asked if she was willing to speak in [place] or wanted to use a freelance translator. Physical Exam Vital Signs (Past 24 Hours) Last Vital Signs Temp 36.6 C 04/08/25 14:50 Pulse 63 04/08/25 14:50 Resp 16 04/08/25 14:50 BP 145/70 H 04/08/25 14:50 Pulse Ox 98 04/08/25 14:50 O2 Del Method Room Air 04/08/25 14:50 Results & Data ([facility]) Current Inpatient Medications Current Inpatient Medications: Current Inpatient Medications Acetaminophen (Acetaminophen 325 Mg Tab) 650 mg PO Q4H PRN PRN Reason: pain/fever Stop: 04/28/25 18:09 Last Admin: 04/08/25 04:40 Dose: 650 mg Al Hydrox/Mg Hydrox/Simethicone (Aluminum/Magnesium Susp 30 Ml Udc) 30 ml PO Q6H PRN PRN Reason: Dyspepsia Stop: 04/28/25 18:09 Amlodipine Besylate (Amlodipine Besylate 5 Mg Tab) 5 mg PO DAILY JULIANE Stop: 04/28/25 18:09 Last Admin: 04/08/25 07:56 Dose: 5 mg Apixaban (Apixaban 5 Mg Tablet) 5 mg PO BID JULIANE Stop: 04/28/25 20:59 Last Admin: 04/08/25 07:56 Dose: 5 mg Aripiprazole (Aripiprazole 15 Mg Tab) 15 mg PO DAILY JULIANE Stop: 05/07/25 08:59 Last Admin: 04/08/25 07:57 Dose: 15 mg Carvedilol (Carvedilol 3.125 Mg Tab) 3.125 mg PO BIDM JULIANE Stop: 04/30/25 16:59 Last Admin: 04/08/25 07:56 Dose: 3.125 mg Divalproex Sodium (Divalproex Delay Release 250 Mg Tabec) 250 mg PO BID JULIANE Stop: 04/28/25 20:59 Last Admin: 04/08/25 07:57 Dose: 250 mg Hydralazine HCl (Hydralazine Hcl 20 Mg/Ml Vial) 5 mg IV Q8H PRN PRN Reason: HTN SBP>185 or DBP>95 Stop: 05/01/25 16:17 Levothyroxine Sodium (Levothyroxine Sodium 100 Mcg Tablet) 100 mcg PO DAILYBB JULIANE Stop: 04/29/25 06:29 Last Admin: 04/08/25 07:57 Dose: 100 mcg Magnesium Hydroxide (Magnesium Hydroxide Susp 30 Ml Udc) 30 ml PO Q6H PRN PRN Reason: Constipation Stop: 04/28/25 18:09 Melatonin (Melatonin 3 Mg Tab) 3 mg PO HS PRN PRN Reason: Insomnia Stop: 04/28/25 18:09 Last Admin: 04/08/25 00:00 Dose: 3 mg Olanzapine (Olanzapine 10 Mg/2.1 Ml Sdv) 5 mg IM DAILY PRN PRN Reason: Agitation Stop: 05/08/25 08:59 Ondansetron HCl (Ondansetron Inj 2 Mg/Ml 2 Ml Vial) 4 mg IV Q6H PRN PRN Reason: Nausea Stop: 04/28/25 18:09 Polyethylene Glycol (Polyethylene (Miralax) 17 Gm Pack) 17 gm PO DAILY PRN PRN Reason: Constipation Stop: 04/28/25 18:09 Polyethylene Glycol (Polyethylene (Miralax) 17 Gm Pack) 17 gm PO DAILY JULIANE Stop: 05/03/25 08:59 Last Admin: 04/08/25 08:03 Dose: 17 gm Sennosides (Senna 8.6 Mg Tab) 8.6 mg PO QAM [facility] Stop: 05/03/25 08:59 Last Admin: 04/08/25 08:03 Dose: 8.6 mg
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
--- NOTE | 2025-04-09 13:56 | Psychiatric Progress Note ---
Date of Service April 09, 2025 Impression / Recommendations Impression Diagnostically consistent with likely exacerbation of her longstanding schizoaffective disorder with possible contribution from prolonged delirium from recent UTI and/or cognitive impairment component. MOCA completed in February 2025 of 01/26, though she did have delirium and psychosis at that time. A: More reality-based and pleasant today. Dressed and eating some meals. No evidence of EPS or side effects from higher dose of Abilify. Given unsuccessful geriatric bed search and some clinical improvement will not continue bed search at this time as 302 commitment has . Can consider need for future 302 or restarting bed search depending on clinical progress in coming days. If she ends up discharging home, if improvement continues, strongly recommend Abilify DUMAS prior to discharge given history of medication non-adherence at home. Historically she had been stabilized on Abilify DUMAS and Depakote while living in [place] and has done well on oral Abilify during past hospitalizations. Past Aristada dose of 662mg DUMAS. Also did well for some time on Depakote and Seroquel 300mg HS. Overall, I spent a total of 40 minutes with this case including review of chart records, review of labwork, direct evaluation of the patient at bedside, counseling the patient, discussion of the patient with the Nurse and with the hospitalist provider, discussion with the psychiatric liason during clinical rounds, and documentation in the electronic health record. (1) Schizoaffective disorder: (2) AMS (altered mental status): Plan -No longer on any type of psychiatric hold, if she asks to leave AMA please call security and psych liason to determine need for 302 -1-on-1 not indicated -Geriatric psychiatry bed search unsuccessful so far, holding off on further bed search for now given lack of statewide bed availability -Continue Depakote DR 250mg BID -Continue abilify 20mg daily, consider option for Abilify DUMAS -Olanzapine 5mg PO/IM Q8H PRN for agitation Interval History Identifying Information 79 y/o woman with a h/o schizophrenia vs schizoaffective disorder, recurrent UTI, found at home with AMS. Psychiatry consulted for evaluation and recommendations. Chief Complaint "About time he's here". Subjective Subjective Patient was seen & assessed and interval progress reviewed. More cooperative and pleasant today. Watching basketball on TV and able to follow this and speak about it. Denies any medication side effects or physical issues. Physical Exam Vital Signs (Past 24 Hours) Last Vital Signs Temp 36.4 C L 04/09/25 08:14 Pulse 62 04/09/25 08:14 Resp 16 04/09/25 08:14 BP 156/69 H 04/09/25 08:14 Pulse Ox 96 04/09/25 08:14 O2 Del Method Room Air 04/09/25 08:14 Results & Data ([facility]) Current Inpatient Medications Current Inpatient Medications: Current Inpatient Medications Acetaminophen (Acetaminophen 325 Mg Tab) 650 mg PO Q4H PRN PRN Reason: pain/fever Stop: 04/28/25 18:09 Last Admin: 04/08/25 23:44 Dose: 650 mg Al Hydrox/Mg Hydrox/Simethicone (Aluminum/Magnesium Susp 30 Ml Udc) 30 ml PO Q6H PRN PRN Reason: Dyspepsia Stop: 04/28/25 18:09 Amlodipine Besylate (Amlodipine Besylate 5 Mg Tab) 5 mg PO DAILY JULIANE Stop: 04/28/25 18:09 Last Admin: 04/09/25 08:26 Dose: 5 mg Apixaban (Apixaban 5 Mg Tablet) 5 mg PO BID JULIANE Stop: 04/28/25 20:59 Last Admin: 04/09/25 08:26 Dose: 5 mg Aripiprazole (Aripiprazole 10 Mg Tab) 20 mg PO DAILY JULIANE Stop: 05/09/25 08:59 Last Admin: 04/09/25 08:27 Dose: 20 mg Carvedilol (Carvedilol 3.125 Mg Tab) 3.125 mg PO BIDM [facility] Stop: 04/30/25 16:59 Last Admin: 04/09/25 08:26 Dose: 3.125 mg Divalproex Sodium (Divalproex Delay Release 250 Mg Tabec) 250 mg PO BID JULIANE Stop: 04/28/25 20:59 Last Admin: 04/09/25 08:27 Dose: 250 mg Hydralazine HCl (Hydralazine Hcl 20 Mg/Ml Vial) 5 mg IV Q8H PRN PRN Reason: HTN SBP>185 or DBP>95 Stop: 05/01/25 16:17 Levothyroxine Sodium (Levothyroxine Sodium 100 Mcg Tablet) 100 mcg PO DAILYBB [facility] Stop: 04/29/25 06:29 Last Admin: 04/09/25 05:29 Dose: 100 mcg Magnesium Hydroxide (Magnesium Hydroxide Susp 30 Ml Udc) 30 ml PO Q6H PRN PRN Reason: Constipation Stop: 04/28/25 18:09 Melatonin (Melatonin 3 Mg Tab) 3 mg PO HS PRN PRN Reason: Insomnia Stop: 04/28/25 18:09 Last Admin: 04/08/25 23:43 Dose: 3 mg Olanzapine (Olanzapine 10 Mg/2.1 Ml Sdv) 5 mg IM DAILY PRN PRN Reason: Agitation Stop: 05/08/25 08:59 Ondansetron HCl (Ondansetron Inj 2 Mg/Ml 2 Ml Vial) 4 mg IV Q6H PRN PRN Reason: Nausea Stop: 04/28/25 18:09 Polyethylene Glycol (Polyethylene (Miralax) 17 Gm Pack) 17 gm PO DAILY PRN PRN Reason: Constipation Stop: 04/28/25 18:09 Polyethylene Glycol (Polyethylene (Miralax) 17 Gm Pack) 17 gm PO DAILY JULIANE Stop: 05/03/25 08:59 Last Admin: 04/09/25 08:35 Dose: 17 gm Sennosides (Senna 8.6 Mg Tab) 8.6 mg PO QAM JULIANE Stop: 05/03/25 08:59 Last Admin: 04/09/25 08:35 Dose: 8.6 mg
[2025-04-09 19:26] VITALS: RESP 18
[2025-04-10 08:55] VITALS: BP 152/81; PULSE 62; TEMP 97.7; O2SAT 95
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
== END 2025-04-10 15:24 | DRG 689 ==
LOC: ED 13:07 → 3E 16:58 → SUATTDRO 16:58 → 3E 17:40

== ENCOUNTER 2025-08-01 10:48 | Inpatient (IN) ==
[2025-08-01] MEDS: SODIUM CHLORIDE 0.9% 1,000 ML IV ONE (11:28)
[2025-08-01 11:52] LABS: Hematocrit (blood only) 44.0 % (37.0-47.0); Hemoglobin 14.4 g/dl (12.0-16.0); Immature Granulocytes # (auto) 0.02 K/uL (0.01-0.20); Immature Granulocytes % (auto) 0.5 %; Mean Corpuscular Hemoglobin 27.9 pg (25.0-34.0); Mean Corpuscular Volume 85.1 fL (80.0-100.0); Platelet Count 130 K/uL (130-400); RDW Standard Deviation 43.2 fL (36.4-46.3); Red Blood Count 5.17 M/uL (4.20-5.40); White Blood Count 3.88 K/ul (4.8-10.8)
[2025-08-01 12:13] LABS: Alanine Aminotransferase 6.0 U/L (7-52); Albumin Globulin Ratio 0.9 (0.9-2); Albumin Level 3.2 gm/dl (3.4-5.0); Alkaline Phosphatase 66.0 U/L (34-104); Anion Gap 11.0 (3-11); Bilirubin,Total 0.9 mg/dl (0.2-1.0); Blood Urea Nitrogen 12.0 mg/dl (6-23); Calcium 9.5 mg/dl (8.6-10.3); Carbon Dioxide 25.0 mmol/L (21-32); Chloride 104.0 mmol/L (98-107); Creatinine Clr Calc Pharmacy 61.5 ml/min; Globulin 3.4 gm/dl (2.5-4.0); Glucose 93.0 mg/dl (70-99(Fasting)); INR 1.1 (0.9-1.1); Lipase 10.0 U/L (11-82); Magnesium 1.4 mg/dl (1.7-2.4); Potassium 4.1 mmol/L (3.5-5.1); Prothrombin Time 11.5 Seconds (9.0-12.0); Sodium 140.0 mmol/L (136-145); Total Protein 6.6 gm/dl (6.0-8.3)
--- NOTE | 2025-08-01 12:13 | Emergency Department Note ---
Impression & Plan Acute UTI, Generalized weakness, Failure to thrive in adult, Hypomagnesemia ED Provider Note NAME: MOLLY DE LA CRUZ AGE: 79 SEX: F : 1945 ARRIVES VIA: Ambulance INFORMANT: Patient ED PROVIDER(S): Marco Mora MD CHIEF COMPLAINT: Generalized weakness, UTI, placement PLAN: Disposition: Admit MEDICAL DECISION MAKING: The patient is a 79-year-old woman with a past medical history of schizophrenia, dementia, ambulatory dysfunction where she is bedbound and incontinent wearing a brief per EMS report who presents to the emergency department via EMS for evaluation of generalized weakness with concern for urinary tract infection and inability to care for the patient at home given her who cares for her is also elderly and placement was requested. reported poor oral intake. Patient is a poor historian. On evaluation the patient no acute distress, afebrile blood pressure 140/80s and vital signs otherwise stable. She appears clinically dry. She exhibits generalized weakness without focal extremity weakness. EKG without overt acute ischemia. WBC 3.8 K, nonspecific. H/H and plates within normal limits. Chemistry without metabolic acidosis. Magnesium 1.4 with IV repletion initiated. LFTs unremarkable. Lipase is not elevated. UA is consistent with infection with positive nitrites, 4+ bacteria and WBCs. Depakote level is undetectable. Treatment for urinary tract infection initiated with IV ceftriaxone. Patient was referred to hospitalist service for further management and likely placement. Case was discussed with Dr. Velez, [facility] hospitalist, who will evaluate the patient for admission. Further management per admitting team. Triage Nursing notes reviewed and agree them. Prior/external medical records reviewed Vital Signs: reviewed Differential diagnosis: Infection, dehydration, metabolic abnormality, hypo/hyperglycemia, electrolyte disturbance, anemia, hypoxia, cardiac sources, intracerebral event, toxicologic, neurologic, as well as other pathologies. ER treatment provided: See below. Diagnostics interpreted by me: Cardiac Monitoring: An order for continuous cardiac monitoring was placed and demonstrated normal sinus rhythm, 73 bpm, no ectopy. Laboratory studies: See below Imaging studies: See below Consultation(s): ANDREA Nuñez hospitalist HPI: Per MDM. ROS: See above HPI for pertinent positives & negatives. A total of 10 systems reviewed and were otherwise negative. VITALS:See Below PHYSICAL EXAMINATION: GENERAL: Awake, alert, fatigued-appearing, in no distress HENT: Normocephalic, atraumatic. Oropharynx with dry mucous membranes and otherwise unremarkable. EYES: Normal conjunctiva. Sclera non-icteric. NECK: Supple. No nuchal rigidity. FROM. No JVD. RESPIRATORY: Clear to auscultation. CARDIAC: Regular rate, normal rhythm. Extremities warm and well perfused. Pulses equal. ABDOMEN: Soft, non-distended. No tenderness to palpation. No rebound or guarding. No masses. MUSCULOSKELETAL: Chest examination reveals no tenderness. The back is symmetrical on inspection without obvious abnormality. There is no CVA tenderness to palpation. No joint edema. LOWER EXTREMITIES: Calves are equal size bilaterally and non-tender. No edema. No discoloration. NEURO: Confused at baseline. Generalized weakness without focal extremity weakness. SKIN: No rash or jaundice noted. Marco Mora MD Past Med/Surg History Problem List (Updated 08/02/25 @ 00:27 by Marco Mora MD) Hypomagnesemia (Acute) Generalized weakness (Acute) Acute UTI (Acute) Postoperative anemia due to acute blood loss Postoperative abscess Gallbladder disease Cholelithiasis (Acute) Hyponatremia Acute cholecystitis (Acute) Schizoaffective disorder Constipation Aortic stenosis Acute metabolic encephalopathy Head injury (Acute) Failure to thrive in adult (Acute) Weakness (Acute) Medical History Acute alteration in mental status Closed coccygeal fracture AMS (altered mental status) HTN (hypertension), benign Hypothyroid Schizophrenia Impaired fasting glucose Bradycardia Delirium Lyme disease Essential hypertension VTE (venous thromboembolism) COVID-19 Surgical History History of hysterectomy Family History Father Stroke Denies family history of Ovarian cancer Prostate cancer Myocardial infarction Breast cancer Colorectal cancer Social History Smoking Status: Never smoker Second Hand Exposure: No; Do You Dip or Chew Tobacco: No; Hx Alcohol Use: No Hx Substance Use: No Preferred Language: Latvian Communication Ability: Effective Visual Impairment: No Limitations Cleater Required: No Beliefs That Will Affect Care: None Current Living Situation: Spouse Other Information That Helps Us Care for You: No Feels Safe at Home: Yes Safety Concerns: Feels Safe At This Time Assistive Devices: Walker and Wheelchair Allergies Allergies Allergy/AdvReac Type Severity Reaction Status Date / Time No Known Allergies Allergy Verified 06/10/25 13:50 Home Meds Home Medications Medication Instructions Recorded Confirmed aripiprazole lauroxil 662 mg/2.4 662 mg IM UD 06/24/24 06/10/25 mL suspension, ext.rel. IM syringe (Aristada) aripiprazole 2 mg tablet (Abilify) 2 mg PO DAILY 04/29/25 06/10/25 divalproex 250 mg tablet,delayed 250 mg PO DIRECTED 04/29/25 06/10/25 release (Depakote) polyethylene glycol 3350 17 gram 17 g PO DAILY PRN Constipation 04/29/25 06/10/25 oral powder packet (Miralax) sennosides 8.6 mg tablet (Senna 8.6 mg PO QAM PRN Constipation 04/29/25 06/10/25 Lax) aspirin 81 mg tablet 81 mg PO DAILY 06/10/25 06/10/25 Previous Rx's Medication Instructions Recorded olanzapine 10 mg intramuscular 5 mg IM DAILY PRN agitation #6 ea 04/10/25 solution carvedilol 3.125 mg tablet 3.125 mg PO BIDM #180 tabs 05/03/25 amlodipine 5 mg tablet 5 mg PO DAILY #90 tabs 05/06/25 levothyroxine 100 mcg tablet 100 mcg PO DAILY #90 tabs 05/06/25 acetaminophen 325 mg tablet 650 mg (2 x 325 mg) PO Q4H PRN #0 05/20/25 tabs apixaban 2.5 mg tablet (Eliquis) 2.5 mg PO BID #0 tabs 05/20/25 aripiprazole 15 mg tablet (Abilify) 15 mg PO QAM #0 tabs 05/20/25 ferrous sulfate 325 mg (65 mg 325 mg PO Q48H #90 tabs 05/20/25 iron) tablet (Iron (ferrous sulfate)) olanzapine 5 mg disintegrating 5 mg PO Q8H PRN #0 tabs 05/20/25 tablet Results & Data (ED) Vital Signs Vital Signs - 24 hr 08/01/25 11:30 08/01/25 11:30 08/01/25 12:25 Temperature 36.5 C Temperature Source Oral Pulse Rate 80 73 Pulse Rhythm Regular Pulse Strength Normal Respiratory Rate 12 Respiratory Effort / Characteristics Non-Labored Spontaneous Respiratory Depth Normal Respiratory Pattern Regular Blood Pressure 146/82 H Blood Pressure Mean 103 Blood Pressure Position Semi-fowlers Pulse Oximetry 96 98 Oxygen Delivery Method Room Air Room Air Sepsis Recent Fever Within 48 Hours No Sepsis New/Unexplained Change in Mental Status N/A Sepsis Action Taken by Nursing No Action Required 08/01/25 12:42 Temperature Temperature Source Pulse Rate 72 Pulse Rhythm Pulse Strength Respiratory Rate 22 Respiratory Effort / Characteristics Respiratory Depth Respiratory Pattern Blood Pressure 167/78 H Blood Pressure Mean 107 Blood Pressure Position Pulse Oximetry 93 Oxygen Delivery Method Room Air Sepsis Recent Fever Within 48 Hours Sepsis New/Unexplained Change in Mental Status Sepsis Action Taken by Nursing Laboratory Data Attestation: I reviewed the patient's lab results. 08/01/25 11:05 08/01/25 11:05 Lab Results 08/01/25 08/01/25 Range/Units 11: 12:29 WBC 3.88 L (4.8-10.8) K/ul RBC 5.17 (4.20-5.40) M/uL Hgb 14.4 (12.0-16.0) g/dl Hct 44.0 (37.0-47.0) % MCV 85.1 (80.0-100.0) fL MCH 27.9 (25.0-34.0) pg MCHC 32.7 (32.0-36.0) g/dL RDW Std Deviation 43.2 (36.4-46.3) fL RDW Coeff of Yohannes 14.0 (11.5-14.5) % Plt Count 130 (130-400) K/uL MPV 10.3 (9.4-12.4) fL Immature Gran % (Auto) 0.5 % Neut % (Auto) 62.7 % Lymph % (Auto) 29.4 % [place] % (Auto) 5.4 % Eos % (Auto) 1.5 % Baso % (Auto) 0.5 % Neut # (Auto) 2.43 (1.40-6.50) K/uL Lymph # (Auto) 1.14 L (1.20-3.40) K/uL [place] # (Auto) 0.21 (0.11-0.59) K/uL Eos # (Auto) 0.06 (0.00-0.50) K/uL Baso # (Auto) 0.02 (0.00-0.20) K/uL Immature Gran # (Auto) 0.02 (0.01-0.20) K/uL PT 11.5 (9.0-12.0) Seconds INR 1.1 (0.9-1.1) Sodium 140 (136-145) mmol/L Potassium 4.1 (3.5-5.1) mmol/L Chloride 104 (98-107) mmol/L Carbon Dioxide 25 (21-32) mmol/L Anion Gap 11 (3-11) BUN 12 (6-23) mg/dl Creatinine 0.64 (0.6-1.2) mg/dl Est Cr Clr Drug Dosing 61.5 ml/min eGFR 89.84 BUN/Creatinine Ratio 18.8 (10-20) Glucose 93 (70-99(Fasting)) mg/dl Calcium 9.5 (8.6-10.3) mg/dl Magnesium 1.4 L (1.7-2.4) mg/dl Total Bilirubin 0.9 (0.2-1.0) mg/dl AST 10 L (13-39) U/L ALT 6 L (7-52) U/L Alkaline Phosphatase 66 (34-104) U/L Total Protein 6.6 (6.0-8.3) gm/dl Albumin 3.2 L (3.4-5.0) gm/dl Globulin 3.4 (2.5-4.0) gm/dl Albumin/Globulin Ratio 0.9 (0.9-2) Lipase 10 L (11-82) U/L Urine Color [place] Urine Appearance Turbid A (Clear) Urine pH 5.0 (4.5-7.5) Ur Specific [place] 1.020 (1.000-1.030) Urine Protein 2+ H (Negative) Urine Glucose (UA) Negative (Negative) Urine Ketones 1+ H (Negative) Urine Blood 3+ H (Negative) Urine Nitrite Positive A (Negative) Urine Bilirubin 1+ H (Negative) Urine Urobilinogen Negative (Negative) Ur Leukocyte Esterase 3+ H (Negative) Urine WBC (Auto) >50 H (0-5) /hpf Urine RBC (Auto) >20 H (0-2) /hpf U Hyaline Cast (Auto) 6-10 H (0-2) /lpf U Epithel Cells (Auto) 6-10 H (0-2) /hpf Urine Bacteria (Auto) 4+ H (None Seen) Calcium Oxalate Crystal Present A (None Prsent) Hyaline Casts Present A (None Presnt) /lpf Granular Casts Present A (None Prsent) /lpf Urine Comment Valproic Acid Cancelled < 10 L Administered Medications Apixaban (Apixaban 2.5 Mg Tab) 2.5 mg PO BID JULIANE Stop: 08/31/25 20:59 Last Admin: 08/01/25 20:23 Dose: 2.5 mg Documented By: ANGIE Carvedilol (Carvedilol 3.125 Mg Tab) 3.125 mg PO BIDM JULIANE Stop: 08/31/25 16:59 Last Admin: 08/01/25 17:31 Dose: 3.125 mg Documented By: PAMELLA Divalproex Sodium (Divalproex Delay Release 250 Mg Tabec) 500 mg PO QPM JULIANE Stop: 08/31/25 20:59 Last Admin: 08/01/25 20:23 Dose: 500 mg Documented By: ANGIE Discontinued Medications Sodium Chloride (Nss) 1,000 mls @ 999 mls/hr IV .Q1H1M ONE Stop: 08/01/25 12:04 Last Infusion: 08/01/25 12:48 Dose: Infused Documented By: Admin: 08/01/25 11:28 Dose: 999 mls/hr Documented By: Magnesium Sulfate/Dextrose (Magnesium Sulfate / D5w) 1 gm in 100 mls @ 100 mls/hr IV Q1H JULIANE Stop: 08/01/25 14:28 Last Infusion: 08/01/25 16:46 Dose: Infused Documented By: Admin: 08/01/25 15:42 Dose: 100 mls/hr Documented By: [facility] Infusion: 08/01/25 15:36 Dose: Infused Documented By: Admin: 08/01/25 13:53 Dose: 100 mls/hr Documented By: Ceftriaxone Sodium (Rocephin) 2,000 mg in 50 mls @ 100 mls/hr IV NOW STA Stop: 08/01/25 12:58 Last Infusion: 08/01/25 13:47 Dose: Infused Documented By: Admin: 08/01/25 12:56 Dose: 100 mls/hr Documented By: Influenza Virus Vacc Triv Types A&B (Influenza Vacc [id number](65y+)/Pf (Iiv3) 0.5ml Syr) 0.5 ml IM .ONCE ONE Stop: 08/01/25 18:11 Last Admin: 08/01/25 19:13 Dose: Not Given Documented By: [facility] Discharge Plan Visit Data Chief Complaint: Urinary Symptoms Stated Complaint: URINARY SX ED Provider: Marco Mora Discharge Problem: Acute UTI, Generalized weakness, Failure to thrive in adult, Hypomagnesemia Patient Disposition: Admitted As Inpatient Condition: Fair Discharge Instructions Interventions: ED Discharge Assessment Last Done: 08/01/25 16:02
[2025-08-01 12:24] LABS: Appearance Urine Turbid (Clear); Bacteria Urine Automated 4+ (None Seen); Glucose Urine UA Negative (Negative); RBC Urine Automated >20 /hpf (0-2); WBC Urine Automated >50 /hpf (0-5)
[2025-08-01] MEDS: cefTRIAXone SODIUM 2,000 MG/50 ML BAG IV STA (12:56)
[2025-08-01] MEDS: MAGNESIUM SULFATE / D5W 1 GM/100 ML BAG IV SCH (13:53)
[2025-08-01] MEDS ORDERED: POLYETHYLENE (MIRALAX) 17 GM PACK PO PRN (16:45)
[2025-08-01] MEDS ORDERED: DIVALPROEX DELAY RELEASE 250 MG TABEC PO SCH (16:45)
[2025-08-01] MEDS ORDERED: SENNA 8.6 MG TAB PO PRN (16:45)
[2025-08-01] MEDS: INFLUENZA VACC TS2025-26(65y+)/PF (IIV3) 0.5mL Syr IM ONE (19:13)
--- NOTE | 2025-08-01 19:15 | History & Physical Report ---
Date of Service August 01, 2025 Assessment & Plan (1) Hypomagnesemia: (2) Generalized weakness: (3) Acute UTI: (4) Failure to thrive in adult: (5) Schizoaffective disorder: Plan #Failure to thrive no longer able to take care of patient at home. Admit for PT/OT suspect retirement placement. Unable to contact on admission but was present with the ER provider earlier. #Possible UTI - patient complaining of dysuria at home but not here Prior cultures with E. coli and proteus sensitive to ceftriaxone therefore will continue on this, possible reason for deterioration #Moderate aortic stenosis. remains stable #Abnormal CXR - last admission, repeat ordered #Schizoaffective disorder and dementia - Aripiprazole, divalproex, Olanzapine prn - responds to lorazepam 0.5 mg IV for psych emergencies, olanzapine ODT 5 mg q8h PRN -lacks decisional capacity -need to confirm when next IM dose of aripiprazole is. #HTN- Continue amlodipine and carvedilol #H/o DVT- remote. Eliquis #Hypothyroidism- Levothyroxine - continue #Constipation- MiraLAX prn, sennosides prn - continue #CHARLOTTE- Ferrous sulfate VTE Prophylaxis: Continue Eliquis Disposition - admit to med/surg, PT/OT Admission and Anticipated Discharge Date Admission Date: August 01, 2025 History of Present Illness Chief Complaint: No complaints from patient Primary Care Provider: OLVIN Russell Libby Abraham is a 79 year old female who presents to the ER via EMS where she lives with her reporting that it feliz on urination. She is currently denying any burning sensation in the ER or to myself. She is unable to give me any history of how she ended up in the emergency room but she is aware she is in hospital. She thinks the year is 1924 and month is May. Per report her is no longer able to take care of her at home. I have been unable to contact the over the phone. On discussion with prior providers he has made a valiant effort to care for her at home but it appears everything has become too much for him at this point and planning on retirement placement. Per triage note she has been refusing to eat, drink and take medication. Allergies Allergy/AdvReac Type Severity Reaction Status Date / Time No Known Allergies Allergy Verified 06/10/25 13:50 Home Medications Medication Instructions Recorded Confirmed Type aripiprazole lauroxil 662 mg/2.4 662 mg IM UD 06/24/24 06/10/25 History mL suspension, ext.rel. IM syringe ([place]) olanzapine 10 mg intramuscular 5 mg IM DAILY PRN agitation #6 ea 04/10/25 06/10/25 Rx solution aripiprazole 2 mg tablet (Abilify) 2 mg PO DAILY 04/29/25 06/10/25 History divalproex 250 mg tablet,delayed 250 mg PO DIRECTED 04/29/25 06/10/25 History release (Depakote) polyethylene glycol 3350 17 gram 17 g PO DAILY PRN Constipation 04/29/25 06/10/25 History oral powder packet (Miralax) sennosides 8.6 mg tablet (Senna 8.6 mg PO QAM PRN Constipation 04/29/25 06/10/25 History Lax) carvedilol 3.125 mg tablet 3.125 mg PO BIDM #180 tabs 05/03/25 06/10/25 Rx amlodipine 5 mg tablet 5 mg PO DAILY #90 tabs 05/06/25 06/10/25 Rx levothyroxine 100 mcg tablet 100 mcg PO DAILY #90 tabs 05/06/25 06/10/25 Rx acetaminophen 325 mg tablet 650 mg (2 x 325 mg) PO Q4H PRN #0 05/20/25 06/10/25 Rx tabs apixaban 2.5 mg tablet (Eliquis) 2.5 mg PO BID #0 tabs 05/20/25 06/10/25 Rx aripiprazole 15 mg tablet (Abilify) 15 mg PO QAM #0 tabs 05/20/25 06/10/25 Rx ferrous sulfate 325 mg (65 mg 325 mg PO Q48H #90 tabs 05/20/25 06/10/25 Rx iron) tablet (Iron (ferrous sulfate)) olanzapine 5 mg disintegrating 5 mg PO Q8H PRN #0 tabs 05/20/25 06/10/25 Rx tablet aspirin 81 mg tablet 81 mg PO DAILY 06/10/25 06/10/25 History Past Med/Surg History Problem List (Updated 08/02/25 @ 00:27 by Marco Mora MD) Hypomagnesemia (Acute) Generalized weakness (Acute) Acute UTI (Acute) Postoperative anemia due to acute blood loss Postoperative abscess Gallbladder disease Cholelithiasis (Acute) Hyponatremia Acute cholecystitis (Acute) Schizoaffective disorder Constipation Aortic stenosis Acute metabolic encephalopathy Head injury (Acute) Failure to thrive in adult (Acute) Weakness (Acute) Medical History Acute alteration in mental status Closed coccygeal fracture AMS (altered mental status) HTN (hypertension), benign Hypothyroid Schizophrenia Impaired fasting glucose Bradycardia Delirium Lyme disease Essential hypertension VTE (venous thromboembolism) COVID-19 Surgical History History of hysterectomy Family History Father Stroke Denies family history of Ovarian cancer Prostate cancer Myocardial infarction Breast cancer Colorectal cancer Social History Smoking Status: Never smoker Second Hand Exposure: No; Do You Dip or Chew Tobacco: No; Hx Alcohol Use: No Hx Substance Use: No Preferred Language: Burundian Communication Ability: Impaired Visual Impairment: No Limitations Pulling Unit Floorhand Required: No Beliefs That Will Affect Care: None Current Living Situation: Spouse Other Information That Helps Us Care for You: No Feels Safe at Home: Yes Safety Concerns: Feels Safe At This Time Assistive Devices: Cane, Walker and Wheelchair Review of Systems Review of Systems: All systems reviewed & are unremarkable except as noted in HPI & below Physical Exam Constitutional: well developed; + not well nourished and no acute distress Respiratory: normal respiratory effort, lungs clear to auscultation Gastrointestinal (Abdomen): normal bowel sounds, soft, nontender, no hepatosplenomegaly Neurologic: moves all extremities, awake and + confused Psychiatric: Orientation: alert, oriented to person and oriented to place; + not oriented to time Genitourinary: no CVA tenderness Results & Data Results & Data Vital Signs (Past 12 Hours) Vital Signs Temp Pulse Resp BP Pulse Ox O2 Del Method 08/01/25 12:42 72 22 167/78 H 93 Room Air 08/01/25 12:25 73 08/01/25 11:30 98 Room Air 08/01/25 11:30 36.5 C 80 12 146/82 H 96 Room Air Laboratory Results Abnormal lab results 08/01/25 08/01/25 Range/Units 11:05 12:29 WBC 3.88 L (4.8-10.8) K/ul Lymph # (Auto) 1.14 L (1.20-3.40) K/uL Magnesium 1.4 L (1.7-2.4) mg/dl AST 10 L (13-39) U/L ALT 6 L (7-52) U/L Albumin 3.2 L (3.4-5.0) gm/dl Lipase 10 L (11-82) U/L Urine Appearance Turbid A (Clear) Urine Protein 2+ H (Negative) Urine Ketones 1+ H (Negative) Urine Blood 3+ H (Negative) Urine Nitrite Positive A (Negative) Urine Bilirubin 1+ H (Negative) Ur Leukocyte Esterase 3+ H (Negative) Urine WBC (Auto) >50 H (0-5) /hpf Urine RBC (Auto) >20 H (0-2) /hpf U Hyaline Cast (Auto) 6-10 H (0-2) /lpf U Epithel Cells (Auto) 6-10 H (0-2) /hpf Urine Bacteria (Auto) 4+ H (None Seen) Calcium Oxalate Crystal Present A (None Prsent) Hyaline Casts Present A (None Presnt) /lpf Granular Casts Present A (None Prsent) /lpf Valproic Acid < 10 L (50-100) mcg/ml Diagnostic Findings None Medications Administered ER Medications Given: Normal saline 1000ml bolus Magnesium sulfate 1g IV x2 Ceftriaxone 2000mg IV Code Status & VTE Plan Code Status Full (presumed from prior admissions) VTE Prophylaxis Plan VTE Prophylaxis will be ordered: Yes PG Care Time/CCT Total # of Minutes Spent Total Time Spent with Patient: Total time spent is greater than 50% in coordination of care (as documented) at patient's floor/unit and/or counseling patient: Coding Level of Care Code 92849 INT INP/OBS CARE 3/75MIN Diagnoses Hypomagnesemia E83.42 Generalized weakness R53.1 Acute UTI N39.0 Failure to thrive in adult R62.7 Schizoaffective disorder F25.9
[2025-08-01] MEDS: DIVALPROEX DELAY RELEASE 250 MG TABEC PO SCH (20:23)
[2025-08-01] MEDS: APIXABAN 2.5 MG TAB PO SCH (20:23)
--- NOTE | 2025-08-01 22:14 | XRay Report ---
Exam(s): XR CXR 1 VIEW EXAM: XR Chest, 1 View CLINICAL HISTORY: Reason for exam: altered mental state. TECHNIQUE: Frontal view of the chest. COMPARISON: Prior chest x-ray from June 10, 2025. FINDINGS: Lungs: Mild to moderate peribronchial thickening of the central and right lower lobe bronchi with increased interstitial opacities in the right lower lobe. No consolidation. Pleural space: Unremarkable. No pneumothorax. Heart: Unremarkable. No cardiomegaly. Mediastinum: Unremarkable. Normal mediastinal contour. Bones/joints: Diffuse osteopenia throughout the visualized bones. No acute fracture. IMPRESSION: Bronchitis, which may be of infectious or inflammatory etiologies. No consolidation or pleural effusion. Electronically signed by: Katarzyna Tucker MD 08/01/25 22:14 PM
[2025-08-02] MEDS: LEVOTHYROXINE SODIUM 100 MCG TABLET PO SCH (05:21)
[2025-08-02 07:43] LABS: Anion Gap 6.0 (3-11); Calcium 8.9 mg/dl (8.6-10.3); Carbon Dioxide 27.0 mmol/L (21-32); Chloride 108.0 mmol/L (98-107); Magnesium 1.7 mg/dl (1.7-2.4); Potassium 3.6 mmol/L (3.5-5.1); Sodium 141.0 mmol/L (136-145)
[2025-08-02 07:49] LABS: Blood Urea Nitrogen 10.0 mg/dl (6-23); Creatinine Clr Calc Pharmacy 66.8 ml/min; Glucose 87.0 mg/dl (70-99(Fasting))
[2025-08-02] MEDS: DIVALPROEX DELAY RELEASE 250 MG TABEC PO SCH (08:19)
[2025-08-02] MEDS: cefTRIAXone SODIUM 2,000 MG/50 ML BAG IV SCH (12:45)
--- NOTE | 2025-08-02 23:22 | Hospitalist Progress Note ---
Date of Service August 02, 2025 Assessment & Plan (1) Hypomagnesemia: (2) Generalized weakness: (3) Acute UTI: (4) Failure to thrive in adult: (5) Schizoaffective disorder: Plan #Failure to thrive no longer able to take care of patient at home. Admit for PT/OT suspect shelter placement. Unable to contact today in addition - no answer on number provided. Asked son to try and get in contact with him to call the hospital. #Possible UTI - patient complaining of dysuria at home but not here, suprapubic pain on exam 08/02 Prior cultures with E. coli and proteus, current urine culture pending Patient refusing IV medications, will switch to PO cefdinir #Hypomagnesemia -resolved but likely to redistribute over coming days, will repeat with am labs #Moderate aortic stenosis. remains stable #Schizoaffective disorder and dementia - Aripiprazole, divalproex, Olanzapine prn - responds to lorazepam 0.5 mg IV for psych emergencies, olanzapine ODT 5 mg q8h PRN -lacks decisional capacity -I have been unable to contact her and son cannot confirm aripiprazole IM dosing. Will continue 15mg PO daily starting tomorrow but consider calling [facility] to confirm whether she has been getting IM dosing. #HTN- Continue amlodipine and carvedilol #H/o DVT- remote. Eliquis #Hypothyroidism- Levothyroxine - continue #Constipation- MiraLAX prn, sennosides prn - continue #CHARLOTTE- Ferrous sulfate VTE Prophylaxis: Continue Eliquis Disposition - admit to med/surg, PT/OT (patient refused), medically stable pending placement Admission and Anticipated Discharge Date Admission Date: August 01, 2025 Subjective No acute concerns or questions. Patient refusing IV medications. Unable to contact her by phone. Called her son but was unabl to provide any insight in to her behaviors or IM aripiprazole medication. He will try and get a hold of his father to talk to us. Physical Exam Respiratory: normal respiratory effort, lungs clear to auscultation Cardiovascular: RRR, no murmur, no edema Gastrointestinal (Abdomen): Inspection/Auscultation: abdomen normal to inspection; abdomen not distended Percussion/Palpation: + abdomen tender (suprapubic) and abdomen soft Results & Data Results & Data Vital Signs (Past 12 Hours) Vital Signs Temp Pulse Resp BP Pulse Ox O2 Del Method 08/02/25 15:29 36.5 C 56 L 16 149/67 H 96 Room Air PG Care Time/CCT Total # of Minutes Spent Total Time Spent with Patient: Total time spent is greater than 50% in coordination of care (as documented) at patient's floor/unit and/or counseling patient: Coding Level of Care Code 84784 SUB INP/OBS CARE 2/35MIN Diagnoses Hypomagnesemia E83.42 Generalized weakness R53.1 Acute UTI N39.0 Failure to thrive in adult R62.7 Schizoaffective disorder F25.9
[2025-08-03] MEDS ORDERED: CEFDINIR 300 MG CAP PO SCH (09:00)
--- NOTE | 2025-08-03 10:01 | Progress Note ---
Date of Service August 03, 2025 Assessment & Plan (1) Hypomagnesemia: (2) Generalized weakness: (3) Acute UTI: (4) Failure to thrive in adult: (5) Schizoaffective disorder: Plan #Failure to thrive no longer able to take care of patient at home. Admit for PT/OT suspect assisted placement. Unable to contact today in addition - no answer on number provided. Asked son to try and get in contact with him to call the hospital. #Possible UTI - patient complaining of dysuria at home but not here, suprapubic pain on exam 08/02 Prior cultures with E. coli and proteus, current urine culture pending Patient refusing IV medications, will switch to PO cefdinir 08/03 - switch to cefuroxime #Hypomagnesemia -resolved but likely to redistribute over coming days, will repeat with am labs #Moderate aortic stenosis. remains stable #Schizoaffective disorder and dementia - Aripiprazole, divalproex, Olanzapine prn - responds to lorazepam 0.5 mg IV for psych emergencies, olanzapine ODT 5 mg q8h PRN -lacks decisional capacity -I have been unable to contact her and son cannot confirm aripiprazole IM dosing. Will continue 15mg PO daily starting tomorrow but consider calling [facility] to confirm whether she has been getting IM dosing. #HTN- Continue amlodipine and carvedilol #H/o DVT- remote. Eliquis #Hypothyroidism- Levothyroxine - continue #Constipation- MiraLAX prn, sennosides prn - continue #CHARLOTTE- Ferrous sulfate VTE Prophylaxis: Continue Eliquis Disposition - admit to med/surg, PT/OT (patient refused), medically stable pending placement Admission and Anticipated Discharge Date Admission Date: August 01, 2025 Subjective Patient not verbalizing much, but does nod yes or no apparently called in and wanted a psych eval for the patient unable to contact Review of Systems Review of Systems: Constitutional: No Weight Change, No Fever, No Chills, No Night Sweats, No Fatigue, No Malaise ENT/Mouth: No Hearing Changes, No Ear Pain, No Nasal Congestion, No Sinus Pain, No Hoarseness, No sore throat, No Rhinorrhea, No Swallowing Difficulty Eyes: No Eye Pain, No Swelling, No Redness, No Foreign Body, No Discharge, No Vision Changes Cardiovascular: No Chest Pain, No SOB, No PND, No Dyspnea on Exertion, No Orthopnea, No Claudication, No Edema, No Palpitations Respiratory: No Cough, No Sputum, No Wheezing, No Smoke Exposure, No Dyspnea Gastrointestinal: No Nausea, No Vomiting, No Diarrhea, No Constipation, No Pain, No Heartburn, No Anorexia, No Dysphagia, No Hematochezia, No Melena, No Flatulence, No Jaundice Genitourinary: No Dysmenorrhea, No DUB, No Dyspareunia, No Dysuria, No Urinary Frequency, No Hematuria, No Urinary Incontinence, No Urgency, No Flank Pain, No Urinary Flow Changes, No Hesitancy Musculoskeletal: No Arthralgias, No Myalgias, No Joint Swelling, No Joint Stiffness, No Back Pain, No Neck Pain, No Injury History Skin: No Skin Lesions, No Pruritis, No Hair Changes, No Breast/Skin Changes, No Nipple Discharge Neuro: No Weakness, No Numbness, No Paresthesias, No Loss of Consciousness, No Syncope, No Dizziness, No Headache, No Coordination Changes, No Recent Falls Psych: No Anxiety/Panic, No Depression, No Insomnia, No Personality Changes, No Delusions, No Rumination, No SI/HI/AH/VH, No Social Issues, No Memory Changes, No Violence/Abuse Hx., No Eating Concerns Heme/Lymph: No Bruising, No Bleeding, No Transfusions History, No Lymphadenopathy Endocrine: No Polyuria, No Polydipsia, No Temperature Intolerance Physical Exam Physical Exam: VITALS: Reviewed. WEIGHT/BMI reviewed. GEN: Healthy appearing, well-developed, NAD. PSYCH: Good Judgment. AOx3. Normal memory, mood, and affect. HEENT -Head: NC/AT; -Eyes: PERRL, EOMI. No discharge or redn ess; -Ears: External ears are normal. Normal TMs. -Nose: Normal nares. -Mouth and throat: MMM. Normal gums, muc skyler, palate,. Good dentition. NECK: Supple, with no masses. CV: RRR, no m/r/g. LUNGS: CTAB, no w/r/c. ABD: Soft, NT/ND, NBS, no masses or organomegaly. : N/A SKIN: Warm, well perfused. No skin rashes or abnormal lesions. MSK: No deformities, Normal gait. EXT: No clubbing, cyanosis, or edema. NEURO: Ambulating with no limitations. Normal muscle strength and tone. No focal deficits. Results & Data Vital Signs (Past 12 Hours) Vital Signs Temp Pulse Resp BP Pulse Ox O2 Del Method 08/02/25 22:57 36.4 C L 54 L 18 156/70 H 98 Room Air PG Care Time/CCT Total # of Minutes Spent Total Time Spent with Patient: Total time spent is greater than 50% in coordination of care (as documented) at patient's floor/unit and/or counseling patient: Coding Level of Care Code 80021 SUB INP/OBS CARE 2/35MIN Diagnoses Hypomagnesemia E83.42 Generalized weakness R53.1 Acute UTI N39.0 Failure to thrive in adult R62.7 Schizoaffective disorder F25.9
[2025-08-03] MEDS: ARIPiprazole 15 MG TAB PO SCH (10:05)
[2025-08-03 20:54] LABS: Hematocrit (blood only) 36.7 % (37.0-47.0); Hemoglobin 12.2 g/dl (12.0-16.0); Immature Granulocytes # (auto) 0.02 K/uL (0.01-0.20); Immature Granulocytes % (auto) 0.5 %; Mean Corpuscular Hemoglobin 27.9 pg (25.0-34.0); Mean Corpuscular Volume 84.0 fL (80.0-100.0); Platelet Count 129 K/uL (130-400); RDW Standard Deviation 44.2 fL (36.4-46.3); Red Blood Count 4.37 M/uL (4.20-5.40); White Blood Count 3.93 K/ul (4.8-10.8)
[2025-08-03 21:10] LABS: Anion Gap 6.0 (3-11); Blood Urea Nitrogen 14.0 mg/dl (6-23); Calcium 8.8 mg/dl (8.6-10.3); Carbon Dioxide 27.0 mmol/L (21-32); Chloride 107.0 mmol/L (98-107); Creatinine Clr Calc Pharmacy 63.5 ml/min; Glucose 110.0 mg/dl (70-99(Fasting)); Magnesium 1.7 mg/dl (1.7-2.4); Potassium 3.8 mmol/L (3.5-5.1); Sodium 140.0 mmol/L (136-145)
[2025-08-04 07:12] LABS: Hematocrit (blood only) 37.1 % (37.0-47.0); Hemoglobin 12.5 g/dl (12.0-16.0); Mean Corpuscular Hemoglobin 28.6 pg (25.0-34.0); Mean Corpuscular Volume 84.9 fL (80.0-100.0); Platelet Count 118 K/uL (130-400); RDW Standard Deviation 44.5 fL (36.4-46.3); Red Blood Count 4.37 M/uL (4.20-5.40); White Blood Count 3.67 K/ul (4.8-10.8)
[2025-08-04 07:39] LABS: Anion Gap 6.0 (3-11); Blood Urea Nitrogen 12.0 mg/dl (6-23); Calcium 8.9 mg/dl (8.6-10.3); Carbon Dioxide 28.0 mmol/L (21-32); Chloride 107.0 mmol/L (98-107); Creatinine Clr Calc Pharmacy 72.9 ml/min; Glucose 88.0 mg/dl (70-99(Fasting)); Potassium 3.7 mmol/L (3.5-5.1); Sodium 141.0 mmol/L (136-145)
[2025-08-04] MEDS: ACETAMINOPHEN 325 MG TAB PO PRN (09:11)
--- NOTE | 2025-08-04 16:17 | Progress Note ---
Date of Service August 04, 2025 Assessment & Plan (1) Hypomagnesemia: (2) Generalized weakness: (3) Acute UTI: (4) Failure to thrive in adult: (5) Schizoaffective disorder: Plan #Failure to thrive no longer able to take care of patient at home. Admit for PT/OT suspect half-way placement. Unable to contact today in addition - no answer on number provided. Asked son to try and get in contact with him to call the hospital. - will likely need placement #Possible UTI - patient complaining of dysuria at home but not here, suprapubic pain on exam 08/02 Prior cultures with E. coli and proteus, current urine culture pending Patient refusing IV medications, will switch to PO cefdinir 08/03 - switch to cefuroxime 08/04 - cont Cefuroxime - patient is now retaining urine, possibly secondary to the UTI - Medrano inserted (patient does not want straight cath); should do a voiding trial in 1-2 days #Hypomagnesemia -resolved but likely to redistribute over coming days, will repeat with am labs #Moderate aortic stenosis. remains stable #Schizoaffective disorder and dementia - Aripiprazole, divalproex, Olanzapine prn - responds to lorazepam 0.5 mg IV for psych emergencies, olanzapine ODT 5 mg q8h PRN -lacks decisional capacity -I have been unable to contact her and son cannot confirm aripiprazole IM dosing. Will continue 15mg PO daily starting tomorrow but consider calling [place] to confirm whether she has been getting IM dosing. #HTN- Continue amlodipine and carvedilol #H/o DVT- remote. Eliquis #Hypothyroidism- Levothyroxine - continue #Constipation- MiraLAX prn, sennosides prn - continue #CHARLOTTE- Ferrous sulfate VTE Prophylaxis: Continue Eliquis Disposition - admit to med/surg, PT/OT (patient refused), medically stable pending placement Admission and Anticipated Discharge Date Admission Date: August 01, 2025 Subjective Patient not verbalizing much, eating some of her food Patient has been retaining urine per , this happens at times Review of Systems Review of Systems: Constitutional: No Weight Change, No Fever, No Chills, No Night Sweats, No Fatigue, No Malaise ENT/Mouth: No Hearing Changes, No Ear Pain, No Nasal Congestion, No Sinus Pain, No Hoarseness, No sore throat, No Rhinorrhea, No Swallowing Difficulty Eyes: No Eye Pain, No Swelling, No Redness, No Foreign Body, No Discharge, No Vision Changes Cardiovascular: No Chest Pain, No SOB, No PND, No Dyspnea on Exertion, No Orthopnea, No Claudication, No Edema, No Palpitations Respiratory: No Cough, No Sputum, No Wheezing, No Smoke Exposure, No Dyspnea Gastrointestinal: No Nausea, No Vomiting, No Diarrhea, No Constipation, No Pain, No Heartburn, No Anorexia, No Dysphagia, No Hematochezia, No Melena, No Flatulence, No Jaundice Genitourinary: No Dysmenorrhea, No DUB, No Dyspareunia, No Dysuria, No Urinary Frequency, No Hematuria, No Urinary Incontinence, No Urgency, No Flank Pain, No Urinary Flow Changes, No Hesitancy Musculoskeletal: No Arthralgias, No Myalgias, No Joint Swelling, No Joint Stiffness, No Back Pain, No Neck Pain, No Injury History Skin: No Skin Lesions, No Pruritis, No Hair Changes, No Breast/Skin Changes, No Nipple Discharge Neuro: No Weakness, No Numbness, No Paresthesias, No Loss of Consciousness, No Syncope, No Dizziness, No Headache, No Coordination Changes, No Recent Falls Psych: No Anxiety/Panic, No Depression, No Insomnia, No Personality Changes, No Delusions, No Rumination, No SI/HI/AH/VH, No Social Issues, No Memory Changes, No Violence/Abuse Hx., No Eating Concerns Heme/Lymph: No Bruising, No Bleeding, No Transfusions History, No Lymphadenopathy Endocrine: No Polyuria, No Polydipsia, No Temperature Intolerance Physical Exam Physical Exam: VITALS: Reviewed. WEIGHT/BMI reviewed. GEN: Healthy appearing, well-developed, NAD. PSYCH: Good Judgment. AOx3. Normal memory, mood, and affect. HEENT -Head: NC/AT; -Eyes: PERRL, EOMI. No discharge or redn ess; -Ears: External ears are normal. Normal TMs. -Nose: Normal nares. -Mouth and throat: MMM. Normal gums, muc skyler, palate,. Good dentition. NECK: Supple, with no masses. CV: RRR, no m/r/g. LUNGS: CTAB, no w/r/c. ABD: Soft, NT/ND, NBS, no masses or organomegaly. : N/A SKIN: Warm, well perfused. No skin rashes or abnormal lesions. MSK: No deformities, Normal gait. EXT: No clubbing, cyanosis, or edema. NEURO: Ambulating with no limitations. Normal muscle strength and tone. No focal deficits. Results & Data Vital Signs (Past 12 Hours) Vital Signs Temp Pulse Resp BP Pulse Ox O2 Del Method 08/04/25 14:30 64 18 157/82 H 96 Room Air 08/04/25 07:34 36.3 C L 65 18 128/79 95 Room Air PG Care Time/CCT Total # of Minutes Spent Total Time Spent with Patient: Total time spent is greater than 50% in coordination of care (as documented) at patient's floor/unit and/or counseling patient: Coding Level of Care Code 42668 SUB INP/OBS CARE 2/35MIN Diagnoses Hypomagnesemia E83.42 Generalized weakness R53.1 Acute UTI N39.0 Failure to thrive in adult R62.7 Schizoaffective disorder F25.9
[2025-08-05 07:41] LABS: Hematocrit (blood only) 37.6 % (37.0-47.0); Hemoglobin 12.4 g/dl (12.0-16.0); Immature Granulocytes # (auto) 0.03 K/uL (0.01-0.20); Immature Granulocytes % (auto) 0.8 %; Mean Corpuscular Hemoglobin 28.2 pg (25.0-34.0); Mean Corpuscular Volume 85.5 fL (80.0-100.0); Platelet Count 121 K/uL (130-400); RDW Standard Deviation 45.0 fL (36.4-46.3); Red Blood Count 4.40 M/uL (4.20-5.40); White Blood Count 3.58 K/ul (4.8-10.8)
[2025-08-05 07:59] LABS: Anion Gap 8.0 (3-11); Blood Urea Nitrogen 11.0 mg/dl (6-23); Chloride 106.0 mmol/L (98-107); Creatinine Clr Calc Pharmacy 75.8 ml/min; Glucose 95.0 mg/dl (70-99(Fasting)); Potassium 3.7 mmol/L (3.5-5.1)
[2025-08-05 08:07] LABS: Calcium 8.8 mg/dl (8.6-10.3); Carbon Dioxide 26.0 mmol/L (21-32); Sodium 140.0 mmol/L (136-145)
[2025-08-05 09:31] LABS: Magnesium 1.6 mg/dl (1.7-2.4)
--- NOTE | 2025-08-05 10:56 | Hospitalist Progress Note ---
Date of Service August 05, 2025 Assessment & Plan (1) Hypomagnesemia: (2) Generalized weakness: (3) Acute UTI: (4) Failure to thrive in adult: (5) Schizoaffective disorder: Plan This is a 79 year old woman with past medical history of schizoaffective disorder, hypothyroidism, hypertension who presented to the ED on 08/01/2025 secondary to dysuria. #UTI w/ dysuria on admission, UC positive for klebsiella oxytoc CBC w/ no leukocytosis. Renal function stable. Continue Cefuroxime BID through 08/07. Medrano catheter placed 08/04, pt was retaining urine prior to placement. #Failure to thrive Pt refusing to participate in PT/OT sessions while inpatient, per nursing patient has remained in bed her hospital stay. Not ideal rehab candidate given refusal to participate in PT/OT & lacks the ability to follow direction currently. Discussed w/ CM that patient's goal is for her to return home. Attempted to call 08/05 --> would advise goals of care discussion w/ when he is available as patient has had a steady decline & would be a candidate for a home hospice program. #Hypomagnesemia Mag low at 1.6, s/p PO repletion. Recheck in AM #Hypothyroidism Levothyroxine - continue TSH last checked 03/29/2025 in which was elevated at 5.199, repeat in AM #Moderate aortic stenosis. remains stable #Schizoaffective disorder and dementia Aripiprazole, divalproex Olanzapine prn - responds to lorazepam 0.5 mg IV for psych emergencies, olanzapine ODT 5 mg q8h PRN lacks decisional capacity #HTN- Continue amlodipine and carvedilol #H/o DVT- remote. Eliquis #Constipation- MiraLAX prn, sennosides prn - continue #CHARLOTTE- Ferrous sulfate VTE Prophylaxis: Continue Eliquis Disposition - medically stable, pending a safe discharge plan at this time. Attempted to call 08/05. Admission and Anticipated Discharge Date Admission Date: August 01, 2025 Supervising Physician Co-Signing Physician Notes CLARICE Supervision Note: I did not personally see or examine the patient today, but I verified all trevizo points of CLARICE Valerio's assessment and plan with the following exceptions/additions: None Subjective Libby was seen & examined this morning. She did not verbalize anything this morning. She was lying in bed and appeared in no distress. Physical Exam Physical Exam: General: NAD, VS: BP 126;75; 56; R16; T36.2C Resp: normal respiratory effort Extremities: no edema Neuro: Alert, oriented to self Skin: intact, no lesions noted Results & Data Results & Data Vital Signs (Past 12 Hours) Vital Signs Temp Pulse Resp BP Pulse Ox O2 Del Method 08/05/25 07:12 36.2 C L 56 L 16 126/75 97 Room Air 08/04/25 23:56 36.6 C 60 20 161/79 H 96 Room Air PG Care Time/CCT Total # of Minutes Spent Total Time Spent with Patient: Total time spent is greater than 50% in coordination of care (as documented) at patient's floor/unit and/or counseling patient: Coding Level of Care Code 58474 SUB INP/OBS CARE 2/35MIN Diagnoses Hypomagnesemia E83.42 Generalized weakness R53.1 Acute UTI N39.0 Failure to thrive in adult R62.7 Schizoaffective disorder F25.9
[2025-08-05] MEDS: MAGNESIUM OXIDE 400 MG TAB PO SCH (14:09)
[2025-08-06 06:42] LABS: Hematocrit (blood only) 38.6 % (37.0-47.0); Hemoglobin 12.7 g/dl (12.0-16.0); Mean Corpuscular Hemoglobin 28.4 pg (25.0-34.0); Mean Corpuscular Volume 86.4 fL (80.0-100.0); Platelet Count 116 K/uL (130-400); RDW Standard Deviation 46.4 fL (36.4-46.3); Red Blood Count 4.47 M/uL (4.20-5.40); White Blood Count 4.00 K/ul (4.8-10.8)
[2025-08-06 07:08] LABS: Anion Gap 6.0 (3-11); Blood Urea Nitrogen 13.0 mg/dl (6-23); Calcium 8.8 mg/dl (8.6-10.3); Carbon Dioxide 29.0 mmol/L (21-32); Chloride 106.0 mmol/L (98-107); Creatinine Clr Calc Pharmacy 70.3 ml/min; Glucose 78.0 mg/dl (70-99(Fasting)); Magnesium 1.6 mg/dl (1.7-2.4); Potassium 3.7 mmol/L (3.5-5.1); Sodium 141.0 mmol/L (136-145)
[2025-08-06 07:22] LABS: Thyroid Stimulating Hormone 0.57 uIu/ml (0.300-4.500)
[2025-08-06] MEDS: LACTATED RINGER'S 1,000 ML IV SCH (09:09)
[2025-08-06] MEDS: MAGNESIUM SULFATE / D5W 1 GM/100 ML BAG IV ONE (09:18)
--- NOTE | 2025-08-06 13:29 | Hospitalist Progress Note ---
Date of Service August 06, 2025 Assessment & Plan (1) Acute UTI: (2) Hypomagnesemia: (3) Generalized weakness: (4) Failure to thrive in adult: (5) Schizoaffective disorder: Plan This is a 79 year old woman with past medical history of schizoaffective disorder, hypothyroidism, hypertension who presented to the ED on 08/01/2025 secondary to dysuria. She was admitted for management of her UTI. #UTI - Urine culture grew Klebsiella oxytoc/[place] ornith - resistant to ampicillin and cefazolin - Medrano catheter placed 08/04 due to urinary retention. Recommend voiding trial within 1 week - Continue cefuroxime BID through 08/07 - No leukocytosis. Stable renal function #Hypomagnesemia - Mag low at 1.6 - repleted with mag 1 g IV x 1 - Recheck in AM #Failure to thrive - Pt refusing to participate in PT/OT sessions while inpatient - Not ideal rehab candidate given refusal to participate in PT/OT & lacks the ability to follow direction currently - Discussed with CM that patient's goal is for her to return home. Attempted to call 08/05 and 08/06 --> would advise goals of care discussion with when he is available as patient has had a steady decline and Libby would be a candidate for a home hospice program #Hypothyroidism - TSH WNL 08/06 - Continue levothyroxine #Moderate aortic stenosis - stable #Schizoaffective disorder and dementia - Continue Aripiprazole, divalproex, Olanzapine prn - responds to lorazepam 0.5 mg IV for psych emergencies, olanzapine ODT 5 mg q8h PRN - Lacks decisional capacity #HTN- Continue amlodipine and carvedilol #H/o DVT - remote. Continue Eliquis 2.5 mg BID #Constipation- MiraLAX prn, sennosides prn - continue #[place]- Continue ferrous sulfate VTE Prophylaxis: Eliquis Dispo: Medically stable. Pending a safe discharge plan at this time. Possibly return home with ? Attempted to call 08/05, 08/06 - voicemail left Repleted with IV magnesium Admission and Anticipated Discharge Date Admission Date: August 01, 2025 Subjective Patient seen and evaluated at bedside. She is sleeping soundly in bed. Allowed patient to keep resting. Discussed with her RN who reports Gopi ate some of her breakfast this morning and has been sleeping since then. She is routinely moving her bowels. RN does not voice any complaints or concerns regarding the patient at this time. Attempted to call her , no answer, left voicemail. Physical Exam Physical Exam: General: No acute distress, nondiaphoretic, well-developed. Skin: Warm, dry. No rashes or peripheral edema noted. Cardiac: Well-perfused. Rate in 60s. Pulm: Normal respiratory effort. 97% on room air. Neuro: A&O x 1 (selfbaseline). No focal neurological deficits. Results & Data Results & Data Vital Signs (Past 12 Hours) Vital Signs Temp Pulse Resp BP Pulse Ox O2 Del Method 08/06/25 07:15 97.6 F 61 16 124/71 97 Room Air Laboratory Results Reviewed CBC Reviewed BMP PG Care Time/CCT Total # of Minutes Spent Total Time Spent with Patient: Total time spent is greater than 50% in coordination of care (as documented) at patient's floor/unit and/or counseling patient: Coding Level of Care Code 23997 SUB INP/OBS CARE 3/50MIN Diagnoses Acute UTI N39.0 Hypomagnesemia E83.42 Generalized weakness R53.1 Failure to thrive in adult R62.7 Schizoaffective disorder F25.9
--- NOTE | 2025-08-07 12:35 | Hospitalist Progress Note ---
Date of Service August 07, 2025 Assessment & Plan (1) Acute UTI: (2) Hypomagnesemia: (3) Generalized weakness: (4) Failure to thrive in adult: (5) Schizoaffective disorder: Plan This is a 79 year old woman with past medical history of schizoaffective disorder, hypothyroidism, hypertension who presented to the ED on 08/01/2025 secondary to dysuria. She was admitted for management of her UTI. #UTI - Urine culture grew Klebsiella oxytoc/[place] ornith - resistant to ampicillin and cefazolin - Medrano catheter placed 08/04 due to urinary retention. Recommend voiding trial within 1 week - Continue cefuroxime BID through 08/07 - No leukocytosis. Stable renal function #Failure to thrive - Pt refusing to participate in PT/OT sessions while inpatient - Not ideal rehab candidate given refusal to participate in PT/OT & lacks the a bility to follow direction currently - Discussed with CM that patient's goal is for her to return home. Attempted to call 08/05, 08/06, 08/07 --> would advise goals of care discussion with when he is available as patient has had a steady decline and Libby would be a candidate for a home hospice program #Hypomagnesemia - Mild, repleted with 1 g mag IV x 1, now WNL #Hypothyroidism - TSH WNL 08/06 - Continue levothyroxine #Moderate aortic stenosis - stable #Schizoaffective disorder and dementia - Continue Aripiprazole, divalproex, Olanzapine prn - responds to lorazepam 0.5 mg IV for psych emergencies, olanzapine ODT 5 mg q8h PRN - Lacks decisional capacity #HTN- Continue amlodipine and carvedilol #H/o DVT - remote. Continue Eliquis 2.5 mg BID #Constipation- MiraLAX prn, sennosides prn - continue #[place]- Continue ferrous sulfate VTE Prophylaxis: Eliquis Dispo: Medically stable. Pending a safe discharge plan at this time. Possibly return home with ? Attempted to call 08/05, 08/06, 08/07 - no answer Admission and Anticipated Discharge Date Admission Date: August 01, 2025 Subjective Patient seen and evaluated at bedside. She is feeding herself lunch. She denies any complaints or concerns. RN reports she took her morning medications and ate most of her breakfast. Will attempt to touch base with her via phone call again today. Physical Exam Physical Exam: General: No acute distress, nondiaphoretic, well-developed. Skin: Warm, dry. No rashes or peripheral edema noted. Cardiac: Well-perfused. Rate in 60s. Pulm: Normal respiratory effort. 98% on room air. Neuro: A&O x 1 (selfbaseline). No focal neurological deficits. Results & Data Results & Data Vital Signs (Past 12 Hours) Vital Signs Temp Pulse Resp BP Pulse Ox O2 Del Method 08/07/25 08:20 65 08/07/25 07:21 97.5 F L 58 L 16 118/68 98 Room Air Laboratory Results Reviewed mag level PG Care Time/CCT Total # of Minutes Spent Total Time Spent with Patient: Total time spent is greater than 50% in coordination of care (as documented) at patient's floor/unit and/or counseling patient: Coding Level of Care Code 21474 SUB INP/OBS CARE 10/23MIN Diagnoses Acute UTI N39.0 Hypomagnesemia E83.42 Generalized weakness R53.1 Failure to thrive in adult R62.7 Schizoaffective disorder F25.9
--- NOTE | 2025-08-08 13:41 | Hospitalist Progress Note ---
"Date of Service August 08, 2025 Assessment & Plan (1) Acute UTI: (2) Hypomagnesemia: (3) Generalized weakness: (4) Failure to thrive in adult: (5) Schizoaffective disorder: Plan This is a 79 year old woman with past medical history of schizoaffective disorder, hypothyroidism, hypertension who presented to the ED on 08/01/2025 secondary to dysuria. She was admitted for management of her UTI. #UTI - Urine culture grew Klebsiella oxytoc/[place] ornith - completed course of cefuroxime. - Medrano leaking - remove 08/08 and check PVR #Failure to thrive | severe malnutrition - additonal history gathered from 08/08, Libby has not taken her routine medications in 9 weeks. Reports that he asked her every day if she is having UTI symptoms and she always has no until the day that she was brought to the hospital. She reports that Libby think she cannot walk but will sometimes be wandering the house at night stating that someone told her to go to a different room - Pt refusing to participate in PT/OT sessions while inpatient - Not ideal rehab candidate given refusal to participate in PT/OT & lacks the ability to follow direction currently - Discussed with CM that patient's goal is for her to return home. At this time do not feel safe as she is a x2 asssit. Will see if this improves with aristada injection #Schizoaffective disorder and dementia - Multiple readmissions - pt seems to do much better when she has the injectable abilify on board. [facility], will arrive 08/09 will picker packer and bring in to adminster. (last injection 04/17). Has been set up with [facility] for consistent outpatient follow up, but [facility] has rescheduled their appointment. Next appointment [facility] ed 08/19 - Continue Aripiprazole, divalproex, Olanzapine prn - Lacks decisional capacity #Hypomagnesemia - Mild, repleted with 1 g mag IV x 1, now WNL #Hypothyroidism - TSH WNL 08/06 - Continue levothyroxine #Moderate aortic stenosis - stable #HTN- Continue amlodipine and carvedilol #H/o DVT - remote. Continue Eliquis 2.5 mg BID #Constipation- MiraLAX prn, sennosides prn - continue #[place]- Continue ferrous sulfate VTE Prophylaxis: [place] Dispo: Medically stable. Pending a safe discharge plan at this time. updated 08/09 Admission and Anticipated Discharge Date Admission Date: August 01, 2025 Supervising Physician Co-Signing Physician Notes Attending Attestation - Chart reviewed, care plan d/w CLARICE Warner. I agree with the trevizo components of her documentation. Miquel Wilhelm MD Subjective patient seen lying in bed. RN reports that her Medrano was leaking overnight, will plan for Medrano removal today with voiding trial. Libby does not want to speak to me today but shakes her head no when asked if she has pain or needs anything Review of Systems Review of Systems: All systems reviewed & are unremarkable except as noted in Subjective Physical Exam Physical Exam: General: NAD, vitals as above, lying in bed Pulm: breathing unlabored CV: well perfused extremities: moves all extremities patient did not allow me to listen with the scope today Results & Data Results & Data Vital Signs (Past 12 Hours) Vital Signs Temp Pulse Resp BP Pulse Ox O2 Del Method 08/08/25 07:11 97.9 F 52 L 16 133/67 97 Room Air Laboratory Results [id number] glucose reviewed PG Care Time/CCT Total # of Minutes Spent Total Time Spent with Patient: Total time spent is greater than 50% in coordination of care (as documented) at patient's floor/unit and/or counseling patient: Coding Level of Care Code 89357 SUB INP/OBS CARE 10/23MIN Diagnoses Acute UTI N39.0 Hypomagnesemia E83.42 Generalized weakness R53.1 Failure to thrive in adult R62.7 Schizoaffective disorder F25.9"
[2025-08-08] MEDS: DOCUSATE SODIUM/SENNA 50/8.6MG TAB PO SCH (20:25)
--- NOTE | 2025-08-09 13:06 | Hospitalist Progress Note ---
"Date of Service August 09, 2025 Assessment & Plan (1) Acute UTI: (2) Hypomagnesemia: (3) Generalized weakness: (4) Failure to thrive in adult: (5) Schizoaffective disorder: Plan This is a 79 year old woman with past medical history of schizoaffective disorder, hypothyroidism, hypertension who presented to the ED on 08/01/2025 secondary to dysuria. She was admitted for management of her UTI. #UTI - Urine culture grew Klebsiella oxytoc/[place] ornith - completed course of cefuroxime. - Medrano leaking - remove 08/08 and check PVR #Failure to thrive | severe malnutrition - additonal history gathered from 08/08, Libby has not taken her routine medications in 9 weeks. Reports that he asked her every day if she is having UTI symptoms and she always has no until the day that she was brought to the hospital. She reports that Libby think she cannot walk but will sometimes be wandering the house at night stating that someone told her to go to a different room - Pt refusing to participate in PT/OT sessions while inpatient - Not ideal rehab candidate given refusal to participate in PT/OT & lacks the ability to follow direction currently - Discussed with CM that patient's goal is for her to return home. At this time do not feel safe as she is a x2 asssit. Will see if this improves with aristada injection. patient thinks she cannot walk due to arthritis, encouraged her she can and she is willing to take Tylenol, encouraged nursing to give this to her prior to trying to get her out of bed. #Schizoaffective disorder and dementia - Multiple readmissions - pt seems to do much better when she has the injectable abilify on board. [facility], will arrive 08/09 will order picker and bring in to administer. (last injection 04/17). Has been set up with [facility] for consistent outpatient follow up, but [facility] has rescheduled their appointment. Next appointment scheduled 08/19 - Continue Aripiprazole, divalproex, Olanzapine prn - Lacks decisional capacity #Hypomagnesemia - Mild, repleted with 1 g mag IV x 1, now WNL #Hypothyroidism - TSH WNL 08/06 - Continue levothyroxine #Moderate aortic stenosis - stable #HTN- Continue amlodipine and carvedilol #H/o DVT - remote. Continue Eliquis 2.5 mg BID #Constipation- MiraLAX prn, sennosides prn - continue #[place]- Continue ferrous sulfate VTE Prophylaxis: Eliquis Dispo: Medically stable. Pending a safe discharge plan at this time. updated 08/09 Admission and Anticipated Discharge Date Admission Date: August 01, 2025 Supervising Physician Co-Signing Physician Notes Attending Attestation - Chart reviewed, care plan d/w CLARICE Warner. I agree with the trevizo components of her documentation. Miquel Wilhelm MD Subjective patient is much more cooperative today. Allows me to brush her hair and get all the mats out. She tells me about her kids and her . she does not have any of the delusion she has had on previous admissions, i.e. about being or that her is abusing her. When I told her that her was planning to come visit today she seemed excited and asked if he was okay. She has not had a good appetite for the duration of her stay but was willing to eat ice cream during my visit and she finished the whole thing. She did not want to shower or get washed up Review of Systems Review of Systems: All systems reviewed & are unremarkable except as noted in Subjective Physical Exam Physical Exam: General: NAD, vitals as above, sitting up in bed, pleasant Pulm: breathing unlabored CV: well perfused extremities: moves all extremities Alert and oriented to self Results & Data Results & Data Vital Signs (Past 12 Hours) Vital Signs Temp Pulse Resp BP Pulse Ox O2 Del Method 08/09/25 08:03 Room Air 08/09/25 07:18 97.3 F L 63 16 111/62 99 Room Air PG Care Time/CCT Total # of Minutes Spent Total Time Spent with Patient: Total time spent is greater than 50% in coordination of care (as documented) at patient's floor/unit and/or counseling patient: Coding Level of Care Code 22664 SUB INP/OBS CARE 10/23MIN Diagnoses Acute UTI N39.0 Hypomagnesemia E83.42 Generalized weakness R53.1 Failure to thrive in adult R62.7 Schizoaffective disorder F25.9"
[2025-08-09 15:31] LABS: Appearance Urine Turbid (Clear); Bacteria Urine Automated 2+ (None Seen); Cast Urine Automated 0-2 /lpf (0-2); Epithelial Cell Urine Auto 0-2 /hpf (0-2); Glucose Urine UA Negative (Negative); RBC Urine Automated >20 /hpf (0-2); WBC Urine Automated >50 /hpf (0-5)
[2025-08-09] MEDS: ACETAMINOPHEN 500 MG TAB PO SCH (20:32)
[2025-08-10] MEDS: cefTRIAXone SODIUM 2,000 MG/50 ML BAG IV SCH (12:10)
--- NOTE | 2025-08-10 16:34 | Hospitalist Progress Note ---
"Date of Service August 10, 2025 Assessment & Plan (1) Acute UTI: (2) Hypomagnesemia: (3) Generalized weakness: (4) Failure to thrive in adult: (5) Schizoaffective disorder: Plan This is a 79 year old woman with past medical history of schizoaffective disorder, hypothyroidism, hypertension who presented to the ED on 08/01/2025 secondary to dysuria. She was admitted for management of her UTI. #UTI - Urine culture grew Klebsiella oxytoc/[place] ornith - completed course of cefuroxime. Temple leaking - removed 08/08 and unfortuantelt with episodes of retnetion 08/09 require straight cath and again 08/10 so temple was replaced. UC with enterococcus - treat with macrobid after discussion with pharmacy #Failure to thrive | severe malnutrition - additonal history gathered from 08/08, Libby has not taken her routine medications in 9 weeks. Reports that he asked her every day if she is having UTI symptoms and she always has no until the day that she was brought to the hospital. She reports that Libby think she cannot walk but will sometimes be wandering the house at night stating that someone told her to go to a different room - Pt refusing to participate in PT/OT sessions while inpatient - Not ideal rehab candidate given refusal to participate in PT/OT & lacks the ability to follow direction currently - Discussed with CM that patient's goal is for her to return home. At this time do not feel safe as she is a x2 assist. Aristada injection given 08/09 - reports usually takes 48 hours to feel better. Thinks she cannot walk due to arthritis, encouraged her she can and she is willing to take Tylenol, encouraged nursing to give this to her prior to trying to get her out of bed. Discussion with 08/10 - he is unwilling to take her anywhere but home. Reports he has wheelchair, walker, cane, shower chair and guard rails/grab bars on the bed to help with mobility. I relayed that she is currently not walking. Kris reports that they have a system and usually Libby is much more willing to work with him compared to others. I encouraged him to come visit - he plans to come tomorrow or Friday - at that time will attempt ambulatory trial with Kris present. If she is able to walk with 1 assist with Kris then would be safe to discharge home with HH. IF not, would have to consider hospice. Kris was unaware what hospice meant, this was described to him, but unsure if fully grasped the full meeting. Will continue to discuss and monitor Libby's progression. #Schizoaffective disorder and dementia - Multiple readmissions - pt seems to do much better when she has the injectable abilify on board. Has been set up with [facility] for consistent outpatient follow up, but [facility] has rescheduled their appointment. Next appointment scheduled 08/19 Abilify injection brought in by patient and administered 08/09 - Continue Aripiprazole, divalproex, Olanzapine prn - Lacks decisional capacity #Hypomagnesemia - Mild, repleted with 1 g mag IV x 1, now WNL #Hypothyroidism - TSH WNL 08/06 - Continue levothyroxine #Moderate aortic stenosis - stable #HTN- Continue amlodipine and carvedilol #H/o DVT - remote. Continue Eliquis 2.5 mg BID #Constipation- MiraLAX prn, sennosides prn - continue #[place]- Continue ferrous sulfate VTE Prophylaxis: Eliquis Dispo: treating UTI, Pending a safe discharge plan at this time. updated 08/09 & 08/10 Admission and Anticipated Discharge Date Admission Date: August 01, 2025 Supervising Physician Co-Signing Physician Notes I did not see or examine the patient. I verified all trevizo points and agree with Tereza Warner PA-C with the following exceptions and/or additions: None Subjective patient seen this mornign resting in bed less conversive than yesterday did not want ice cream does report suprapubic pain when asked Review of Systems Review of Systems: All systems reviewed & are unremarkable except as noted in Subjective Physical Exam Physical Exam: General: NAD, vitals as above, sitting up in bed, pleasant Pulm: breathing unlabored CV: well perfused abd: soft, + suprapubic tenderness extremities: moves all extremities Alert and oriented to self Results & Data Results & Data Vital Signs (Past 12 Hours) Vital Signs Temp Pulse Pulse Resp BP Pulse Ox O2 Del Method 08/10/25 15:13 97.7 F 66 16 108/69 96 Room Air 08/10/25 08:31 74 08/10/25 07:50 Room Air 08/10/25 07:10 97.3 F L 65 16 108/61 96 Room Air Laboratory Results UA and UC reviewed PG Care Time/CCT Total # of Minutes Spent Total Time Spent with Patient: Total time spent is greater than 50% in coordination of care (as documented) at patient's floor/unit and/or counseling patient: Coding Level of Care Code 23091 SUB INP/OBS CARE 2/35MIN Diagnoses Acute UTI N39.0 Hypomagnesemia E83.42 Generalized weakness R53.1 Failure to thrive in adult R62.7 Schizoaffective disorder F25.9"
[2025-08-10] MEDS: NITROFURANTOIN MONOHYDRATE 100 MG CAP PO SCH (22:06)
[2025-08-11 07:44] LABS: Hematocrit (blood only) 36.2 % (37.0-47.0); Hemoglobin 11.6 g/dL (12.0-16.0); Mean Corpuscular Hemoglobin 27.8 pg (25.0-34.0); Mean Corpuscular Volume 86.6 fL (80.0-100.0); Platelet Count 106 K/uL (130-400); RDW Standard Deviation 47.0 fL (36.4-46.3); Red Blood Count 4.18 M/uL (4.20-5.40); White Blood Count 4.13 K/ul (4.8-10.8)
[2025-08-11 07:59] LABS: Anion Gap 5.0 (3-11); Blood Urea Nitrogen 21.0 mg/dl (6-23); Calcium 8.8 mg/dl (8.6-10.3); Carbon Dioxide 34.0 mmol/L (21-32); Chloride 101.0 mmol/L (98-107); Creatinine Clr Calc Pharmacy 57.9 ml/min; Glucose 84.0 mg/dl (70-99(Fasting)); Potassium 3.8 mmol/L (3.5-5.1); Sodium 140.0 mmol/L (136-145)
[2025-08-11] MEDS: CeleBREX 200 MG CAP PO SCH (10:00)
--- NOTE | 2025-08-11 12:31 | Hospitalist Progress Note ---
"Date of Service August 11, 2025 Assessment & Plan (1) Acute UTI: (2) Hypomagnesemia: (3) Generalized weakness: (4) Failure to thrive in adult: (5) Schizoaffective disorder: Plan This is a 79 year old woman with past medical history of schizoaffective disorder, hypothyroidism, hypertension who presented to the ED on 08/01/2025 secondary to dysuria. She was admitted for management of her UTI. #UTI - Urine culture grew Klebsiella oxytoc/[place] ornith - completed course of cefuroxime. Temple leaking - removed 08/08 and unfortunately with episodes of retention 08/09 require straight cath and again 08/10 so temple was replaced. UC with enterococcus, sensitivities pending treat with macrobid after discussion with pharmacy #Failure to thrive | severe malnutrition - additional history gathered from 08/08, Libby has not taken her routine medications in 9 weeks. Reports that he asked her every day if she is having UTI symptoms and she always has no until the day that she was brought to the hospital. She reports that Libby think she cannot walk but will sometimes be wandering the house at night stating that someone told her to go to a different room - Pt refusing to participate in PT/OT sessions while inpatient - Not ideal rehab candidate given refusal to participate in PT/OT & lacks the ability to follow direction currently - Discussed with CM that patient's goal is for her to return home. At this time do not feel safe as she is a x2 assist. Aristada injection given 08/09 - reports usually takes 48 hours to feel better. Thinks she cannot walk due to arthritis, added tylenol 500 BID and celebrex qAM Discussion with 08/10 - he is unwilling to take her anywhere but home. Reports he has wheelchair, walker, cane, shower chair and guard rails/grab bars on the bed to help with mobility. I relayed that she is currently not walking. Kris reports that they have a system and usually Libby is much more willing to work with him compared to others. I encouraged him to come visit - he plans to come tomorrow or Friday - at that time will attempt ambulatory trial with Kris present. If she is able to walk with 1 assist with Kris then would be safe to discharge home with HH. IF not, would have to consider hospice. Kris was unaware what hospice meant, this was described to him, but unsure if fully grasped the full meeting. Will continue to discuss and monitor Libby's progression. 08/11 at time of note writing - Kris had not been in to visit yet. Nursing and CM aware of ambulatory trial plan. #Schizoaffective disorder and dementia - Multiple readmissions - pt seems to do much better when she has the injectable abilify on board. Has been set up with [facility] for consistent outpatient follow up, but [facility] has rescheduled their appointment. Next appointment scheduled 08/19 Abilify injection brought in by patient and administered 08/09 - Continue Aripiprazole, divalproex, Olanzapine prn - Lacks decisional capacity #Hypomagnesemia - Mild, repleted with 1 g mag IV x 1, now WNL #Hypothyroidism - TSH WNL 08/06 - Continue levothyroxine #Moderate aortic stenosis - stable #HTN- Continue amlodipine and carvedilol #H/o DVT - remote. This was prior to Libby moving to [place]. She has only filled her Eliquis 30 rx twice in the last year. Has had two negative dopplers in our system. Will stop Eliquis and is she likely not taking at home, to be able to more safely give NSAIDs for her arthitis. #Constipation- MiraLAX prn, sennosides prn - continue #CHARLOTTE- Continue ferrous sulfate VTE Prophylaxis: Eliquis Dispo: treating UTI, Pending a safe discharge plan at this time. updated 08/09 & 08/10 Admission and Anticipated Discharge Date Admission Date: August 01, 2025 Supervising Physician Co-Signing Physician Notes I did not see or examine the patient. I verified all trevizo points and agree with Tereza Warner PA-C with the following exceptions and/or additions: None Subjective patient seen lying in bed, no acute complaints cannot be convinced to go for a walk - says she cant told her she cant go home if she cant walk - but unlikely she truly understood the consequences Review of Systems Review of Systems: All systems reviewed & are unremarkable except as noted in Subjective Physical Exam Physical Exam: General: NAD, vitals as above, lying in bed, pleasant Pulm: breathing unlabored CV: well perfused, RR extremities: moves all extremities Alert and oriented to self Results & Data Results & Data Vital Signs (Past 12 Hours) Vital Signs Temp Pulse Resp BP Pulse Ox O2 Del Method 08/11/25 09:26 62 138/55 L 08/11/25 07:18 97.7 F 60 16 125/54 L 97 Room Air Laboratory Results cbc and chemistry reviewed PG Care Time/CCT Total # of Minutes Spent Total Time Spent with Patient: Total time spent is greater than 50% in coordination of care (as documented) at patient's floor/unit and/or counseling patient: Coding Level of Care Code 33820 SUB INP/OBS CARE 2/35MIN Diagnoses Acute UTI N39.0 Hypomagnesemia E83.42 Generalized weakness R53.1 Failure to thrive in adult R62.7 Schizoaffective disorder F25.9"
[2025-08-12] MEDS: ENOXAPARIN INJ 40 MG/0.4 ML SYR SQ SCH (08:34)
--- NOTE | 2025-08-12 13:51 | Hospitalist Progress Note ---
Date of Service August 12, 2025 Assessment & Plan (1) Acute UTI: (2) Hypomagnesemia: (3) Generalized weakness: (4) Failure to thrive in adult: (5) Schizoaffective disorder: Plan This is a 79 year old woman with past medical history of schizoaffective disorder, hypothyroidism, hypertension who presented to the ED on 08/01/2025 secondary to dysuria. She was admitted for management of her UTI. #UTI - Urine culture grew Klebsiella oxytoc/[place] ornith - completed course of cefuroxime. Temple leaking - removed 08/08 and unfortuantelt with episodes of retnetion 08/09 require straight cath and again 08/10 so temple was replaced. UC with enterococcus - treat with macrobid after discussion with pharmacy #Failure to thrive | severe malnutrition - additonal history gathered from 08/08, Libby has not taken her routine medications in 9 weeks. Reports that he asked her every day if she is having UTI symptoms and she always has no until the day that she was brought to the hospital. She reports that Libby think she cannot walk but will sometimes be wandering the house at night stating that someone told her to go to a different room - Pt refusing to participate in PT/OT sessions while inpatient - Not ideal rehab candidate given refusal to participate in PT/OT & lacks the ability to follow direction currently - Discussed with CM that patient's goal is for her to return home. At this time do not feel safe as she is a x2 assist. Aristada injection given 08/09 - reports usually takes 48 hours to feel better. Thinks she cannot walk due to arthritis, encouraged her she can and she is willing to take Tylenol, encouraged nursing to give this to her prior to trying to get her out of bed. Discussion with 08/10 - he is unwilling to take her anywhere but home. Reports he has wheelchair, walker, cane, shower chair and guard rails/grab bars on the bed to help with mobility. I relayed that she is currently not walking. Kris reports that they have a system and usually Libby is much more willing to work with him compared to others. I encouraged him to come visit - he plans to come tomorrow or Friday - at that time will attempt ambulatory trial with Kris present. If she is able to walk with 1 assist with Kris then would be safe to discharge home with HH. IF not, would have to consider hospice. Kris was unaware what hospice meant, this was described to him, but unsure if fully grasped the full meeting. Will continue to discuss and monitor Libby's progression. #Schizoaffective disorder and dementia - Multiple readmissions - pt seems to do much better when she has the injectable abilify on board. Has been set up with [facility] for consistent outpatient follow up, but [facility] has rescheduled their appointment. Next appointment scheduled 08/19 Abilify injection brought in by patient and administered 08/09 - Continue Aripiprazole, divalproex, Olanzapine prn - Lacks decisional capacity #Hypomagnesemia - Mild, repleted with 1 g mag IV x 1, now WNL #Hypothyroidism - TSH WNL 08/06 - Continue levothyroxine #Moderate aortic stenosis - stable #HTN- Continue amlodipine and carvedilol #H/o DVT - remote. Continue Eliquis 2.5 mg BID #Constipation- MiraLAX prn, sennosides prn - continue #CHARLOTTE- Continue ferrous sulfate VTE Prophylaxis: Eliquis Dispo: treating UTI, maintain inpt hospital stay until safe discharge plan is in place Admission and Anticipated Discharge Date Admission Date: August 01, 2025 Supervising Physician Co-Signing Physician Notes I did not see or examine the patient. I verified all trevizo points and agree with Mariana Hodges PA-C with the following exceptions and/or additions: None Subjective Libby is a 79 yo F who is currently hospitalized with UTI and failure to thrive and was seen on daily rounds this morning. She is resting comfortably in bed, appears very weak and debilitated. Speech is mumbled and it is difficult to discern her response to questions. She has not been out of bed per nursing. Family was to come in today for an "ambulatory trial." Son and did come in but patient did not get up for them per nursing. Discharge plan is still uncertain at this time. Review of Systems Review of Systems: Difficult to obtain d/t garbled speech Physical Exam Physical Exam: GENERAL: 79 yo elderly frail cachectic appearing WF. No distress. LUNGS: Clear to auscultation bilaterally. No W/R/R. CARDIOVASCULAR: Regular rate and rhythm. ABDOMEN: Soft, non-tender and non-distended. BS normoactive x 4 quad. : temple EXTREMITIES: No edema. Non-tender. Peripheral pulses +2/4. NEUROLOGIC: No focal neurological deficits. CN II-XII grossly intact. PSYCH: flat affect Results & Data Results & Data Vital Signs (Past 12 Hours) Vital Signs Temp Pulse Resp BP Pulse Ox O2 Del Method 08/12/25 07:28 36.4 C L 57 L 14 128/63 95 Room Air PG Care Time/CCT Total # of Minutes Spent Total Time Spent with Patient: Total time spent is greater than 50% in coordination of care (as documented) at patient's floor/unit and/or counseling patient: 26 minutes Coding Level of Care Code 45793 SUB INP/OBS CARE 10/23MIN Diagnoses Acute UTI N39.0 Hypomagnesemia E83.42 Generalized weakness R53.1 Failure to thrive in adult R62.7 Schizoaffective disorder F25.9
--- NOTE | 2025-08-13 15:54 | Hospitalist Progress Note ---
"Date of Service August 13, 2025 Assessment & Plan (1) Acute UTI: (2) Hypomagnesemia: (3) Generalized weakness: (4) Failure to thrive in adult: (5) Schizoaffective disorder: Plan This is a 79 year old woman with past medical history of schizoaffective disorder, hypothyroidism, hypertension who presented to the ED on 08/01/2025 secondary to dysuria. She was admitted for management of her UTI. #UTI | urine retention Initial urine culture grew Klebsiella oxytoc/[place] ornith - completed course of cefuroxime. Temple leaking - removed 08/08 and unfortunately with episodes of retention 08/09 require straight cath and again 08/10 so temple was replaced. Vancomycin resistant enterococcus - continue nitrofurantoin #Failure to thrive | severe malnutrition - additional history gathered from 08/08, Libby has not taken her routine medications in 9 weeks. Reports that he asked her every day if she is having UTI symptoms and she always has no until the day that she was brought to the hospital. She reports that Libby t hink she cannot walk but will sometimes be wandering the house at night stating that someone told her to go to a different room - Pt refusing to participate in PT/OT sessions while inpatient - Not ideal rehab candidate given refusal to participate in PT/OT & lacks the ability to follow direction currently - Discussed with CM that patient's goal is for her to return home. At this time do not feel safe as she is a x2 assist. Aristada injection given 08/09 - reports usually takes 48 hours to feel better. Thinks she cannot walk due to arthritis, encouraged her she can and she is willing to take Tylenol, encouraged nursing to give this to her prior to trying to get her out of bed. Discussion with 08/13 - requests palliative and psychiatry evaluations which will place on Friday. Again refuses to consider SNF placement which is also a large financial concern to him. #Schizoaffective disorder and dementia - Multiple readmissions - pt seems to do much better when she has the injectable abilify on board. Has been set up with [facility] for consistent outpatient follow up, but [facility] has rescheduled their appointment. Next appointment scheduled 08/19 Abilify injection brought in by patient and administered 08/09 - Continue Aripiprazole IM depot injection, divalproex, Olanzapine prn - Lacks decisional capacity #Hypomagnesemia - Resolved #Hypothyroidism - TSH WNL 08/06 - Continue levothyroxine #Moderate aortic stenosis - stable #HTN - Continue amlodipine #H/o DVT - remote. Continue Eliquis 2.5 mg BID #Constipation- MiraLAX prn, sennosides prn - continue #[place]- Continue ferrous sulfate VTE Prophylaxis: Eliquis Dispo: treating UTI, maintain inpt hospital stay until safe discharge plan is in place, planning on palliative care and psychiatry consults on Friday Admission and Anticipated Discharge Date Admission Date: August 01, 2025 Subjective Long discussion with at bedside. Patient repeating she is unable to get up for her . still wants to bring her home but having difficulty understanding that that is not a possibility if she is unable to get out of bed to the car. We discuss options and conclude to have palliative care and psychiatry to see them on Friday. Physical Exam Respiratory: normal respiratory effort; no respiratory distress Psychiatric: Orientation: alert Results & Data Results & Data Vital Signs (Past 12 Hours) Vital Signs Temp Pulse Resp BP Pulse Ox O2 Del Method 08/13/25 14:36 36.6 C 58 L 16 118/74 92 Room Air 08/13/25 07:12 36.3 C L 57 L 16 123/72 92 Room Air PG Care Time/CCT Total # of Minutes Spent Total Time Spent: 60 Total Time Spent with Patient: Total time spent is greater than 50% in coordination of care (as documented) at patient's floor/unit and/or counseling patient: Coding Level of Care Code 84646 SUB INP/OBS CARE 3/50MIN Diagnoses Acute UTI N39.0 Hypomagnesemia E83.42 Generalized weakness R53.1 Failure to thrive in adult R62.7 Schizoaffective disorder F25.9"
--- NOTE | 2025-08-14 11:40 | Hospitalist Progress Note ---
"Date of Service August 14, 2025 Assessment & Plan (1) Acute UTI: (2) Hypomagnesemia: (3) Generalized weakness: (4) Failure to thrive in adult: (5) Schizoaffective disorder: Plan This is a 79 year old woman with past medical history of schizoaffective disorder, hypothyroidism, hypertension who presented to the ED on 08/01/2025 secondary to dysuria. She was admitted for management of her UTI. #UTI | urine retention Initial urine culture grew Klebsiella oxytoc/Ethan ornith - completed course of cefuroxime. Temple leaking - removed 08/08 and unfortunately with episodes of retention 08/09 require straight cath and again 08/10 so temple was replaced. Vancomycin resistant enterococcus - continue nitrofurantoin Contact isolation #Failure to thrive | severe malnutrition - additional history gathered from 08/08, Libby has not taken her routine medications in 9 weeks. Reports that he asked her every day if she is having UTI symptoms and she always has no until the day that she was brought to the hospital. She reports that Libby think she cannot walk but will sometimes be wandering the house at night stating that someone told her to go to a different room - Pt refusing to participate in PT/OT sessions while inpatient - Not ideal rehab candidate given refusal to participate in PT/OT & lacks the ability to follow direction currently - Discussed with CM that patient's goal is for her to return home. At this time do not feel safe as she is a x2 assist. Aristada injection given 08/09 - reports usually takes 48 hours to feel better. Thinks she cannot walk due to arthritis and dizziness, encouraged her she can and she is willing to take Tylenol. Patient continues to refuse to get out of bed Discussion with 08/13 - requests palliative and psychiatry evaluations which will place on Friday. Again refuses to consider SNF placement which is also a large financial concern to him. #Dizziness Unable to give much history, will trial off anti-hypertensives #Schizoaffective disorder and dementia - Multiple readmissions - pt seems to do much better when she has the injectable Abilify on board. Has been set up with [facility] for consistent outpatient follow up, but [facility] has rescheduled their appointment. Next appointment scheduled 08/19 Abilify injection brought in by patient and administered 08/09 - Continue Aripiprazole IM depot injection, divalproex, Olanzapine prn - Lacks decisional capacity #Hypomagnesemia - Resolved #Hypothyroidism - TSH WNL 08/06 - Continue levothyroxine #Moderate aortic stenosis - stable #HTN - Stop amlodipine and carvedilol #H/o DVT - remote. Continue Eliquis 2.5 mg BID #Constipation- MiraLAX prn, sennosides prn - continue #[place]- Continue ferrous sulfate VTE Prophylaxis: Martaquis Dispo: treating UTI, maintain inpt hospital stay until safe discharge plan is in place, planning on palliative care and psychiatry consults on Friday Admission and Anticipated Discharge Date Admission Date: August 01, 2025 Subjective Reports feeling dizzy today although also says this has been going on but cannot give me much history on this or any details about this. Thinks she is getting it all the time even when lying down. Cannot delineate room spinning vs. lightheadedness vs. lack of balance. Physical Exam Constitutional: + not well nourished Respiratory: normal respiratory effort, lungs clear to auscultation Cardiovascular: RRR, no murmur, no edema Gastrointestinal (Abdomen): normal bowel sounds, soft, nontender, no hepatosplenomegaly Results & Data Results & Data Vital Signs (Past 12 Hours) Vital Signs Temp Pulse Resp BP Pulse Ox O2 Del Method 08/14/25 10:51 Room Air 08/14/25 07:11 36.7 C 60 16 111/69 95 Room Air PG Care Time/CCT Total # of Minutes Spent Total Time Spent with Patient: Total time spent is greater than 50% in coordination of care (as documented) at patient's floor/unit and/or counseling patient: Coding Level of Care Code 63541 SUB INP/OBS CARE 2/35MIN Diagnoses Acute UTI N39.0 Hypomagnesemia E83.42 Generalized weakness R53.1 Failure to thrive in adult R62.7 Schizoaffective disorder F25.9"
[2025-08-14] MEDS: APIXABAN 2.5 MG TAB PO SCH (21:02)
--- NOTE | 2025-08-14 21:34 | Electrocardiogram Report ---
Test Reason : Blood Pressure : */* mmHG Vent. Rate : 61 BPM Atrial Rate : 61 BPM P-R Int : 204 ms QRS Dur : 146 ms QT Int : 462 ms P-R-T Axes : 92 242 123 degrees QTcB Int : 465 ms Normal sinus rhythm Right bundle branch block T wave abnormality, consider lateral ischemia Possible Limb lead reversal Abnormal ECG When compared with ECG of 10-May-2025 17:36, QRS axis Shifted left T wave inversion now evident in Lateral leads Limb lead reversal may be present on current ECG Confirmed by Magdaleno Ribeiro ([id number] on 08/14/2025 9:33:35 PM Referred By: REFERRED SELF Confirmed By: Magdaleno Ribeiro
--- NOTE | 2025-08-15 09:50 | Palliative Care Consultation ---
Date of Consultation August 15, 2025 Assessment & Plan (1) Generalized weakness: (2) Acute alteration in mental status: (3) Palliative care by specialist: Met with pt and her spouse at bedside. Introduced Palliative Medicine and explained our role in advanced care planning, symptom management and navigation through the progression of life limiting disease. Mr Abraham was receptive to palliative services for goals of care discussions. Reviewed we are different from hospice, a home health nurse visiting service. (4) Counseling regarding goals of care: family meeting was held for Libby, from 14:00-14:30 to discuss GOC. This meeting was necessary for determining the appropriate course of treatment. Met at bedside with her spouse, Libby was not at all interactive through this time and did not participate in meeting. Braon Abraham, pt's spouse was present. Baron described Libby as an [place] immigrant who came to the [facility] with her grand parents when she was a teenager. He shared that when she was 14y, she had a "nervous breakdown" and was hospitalized in a psychiatric institution. He said that she has struggled with severe anxiety and fear her whole life and in the 1959's she had another "breakdown" and received "shock therapy" and was placed on thorazine at high dose. He said that they got in 1965 and have three adult children. He shared that he committed his life to her "better or for worse" and is determined to care for her at home for all of her days. He shared that caring for her has gotten more difficult and that he does not have help. Although he did admit that he hesitates to ask for help from his children and grand children who live close by because he doesn't want to bother them. He shared frustration that his has been refusing medications at home and he cannot force them on her. He shared that she has been nonambulatory for several months and her transfers her from bed to wheelchair and does all of her ADLs for her. He shared that she is more interactive after her monthly abilify dose, but it is getting more difficult to get her to appointments. He expressed concern that without the abilify "she is afraid of everything, the de dios, people, even the sound of the heater" and has periods of extreme anxiety. We discussed at length the patient's acute and chronic medical conditions, general prognosis, treatment options, and goals of care. Discussed feasibility of SNF on discharge and he is adamantly opposed insisting that he will do everything he can to care for her at home. He shared an awareness that if she is refusing food and her medications her prognosis is poor. Discussed code status and helped Baron understand that CPR is only done after a person has and involves uncomfortable and invasive procedures that, if successful. have high risk of multiple complications including but not limited to rib fractures, pneumo/hemothorax, HEATHER, ventilator dependence, anoxic brain injury, and retirement/permanent cognitive and functional deficits. Baron said that he and Libby have living jenkins at home and he requests DNR/DNI status. He also shared that he does not want her to return to the hospital once she goes home. We discussed hospice care resources as an option for assistance in providing the best care possible at home while allowing for a natural . Discussed hospice benefit: an interdisciplinary program offered by nurses, nurses aides, social workers, chaplains and a medical instructor for patients with a terminal condition and a life expectancy of less than 6 months. This is covered by Medicare at 100%/no out of pocket expense to patient and all meds/supplies needed by patient for the reason they are on hospice are paid for/covered by hospice. The goal is assure quality of life of the patient in their home setting (home, correction, inpatient hospice setting) by providing symptoms management, psychosocial and spiritual support. However, they cannot offer 24 hours care and if the family is unable to provide that care, they will have to consider personal care with out of pocket cost vs. correction placement. We discussed the goals of hospice as a patient service and the goals of care; we discussed EOL trajectories and transitions nadine the emotional impact of realizing mortality as a concrete reality from prior abstract considerations. They were reassured that no matter where they are along this trajectory, they are not alone - their medical team will remain by their side through their journey. Discussed the pros/cons of accepting help when especially weakened and distressed by pain-which would also help provide relief/decrease caregiver burden/strain. Hospice care focuses on quality of life when a cure is no longer possible, or the burdens of treatment outweigh the benefits. Discussed that they will not receive curative treatments, but will receive medicine that enhances quality of life, such as treatment for high blood pressure, rapid heart rate, or anxiety. Hospice care includes pain and symptom management, emotional support, medications and medical supplies, coaching for caregivers, grief support, and may include special services like speech and physical therapy when needed. Hospice also provides a 24/ call service. Baron ultimately wishes to take his back home with hospice, he shared that he would like a hospital bed, but will not be able to get furniture arranges for bed delivery until his son is available on Friday. Plan DNR/DNI, continue to optimize care through discharge to home with hospice ([facility] will meet patient at home). History of Present Illness Reason for Consultation: goals of care Requesting Physician: Miquel Ngo MD Attending Physician: Miquel Ngo MD History of Present Illness Mrs. Abraham is a 79 year old woman with past medical history of schizoaffective disorder, hypothyroidism, hypertension who presented to the ED on 08/01/2025 secondary to dysuria. She was admitted for management of her UTI. Allergies Allergy/AdvReac Type Severity Reaction Status Date / Time No Known Allergies Allergy Verified 06/10/25 13:50 Home Medications Medication Instructions Recorded Confirmed Type olanzapine 10 mg intramuscular 5 mg IM DAILY PRN agitation #6 ea 04/10/25 06/10/25 Rx solution aripiprazole 2 mg tablet (Abilify) 2 mg PO DAILY 04/29/25 06/10/25 History divalproex 250 mg tablet,delayed 250 mg PO DIRECTED 04/29/25 06/10/25 History release (Depakote) polyethylene glycol 3350 17 gram 17 g PO DAILY PRN Constipation 04/29/25 06/10/25 History oral powder packet (Miralax) sennosides 8.6 mg tablet (Senna 8.6 mg PO QAM PRN Constipation 04/29/25 06/10/25 History Lax) carvedilol 3.125 mg tablet 3.125 mg PO BIDM #180 tabs 05/03/25 06/10/25 Rx amlodipine 5 mg tablet 5 mg PO DAILY #90 tabs 05/06/25 06/10/25 Rx levothyroxine 100 mcg tablet 100 mcg PO DAILY #90 tabs 05/06/25 06/10/25 Rx acetaminophen 325 mg tablet 650 mg (2 x 325 mg) PO Q4H PRN #0 05/20/25 06/10/25 Rx tabs apixaban 2.5 mg tablet (Eliquis) 2.5 mg PO BID #0 tabs 05/20/25 06/10/25 Rx aripiprazole 15 mg tablet (Abilify) 15 mg PO QAM #0 tabs 05/20/25 06/10/25 Rx ferrous sulfate 325 mg (65 mg 325 mg PO Q48H #90 tabs 05/20/25 06/10/25 Rx iron) tablet (Iron (ferrous sulfate)) olanzapine 5 mg disintegrating 5 mg PO Q8H PRN #0 tabs 05/20/25 06/10/25 Rx tablet aspirin 81 mg tablet 81 mg PO DAILY 06/10/25 06/10/25 History aripiprazole lauroxil 662 mg/2.4 662 mg (2.4 mL) IM UD #2.4 mL 08/08/25 08/08/25 Rx mL suspension, ext.rel. IM syringe (Aristada) Patient History Medical History Acute alteration in mental status Closed coccygeal fracture AMS (altered mental status) HTN (hypertension), benign Hypothyroid Schizophrenia Impaired fasting glucose Bradycardia Delirium Lyme disease Essential hypertension VTE (venous thromboembolism) COVID-19 Surgical History History of hysterectomy Family History Father Stroke Denies family history of Ovarian cancer Prostate cancer Myocardial infarction Breast cancer Colorectal cancer Social History Smoking Status: Never smoker Second Hand Exposure: No; Do You Dip or Chew Tobacco: No; Hx Alcohol Use: No Hx Substance Use: No Preferred Language: Australian Communication Ability: Impaired Visual Impairment: No Limitations Medical Record Retrieval Specialist Required: No Beliefs That Will Affect Care: None Current Living Situation: Spouse Other Information That Helps Us Care for You: No Feels Safe at Home: Yes Safety Concerns: Feels Safe At This Time Assistive Devices: Cane, Walker and Wheelchair Review of Systems Review of Systems: All systems reviewed & are unremarkable except as noted in HPI & below Physical Exam Respiratory: normal respiratory effort, lungs clear to auscultation Cardiovascular: RRR, no murmur, no edema Gastrointestinal (Abdomen): Percussion/Palpation: abdomen soft; abdomen nontender Psychiatric: Orientation: alert and oriented to person; + not oriented to place and + not oriented to time Results & Data Vital Signs (Past 12 Hours) Vital Signs Temp Pulse Resp BP Pulse Ox O2 Del Method 08/15/25 07:08 36.6 C 54 L 16 111/62 92 Room Air 08/14/25 22:30 36.6 C 67 18 116/64 96 Room Air Diagnostic Findings Chest X-Ray 08/01/25 19:35 Exam(s): XR CXR 1 VIEW EXAM: XR Chest, 1 View CLINICAL HISTORY: Reason for exam: altered mental state. TECHNIQUE: Frontal view of the chest. COMPARISON: Prior chest x-ray from June 10, 2025. FINDINGS: Lungs: Mild to moderate peribronchial thickening of the central and right lower lobe bronchi with increased interstitial opacities in the right lower lobe. No consolidation. Pleural space: Unremarkable. No pneumothorax. Heart: Unremarkable. No cardiomegaly. Mediastinum: Unremarkable. Normal mediastinal contour. Bones/joints: Diffuse osteopenia throughout the visualized bones. No acute fracture. IMPRESSION: Bronchitis, which may be of infectious or inflammatory etiologies. No consolidation or pleural effusion. Electronically signed by: Katarzyna Tucker MD 08/01/25 22:14 PM Medications Administered Current Inpatient Medications Acetaminophen (Acetaminophen 325 Mg Tab) 650 mg PO Q4H PRN PRN Reason: pain/fever Stop: 08/31/25 16:44 Last Admin: 08/14/25 16:55 Dose: 650 mg Acetaminophen (Acetaminophen 500 Mg Tab) 500 mg PO BID [facility] Stop: 09/08/25 20:59 Last Admin: 08/15/25 08:25 Dose: 500 mg Apixaban (Apixaban 2.5 Mg Tab) 2.5 mg PO BID [facility] Stop: 09/13/25 20:59 Last Admin: 08/15/25 08:27 Dose: 2.5 mg Celecoxib (Celebrex 200 Mg Cap) 200 mg PO QAM [facility] Stop: 09/10/25 09:44 Last Admin: 08/15/25 08:27 Dose: 200 mg Divalproex Sodium (Divalproex Delay Release 250 Mg Tabec) 250 mg PO QAM [facility] Stop: 09/01/25 08:59 Last Admin: 08/15/25 08:28 Dose: 250 mg Divalproex Sodium (Divalproex Delay Release 250 Mg Tabec) 500 mg PO QPM JULIANE Stop: 08/31/25 20:59 Last Admin: 08/14/25 21:02 Dose: 500 mg Levothyroxine Sodium (Levothyroxine Sodium 100 Mcg Tablet) 100 mcg PO DAILYBB JULIANE Stop: 09/01/25 06:29 Last Admin: 08/15/25 05:25 Dose: Not Given Nitrofurantoin Macrocrystals (Nitrofurantoin Monohydrate 100 Mg Cap) 100 mg PO BID [facility] Stop: 08/15/25 20:59 Last Admin: 08/15/25 08:28 Dose: 100 mg Olanzapine (Olanzapine Zydis 5 Mg Orally Dis. Tab) 5 mg PO Q8H PRN PRN Reason: Delirium (at risk to self/othe Stop: 08/31/25 16:44 Last Admin: 08/02/25 00:38 Dose: 5 mg Pantoprazole Sodium (Pantoprazole 40 Mg Tab) 40 mg PO DAILY JULIANE Stop: 09/10/25 09:44 Last Admin: 08/15/25 08:29 Dose: 40 mg Polyethylene Glycol (Polyethylene (Miralax) 17 Gm Pack) 17 gm PO DAILY PRN PRN Reason: Constipation Stop: 08/31/25 16:44 Senna/Docusate Sodium (Docusate Sodium/Senna 50/8.6mg Tab) 1 tab PO HS [facility] Stop: 09/07/25 20:59 Last Admin: 08/14/25 21:02 Dose: 1 tab Sennosides (Senna 8.6 Mg Tab) 8.6 mg PO QAM PRN PRN Reason: Constipation Stop: 08/31/25 16:44 PG Care Time/CCT Total # of Minutes Spent Total Time Spent with Patient: Total time spent is greater than 50% in coordination of care (as documented) at patient's floor/unit and/or counseling patient: Advanced Care Planning 26059 Advanced Care Planning 30 Min 53242 Advanced Care Planning Additional 30 [place] [address] IN/OBS CONSULT LVL 4,60M Patient Type New History Expanded Problem Focused Exam Expanded Problem Focused Medical Decision Making Moderate Complexity Diagnoses Generalized weakness R53.1 Acute alteration in mental status R41.82 Palliative care by specialist Z51.5 Counseling regarding goals of care Z71.89 Additional Codes Advanced Care Planning - 79955 Advanced Care Planning 30 Min: 55504 Advanced Care Planning 30 Min ([id number]) Advanced Care Planning - 90597 Advanced Care Planning Additional 30 Min: 19386 Advanced Care Planning Additional 30 Min ([id number])
--- NOTE | 2025-08-15 13:45 | Hospitalist Progress Note ---
"Date of Service August 15, 2025 Assessment & Plan (1) Acute UTI: (2) Hypomagnesemia: (3) Generalized weakness: (4) Failure to thrive in adult: (5) Schizoaffective disorder: Plan This is a 79 year old woman with past medical history of schizoaffective disorder, hypothyroidism, hypertension who presented to the ED on 08/01/2025 secondary to dysuria. She was admitted for management of her UTI. #UTI | urine retention Initial urine culture grew Klebsiella oxytoc/Ethan ornith - completed course of cefuroxime. Temple leaking - removed 08/08 and unfortunately with episodes of retention 08/09 require straight cath and again 08/10 so temple was replaced. Vancomycin resistant enterococcus - continue nitrofurantoin (last day today) Contact isolation #Failure to thrive | severe malnutrition - [facility], Libby has not taken her routine medications in 9 weeks. Reports that he asked her every day if she is having UTI symptoms and she always has no until the day that she was brought to the hospital. She reports that Libby think she cannot walk but will sometimes be wandering the house at night stating that someone told her to go to a different room - Pt refusing to participate in PT/OT sessions while inpatient - Not ideal rehab candidate given refusal to participate in PT/OT & lacks the ability to follow direction currently - Discussed with CM that patient's goal is for her to return home. At this time do not feel safe as she is a x2 assist. Aristada injection given 08/09 - reports usually takes 48 hours to feel better. Thinks she cannot walk due to arthritis and dizziness, encouraged her she can and she is willing to take Tylenol. Patient continues to refuse to get out of bed Discussion with 08/13 - requests palliative and psychiatry evaluations which will place on Friday. Again refuses to consider SNF placement which is also a large financial concern to him. #Dizziness Unable to give much history, trial off anti-hypertensives which she refuses to take at home anyway #Schizoaffective disorder and dementia - Multiple readmissions - pt seems to do much better when she has the injectable Abilify on board. Has been set up with [facility] for consistent outpatient follow up, but [facility] has rescheduled their appointment. Next appointment scheduled 11/21 Abilify injection brought in by patient and administered 08/09 - Continue Aripiprazole IM depot injection, divalproex, Olanzapine prn - Lacks decisional capacity - Consult psychiatry #Hypomagnesemia - Resolved #Hypothyroidism - TSH WNL 08/06 - Continue levothyroxine #Moderate aortic stenosis - stable #HTN - Stop amlodipine and carvedilol #H/o DVT - remote. Continue Eliquis 2.5 mg BID #Constipation- MiraLAX prn, sennosides prn - continue #CHARLOTTE- Continue ferrous sulfate VTE Prophylaxis: Eliquis Dispo: rehab vs. home on hospice, pending conversation with palliative care today Admission and Anticipated Discharge Date Admission Date: August 01, 2025 Subjective Ongoing reports of dizziness but cannot expand on this. Per she was complaining of this at home as well in addition to always saying she has a UTI. Physical Exam Eyes: EOM intact bilaterally (without diplopia) Respiratory: normal respiratory effort, lungs clear to auscultation Cardiovascular: RRR, no murmur, no edema Gastrointestinal (Abdomen): Percussion/Palpation: abdomen soft; abdomen nontender Psychiatric: Orientation: alert and oriented to person; + not oriented to place and + not oriented to time Results & Data Results & Data Vital Signs (Past 12 Hours) Vital Signs Temp Pulse Resp BP Pulse Ox O2 Del Method 08/15/25 07:30 Room Air 08/15/25 07:08 36.6 C 54 L 16 111/62 92 Room Air PG Care Time/CCT Total # of Minutes Spent Total Time Spent with Patient: Total time spent is greater than 50% in coordination of care (as documented) at patient's floor/unit and/or counseling patient: Coding Level of Care Code 27887 SUB INP/OBS CARE 2/35MIN Diagnoses Acute UTI N39.0 Hypomagnesemia E83.42 Generalized weakness R53.1 Failure to thrive in adult R62.7 Schizoaffective disorder F25.9"
--- NOTE | 2025-08-16 14:59 | Palliative Care Progress Note ---
Date of Service August 16, 2025 Assessment & Plan (1) Generalized weakness: (2) Acute alteration in mental status: (3) Palliative care by specialist: Plan: Met with pt and her spouse at bedside. Introduced Palliative Medicine and explained our role in advanced care planning, symptom management and navigation through the progression of life limiting disease. Mr Abraham was receptive to palliative services for goals of care discussions. Reviewed we are different from hospice, a home health nurse visiting service. (4) Counseling regarding goals of care: Plan: TODAY: no visitors present, attempt to call spouse unsuccessfully x2. 08/15: family meeting was held for Libby, from 14:00-14:30 to discuss GOC. This meeting was necessary for determining the appropriate course of treatment. Met at bedside with her spouse, Libby was not at all interactive through this time and did not participate in meeting. Baron Abraham, pt's spouse was present. Baron described Libby as an [place] immigrant who came to the [facility] with her grand parents when she was a teenager. He shared that when she was 14y, she had a "nervous breakdown" and was hospitalized in a psychiatric institution. He said that she has struggled with severe anxiety and fear her whole life and in the s she had another "breakdown" and received "shock therapy" and was placed on thorazine at high dose. He said that they got in 1965 and have three adult children. He shared that he committed his life to her "better or for worse" and is determined to care for her at home for all of her days. He shared that caring for her has gotten more difficult and that he does not have help. Although he did admit that he hesitates to ask for help from his children and grand children who live close by because he doesn't want to bother them. He shared frustration that his has been refusing medications at home and he cannot force them on her. He shared that she has been nonambulatory for several months and her transfers her from bed to wheelchair and does all of her ADLs for her. He shared that she is more interactive after her monthly abilify dose, but it is getting more difficult to get her to appointments. He expressed concern that without the abilify "she is afraid of everything, the de dios, people, even the sound of the heater" and has periods of extreme anxiety. We discussed at length the patient's acute and chronic medical conditions, general prognosis, treatment options, and goals of care. Discussed feasibility of SNF on discharge and he is adamantly opposed insisting that he will do everything he can to care for her at home. He shared an awareness that if she is refusing food and her medications her prognosis is poor. Discussed code status and helped Baron understand that CPR is only done after a person has and involves uncomfortable and invasive procedures that, if successful. 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 Baron said that he and Libby have living jenkins at home and he requests DNR/DNI status. He also shared that he does not want her to return to the hospital once she goes home. We discussed hospice care resources as an option for assistance in providing the best care possible at home while allowing for a natural . Discussed hospice benefit: an interdisciplinary program offered by nurses, nurs es aides, social workers, chaplains and a medical office secretary for patients with a terminal condition and a life expectancy of less than 6 months. This is covered by Medicare at 100%/no out of pocket expense to patient and all meds/supplies needed by patient for the reason they are on hospice are paid for/covered by hospice. The goal is assure quality of life of the patient in their home setting ([place], [place] [facility], inpatient hospice setting) by providing symptoms management, psychosocial and spiritual support. However, they cannot offer 24 hours care and if the family is unable to provide that care, they will have to consider personal care with out of pocket cost vs. [place] [facility] placement. We discussed the goals of hospice as a patient service and the goals of care; we d iscussed EOL trajectories and transitions nadine the emotional impact of realizing mortality as a concrete reality from prior abstract considerations. They were reassured that no matter where they are along this trajectory, they are not alone - their medical team will remain by their side through their journey. Discussed the pros/cons of accepting help when especially weakened and distressed by pain-which would also help provide relief/decrease caregiver burden/strain. Hospice care focuses on quality of life when a cure is no longer possible, or the burdens of treatment outweigh the benefits. Discussed that they will not receive curative treatments, but will receive medicine that enhances quality of life, such as treatment for high blood pressure, rapid heart rate, or anxiety. Hospice care includes pain and symptom management, emotional support, medications and medical supplies, coaching for caregivers, grief support, and may include special services like speech and physical therapy when needed. Hospice also provides a 24/7 call service. Baron ultimately wishes to take his back home with hospice, he shared that he would like a hospital bed, but will not be able to get furniture arranges for bed delivery until his son is available on Friday. Plan DNR/DNI, continue to optimize care through discharge to home with hospice ([facility] will meet patient at home). Admission and Anticipated Discharge Date Admission Date: August 01, 2025 Subjective Assessed pt at bedside today, no visitors present. Pt denies any physical complaints and states she wishes to go home. Review of Systems Review of Systems: Unobtainable due to cognitive status Physical Exam Respiratory: normal respiratory effort, lungs clear to auscultation Cardiovascular: RRR, no murmur, no edema Gastrointestinal (Abdomen): Percussion/Palpation: abdomen soft; abdomen nontender Psychiatric: Orientation: alert and oriented to person; + not oriented to place and + not oriented to time Results & Data Vital Signs (Past 12 Hours) Vital Signs Temp Pulse Resp BP Pulse Ox O2 Del Method 08/16/25 07:33 36.6 C 54 L 16 128/65 94 Room Air Laboratory Results No further labs or diagnostics in concert with comfort directed care. Diagnostic Findings No further labs or diagnostics in concert with comfort directed care. Medications Administered Current Inpatient Medications Acetaminophen (Acetaminophen 325 Mg Tab) 650 mg PO Q4H PRN PRN Reason: pain/fever Stop: 08/31/25 16:44 Last Admin: 08/14/25 16:55 Dose: 650 mg Acetaminophen (Acetaminophen 500 Mg Tab) 500 mg PO BID JULIANE Stop: 09/08/25 20:59 Last Admin: 08/16/25 10:33 Dose: 500 mg Apixaban (Apixaban 2.5 Mg Tab) 2.5 mg PO BID JULIANE Stop: 09/13/25 20:59 Last Admin: 08/16/25 10:37 Dose: 2.5 mg Celecoxib (Celebrex 200 Mg Cap) 200 mg PO QAM JULIANE Stop: 09/10/25 09:44 Last Admin: 08/16/25 10:41 Dose: 200 mg Divalproex Sodium (Divalproex Delay Release 250 Mg Tabec) 250 mg PO QAM JULIANE Stop: 09/01/25 08:59 Last Admin: 08/16/25 10:42 Dose: 250 mg Divalproex Sodium (Divalproex Delay Release 250 Mg Tabec) 500 mg PO QPM JULIANE Stop: 08/31/25 20:59 Last Admin: 08/15/25 20:38 Dose: 500 mg Levothyroxine Sodium (Levothyroxine Sodium 100 Mcg Tablet) 100 mcg PO DAILYBB [facility] Stop: 09/01/25 06:29 Last Admin: 08/16/25 06:15 Dose: Not Given Olanzapine (Olanzapine Zydis 5 Mg Orally Dis. Tab) 5 mg PO Q8H PRN PRN Reason: Delirium (at risk to self/othe Stop: 08/31/25 16:44 Last Admin: 08/02/25 00:38 Dose: 5 mg Pantoprazole Sodium (Pantoprazole 40 Mg Tab) 40 mg PO DAILY [facility] Stop: 09/10/25 09:44 Last Admin: 08/16/25 10:41 Dose: 40 mg Polyethylene Glycol (Polyethylene (Miralax) 17 Gm Pack) 17 gm PO DAILY PRN PRN Reason: Constipation Stop: 08/31/25 16:44 Senna/Docusate Sodium (Docusate Sodium/Senna 50/8.6mg Tab) 1 tab PO HS [facility] Stop: 09/07/25 20:59 Last Admin: 08/15/25 20:48 Dose: Not Given Sennosides (Senna 8.6 Mg Tab) 8.6 mg PO QAM PRN PRN Reason: Constipation Stop: 08/31/25 16:44 PG Care Time/CCT Total # of Minutes Spent Total Time Spent with Patient: Total time spent is greater than 50% in coordination of care (as documented) at patient's floor/unit and/or counseling patient: Coding [place] [address] SUB INP/OBS CARE 2/35MIN Patient Type Established History Expanded Problem Focused Exam Expanded Problem Focused Medical Decision Making Moderate Complexity Diagnoses Generalized weakness R53.1 Acute alteration in mental status R41.82 Palliative care by specialist Z51.5 Counseling regarding goals of care Z71.89
--- NOTE | 2025-08-16 17:49 | Psychiatric Consultation ---
Date of Consultation August 16, 2025 Impression / Recommendations Impression Patient is a 79-year-old female with history of schizoaffective disorder. She has a supportive family that knows her history well. Has previous good response to Abilify long-acting injectable. Recent deterioration appears to be related to labs and treatment. There is no evidence of need for antidepressants at this time. Furthermore, SSRIs may cause electrolyte imbalances that may complicate her condition further. I spoke with family service caseworker, nursing, family. there is no evidence of recent episodes of agitation or aggressive behavior. -Recommend continuing Abilify long-acting injectable at patient's regular dose. Most recent dose was given at 08/09/2025. This is first injection after 5 months labs. Expect to need at least 3 more doses before more robust effect can be observed. If starting palliative care patient should continue to receive this injection. -Consider discontinuing Depakote given that current dose is not producing therapeutic levels but may be implicated in the thrombocytopenia observed on recent labs. -Recommend encouraging patient to ambulate and dietary consult to assist with anemia and failure to thrive. -Family will need clarification regarding the need and the stipulations for palliative care, right to receive assistance and right to refuse. Patient does not meet criteria for inpatient psychiatric care -She has a scheduled appointment with outpatient psychiatry at [facility] on 08/19/2025 that may need to be rescheduled if patient is still needing medical hospitalization Overall, I spent a total of 80 minutes with this case, including review of chart,direct evaluation of the patient,communication with family, interdisciplinary team meeting,risk assessment,and documentation. (1) Failure to thrive in adult: (2) Schizoaffective disorder: Psych History Identifying Data MOLLY DE LA CRUZ is a 79-year-old F who currently lives with her , has a history of schizoaffective disorder , and was admitted on 08/01/25 13:04 to the medical floor due to management of UTI. Psychiatry consulted for medication management. Chief Complaint " You can go now." History of Present Illness Patient was in the company of her and her youngest son. She was awake and alert but unwilling to answer questions. When I attempted to get close to her forward the evaluation patient requested I left the room. However, her has been to stay and provided valuable information about her theatric history and current mental state. According to patient's , patient was born in [facility] her father was in the . Her mother was taken to [facility]. The patient moved to the when she was 14. She had a "mental breakdown" at the age of 15 and was admitted to a psychiatric hospital. She was treated with electroshock in the past and was prescribed Thorazine 200 mg daily for 20 years. The patient stopped taking Thorazine due to her desire to become a mother. She did not take medications during the and did not appear to decompensate. Patient had a stroke in 2017. When she resumed medications Thorazine was not recommended, instead she was prescribed Depakote 200 mg at bedtime and Seroquel 300 mg at bedtime which appeared to work well. In the last 5 years the psychiatric team visited the patient at home (in [place]) and change Seroquel to Abilify long-acting injectable. Patient has been stable on the medication until they moved to [place] and patient did not have access to the medication for 5 months due to insurance constraints. Since then her physical health has also been deteriorating. The reported that the patient has a long history of "fear and hearing voices and lately has been" telling him that her family is alive (false beliefs). Although she is not back to baseline, the stated that today she "60% better than last week." Allergies Allergy/AdvReac Type Severity Reaction Status Date / Time No Known Allergies Allergy Verified 06/10/25 13:50 Home Medications Medication Instructions Recorded Confirmed Type olanzapine 10 mg intramuscular 5 mg IM DAILY PRN agitation #6 ea 04/10/25 06/10/25 Rx solution aripiprazole 2 mg tablet (Abilify) 2 mg PO DAILY 04/29/25 06/10/25 History divalproex 250 mg tablet,delayed 250 mg PO DIRECTED 04/29/25 06/10/25 History release (Depakote) polyethylene glycol 3350 17 gram 17 g PO DAILY PRN Constipation 04/29/25 06/10/25 History oral powder packet (Miralax) sennosides 8.6 mg tablet (Senna 8.6 mg PO QAM PRN Constipation 04/29/25 06/10/25 History Lax) carvedilol 3.125 mg tablet 3.125 mg PO BIDM #180 tabs 05/03/25 06/10/25 Rx amlodipine 5 mg tablet 5 mg PO DAILY #90 tabs 05/06/25 06/10/25 Rx levothyroxine 100 mcg tablet 100 mcg PO DAILY #90 tabs 05/06/25 06/10/25 Rx acetaminophen 325 mg tablet 650 mg (2 x 325 mg) PO Q4H PRN #0 05/20/25 06/10/25 Rx tabs apixaban 2.5 mg tablet (Eliquis) 2.5 mg PO BID #0 tabs 05/20/25 06/10/25 Rx aripiprazole 15 mg tablet (Abilify) 15 mg PO QAM #0 tabs 05/20/25 06/10/25 Rx ferrous sulfate 325 mg (65 mg 325 mg PO Q48H #90 tabs 05/20/25 06/10/25 Rx iron) tablet (Iron (ferrous sulfate)) olanzapine 5 mg disintegrating 5 mg PO Q8H PRN #0 tabs 05/20/25 06/10/25 Rx tablet aspirin 81 mg tablet 81 mg PO DAILY 06/10/25 06/10/25 History aripiprazole lauroxil 662 mg/2.4 662 mg (2.4 mL) IM UD #2.4 mL 08/08/25 08/08/25 Rx mL suspension, ext.rel. IM syringe ([place]) Patient History Medical History Acute alteration in mental status Closed coccygeal fracture AMS (altered mental status) HTN (hypertension), benign Hypothyroid Schizophrenia Impaired fasting glucose Bradycardia Delirium Lyme disease Essential hypertension VTE (venous thromboembolism) COVID-19 Surgical History History of hysterectomy Family History Father Stroke Denies family history of Ovarian cancer Prostate cancer Myocardial infarction Breast cancer Colorectal cancer Social History Smoking Status: Never smoker Second Hand Exposure: No; Do You Dip or Chew Tobacco: No; Hx Alcohol Use: No Hx Substance Use: No Preferred Language: Malay Communication Ability: Impaired Visual Impairment: No Limitations Pumper Hand Required: No Beliefs That Will Affect Care: None Current Living Situation: Spouse Other Information That Helps Us Care for You: No Feels Safe at Home: Yes Safety Concerns: Feels Safe At This Time Assistive Devices: Cane, Walker and Wheelchair Physical Exam Vital Signs (Past 24 Hours): Last Vital Signs Temp 36.7 C 08/16/25 15:25 Pulse 58 L 08/16/25 15:25 Resp 16 08/16/25 15:25 BP 137/68 08/16/25 15:25 Pulse Ox 96 08/16/25 15:25 O2 Del Method Room Air 08/16/25 15:25 Review of Systems Refused to answer questions Results & Data (PSY) Laboratory Results Positive COVID test in May 2024 Positive IgM for Lyme's in June 2024 most recent valproic acid level is below 10 UA shows results consistent with UTI CBC shows anemia, neutropenia and thrombocytopenia, (thrombocytopenia appears to be progressing, went from 129 on -106 on 08/11/2025) Hemoglobin A1c 6.1 [id number] head 05/06/25: There is unchanged cerebral atrophy, within expected limits for the patient's age. Diagnostic Findings Schizoaffective disorder by history Medications Administered Acetaminophen (Acetaminophen 325 Mg Tab) 650 mg PO Q4H PRN PRN Reason: pain/fever Stop: 08/31/25 16:44 Last Admin: 08/14/25 16:55 Dose: 650 mg Documented By: Admin: 08/13/25 13:40 Dose: 650 mg Documented By: Admin: 08/08/25 20:25 Dose: 650 mg Documented By: Admin: 08/07/25 20:26 Dose: 650 mg Documented By: Admin: 08/04/25 09:11 Dose: 650 mg Documented By: SAMREEN Acetaminophen (Acetaminophen 500 Mg Tab) 500 mg PO BID JULIANE Stop: 09/08/25 20:59 Last Admin: 08/16/25 10:33 Dose: 500 mg Documented By: cdc Admin: 08/15/25 20:38 Dose: 500 mg Documented By: Admin: 08/15/25 08:25 Dose: 500 mg Documented By: Admin: 08/14/25 21:02 Dose: 500 mg Documented By: Admin: 08/14/25 09:10 Dose: 500 mg Documented By: Admin: 08/13/25 20:36 Dose: 500 mg Documented By: Admin: 08/13/25 09:53 Dose: 500 mg Documented By: Admin: 08/12/25 20:32 Dose: Not Given Documented By: Admin: 08/12/25 08:23 Dose: 500 mg Documented By: Admin: 08/11/25 20:29 Dose: 500 mg Documented By: Admin: 08/11/25 09:38 Dose: Not Given Documented By: Admin: 08/10/25 22:10 Dose: 500 mg Documented By: psc Admin: 08/10/25 08:36 Dose: 500 mg Documented By: asg Admin: 08/09/25 20:32 Dose: 500 mg Documented By: CECIL Apixaban (Apixaban 2.5 Mg Tab) 2.5 mg PO BID JULIANE Stop: 09/13/25 20:59 Last Admin: 08/16/25 10:37 Dose: 2.5 mg Documented By: cdc Admin: 08/15/25 20:38 Dose: 2.5 mg Documented By: Admin: 08/15/25 08:27 Dose: 2.5 mg Documented By: Admin: 08/14/25 21:02 Dose: 2.5 mg Documented By: SOTO Celecoxib (Celebrex 200 Mg Cap) 200 mg PO QAM JULIANE Stop: 09/10/25 09:44 Last Admin: 08/16/25 10:41 Dose: 200 mg Documented By: cdc Admin: 08/15/25 08:27 Dose: 200 mg Documented By: Admin: 08/14/25 09:12 Dose: 200 mg Documented By: Admin: 08/13/25 10:15 Dose: Not Given Documented By: Admin: 08/12/25 08:18 Dose: 200 mg Documented By: Admin: 08/11/25 10:00 Dose: 200 mg Documented By: GERARD Divalproex Sodium (Divalproex Delay Release 250 Mg Tabec) 250 mg PO QAM JULIANE Stop: 09/01/25 08:59 Last Admin: 08/16/25 10:42 Dose: 250 mg Documented By: cdc Admin: 08/15/25 08:28 Dose: 250 mg Documented By: Admin: 08/14/25 09:17 Dose: 250 mg Documented By: Admin: 08/13/25 10:14 Dose: Not Given Documented By: Admin: 08/12/25 08:17 Dose: 250 mg Documented By: Admin: 08/11/25 09:31 Dose: 250 mg Documented By: Admin: 08/10/25 08:36 Dose: 250 mg Documented By: asg Admin: 08/09/25 08:17 Dose: 250 mg Documented By: tca Admin: 08/08/25 08:16 Dose: 250 mg Documented By: tca Admin: 08/07/25 08:27 Dose: 250 mg Documented By: Admin: 08/06/25 09:11 Dose: 250 mg Documented By: Admin: 08/05/25 08:58 Dose: 250 mg Documented By: Admin: 08/04/25 09:08 Dose: 250 mg Documented By: Admin: 08/03/25 10:06 Dose: Not Given Documented By: wnt Admin: 08/02/25 08:19 Dose: 250 mg Documented By: LMC Divalproex Sodium (Divalproex Delay Release 250 Mg Tabec) 500 mg PO QPM JULIANE Stop: 08/31/25 20:59 Last Admin: 08/15/25 20:38 Dose: 500 mg Documented By: Admin: 08/14/25 21:02 Dose: 500 mg Documented By: Admin: 08/13/25 20:36 Dose: 500 mg Documented By: Admin: 08/12/25 20:32 Dose: Not Given Documented By: Admin: 08/11/25 20:29 Dose: 500 mg Documented By: Admin: 08/10/25 22:07 Dose: 500 mg Documented By: psc Admin: 08/09/25 20:32 Dose: 500 mg Documented By: Admin: 08/08/25 20:27 Dose: 500 mg Documented By: Admin: 08/07/25 20:16 Dose: 500 mg Documented By: Admin: 08/06/25 20:49 Dose: 500 mg Documented By: Admin: 08/05/25 21:18 Dose: 500 mg Documented By: Admin: 08/04/25 19:59 Dose: 500 mg Documented By: asg Admin: 08/03/25 20:44 Dose: 500 mg Documented By: asg Admin: 08/02/25 20:15 Dose: 500 mg Documented By: asabdi Admin: 08/01/25 20:23 Dose: 500 mg Documented By: ANGIE Levothyroxine Sodium (Levothyroxine Sodium 100 Mcg Tablet) 100 mcg PO DAILYBB [facility] Stop: 09/01/25 06:29 Last Admin: 08/16/25 06:15 Dose: Not Given Documented By: Admin: 08/15/25 05:25 Dose: Not Given Documented By: Admin: 08/14/25 05:09 Dose: 100 mcg Documented By: Admin: 08/13/25 05:28 Dose: Not Given Documented By: Admin: 08/12/25 05:41 Dose: 100 mcg Documented By: Admin: 08/11/25 05:37 Dose: 100 mcg Documented By: psc Admin: 08/10/25 05:34 Dose: 100 mcg Documented By: Admin: 08/09/25 05:17 Dose: 100 mcg Documented By: Admin: 08/08/25 05:38 Dose: 100 mcg Documented By: Admin: 08/07/25 05:48 Dose: 100 mcg Documented By: Admin: 08/06/25 06:09 Dose: 100 mcg Documented By: Admin: 08/05/25 05:40 Dose: 100 mcg Documented By: asg Admin: 08/04/25 05:29 Dose: 100 mcg Documented By: asg Admin: 08/03/25 05:42 Dose: 100 mcg Documented By: asg Admin: 08/02/25 05:21 Dose: 100 mcg Documented By: ANGIE Olanzapine (Olanzapine Zydis 5 Mg Orally Dis. Tab) 5 mg PO Q8H PRN PRN Reason: Delirium (at risk to self/othe Stop: 08/31/25 16:44 Last Admin: 08/02/25 00:38 Dose: 5 mg Documented By: ANGIE Pantoprazole Sodium (Pantoprazole 40 Mg Tab) 40 mg PO DAILY JULIANE Stop: 09/10/25 09:44 Last Admin: 08/16/25 10:41 Dose: 40 mg Documented By: cdc Admin: 08/15/25 08:29 Dose: 40 mg Documented By: Admin: 08/14/25 09:18 Dose: 40 mg Documented By: Admin: 08/13/25 10:14 Dose: Not Given Documented By: Admin: 08/12/25 08:18 Dose: 40 mg Documented By: Admin: 08/11/25 10:00 Dose: 40 mg Documented By: CS Senna/Docusate Sodium (Docusate Sodium/Senna 50/8.6mg Tab) 1 tab PO HS JULIANE Stop: 09/07/25 20:59 Last Admin: 08/15/25 20:48 Dose: Not Given Documented By: Admin: 08/14/25 21:02 Dose: 1 tab Documented By: Admin: 08/13/25 20:36 Dose: 1 tab Documented By: Admin: 08/12/25 20:32 Dose: Not Given Documented By: Admin: 08/11/25 20:29 Dose: 1 tab Documented By: Admin: 08/10/25 22:04 Dose: 1 tab Documented By: psc Admin: 08/09/25 20:25 Dose: Not Given Documented By: Admin: 08/08/25 20:25 Dose: 1 tab Documented By: RES [place] [address] IN/OBS CONSULT LVL 5,80M Patient Type New History Problem Focused Exam Problem Focused Medical Decision Making High Complexity Diagnoses Failure to thrive in adult R62.7 Schizoaffective disorder F25.9 Time Spent (min) 80
--- NOTE | 2025-08-16 19:04 | Hospitalist Progress Note ---
"Date of Service August 16, 2025 Assessment & Plan (1) Acute UTI: (2) Hypomagnesemia: (3) Generalized weakness: (4) Failure to thrive in adult: (5) Schizoaffective disorder: Plan This is a 79 year old woman with past medical history of schizoaffective disorder, hypothyroidism, hypertension who presented to the ED on 08/01/2025 secondary to dysuria. She was admitted for management of her UTI. #UTI | urine retention Initial urine culture grew Klebsiella oxytoc/Ethan ornith - completed course of cefuroxime. Temple leaking - removed 08/08 and unfortunately with episodes of retention 08/09 require straight cath and again 08/10 so temple was replaced. Vancomycin resistant enterococcus - finished nitrofurantoin Contact isolation #Failure to thrive | severe malnutrition - additional history gathered from 08/08, Libby has not taken her routine medications in 9 weeks. Reports that he asked her every day if she is having UTI symptoms and she always has no until the day that she was brought to the hospital. She reports that Libby think she cannot walk but will sometimes be wandering the house at night stating that someone told her to go to a different room - Pt refusing to participate in PT/OT sessions while inpatient - Not ideal rehab candidate given refusal to participate in PT/OT & lacks the ability to follow direction currently - Discussed with CM that patient's goal is for her to return home. At this time do not feel safe as she is a x2 assist. Aristada injection given 08/09 - reports usually takes 48 hours to feel better. Thinks she cannot walk due to arthritis and dizziness, encouraged her she can and she is willing to take Tylenol. Patient continues to refuse to get out of bed. Celebrex started for arthritis After discussion with palliative planning on home with hospice care #Dizziness Appears to be improved off BP medications which she doesn't take at home due to non complaince #Schizoaffective disorder and dementia - Multiple readmissions - pt seems to do much better when she has the injectable Abilify on board. Has been set up with [facility] for consistent outpatient follow up, but [facility] has rescheduled their appointment. Next appointment scheduled 08/19 Abilify injection brought in by patient and administered 08/09 - Continue Aripiprazole IM depot injection, divalproex, Olanzapine prn - Lacks decisional capacity - Consult psychiatry #Hypomagnesemia - Resolved #Hypothyroidism - TSH WNL 08/06 - Continue levothyroxine #Moderate aortic stenosis - stable #HTN - Stop amlodipine and carvedilol #H/o DVT - remote. Continue Eliquis 2.5 mg BID #Constipation- MiraLAX prn, sennosides prn - continue #CHARLOTTE- Continue ferrous sulfate VTE Prophylaxis: Eliquis Disposition - medically stable for discharge, planning home on hospice Admission and Anticipated Discharge Date Admission Date: August 01, 2025 Subjective No complaints fo dizziness today since stopped her BP medications but still refuses to get out of bed. Tells me she wants to go home to [place] where they used to live. Physical Exam Constitutional: well developed; + not well nourished and no acute distress Eyes: EOM intact bilaterally (without diplopia) Respiratory: normal respiratory effort, lungs clear to auscultation normal respiratory effort; no respiratory distress Cardiovascular: RRR, no murmur, no edema Gastrointestinal (Abdomen): Percussion/Palpation: abdomen soft; abdomen nontender Neurologic: moves all extremities, awake and + confused Psychiatric: Orientation: alert and oriented to person; + not oriented to place and + not oriented to time Genitourinary: no CVA tenderness Results & Data Results & Data Vital Signs (Past 12 Hours) Vital Signs Temp Pulse Resp BP Pulse Ox O2 Del Method 08/16/25 15:25 36.7 C 58 L 16 137/68 96 Room Air 08/16/25 07:33 36.6 C 54 L 16 128/65 94 Room Air PG Care Time/CCT Total # of Minutes Spent Total Time Spent with Patient: Total time spent is greater than 50% in coordination of care (as documented) at patient's floor/unit and/or counseling patient: Coding Level of Care Code 47725 SUB INP/OBS CARE 2/35MIN Diagnoses Acute UTI N39.0 Hypomagnesemia E83.42 Generalized weakness R53.1 Failure to thrive in adult R62.7 Schizoaffective disorder F25.9"
--- NOTE | 2025-08-17 16:21 | Progress Note ---
"Date of Service August 17, 2025 Assessment & Plan (1) Acute UTI: (2) Hypomagnesemia: (3) Generalized weakness: (4) Failure to thrive in adult: (5) Schizoaffective disorder: Plan This is a 79 year old woman with past medical history of schizoaffective disorder, hypothyroidism, hypertension who presented to the ED on 08/01/2025 secondary to dysuria. She was admitted for management of her UTI. 08/17 - ongoing plans to d/c home with hospice - hospice agency working with family to get equipment into the house. #UTI | urine retention Initial urine culture grew Klebsiella oxytoc/[place] ornith - completed course of cefuroxime. Temple leaking - removed 08/08 and unfortunately with episodes of retention 08/09 require straight cath and again 08/10 so temple was replaced. Vancomycin resistant enterococcus - finished nitrofurantoin Contact isolation #Failure to thrive | severe malnutrition - additional history gathered from 08/08, Libby has not taken her routine medications in 9 weeks. Reports that he asked her every day if she is having UTI symptoms and she always has no until the day that she was brought to the hospital. She reports that Libby think she cannot walk but will sometimes be wandering the house at night stating that someone told her to go to a different room - Pt refusing to participate in PT/OT sessions while inpatient - Not ideal rehab candidate given refusal to participate in PT/OT & lacks the ability to follow direction currently - Discussed with CM that patient's goal is for her to return home. At this time do not feel safe as she is a x2 assist. Aristada injection given 08/09 - reports usually takes 48 hours to feel better. Thinks she cannot walk due to arthritis and dizziness, encouraged her she can and she is willing to take Tylenol. Patient continues to refuse to get out of bed. Celebrex started for arthritis After discussion with palliative planning on home with hospice care #Dizziness Appears to be improved off BP medications which she doesn't take at home due to non complaince #Schizoaffective disorder and dementia - Multiple readmissions - pt seems to do much better when she has the injectable Abilify on board. Has been set up with [facility] for consistent outpatient follow up, but [facility] has rescheduled their appointment. Next appointment scheduled 08/19 Abilify injection brought in by patient and administered 08/09 - Continue Aripiprazole IM depot injection, divalproex, Olanzapine prn - Lacks decisional capacity - Consult psychiatry #Hypomagnesemia - Resolved #Hypothyroidism - TSH WNL 08/06 - Continue levothyroxine #Moderate aortic stenosis - stable #HTN - Stop amlodipine and carvedilol #H/o DVT - remote. Continue Eliquis 2.5 mg BID #Constipation- MiraLAX prn, sennosides prn - continue #CHARLOTTE- Continue ferrous sulfate VTE Prophylaxis: Eliquis Disposition - medically stable for discharge, planning home on hospice Admission and Anticipated Discharge Date Admission Date: August 01, 2025 Subjective Not talking much, but states she's doing fine Wants to go home Review of Systems Review of Systems: Constitutional: No Weight Change, No Fever, No Chills, No Night Sweats, No Fatigue, No Malaise ENT/Mouth: No Hearing Changes, No Ear Pain, No Nasal Congestion, No Sinus Pain, No Hoarseness, No sore throat, No Rhinorrhea, No Swallowing Difficulty Eyes: No Eye Pain, No Swelling, No Redness, No Foreign Body, No Discharge, No Vision Changes Cardiovascular: No Chest Pain, No SOB, No PND, No Dyspnea on Exertion, No Orthopnea, No Claudication, No Edema, No Palpitations Respiratory: No Cough, No Sputum, No Wheezing, No Smoke Exposure, No Dyspnea Gastrointestinal: No Nausea, No Vomiting, No Diarrhea, No Constipation, No Pain, No Heartburn, No Anorexia, No Dysphagia, No Hematochezia, No Melena, No Flatulence, No Jaundice Genitourinary: No Dysmenorrhea, No DUB, No Dyspareunia, No Dysuria, No Urinary Frequency, No Hematuria, No Urinary Incontinence, No Urgency, No Flank Pain, No Urinary Flow Changes, No Hesitancy Musculoskeletal: No Arthralgias, No Myalgias, No Joint Swelling, No Joint Stiffness, No Back Pain, No Neck Pain, No Injury History Skin: No Skin Lesions, No Pruritis, No Hair Changes, No Breast/Skin Changes, No Nipple Discharge Neuro: No Weakness, No Numbness, No Paresthesias, No Loss of Consciousness, No Syncope, No Dizziness, No Headache, No Coordination Changes, No Recent Falls Psych: No Anxiety/Panic, No Depression, No Insomnia, No Personality Changes, No Delusions, No Rumination, No SI/HI/AH/VH, No Social Issues, No Memory Changes, No Violence/Abuse Hx., No Eating Concerns Heme/Lymph: No Bruising, No Bleeding, No Transfusions History, No Lymphadenopathy Endocrine: No Polyuria, No Polydipsia, No Temperature Intolerance Physical Exam Physical Exam: VITALS: Reviewed. WEIGHT/BMI reviewed. GEN: Healthy appearing, well-developed, NAD. PSYCH: confused at times, not talking much, flat affect HEENT -Head: NC/AT; -Eyes: PERRL, EOMI. No discharge or redn ess; -Ears: External ears are normal. Normal TMs. -Nose: Normal nares. -Mouth and throat: MMM. Normal gums, muc skyler, palate,. Good dentition. NECK: Supple, with no masses. CV: RRR, no m/r/g. LUNGS: CTAB, no w/r/c. ABD: Soft, NT/ND, NBS, no masses or organomegaly. : N/A SKIN: Warm, well perfused. No skin rashes or abnormal lesions. MSK: No deformities, Normal gait. EXT: No clubbing, cyanosis, or edema. NEURO: Ambulating with no limitations. Normal muscle strength and tone. No focal deficits. Results & Data Vital Signs (Past 12 Hours) Vital Signs Temp Pulse Resp BP Pulse Ox O2 Del Method 08/17/25 15:35 37.1 C 54 L 16 147/66 H 97 Room Air 08/17/25 07:09 36.7 C 54 L 15 149/65 H 97 Room Air PG Care Time/CCT Total # of Minutes Spent Total Time Spent with Patient: Total time spent is greater than 50% in coordination of care (as documented) at patient's floor/unit and/or counseling patient: Coding Level of Care Code 44846 SUB INP/OBS CARE 10/23MIN Diagnoses Acute UTI N39.0 Hypomagnesemia E83.42 Generalized weakness R53.1 Failure to thrive in adult R62.7 Schizoaffective disorder F25.9"
--- NOTE | 2025-08-18 20:50 | Hospitalist Progress Note ---
Date of Service August 18, 2025 Assessment & Plan (1) Acute UTI: Plan: RESOLVED s/p nitrofurantoin 100mg PO bid x 8 doses (08/10/2025, 10:06pm - 08/15/2025, 8:28am). cf., Urine culture (08/09/2025, straight catheterization): > 100,000 cfu/mL vancomycin-resistant, nitrofurantoin-sensitive Enterococcus faecalis 20,000 cfu/mL Yeni albicans (2) Hypomagnesemia: Plan: RESOLVED. cf., Mg 1.7 mg/dL (08/03/2025, 8:29pm). cf., Mg 1.6 mg/dL (08/05/2025, 6:36am). cf., Mg 1.6 mg/dL (08/06/2025, 6:14am). cf., Mg 1.7 mg/dL (08/07/2025, 6:20am). (3) Generalized weakness: Plan: PERSISTENT. (4) Failure to thrive in adult: Plan: PERSISTENT. (5) Schizoaffective disorder: Plan: PERSISTENT. Plan This is a 79 year old woman with past medical history of schizoaffective disorder, hypothyroidism, hypertension who presented to the ED on 08/01/2025 secondary to dysuria. She was admitted for management of her UTI. 08/17 - ongoing plans to d/c home with hospice - hospice agency working with family to get equipment into the house. #UTI | urine retention Initial urine culture grew Klebsiella oxytoc/Ethan ornith - completed course of cefuroxime. Temple leaking - removed 08/08 and unfortunately with episodes of retention 08/09 require straight cath and again 08/10 so temple was replaced. Vancomycin resistant enterococcus - finished nitrofurantoin Contact isolation #Failure to thrive | severe malnutrition - additional history gathered from 08/08, Libby has not taken her routine medications in 9 weeks. Reports that he asked her every day if she is having UTI symptoms and she always has no until the day that she was brought to the hospital. She reports that Libby think she cannot walk but will sometimes be wandering the house at night stating that someone told her to go to a different room - Pt refusing to participate in PT/OT sessions while inpatient - Not ideal rehab candidate given refusal to participate in PT/OT & lacks the ability to follow direction currently - Discussed with CM that patient's goal is for her to return home. At this time do not feel safe as she is a x2 assist. Aristada injection given 08/09 - reports usually takes 48 hours to feel better. Thinks she cannot walk due to arthritis and dizziness, encouraged her she can and she is willing to take Tylenol. Patient continues to refuse to get out of bed. Celebrex started for arthritis After discussion with palliative planning on home with hospice care #Dizziness Appears to be improved off BP medications which she doesn't take at home due to non complaince #Schizoaffective disorder and dementia - Multiple readmissions - pt seems to do much better when she has the injectable Abilify on board. Has been set up with [facility] for consistent outpatient follow up, but [facility] has rescheduled their appointment. Next appointment scheduled 08/19 Abilify injection brought in by patient and administered 08/09 - Continue Aripiprazole IM depot injection, divalproex, Olanzapine prn - Lacks decisional capacity - Consult psychiatry #Hypomagnesemia - Resolved #Hypothyroidism - TSH WNL 08/06 - Continue levothyroxine #Moderate aortic stenosis - stable #HTN - Stop amlodipine and carvedilol #H/o DVT - remote. Continue Eliquis 2.5 mg BID #Constipation- MiraLAX prn, sennosides prn - continue #CHARLOTTE- Continue ferrous sulfate VTE Prophylaxis: Eliquis Disposition - medically stable for discharge, planning home on hospice Admission and Anticipated Discharge Date Admission Date: August 01, 2025 Subjective "Going home tomorrow. Going home tomorrow." Review of Systems Constitutional: Negative for antecedent/coincident fevers, chills, diaphoresis, cough, wheeze, sore throat, hemoptysis, chest pains, palpitations, pleurisy, nausea, vomiting, diarrhea, abdominal pain, pelvic pain, hematemesis, hematochezia, melena, hematuria, dysuria, frequency, urgency, headaches, dizziness, lightheadedness, visual changes, hearing changes, weakness, falls, syncope, trauma, travel history, sick contacts, or food/drug ingestions novel or new. All other review of systems are reported as negative by the patient on 08/18/2025. Physical Exam Constitutional: General: comfortable, wide awake and alert. Not lethargic or obtunded. Patient speaks in two to three word sentences, one sentence at a time. No speaking in complete paragraph(s). HEENT: Normocephalic, atraumatic. PERRL. No nystagmus, gaze paresis, anisocoria, miosis, mydriasis, hyphema, scleral injection, conjunctivitis, or pterygium. No otorrhea. No rhinorrhea. No pharyngeal erythema, edema, ulceration, or discharge. Neck: Supple, no stridor, bruit, or goiter. Jugular venous pressure is estimated to be 3 cm above the sternal angle of Julio, which is, by convention, 5 cm above the level of the right atrium; jugular venous pressure is normal at 8 cm H2O. Chest: Symmetric rise and fall with respirations. Non-tender to palpation. Heart: RRR, S1 and S2 noted. No S3 or S4 summation gallop noted. Grade II/ early systolic murmur @ LLSB without radiation to the carotids, axilla, or back, and which remains invariant in regards to the respiratory cycle. Lungs: Clear to auscultation and percussion. No audible expiratory wheeze, egophony, pectoriloquy, increase in tactile fremitus, or flatness/dullness to percussion at the bases. Abdomen: Soft, non-tender, non-distended. No rebound, guarding, James's sign, or organomegaly. Bowel sounds auscultated in all 4 quadrants. Pelvis: Soft, non-tender, non-distended. Extremities: No clubbing, cyanosis, or edema. 2+ pedal pulses bilaterally. Skin: No exanthem or enanthem or decubitus. Neurology: No myoclonus, tremors, or tics. Urology: No temple catheter. No urethral discharge. Results & Data Results & Data Vital Signs (Past 12 Hours) Vital Signs Pulse Resp BP Pulse Ox O2 Del Method 08/18/25 18:01 68 18 144/75 H 98 Room Air Laboratory Results Urine culture (08/09/2025, straight catheterization): > 100,000 cfu/mL vancomycin-resistant Enterococcus faecalis 20,000 cfu/mL Yeni albicans Diagnostic Findings None. PG Care Time/CCT Total # of Minutes Spent Total Time Spent with Patient: Total time spent is greater than 50% in coordination of care (as documented) at patient's floor/unit and/or counseling patient: Coding Level of Care Code 27949 SUB INP/OBS CARE 2/35MIN Diagnoses Acute UTI N39.0 Hypomagnesemia E83.42 Generalized weakness R53.1 Failure to thrive in adult R62.7 Schizoaffective disorder F25.9
[2025-08-19 07:28] VITALS: BP 121/69; PULSE 60; RESP 16; TEMP 97.3; O2SAT 96
--- NOTE | 2025-08-19 11:19 | Discharge Summary ---
"Discharge Summary Date of Service August 19, 2025 Principal Dx & Hospital Course #1 = Principal Diagnosis (1) Acute UTI: RESOLVED s/p nitrofurantoin 100mg PO bid x 8 doses (08/10/2025, 10:06pm - 08/15/2025, 8:28am). cf., Urine culture (08/09/2025, straight catheterization): > 100,000 cfu/mL vancomycin-resistant, nitrofurantoin-sensitive Enterococcus faecalis; 20,000 cfu/mL Yeni albicans Observe. (2) Hypomagnesemia: RESOLVED. cf., Mg 1.7 mg/dL (08/03/2025, 8:29pm). cf., Mg 1.6 mg/dL (08/05/2025, 6:36am). cf., Mg 1.6 mg/dL (08/06/2025, 6:14am). cf., Mg 1.7 mg/dL (08/07/2025, 6:20am). Patient received magnesium oxide 400mg PO daily x 1 dose (08/05/2025, 2:09pm) and magnesium sulfate 1g IV x 1 dose (08/06/2025, 9:18am), and acute hypomagnesemia RESOLVED, as shown above. (3) Generalized weakness: PERSISTENT. Continue supportive care involving gentle re-direction and frequent re-assurance while in [facility] and on hospital discharge back to her home on 08/19/2025, this time with home hospice services. (4) Failure to thrive in adult: PERSISTENT. Continue supportive care involving gentle re-direction and frequent re-assurance while in [facility] and on hospital discharge back to her home on 08/19/2025, this time with home hospice services. (5) Schizoaffective disorder: PERSISTENT. Continue supportive care involving gentle re-direction and frequent re-assurance while in [facility] and on hospital discharge back to her home on 08/19/2025, this time with home hospice services. Plan This is a 79 year old woman with past medical history of schizoaffective disorder, hypothyroidism, hypertension who presented to the ED on 08/01/2025 seco ndary to dysuria. She was admitted for management of her UTI. 08/17 - ongoing plans to d/c home with hospice - hospice agency working with family to get equipment into the house. #UTI | urine retention Initial urine culture grew Klebsiella oxytoc/Ethan ornith - completed course of cefuroxime. Temple leaking - removed 08/08 and unfortunately with episodes of retention 08/09 require straight cath and again 08/10 so temple was replaced. Vancomycin resistant enterococcus - finished nitrofurantoin Contact isolation #Failure to thrive | severe malnutrition - additional history gathered from 08/08, Libby has not taken her routine medications in 9 weeks. Reports that he asked her every day if she is having UTI symptoms and she always has no until the day that she was brought to the hospital. She reports that Libby think she cannot walk but will sometimes be wandering the house at night stating that someone told her to go to a different room - Pt refusing to participate in PT/OT sessions while inpatient - Not ideal rehab candidate given refusal to participate in PT/OT & lacks the ability to follow direction currently - Discussed with CM that patient's goal is for her to return home. At this time do not feel safe as she is a x2 assist. Aristada injection given 08/09 - reports usually takes 48 hours to feel better. Thinks she cannot walk due to arthritis and dizziness, encouraged her she can and she is willing to take Tylenol. Patient continues to refuse to get out of bed. Celebrex started for arthritis After discussion with palliative planning on home with hospice care #Dizziness Appears to be improved off BP medications which she doesn't take at home due to non complaince #Schizoaffective disorder and dementia - Multiple readmissions - pt seems to do much better when she has the injectable Abilify on board. Has been set up with [facility] for consistent outpatient follow up, but [facility] has rescheduled their appointment. Next appointment scheduled 08/19 Abilify injection brought in by patient and administered 08/09 - Continue Aripiprazole IM depot injection, divalproex, Olanzapine prn - Lacks decisional capacity - Consult psychiatry #Hypomagnesemia - Resolved #Hypothyroidism - TSH WNL 08/06 - Continue levothyroxine #Moderate aortic stenosis - stable #HTN - Stop amlodipine and carvedilol #H/o DVT - remote. Continue Eliquis 2.5 mg BID #Constipation- MiraLAX prn, sennosides prn - continue #CHARLOTTE- Continue ferrous sulfate VTE Prophylaxis: Heidy Disposition - medically stable for discharge, planning home on hospice Admission HPI Per Admitting Provider Libby Abraham is a 79 year old female who presents to the ER via EMS where she lives with her reporting that it feliz on urination. She is currently de nying any burning sensation in the ER or to myself. She is unable to give me any history of how she ended up in the emergency room but she is aware she is in hospital. She thinks the year is 1924 and month is May. Per report her is no longer able to take care of her at home. I have been unable to contact the over the phone. On discussion with prior providers he has made a valiant effort to care for her at home but it appears everything has become too much for him at this point and planning on usp placement. Per triage note she has been refusing to eat, drink and take medication. Discharge Exam Constitutional General: comfortable, wide awake and alert. Not lethargic or obtunded. P atient speaks in two to three word sentences, one sentence at a time. No speaking in complete paragraph(s). HEENT: Normocephalic, atraumatic. PERRL. No nystagmus, gaze paresis, anisocoria, miosis, mydriasis, hyphema, scleral injection, conjunctivitis, or pterygium. No otorrhea. No rhinorrhea. No pharyngeal erythema, edema, ulceration, or discharge. Neck: Supple, no stridor, bruit, or goiter. Jugular venous pressure is estimated to be 3 cm above the sternal angle of Julio, which is, by convention, 5 cm above the level of the right atrium; jugular venous pressure is normal at 8 cm H2O. Chest: Symmetric rise and fall with respirations. Non-tender to palpation. Heart: RRR, S1 and S2 noted. No S3 or S4 summation gallop noted. Grade II/ early systolic murmur @ LLSB without radiation to the carotids, axilla, or back, and which remains invariant in regards to the respiratory cycle. Lungs: Clear to auscultation and percussion. No audible expiratory wheeze, egophony, pectoriloquy, increase in tactile fremitus, or flatness/dullness to percussion at the bases. Abdomen: Soft, non-tender, non-distended. No rebound, guarding, James's sign, or organomegaly. Bowel sounds auscultated in all 4 quadrants. Pelvis: Soft, non-tender, non-distended. Extremities: No clubbing, cyanosis, or edema. 2+ pedal pulses bilaterally. Skin: No exanthem or enanthem or decubitus. Neurology: No myoclonus, tremors, or tics. Urology: No temple catheter. No urethral discharge. Discharge Plan Discharge Items Patient Disposition: Hospice - Home Reason For Visit: SCHIZOAFFECTIVE DISORDER, UTI, NEED FOR PLACEMENT Discharge Diagnosis: 1. Acute vancomycin-resistant, nitrofurantoin-sensitive Enterococcus faecalis (as noted on 08/09/2025 urine culture). 2. Acute hypomagnesemia with post-admission Mg 1.6 mg/dL (08/05/2025, 6:36am). 3. Chronic/persistent failure to thrive. 4. Chronic/persistent schizoaffective disorder. Condition on Discharge: Fair Activity: Resume your previous activity Lifting: Gradually increase as tolerated Bathing: No limitations Exercise/Sports: Gradually increase as tolerated Weightbearing: Full weightbearing Non-emergency contact: Primary Care Provider Call non-emergency contact if: you have any medication questions Follow-up/Referrals: [facility] [Outside] (Appointment for 08/19/2025 was cancelled. If you wish to reschedule in the future please call to arrange appointment and/or call to discontinue services. ) Heaven Oneill CRNP [Primary Care Provider] - Diet: Regular Addtl Attending Provider Instructions: See your PCP OLVIN Damon, within 5-7 days of hospital discharge, for routine follow up visit. Pending Studies at Discharge: No Stand-Alone Forms: [facility] Medications and DC Order Prescriptions: Continued acetaminophen 325 mg Tablet 650 mg PO Q4H PRNQty: 0 0RF Aristada 662 mg/2.4 mL Suspension,Extended Rel Syring 662 mg IM UD Qty: 2.4 0RF Discontinued carvedilol 3.125 mg tablet 3.125 mg PO BIDM Qty: 180 0RF aspirin 81 mg tablet 81 mg PO DAILY amlodipine 5 mg tablet 5 mg PO DAILY Qty: 90 3RF Rx Instructions: FILLED 03/02/25 FOR 30 DAYS levothyroxine 100 mcg tablet 100 mcg PO DAILY Qty: 90 3RF Rx Instructions: FILLED 01/25/25 FOR 90 DAYS sennosides [Senna Lax] 8.6 mg tablet 8.6 mg PO QAM PRN (Reason: Constipation) polyethylene glycol 3350 [Miralax] 17 gram powder in packet 17 g PO DAILY PRN (Reason: Constipation) divalproex [Depakote] 250 mg tablet,delayed release (DR/EC) 250 mg PO DIRECTED Rx Instructions: Takes one tablet in the am and 2 in the pm aripiprazole [Abilify] 2 mg tablet 2 mg PO DAILY Hold Instructions: on higher dose until IM dose anticipated at [facility] olanzapine 10 mg Recon Soln 5 mg IM DAILY PRN (Reason: agitation) Qty: 6 0RF olanzapine 5 mg Tablet,Disintegrating 5 mg PO Q8H PRNQty: 0 0RF aripiprazole [Abilify] 15 mg Tablet 15 mg PO QAM Qty: 0 0RF Eliquis 2.5 mg Tablet 2.5 mg PO BID Qty: 0 0RF ferrous sulfate [Iron (ferrous sulfate)] 325 mg (65 mg iron) tablet 325 mg PO Q48H Qty: 90 3RF Rx Instructions: 325mg po daiy. 03/02/25-OTC/last filled --28 day supply. Discharge Orders: Discharge Order (Routine); Ordered 08/19/25 Ordered By: Pedro Aburto Admission Data Admit Date/Time: 08/01/25 13:04 Attending Provider: Pedro Aburto Admit Provider: Miquel Ngo Primary Care Provider: Heaven Oneill Other Providers: Devaughn Velez; Sara Palacios; Arden Schulte; Lola Mcmanus; Joceline Eduardo; Clarence Tolentino; Dutch Cloud; Justin Quinonez; Vicky Mondragon; Melody Lopez; [facility] Stay Data Consultations 08/01/25 12:33 ED Decision to Admit Stat 08/15/25 07:18 Consult Psychiatry Routine 08/15/25 07:19 Consult Palliative Care Routine Pending Results Patient Have Any Pending Studies at Discharge: No Discharge Instructions Given to Patient (Per Discharging Provider) See your PCP OLVIN Damon, within 5-7 days of hospital discharge, for routine follow up visit. Total Time Total Time Spent Total Time Spent (In Minutes): 35 minutes. Of this time period, 19 minutes were spent in coordinating patient's discharge. Coding Level of Care Code 26235 INP/OBS DISCH >30 MIN Diagnoses Acute UTI N39.0 Hypomagnesemia E83.42 Generalized weakness R53.1 Failure to thrive in adult R62.7 Schizoaffective disorder F25.9"
[2025-08-19] MEDS: INFLUENZA VACC TS2025-26(65y+)/PF (IIV3) 0.5mL Syr IM ONE (14:00)
== END 2025-08-19 14:15 | disposition hospice, home (50) | DRG 689 ==
LOC: ED 10:48 → SUATTDRO 13:04 → 3N 13:04